=== PATIENT | male | born 1955 | race Caucasian/White ===

== ENCOUNTER 2016-02-22 15:33 | Inpatient (IN) | payer MEDICARE, OTHER ==
[~2016-02-22] VITALS: Ht 188 cm; Wt 68.6 kg
[~2016-02-22 15:33] MED LIST: FOLI5CAP PO; LISI-515 PO; METO25TA3 PO; MULTTAB67 PO; QUET5TAB PO
[2016-02-22 15:37] VITALS: BP 132/97; PULSE 106; RESP 14; TEMP 98.4; O2SAT 97
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
[2016-02-22 18:36] LABS: AUTOMATED NEUTROPHIL # 7.1 TH/MM3 (1.8-7.7); BASOPHIL # 0.1 TH/MM3 (0-0.2); BASOPHIL % 0.5 % (0.0-2.0); EOSINOPHIL # 0.1 TH/MM3 (0-0.4); EOSINOPHIL % 0.6 % (0.0-4.0); HEMO FLAGS DIFF FINAL; LYMPH % 24.1 % (9.0-44.0); LYMPHOCYTE # 2.6 TH/MM3 (1.0-4.8); MEAN CELL VOLUME 93.7 FL (80.0-100.0); MEAN CORPUSCULAR HEMOGLOBIN 31.2 PG (27.0-34.0); MEAN CORPUSCULAR HGB CONC 33.3 % (32.0-36.0); MONO % 8.6 % (0.0-8.0); NEUT % 66.2 % (16.0-70.0); PLATELET COUNT 301 TH/MM3 (150-450); RED BLOOD COUNT 4.37 MIL/MM3 (4.50-5.90); RED CELL DISTRIBUTION WIDTH 17.8 % (11.6-17.2); WHITE BLOOD COUNT 10.7 TH/MM3 (4.0-11.0)
[2016-02-22] MEDS ORDERED: ACETAMINOPHEN 325 MG TAB PO ONE (18:45)
[2016-02-22 18:46] LABS: AMPHETAMINE, URINE NEG (NEG); BARBITURATES, URINE NEG (NEG); COCAINE, URINE POS (NEG)
[2016-02-22 19:12] LABS: ANION GAP 12 MEQ/L (5-15)
[2016-02-22 19:16] LABS: ALKALINE PHOSPHATASE 164 U/L (45-117); ALT (GPT) 74 U/L (12-78); AST (GOT) 89 U/L (15-37); BICARBONATE 25.3 MEQ/L (21.0-32.0); BLOOD UREA NITROGEN 6 MG/DL (7-18); CHLORIDE 100 MEQ/L (98-107); GLOMERULAR FILTRATION RATE 98 ML/MIN (>89); POTASSIUM 3.3 MEQ/L (3.5-5.1); SODIUM (NA) 137 MEQ/L (136-145); TOTAL BILIRUBIN ADULT 0.7 MG/DL (0.2-1.0)
[2016-02-22 19:27] LABS: ACETAMINOPHEN LESS THAN 2.0 MCG/ML (10.0-30.0)
[2016-02-22] MEDS ORDERED: POTASSIUM CHLORIDE 20 MEQ CONTROLLED RELEASE TAB PO ONE (19:30)
[2016-02-22 19:50] VITALS: BP 124/90; PULSE 100; RESP 14; O2SAT 99
[2016-02-22 20:55] VITALS: BP 128/94; PULSE 99; RESP 16; O2SAT 98
[2016-02-23] VITALS (8 sets, daily range): BP systolic 132–169; BP diastolic 11–90; PULSE 75–92; RESP 14–22; TEMP 96.3–98.3; O2SAT 94–99
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
[2016-02-23] MEDS ORDERED: MAGNESIUM HYDROXIDE SUSP 30 ML CUP PO PRN (16:30)
[2016-02-23] MEDS ORDERED: ALUMINUM/MAGNESIUM/SIMETH 30 ML CUP PO PRN (16:30)
[2016-02-23] MEDS ORDERED: FLUMAZENIL 1 MG/10 ML VIAL IV PUSH PRN (16:45)
[2016-02-23] MEDS ORDERED: LORazepam 2 MG/ML VIAL IV PUSH PRN ×4 (16:45)
[2016-02-23] MEDS: buPROPion HCL 100 MG SUSTAINED RELEASE TAB PO SCH (21:28)
[2016-02-23] MEDS: traZODone HCL 100 MG TAB PO SCH (21:28)
[2016-02-23] MEDS: LORazepam 2 MG TAB PO PRN (21:28)
[2016-02-24 05:34] VITALS: BP 110/71; PULSE 67; RESP 16; TEMP 98.1
[2016-02-24] MEDS ORDERED: cloNIDine HCL 0.1 MG TAB PO PRN (08:00)
[2016-02-24 08:46] LABS: ANION GAP 12 MEQ/L (5-15); BICARBONATE 22.6 MEQ/L (21.0-32.0); CHLORIDE 110 MEQ/L (98-107); GLOMERULAR FILTRATION RATE 108 ML/MIN (>89); HDL CHOLESTEROL 118.5 MG/DL (40.0-60.0); LDL CHOLESTEROL 58 MG/DL (0-99); POTASSIUM 4.2 MEQ/L (3.5-5.1); SODIUM (NA) 145 MEQ/L (136-145)
[2016-02-24 08:47] LABS: BLOOD UREA NITROGEN 14 MG/DL (7-18)
[2016-02-24] MEDS: REMOVE OLD NICODERM (NICOTINE) PATCH TD SCH (09:00)
[2016-02-24] MEDS: NICOTINE 21 MG/24 HR PATCH T-DERMAL SCH (09:00)
[2016-02-24] MEDS: chlordiazePOXIDE 25 MG CAP PO SCH ×3 (09:35→17:18)
[2016-02-24] MEDS: buPROPion HCL 100 MG SUSTAINED RELEASE TAB PO SCH ×2 (09:35→21:06)
[2016-02-24 11:33] VITALS: BP 127/81; PULSE 81; RESP 16; O2SAT 96
[2016-02-24] MEDS: LORazepam 1 MG TAB PO PRN (11:57)
--- NOTE | 2016-02-24 14:02 | HHI.PYPN ---
Subjective Remarks Patient was seen and case discussed with nursing. Patient is pleasant and cooperative with exam. Mood remains depressed and hopeless towards the future. Does deny suicidal thoughts and contracts for safety. He says just recently he was trying to drink himself to and when that did not work his plan was to cut himself razor blades that he has at home. Patient lives by himself. Nursing is doing the CIWA scale OR score was 11. He continues to be an alcohol detox protocol. Alert and oriented 4. Mild upper extremity tremors. Objective Alert: Yes [place]: Person, Place, Date Mood: Depressed Affect: Restricted Memory Intact: Immediate (Not impaired) Hallucinations: Other (deneis any) Delusions: No Delusion Type: Other (denies) Suicidal: Intent, Plan (to use razor blades) Homicidal: Ideation (denies any) Insight/Judgement Fair Labs Test 02/24/16 07:20 Sodium Level 145 MEQ/L Potassium Level 4.2 MEQ/L Chloride Level 110 MEQ/L Carbon Dioxide Level 22.6 MEQ/L Anion Gap 12 MEQ/L Blood Urea Nitrogen 14 MG/DL Creatinine 0.74 MG/DL Estimat Glomerular Filtration 108 ML/MIN Rate Random Glucose 91 MG/DL Calcium Level 9.4 MG/DL Triglycerides Level 66 MG/DL Cholesterol Level 190 MG/DL LDL Cholesterol 58 MG/DL HDL Cholesterol 118.5 MG/DL Cholesterol/HDL Ratio 1.60 RATIO Vitals/IOs Vital Signs Date Time Temp Pulse Resp B/P Pulse Ox O2 Delivery O2 Flow Rate FiO2 02/24/16 11:33 81 16 127/81 96 02/24/16 05:34 98.1 02/23/16 14:37 Room Air Intake and Output 02/23/16 02/23/16 02/24/16 08:00 16:00 00:00 Output Total 250 ml Balance -250 ml Assessment & Plan Problem List: (1) Alcohol dependence with alcohol-induced mood disorder ICD Code: F10.24 Assessment & Plan Continue current treatment plan Justification for Cont. Inpt. Cannot contract for safety at this time Request HC Surrog/Guard Advoc?: No Giuseppe Martin DO Feb 24, 2016 14:02
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
[2016-02-24 17:07] VITALS: BP 126/69; PULSE 70; RESP 17; TEMP 98.6; O2SAT 97
[2016-02-24 18:29] VITALS: BP 126/69; PULSE 70; RESP 17; TEMP 98.6; O2SAT 97
[2016-02-24] MEDS: LORazepam 2 MG TAB PO PRN (21:02)
[2016-02-24] MEDS: traZODone HCL 100 MG TAB PO SCH (21:06)
[2016-02-24] MEDS: BACITRACIN TOP OINT 15 GM TUBE TOP SCH (21:59)
[2016-02-25] MEDS: LORazepam 1 MG TAB PO PRN ×3 (00:41→13:37)
[2016-02-25 05:53] VITALS: BP 131/83; PULSE 68; RESP 16; TEMP 97.3
[2016-02-25 06:16] VITALS: BP 131/83; PULSE 68; RESP 16; TEMP 97.3
[2016-02-25] MEDS: NICOTINE 21 MG/24 HR PATCH T-DERMAL SCH (09:00)
[2016-02-25] MEDS: REMOVE OLD NICODERM (NICOTINE) PATCH TD SCH (09:00)
[2016-02-25] MEDS: buPROPion HCL 100 MG SUSTAINED RELEASE TAB PO SCH ×2 (09:23→21:12)
[2016-02-25] MEDS: chlordiazePOXIDE 25 MG CAP PO SCH ×3 (09:23→17:31)
[2016-02-25] MEDS: BACITRACIN TOP OINT 15 GM TUBE TOP SCH ×2 (09:24→21:00)
--- NOTE | 2016-02-25 10:13 | HHI.PR ---
Subjective Remarks Follow up ETOH withdraw Patient awoken from sleep noted to have mild BUE tremors Continues to feel generalized weakness with some nausea no vomiting or diarrhea denies CP, SOB Objective Vitals Vital Signs Date Time Temp Pulse Resp B/P Pulse Ox O2 Delivery O2 Flow Rate FiO2 02/25/16 06:16 97.3 68 16 131/83 02/25/16 05:53 97.3 68 16 131/83 02/24/16 18:29 98.6 70 17 126/69 97 02/24/16 17:07 98.6 70 17 126/69 97 02/24/16 11:33 81 16 127/81 96 Result Diagram: 02/22/16 1750 02/24/16 0720 Objective Remarks GENERAL: This is a thin, well-developed patient, with bilateral upper extremity tremors SKIN: multiple abrasions bilateral knees and forearms in various stages of healing. Abrasion/wound left anterior becker with purulent drainage noted HEAD: Atraumatic. Normocephalic. No temporal or scalp tenderness. EYES: Extraocular motions intact. No scleral icterus. No injection or drainage. ENT: Nose without bleeding, purulent drainage or septal hematoma. Throat without erythema, tonsillar hypertrophy or exudate. Uvula midline. Airway patent. NECK: Trachea midline. No JVD or lymphadenopathy. Supple, nontender, no meningeal signs. CARDIOVASCULAR: Regular rate and rhythm without murmurs, gallops, or rubs. RESPIRATORY: Clear to auscultation. Breath sounds equal bilaterally. No wheezes , rales, or rhonchi. GASTROINTESTINAL: Abdomen soft, non-tender, nondistended. No hepato-splenomegaly , or palpable masses. No guarding. MUSCULOSKELETAL: Extremities without clubbing, cyanosis, or edema. No joint tenderness, effusion, or edema noted. No calf tenderness. Negative Homans sign bilaterally. Contracted third and fourth digit bilateral hands with ulnar deviation noted consistent with RA NEUROLOGICAL: Awake and alert. Motor and sensory grossly within normal limits. 4 out of 5 muscle strength in all muscle groups. with mild BUE tremors A/P Assessment and Plan This a 60-year-old male patient with past medical history includes hypertension hepatitis C chronic pancreatitis and rheumatoid arthritis. Patient reports he is posted take medication for his rheumatoid arthritis but has not been taking anything. Patient is currently inpatient psychiatric services we have been consulted for assistance with management of EtOH withdrawal. Patient reports he drinks approximally 18 beers plus liquor every each day for the past year. Patient does report he feels anxious but there is no visual tremors at this time. Patient also voices concern that he has either lower extremity edema and has had frequent falls and there are multiple abrasions bilateral knees and forearms in various stages of healing. Abrasion/wound left anterior becker with purulent drainage noted. EtOH withdrawal continue Cipro protocol at [facility] 25 mg 3 times a day as needed noted to be tremulous asked RN to give ativan- continue CIWA protocol Monitor patient closely for signs of EtOH withdrawal Hypokalemia- resolved 3.3 replaced recheck 4.2 Small wound left anterior becker with purulent drainage- no erythema noted apply Bactroban topically Continue to monitor for signs and symptoms of infection Polysubstance abuse patient counseled on the health risk he is encouraged to abstain Alcoholic mood disorder. Management by psychiatric services Weakness bilateral lower extremities consult physical therapy DVT prophylaxis encourage early ambulation Discussed with patient RN and Fani Linares Feb 25, 2016 10:13
[2016-02-25 11:00] VITALS: BP 120/79; PULSE 89; O2SAT 97
[2016-02-25 11:18] LABS: HEMOGLOBIN A1a 1.9 %; HEMOGLOBIN A1b 0.8 %; HEMOGLOBIN Ao 85.6 %; HEMOGLOBIN F 0.6 %; HEMOGLOBIN LA1C 1.9 %; HEMOGLOBIN P3 3.4 %
--- NOTE | 2016-02-25 15:37 | HHI.PYPN ---
Subjective Remarks Patient was seen and case discussed with nursing. Hasn't and cooperative with exam. Continues to have mild tremor of upper extremities. Patient does not have any auditory visual hallucinations. He is alert and oriented 3. No confusion. Describes his mood as hopeless for the future passive suicidal ideation area chief complaint today is poor sleep Objective Alert: Yes [place]: Person, Place, Date Mood: Depressed Affect: Restricted Memory Intact: Immediate (Not impaired) Hallucinations: Other (deneis any) Delusions: No Delusion Type: Other (denies) Suicidal: Intent, Plan (to use razor blades) Homicidal: Ideation (denies any) Insight/Judgement Fair Vitals/IOs Vital Signs Date Time Temp Pulse Resp B/P Pulse Ox O2 Delivery O2 Flow Rate FiO2 02/25/16 06:16 97.3 68 16 131/83 02/24/16 18:29 97 02/23/16 14:37 Room Air Assessment & Plan Problem List: (1) Alcohol dependence with alcohol-induced mood disorder ICD Code: F10.24 Assessment & Plan Increase trazodone to 200mg daily at bedtime Justification for Cont. Inpt. Unable to contract for safety Request HC Surrog/Guard Advoc?: No Giuseppe Martin DO Feb 25, 2016 15:36
[2016-02-25 18:35] VITALS: BP 132/79; PULSE 76; RESP 18; TEMP 98.1; O2SAT 98
[2016-02-25] MEDS: traZODone HCL 100 MG TAB PO SCH (21:12)
[2016-02-26 06:02] VITALS: BP 115/58; PULSE 69; RESP 16; TEMP 97.9
[2016-02-26] MEDS: REMOVE OLD NICODERM (NICOTINE) PATCH TD SCH (09:00)
[2016-02-26] MEDS: chlordiazePOXIDE 25 MG CAP PO SCH ×2 (09:25→12:11)
[2016-02-26] MEDS: buPROPion HCL 100 MG SUSTAINED RELEASE TAB PO SCH ×2 (09:25→22:01)
[2016-02-26] MEDS: BACITRACIN TOP OINT 15 GM TUBE TOP SCH ×2 (09:25→22:01)
[2016-02-26] MEDS: NICOTINE 21 MG/24 HR PATCH T-DERMAL SCH (09:26)
[2016-02-26] MEDS: LORazepam 1 MG TAB PO PRN ×2 (09:34→15:24)
--- NOTE | 2016-02-26 11:10 | HHI.PYPN ---
Subjective Remarks Patient was seen and discussed custody with the staff design engineer. He complains of leg pain and not being able to walk for a long time. He stands up for a while. He does admit to feeling hopeless and helpless but feels safe in the hospital. He wants to quit abusing alcohol. He does admit to occasionally hearing voices and feeling dizzy and going through some withdrawal with tremors. No behavior or management problem reported. He was advised to abstain from any alcohol use and her abuse upon discharge. And join AA. Continue with the same treatment. Review of Systems Psychiatric: COMPLAINS OF: Anxiety, Mood changes, Depression, Hallucinations Other Review of systems same as that of 02/24/16 Objective Alert: Yes [place]: Person, Place, Date Mood: Anxious, Depressed Affect: Restricted Memory Intact: Immediate (Not impaired), Recent (mildly impaired) Hallucinations: Other (admitted to occasionally hearing voices) Delusions: No Delusion Type: Other (guarded) Suicidal: Ideation (patient feels safe in the hospital but has thoughts of wanting to end his life crosses his mind) Homicidal: Ideation (denies any) Insight/Judgement Limited Vitals/IOs Vital Signs Date Time Temp Pulse Resp B/P Pulse Ox O2 Delivery O2 Flow Rate FiO2 02/26/16 06:02 97.9 69 16 115/58 02/25/16 18:35 98 02/23/16 14:37 Room Air Assessment & Plan Problem List: (1) Alcohol dependence with alcohol-induced mood disorder ICD Code: F10.24 Assessment & Plan Estimated LOS: days Justification for Cont. Inpt. Monitoring of the medication stabilization. Watching any alcohol withdrawal symptoms. And it is for safety Request HC Surrog/Guard Advoc?: No Francisco Javier Merlos MD Feb 26, 2016 11:10
--- NOTE | 2016-02-26 17:03 | HHI.PR ---
Subjective Remarks Follow up ETOH withdraw Patient was evaluated in wheelchair in psychiatric inpatient Continues to feel generalized weakness with some anxiety denies CP, SOB Objective Vitals Vital Signs Date Time Temp Pulse Resp B/P Pulse Ox O2 Delivery O2 Flow Rate FiO2 02/26/16 06:02 97.9 69 16 115/58 02/25/16 18:35 98.1 76 18 132/79 98 Result Diagram: 02/22/16 1750 02/24/16 0720 Objective Remarks GENERAL: This is a thin, well-developed patient, with bilateral upper extremity tremors- improving SKIN: multiple abrasions bilateral knees and forearms in various stages of healing. Abrasion/wound left anterior becker with purulent drainage noted HEAD: Atraumatic. Normocephalic. No temporal or scalp tenderness. EYES: Extraocular motions intact. No scleral icterus. No injection or drainage. ENT: Nose without bleeding, purulent drainage or septal hematoma. Throat without erythema, tonsillar hypertrophy or exudate. Uvula midline. Airway patent. NECK: Trachea midline. No JVD or lymphadenopathy. Supple, nontender, no meningeal signs. CARDIOVASCULAR: Regular rate and rhythm without murmurs, gallops, or rubs. RESPIRATORY: Clear to auscultation. Breath sounds equal bilaterally. No wheezes , rales, or rhonchi. GASTROINTESTINAL: Abdomen soft, non-tender, nondistended. No hepato-splenomegaly , or palpable masses. No guarding. MUSCULOSKELETAL: Extremities without clubbing, cyanosis, or edema. No joint tenderness, effusion, or edema noted. No calf tenderness. Negative Homans sign bilaterally. Contracted third and fourth digit bilateral hands with ulnar deviation noted consistent with RA NEUROLOGICAL: Awake and alert. Motor and sensory grossly within normal limits. 4 out of 5 muscle strength in all muscle groups. with mild BUE tremors- improving A/P Assessment and Plan This a 60-year-old male patient with past medical history includes hypertension hepatitis C chronic pancreatitis and rheumatoid arthritis. Patient reports he is posted take medication for his rheumatoid arthritis but has not been taking anything. Patient is currently inpatient psychiatric services we have been consulted for assistance with management of EtOH withdrawal. Patient reports he drinks approximally 18 beers plus liquor every each day for the past year. Patient does report he feels anxious but there is no visual tremors at this time. Patient also voices concern that he has either lower extremity edema and has had frequent falls and there are multiple abrasions bilateral knees and forearms in various stages of healing. Abrasion/wound left anterior becker with purulent drainage noted. EtOH withdrawal continue [facility] protocol decrease Librium 10 mg 3 times a day Bilateral upper extremities tremor improving Monitor patient closely for signs of EtOH withdrawal Hypokalemia-improved Small wound left anterior becker with purulent drainage- no erythema noted Small and abrasion right hand fifth digit-mild localized erythema noted apply Bactroban topically Continue to monitor for signs and symptoms of infection Polysubstance abuse patient counseled on the health risk he is encouraged to abstain Alcoholic mood disorder. Management by psychiatric services Weakness bilateral lower extremities consult physical therapy Discussed with patient RN Written by Fani Willis, acting as scribe for Dr. Mckenzie on 02/26/16 at 17:02. The documentation accurately reflects the work performed [id number] by me on 02/26/16 at 17:02 Fani Willis Feb 26, 2016 17:03 Lex Mckenzie MD Feb 26, 2016 23:59
[2016-02-26 20:12] VITALS: BP 134/80; PULSE 75; RESP 17; TEMP 97.5; O2SAT 98
[2016-02-26] MEDS: traZODone HCL 100 MG TAB PO SCH (22:01)
[2016-02-27] MEDS: LORazepam 1 MG TAB PO PRN ×2 (00:07→06:28)
[2016-02-27 06:16] VITALS: BP 127/76; PULSE 77; RESP 18; TEMP 98; O2SAT 100
[2016-02-27] MEDS: ACETAMINOPHEN 325 MG TAB PO PRN (06:28)
[2016-02-27] MEDS ORDERED: FLUMAZENIL 1 MG/10 ML VIAL IV PUSH PRN (08:45)
[2016-02-27] MEDS: NICOTINE 21 MG/24 HR PATCH T-DERMAL SCH (08:59)
[2016-02-27] MEDS: REMOVE OLD NICODERM (NICOTINE) PATCH TD SCH (08:59)
[2016-02-27] MEDS: buPROPion HCL 100 MG SUSTAINED RELEASE TAB PO SCH (09:00)
[2016-02-27] MEDS: BACITRACIN TOP OINT 15 GM TUBE TOP SCH ×2 (09:00→21:00)
[2016-02-27] MEDS: FOLIC ACID 1 MG TAB PO SCH (09:02)
[2016-02-27] MEDS: THIAMINE HCL 100 MG TAB PO SCH (09:03)
[2016-02-27] MEDS: MULTIVITAMINS/MINERALS THERAPEUTIC TAB PO SCH (09:03)
--- NOTE | 2016-02-27 10:47 | HHI.PYPN ---
Subjective Remarks Patient was seen and discussed with the medical staff credentialing coordinator. Patient reported that he has not been feeling well. He has been having trouble sleeping. Complains of pain in his leg and not being able to walk. He is using the wheelchair. He also complains of feeling anxious nervous and wants more Ativan but he could be reassured. No behavior or management problem reported. He was encouraged to participate in all the therapeutic activity on the floor. No side effects were complained. He is compliant in taking medication. Continue with the same treatment. mountain services manager to assist him. Review of Systems Psychiatric: COMPLAINS OF: Anxiety, Mood changes, Depression Other Review of systems same as that of 02/24/16 Objective Alert: Yes [place]: Person, Place, Date Mood: Anxious, Depressed Affect: Restricted Memory Intact: Immediate (Not impaired), Recent (mildly impaired) Hallucinations: Other (admitted to occasionally hearing voices) Delusions: No Delusion Type: Other (guarded) Suicidal: Ideation (patient denied any suicidal ideation intentions or plan) Homicidal: Ideation (denies any) Insight/Judgement Fair Remarks Attention and concentration improving. Patient is using the wheelchair. Language normal. Fund of knowledge average Vitals/IOs Vital Signs Date Time Temp Pulse Resp B/P Pulse Ox O2 Delivery O2 Flow Rate FiO2 02/27/16 06:16 98.0 77 18 127/76 100 02/23/16 14:37 Room Air Assessment & Plan Problem List: (1) Alcohol dependence with alcohol-induced mood disorder ICD Code: F10.24 Assessment & Plan Estimated LOS: days Justification for Cont. Inpt. Monitoring of the medication for the stabilization of his mood. Watching for any alcohol withdrawal symptoms in treating accordingly. Request HC Surrog/Guard Advoc?: No Francisco Javier Merlos MD Feb 27, 2016 10:47
[2016-02-27 20:05] VITALS: BP 135/79; PULSE 78; RESP 18; TEMP 98.1; O2SAT 97
[2016-02-27] MEDS: buPROPion HCL 150 MG SUSTAINED RELEASE TAB PO SCH (21:09)
[2016-02-27] MEDS: traZODone HCL 100 MG TAB PO SCH (21:10)
[2016-02-28 06:17] VITALS: BP 116/62; PULSE 74; RESP 18; TEMP 97.7; O2SAT 100
[2016-02-28] MEDS: MULTIVITAMINS/MINERALS THERAPEUTIC TAB PO SCH (08:48)
[2016-02-28] MEDS: FOLIC ACID 1 MG TAB PO SCH (08:48)
[2016-02-28] MEDS: buPROPion HCL 150 MG SUSTAINED RELEASE TAB PO SCH ×2 (08:48→20:38)
[2016-02-28] MEDS: NICOTINE 21 MG/24 HR PATCH T-DERMAL SCH (08:48)
[2016-02-28] MEDS: THIAMINE HCL 100 MG TAB PO SCH (08:48)
[2016-02-28] MEDS: BACITRACIN TOP OINT 15 GM TUBE TOP SCH ×2 (08:49→20:38)
[2016-02-28] MEDS: REMOVE OLD NICODERM (NICOTINE) PATCH TD SCH (08:49)
--- NOTE | 2016-02-28 10:40 | HHI.PR ---
Subjective Remarks Follow up ETOH withdraw Patient was evaluated in wheelchair in psychiatric inpatient Continues to feel generalized weakness, less anxiety. not tremulous at this time denies CP, SOB Objective Vitals Vital Signs Date Time Temp Pulse Resp B/P Pulse Ox O2 Delivery O2 Flow Rate FiO2 02/28/16 06:17 97.7 74 18 116/62 100 02/27/16 20:05 98.1 78 18 135/79 97 I/O 02/27/16 02/27/16 02/27/16 02/28/16 02/28/16 02/28/16 07:00 15:00 23:00 07:00 15:00 23:00 Intake Total 360 ml Balance 360 ml Intake Oral 360 ml Result Diagram: 02/24/16 0720 Objective Remarks GENERAL: This is a thin, well-developed patient, with bilateral upper extremity tremors- improved SKIN: multiple abrasions bilateral knees and forearms in various stages of healing. Abrasion/wound left anterior becker healing HEAD: Atraumatic. Normocephalic. No temporal or scalp tenderness. EYES: Extraocular motions intact. No scleral icterus. No injection or drainage. ENT: Nose without bleeding, purulent drainage or septal hematoma. Throat without erythema, tonsillar hypertrophy or exudate. Uvula midline. Airway patent. NECK: Trachea midline. No JVD or lymphadenopathy. Supple, nontender, no meningeal signs. CARDIOVASCULAR: Regular rate and rhythm without murmurs, gallops, or rubs. RESPIRATORY: Clear to auscultation. Breath sounds equal bilaterally. No wheezes , rales, or rhonchi. GASTROINTESTINAL: Abdomen soft, non-tender, nondistended. No hepato-splenomegaly , or palpable masses. No guarding. MUSCULOSKELETAL: Extremities without clubbing, cyanosis, or edema. No joint tenderness, effusion, or edema noted. No calf tenderness. Negative Homans sign bilaterally. Contracted third and fourth digit bilateral hands with ulnar deviation noted consistent with RA NEUROLOGICAL: Awake and alert. Motor and sensory grossly within normal limits. 4 out of 5 muscle strength in all muscle groups. with mild BUE tremors- improved A/P Assessment and Plan This a 60-year-old male patient with past medical history includes hypertension hepatitis C chronic pancreatitis and rheumatoid arthritis. Patient reports he is posted take medication for his rheumatoid arthritis but has not been taking anything. Patient is currently inpatient psychiatric services we have been consulted for assistance with management of EtOH withdrawal. Patient reports he drinks approximally 18 beers plus liquor every each day for the past year. Patient does report he feels anxious but there is no visual tremors at this time. Patient also voices concern that he has either lower extremity edema and has had frequent falls and there are multiple abrasions bilateral knees and forearms in various stages of healing. Abrasion/wound left anterior becker with purulent drainage noted. EtOH withdrawal continue [facility] protocol change Librium to 10 mg TID as needed Bilateral upper extremities tremor improved Monitor patient for signs of EtOH withdrawal Hypokalemia-improved Small wound left anterior becker with purulent drainage- no erythema noted- healing Small and abrasion right hand fifth digit-mild localized erythema noted- healing apply Bactroban topically Continue to monitor for signs and symptoms of infection Polysubstance abuse patient counseled on the health risk he is encouraged to abstain Alcoholic mood disorder. Management by psychiatric services Weakness bilateral lower extremities consult physical therapy Discussed with patient RN Patient appears medically stable will sign off, if patient's condition changes or if further assistance is needed please reconsult Fani Willis Feb 28, 2016 10:40 Anthony Balderrama MD Feb 28, 2016 16:45
--- NOTE | 2016-02-28 11:15 | HHI.PYPN ---
Subjective Remarks Patient was seen and discussed with the rn staff. Patient complained about feeling depressed frustrated weak not being able to walk and using the wheelchair he was encouraged to participate in all the therapeutic activity. Patient denied any suicidal ideation intentions or plan. No behavior or management problem reported advised to continue with the same treatment Review of Systems Psychiatric: COMPLAINS OF: Anxiety, Mood changes, Depression Other Review of systems same as that of 02/24/16 Objective Alert: Yes [place]: Person, Place, Date Mood: Anxious, Depressed Affect: Restricted Memory Intact: Immediate (Not impaired), Recent (mildly impaired) Hallucinations: Other (admitted to occasionally hearing voices) Delusions: No Delusion Type: Other (guarded) Suicidal: Ideation (patient denied any suicidal ideation intentions or plan) Homicidal: Ideation (denies any) Insight/Judgement Fair to limited Remarks Attention and concentration improving. Patient uses wheelchair. Language normal. Fund of knowledge average Vitals/IOs Vital Signs Date Time Temp Pulse Resp B/P Pulse Ox O2 Delivery O2 Flow Rate FiO2 02/28/16 06:17 97.7 74 18 116/62 100 Intake and Output 02/27/16 02/27/16 02/28/16 08:00 16:00 00:00 Intake Total 360 ml Balance 360 ml Assessment & Plan Problem List: (1) Alcohol dependence with alcohol-induced mood disorder ICD Code: F10.24 Assessment & Plan Estimated LOS: days Justification for Cont. Inpt. Monitor and titrate the medication to stabilize patient on the medication. Request HC Surrog/Guard Advoc?: No Francisco Javier Merlos MD Feb 28, 2016 11:15
[2016-02-28 18:40] VITALS: BP 136/78; PULSE 72; RESP 18; TEMP 98.1; O2SAT 100
[2016-02-28] MEDS: LORazepam 1 MG TAB PO PRN (20:38)
[2016-02-28] MEDS: traZODone HCL 100 MG TAB PO SCH (20:38)
[2016-02-29 06:09] VITALS: BP 117/71; PULSE 77; RESP 18; TEMP 98.2
[2016-02-29] MEDS: REMOVE OLD NICODERM (NICOTINE) PATCH TD SCH (09:00)
[2016-02-29] MEDS: BACITRACIN TOP OINT 15 GM TUBE TOP SCH ×2 (09:00→20:47)
[2016-02-29] MEDS: THIAMINE HCL 100 MG TAB PO SCH (09:43)
[2016-02-29] MEDS: MULTIVITAMINS/MINERALS THERAPEUTIC TAB PO SCH (09:43)
[2016-02-29] MEDS: buPROPion HCL 150 MG SUSTAINED RELEASE TAB PO SCH ×2 (09:43→20:47)
[2016-02-29] MEDS: FOLIC ACID 1 MG TAB PO SCH (09:43)
[2016-02-29] MEDS: NICOTINE 21 MG/24 HR PATCH T-DERMAL SCH (09:47)
--- NOTE | 2016-02-29 09:51 | HHI.PYPN ---
Subjective Remarks Patient was seen and discussed with the staff forester. Patient has been in the wheelchair. Feels weak and shaky but better than before. Denied any suicidal ideation intentions or plan. Denied any active auditory or visual hallucinations. No side effects were complained. Continue with the same treatment. Review of Systems Psychiatric: COMPLAINS OF: Anxiety, Mood changes, Depression Other Review of systems same as that of 02/24/16 Objective Alert: Yes [place]: Person, Place, Date Mood: Anxious, Depressed Affect: Restricted Memory Intact: Immediate (Not impaired), Recent (mildly impaired) Hallucinations: Other (admitted to occasionally hearing voices) Delusions: No Delusion Type: Other (guarded) Suicidal: Ideation (patient denied any suicidal ideation intentions or plan) Homicidal: Ideation (denies any) Insight/Judgement Fair Vitals/IOs Vital Signs Date Time Temp Pulse Resp B/P Pulse Ox O2 Delivery O2 Flow Rate FiO2 02/29/16 06:09 98.2 77 18 117/71 02/28/16 18:40 100 Assessment & Plan Problem List: (1) Alcohol dependence with alcohol-induced mood disorder ICD Code: F10.24 Assessment & Plan Estimated LOS: days Justification for Cont. Inpt. Monitoring the medication watching for any withdrawal symptoms till patient stabilizes Request HC Surrog/Guard Advoc?: No Francisco Javier Merlos MD Feb 29, 2016 09:51
[2016-02-29] MEDS: LORazepam 1 MG TAB PO PRN ×3 (10:20→20:47)
[2016-02-29 19:48] VITALS: BP 148/81; PULSE 79; RESP 20; TEMP 98.7; O2SAT 95
[2016-02-29] MEDS: traZODone HCL 100 MG TAB PO SCH (20:47)
[2016-03-01 05:40] VITALS: BP 136/71; PULSE 75; RESP 18; TEMP 97.9; O2SAT 96
[2016-03-01] MEDS: buPROPion HCL 150 MG SUSTAINED RELEASE TAB PO SCH ×2 (08:33→21:11)
[2016-03-01] MEDS: MULTIVITAMINS/MINERALS THERAPEUTIC TAB PO SCH (08:33)
[2016-03-01] MEDS: BACITRACIN TOP OINT 15 GM TUBE TOP SCH ×2 (08:33→21:00)
[2016-03-01] MEDS: THIAMINE HCL 100 MG TAB PO SCH (08:33)
[2016-03-01] MEDS: FOLIC ACID 1 MG TAB PO SCH (08:33)
[2016-03-01] MEDS: NICOTINE 21 MG/24 HR PATCH T-DERMAL SCH (08:35)
[2016-03-01] MEDS: REMOVE OLD NICODERM (NICOTINE) PATCH TD SCH (08:38)
--- NOTE | 2016-03-01 08:58 | HHI.PYPN ---
Subjective Remarks Patient was seen and discussed with the staff electrical engineer. Patient reported that he has not been feeling well he feels anxious nervous worried he is using the wheelchair he also complains of feeling weak and not able to walk. He was encouraged to participate in all the therapeutic activity on the floor. Denied any suicidal ideation intentions or plan. Denied any auditory or visual hallucinations. Review of Systems Psychiatric: COMPLAINS OF: Anxiety, Mood changes, Depression Other Review of systems same as that of 02/24/16 Objective Alert: Yes [place]: Person, Place, Date Mood: Anxious, Depressed Affect: Restricted Memory Intact: Immediate (Not impaired), Recent (mildly impaired) Hallucinations: Other (admitted to occasionally hearing voices) Delusions: No Delusion Type: Other (guarded) Suicidal: Ideation (patient denied any suicidal ideation intentions or plan) Homicidal: Ideation (denies any) Insight/Judgement Fair to limited Remarks Attention and concentration improving. Patient uses wheelchair. Language normal. Fund of knowledge average Vitals/IOs Vital Signs Date Time Temp Pulse Resp B/P Pulse Ox O2 Delivery O2 Flow Rate FiO2 03/01/16 05:40 97.9 75 18 136/71 96 Assessment & Plan Problem List: (1) Alcohol dependence with alcohol-induced mood disorder ICD Code: F10.24 Assessment & Plan Estimated LOS: days Justification for Cont. Inpt. Monitoring of the medication and titrating the medication to stabilize the patient. And observe for any withdrawal symptoms and treat accordingly Request HC Surrog/Guard Advoc?: No Francisco Javier Merlos MD Mar 01, 2016 08:58
[2016-03-01] MEDS: LORazepam 1 MG TAB PO PRN ×3 (14:04→21:10)
[2016-03-01 19:35] VITALS: BP 116/69; PULSE 73; RESP 18; TEMP 98.1; O2SAT 99
[2016-03-01] MEDS: traZODone HCL 100 MG TAB PO SCH (21:10)
[2016-03-02 06:16] VITALS: BP 119/78; PULSE 78; RESP 17; TEMP 97.5; O2SAT 95
[2016-03-02] MEDS: REMOVE OLD NICODERM (NICOTINE) PATCH TD SCH (09:00)
[2016-03-02] MEDS: FOLIC ACID 1 MG TAB PO SCH (09:05)
[2016-03-02] MEDS: THIAMINE HCL 100 MG TAB PO SCH (09:05)
[2016-03-02] MEDS: MULTIVITAMINS/MINERALS THERAPEUTIC TAB PO SCH (09:05)
[2016-03-02] MEDS: NICOTINE 21 MG/24 HR PATCH T-DERMAL SCH (09:06)
[2016-03-02] MEDS: BACITRACIN TOP OINT 15 GM TUBE TOP SCH ×2 (09:06→21:00)
[2016-03-02] MEDS: buPROPion HCL 150 MG SUSTAINED RELEASE TAB PO SCH ×2 (09:07→21:56)
--- NOTE | 2016-03-02 14:20 | HHI.PYPN ---
Subjective Remarks Patient seen in day room with nurse Kirti, sitting in wheelchair, complaining of pain though he appears quite comfortable. States this is some history med seeking with this man. For now continue treatment no change Review of Systems Other No change since 02/23 Objective Alert: Yes [place]: Person, Place, Date Mood: Anxious, Depressed Affect: Restricted Memory Intact: Immediate (Not impaired), Recent (mildly impaired) Hallucinations: Other (admitted to occasionally hearing voices) Delusions: No Delusion Type: Other (guarded) Suicidal: Ideation (patient denied any suicidal ideation intentions or plan) Homicidal: Ideation (denies any) Insight/Judgement Poor Vitals/IOs Vital Signs Date Time Temp Pulse Resp B/P Pulse Ox O2 Delivery O2 Flow Rate FiO2 03/02/16 06:16 97.5 78 17 119/78 95 Assessment & Plan Problem List: (1) Alcohol dependence with alcohol-induced mood disorder ICD Code: F10.24 Assessment & Plan Estimated LOS: days patient sitting in wheelchair complaining of pain more towards his legs, compliant medications, at times appears to be somewhat drug- seeking Justification for Cont. Inpt. At this time patient will decompensate at a lower level of care Discharge Planning To be determined Request HC Surrog/Guard Advoc?: No Vikas Molina MD Mar 02, 2016 14:20
[2016-03-02 18:19] VITALS: BP 129/84; PULSE 69; RESP 18; TEMP 97.8; O2SAT 99
[2016-03-02] MEDS: traZODone HCL 100 MG TAB PO SCH (21:56)
[2016-03-03 06:05] VITALS: BP 110/62; PULSE 71; RESP 16; TEMP 98.2; O2SAT 95
[2016-03-03] MEDS: THIAMINE HCL 100 MG TAB PO SCH (08:51)
[2016-03-03] MEDS: buPROPion HCL 150 MG SUSTAINED RELEASE TAB PO SCH ×2 (08:51→21:35)
[2016-03-03] MEDS: REMOVE OLD NICODERM (NICOTINE) PATCH TD SCH (08:54)
[2016-03-03] MEDS: NICOTINE 21 MG/24 HR PATCH T-DERMAL SCH (08:54)
[2016-03-03] MEDS: BACITRACIN TOP OINT 15 GM TUBE TOP SCH ×2 (08:54→21:36)
[2016-03-03] MEDS: LORazepam 1 MG TAB PO PRN ×2 (09:14→13:58)
--- NOTE | 2016-03-03 14:30 | HHI.PYPN ---
Subjective Remarks Patient was seen and case discussed with nursing. Patient says his mood has improved but affect is anxious. He says he is no longer hopeless towards the future and denies suicidal ideations thought or plan. His compliant with his medications Objective Alert: Yes [place]: Person, Place, Date Mood: Anxious, Depressed Affect: Restricted Memory Intact: Immediate (Not impaired), Recent (mildly impaired) Hallucinations: Other (admitted to occasionally hearing voices) Delusions: No Delusion Type: Other (guarded) Suicidal: Ideation (patient denied any suicidal ideation intentions or plan) Homicidal: Ideation (denies any) Insight/Judgement Fair Vitals/IOs Vital Signs Date Time Temp Pulse Resp B/P Pulse Ox O2 Delivery O2 Flow Rate FiO2 03/03/16 06:05 98.2 71 16 110/62 95 Assessment & Plan Problem List: (1) Alcohol dependence with alcohol-induced mood disorder ICD Code: F10.24 Assessment & Plan Continue current treatment plan Justification for Cont. Inpt. Patient will decompensate in a less restrictive setting Request HC Surrog/Guard Advoc?: No Giuseppe Martin DO Mar 03, 2016 14:30
[2016-03-03] MEDS: traZODone HCL 100 MG TAB PO SCH (21:35)
[2016-03-03 21:37] VITALS: BP 125/74; PULSE 75; RESP 16; TEMP 98; O2SAT 96
[2016-03-04] MEDS: LORazepam 1 MG TAB PO PRN ×3 (05:21→18:43)
[2016-03-04 05:58] VITALS: BP 126/71; PULSE 69; RESP 21; TEMP 98.1; O2SAT 96
[2016-03-04] MEDS: buPROPion HCL 150 MG SUSTAINED RELEASE TAB PO SCH ×2 (08:49→20:28)
[2016-03-04] MEDS: THIAMINE HCL 100 MG TAB PO SCH (08:49)
[2016-03-04] MEDS: BACITRACIN TOP OINT 15 GM TUBE TOP SCH ×2 (08:49→20:29)
[2016-03-04] MEDS: NICOTINE 21 MG/24 HR PATCH T-DERMAL SCH (08:49)
[2016-03-04] MEDS: REMOVE OLD NICODERM (NICOTINE) PATCH TD SCH (08:57)
--- NOTE | 2016-03-04 11:51 | HHI.PYPN ---
Subjective Remarks Patient seen in room with nurse Steven, chart reviewed, patient continue somewhat depressed though today denying suicidality or voices. He is compliant with medications. He continues in his wheelchair, but tremulous, is hoping to find a rehabilitation program suicidal and he was in earlier. For now continue treatment Review of Systems Other No change since 02/23 Objective Alert: Yes [place]: Person, Place, Date Mood: Anxious, Depressed Affect: Restricted Memory Intact: Immediate (Not impaired), Recent (mildly impaired) Hallucinations: Other (admitted to occasionally hearing voices) Delusions: No Delusion Type: Other (guarded) Suicidal: Ideation (patient denied any suicidal ideation intentions or plan) Homicidal: Ideation (denies any) Insight/Judgement Poor Vitals/IOs Vital Signs Date Time Temp Pulse Resp B/P Pulse Ox O2 Delivery O2 Flow Rate FiO2 03/04/16 05:58 98.1 69 21 126/71 96 Assessment & Plan Problem List: (1) Alcohol dependence with alcohol-induced mood disorder ICD Code: F10.24 Assessment & Plan Estimated LOS: days he should continue somewhat depressed, though improving compliant medications, denying voices or visions, denying suicidality. Justification for Cont. Inpt. At this and the patient would significantly decompensate if in a lower level of care Discharge Planning To be determined Request HC Surrog/Guard Advoc?: No Vikas Molina MD Mar 04, 2016 11:51
[2016-03-04 18:17] VITALS: BP 140/90; PULSE 83; RESP 18; TEMP 98.7; O2SAT 96
[2016-03-04] MEDS: ACETAMINOPHEN 325 MG TAB PO PRN (20:29)
[2016-03-04] MEDS: traZODone HCL 100 MG TAB PO SCH (21:00)
[2016-03-05] MEDS: LORazepam 1 MG TAB PO PRN ×4 (05:45→20:46)
[2016-03-05 06:40] VITALS: BP 135/86; PULSE 66; RESP 16; TEMP 97.6; O2SAT 95
[2016-03-05] MEDS: buPROPion HCL 150 MG SUSTAINED RELEASE TAB PO SCH ×2 (08:56→20:42)
[2016-03-05] MEDS: THIAMINE HCL 100 MG TAB PO SCH (08:56)
[2016-03-05] MEDS: NICOTINE 21 MG/24 HR PATCH T-DERMAL SCH (08:57)
[2016-03-05] MEDS: BACITRACIN TOP OINT 15 GM TUBE TOP SCH ×2 (08:57→20:43)
[2016-03-05] MEDS: REMOVE OLD NICODERM (NICOTINE) PATCH TD SCH (08:57)
[2016-03-05 18:30] VITALS: BP 140/78; PULSE 78; RESP 18; TEMP 98.7; O2SAT 97
--- NOTE | 2016-03-05 19:18 | HHI.PYPN ---
Subjective Remarks Patient seen, chart reviewed, case discussed with staff Patient is very depressed, highly fatigues, he reports his pain is increasing, his sleep is worsening and his energy is decreased The patient reports his medications don't work The patient remained in bad and isolative during the day. The only positive thing he could say is that he is less suicidal than he was at admission to the hospital Review of Systems Psychiatric: COMPLAINS OF: Anxiety, Confusion, Mood changes, Depression, Suicidal Ideation Other otherwise 10 point ROS is negative Objective Alert: Yes [place]: Person, Place, Date Mood: Anxious, Depressed Affect: Restricted Memory Intact: Immediate (Not impaired), Recent (mildly impaired) Hallucinations: Other (admitted to occasionally hearing voices) Delusions: No Delusion Type: Other (guarded) Suicidal: Ideation (patient denied any suicidal ideation intentions or plan) Homicidal: Ideation (denies any) Insight/Judgement poor Vitals/IOs Vital Signs Date Time Temp Pulse Resp B/P Pulse Ox O2 Delivery O2 Flow Rate FiO2 03/05/16 18:30 98.7 78 18 140/78 97 Assessment & Plan Problem List: (1) Alcohol dependence with alcohol-induced mood disorder Assessment & Plan: very poor progress, although he states he is a little less suicidal ICD Code: F10.24 Assessment & Plan Estimated LOS: days Justification for Cont. Inpt. risk for decompensation Request HC Surrog/Guard Advoc?: Rosio Hirsch MD Mar 05, 2016 19:17
[2016-03-05] MEDS: traZODone HCL 100 MG TAB PO SCH (20:43)
[2016-03-06] MEDS: LORazepam 1 MG TAB PO PRN (05:27)
[2016-03-06 05:55] VITALS: BP 128/72; PULSE 69; RESP 16; TEMP 98; O2SAT 96
[2016-03-06] MEDS: buPROPion HCL 150 MG SUSTAINED RELEASE TAB PO SCH ×2 (08:50→20:18)
[2016-03-06] MEDS: THIAMINE HCL 100 MG TAB PO SCH (08:51)
[2016-03-06] MEDS: REMOVE OLD NICODERM (NICOTINE) PATCH TD SCH (08:52)
[2016-03-06] MEDS: NICOTINE 21 MG/24 HR PATCH T-DERMAL SCH (08:52)
[2016-03-06] MEDS: BACITRACIN TOP OINT 15 GM TUBE TOP SCH ×2 (08:57→20:18)
[2016-03-06] MEDS: LORazepam 0.5 MG TAB PO SCH ×3 (13:59→23:45)
--- NOTE | 2016-03-06 19:23 | HHI.PYPN ---
Subjective Remarks Patient seen, chart reviewed, case discussed with staff Patient continues very sad, very withdrawn, very fatigued and discouraged about making progress Not optimistic about the future Review of Systems Psychiatric: COMPLAINS OF: Anxiety, Confusion, Depression, Agitation Other otherwise 10 point ROS is negative Objective Alert: Yes [place]: Person, Place, Date Mood: Anxious, Depressed Affect: Restricted Memory Intact: Immediate (Not impaired), Recent (mildly impaired) Hallucinations: Other (admitted to occasionally hearing voices) Delusions: No Delusion Type: Other (guarded) Suicidal: Ideation (patient denied any suicidal ideation intentions or plan) Homicidal: Ideation (denies any) Insight/Judgement poor Vitals/IOs Vital Signs Date Time Temp Pulse Resp B/P Pulse Ox O2 Delivery O2 Flow Rate FiO2 03/06/16 05:55 98.0 69 16 128/72 96 Assessment & Plan Problem List: (1) Alcohol dependence with alcohol-induced mood disorder Assessment & Plan: mood disorder continues unabated, no improvement since last evaluation ICD Code: F10.24 Assessment & Plan Estimated LOS: days Justification for Cont. Inpt. risk of deterioration Request HC Surrog/Guard Advoc?: No Rosio Rivas MD Mar 06, 2016 19:23
[2016-03-06 19:36] VITALS: BP 131/62; PULSE 79; RESP 18; TEMP 98.2
[2016-03-06] MEDS: traZODone HCL 100 MG TAB PO SCH (20:17)
[2016-03-07] MEDS: LORazepam 0.5 MG TAB PO SCH ×3 (05:38→17:09)
[2016-03-07 06:03] VITALS: BP 122/70; PULSE 71; RESP 16; TEMP 98
[2016-03-07] MEDS: NICOTINE 21 MG/24 HR PATCH T-DERMAL SCH (08:13)
[2016-03-07] MEDS: REMOVE OLD NICODERM (NICOTINE) PATCH TD SCH (08:13)
[2016-03-07] MEDS: buPROPion HCL 150 MG SUSTAINED RELEASE TAB PO SCH ×2 (08:14→20:43)
[2016-03-07] MEDS: THIAMINE HCL 100 MG TAB PO SCH (08:14)
[2016-03-07] MEDS: BACITRACIN TOP OINT 15 GM TUBE TOP SCH ×2 (09:00→20:45)
--- NOTE | 2016-03-07 11:03 | HHI.PYPN ---
Subjective Remarks Patient was seen and discussed with the medical staff assistant. Patient denied any shakes or tremors or nervousness. He denied any suicidal ideation intentions or plan. Patient denied any active auditory or visual hallucinations. He still feels somewhat weak and uses the wheelchair. But no behavior or management problem reported. He wants to go home by Friday. We will discontinue some of his Ativan. Continue with the same treatment Review of Systems Psychiatric: COMPLAINS OF: Mood changes, Depression Other Review of systems same as that of 02/24/16 Objective Alert: Yes [place]: Person, Place, Date Mood: Anxious, Depressed Affect: Restricted Memory Intact: Immediate (Not impaired), Recent (mildly impaired) Hallucinations: Other (admitted to occasionally hearing voices) Delusions: No Delusion Type: Other (guarded) Suicidal: Ideation (patient denied any suicidal ideation intentions or plan) Homicidal: Ideation (denies any) Insight/Judgement Fair Remarks Attention and concentration improving. Patient uses wheelchair. Language normal fund of knowledge average Vitals/IOs Vital Signs Date Time Temp Pulse Resp B/P Pulse Ox O2 Delivery O2 Flow Rate FiO2 03/07/16 06:03 98.0 71 16 122/70 03/06/16 05:55 96 Assessment & Plan Problem List: (1) Alcohol dependence with alcohol-induced mood disorder ICD Code: F10.24 Assessment & Plan Estimated LOS: days Justification for Cont. Inpt. Monitoring of the medication and watching for any alcohol withdrawal state symptoms Request HC Surrog/Guard Advoc?: No Francisco Javier Merlos MD Mar 07, 2016 11:03
[2016-03-07 18:09] VITALS: BP 139/81; PULSE 71; RESP 18; TEMP 98.2
[2016-03-07] MEDS: traZODone HCL 100 MG TAB PO SCH (20:43)
[2016-03-08 05:17] VITALS: BP 98/60; PULSE 79; RESP 16; TEMP 97.8; O2SAT 95
[2016-03-08] MEDS: LORazepam 0.5 MG TAB PO SCH ×4 (05:35→18:46)
[2016-03-08] MEDS: BACITRACIN TOP OINT 15 GM TUBE TOP SCH ×2 (09:00→21:09)
[2016-03-08] MEDS: REMOVE OLD NICODERM (NICOTINE) PATCH TD SCH (09:00)
[2016-03-08] MEDS: buPROPion HCL 150 MG SUSTAINED RELEASE TAB PO SCH ×2 (09:17→21:09)
[2016-03-08] MEDS: THIAMINE HCL 100 MG TAB PO SCH (09:17)
[2016-03-08] MEDS: NICOTINE 21 MG/24 HR PATCH T-DERMAL SCH (09:19)
--- NOTE | 2016-03-08 15:14 | HHI.PYPN ---
Subjective Remarks Pt seen and examined in coverage for Dr. Merlos. Chart reviewed. Case d/w RN. On my examination today, pt tells me he is planning on leaving 03/11-3. Says he needs to pay some bills. Regarding SI, he says, "I don't think about that like I used to." No HI. Denies AVH. Denies side effects from medications. Seems a little sedated but says that he needs all the Ativan he has ordered for anxiety, and in fact he would like more if possible. Review of Systems Other No physical complaints. Objective Alert: Yes [place]: Person, Place Mood: Anxious Affect: Restricted (dysphoric) Memory Intact: Comment (Not formally assessed) Hallucinations: Other (Denies AVH) Delusions: No Delusion Type: Other (No evident delusional material.) Suicidal: Ideation (No SI, see above) Homicidal: Ideation (No HI) Insight/Judgement Fair Remarks No signs of withdrawal noted. No other motoric abnormalities noted. Speech wnl for rate. TP linear. Labs Labs reviewed. Vitals/IOs Vital Signs Date Time Temp Pulse Resp B/P Pulse Ox O2 Delivery O2 Flow Rate FiO2 03/08/16 05:17 97.8 79 16 98/60 95 Assessment & Plan Problem List: (1) Alcohol dependence with alcohol-induced mood disorder ICD Code: F10.24 Assessment & Plan Continue current psychotropics as ordered. To consider tapering Ativan if mild sedation persists; no signs of withdrawal. Continue other medications and care as ordered. Justification for Cont. Inpt. Per Dr. Merlos. Discharge Planning Per Dr. Merlos. Request HC Surrog/Guard Advoc?: No Leopoldo Bowers MD Mar 08, 2016 15:14
[2016-03-08 19:24] VITALS: BP 143/82; PULSE 74; RESP 18; TEMP 98.2; O2SAT 98
[2016-03-08] MEDS: traZODone HCL 100 MG TAB PO SCH (21:09)
[2016-03-09] MEDS: LORazepam 0.5 MG TAB PO SCH ×4 (00:16→17:31)
[2016-03-09 06:07] VITALS: BP 106/58; PULSE 70; RESP 18; TEMP 98.3; O2SAT 96
[2016-03-09] MEDS: buPROPion HCL 150 MG SUSTAINED RELEASE TAB PO SCH ×2 (08:40→20:34)
[2016-03-09] MEDS: THIAMINE HCL 100 MG TAB PO SCH (08:41)
[2016-03-09] MEDS: NICOTINE 21 MG/24 HR PATCH T-DERMAL SCH (08:41)
[2016-03-09] MEDS: REMOVE OLD NICODERM (NICOTINE) PATCH TD SCH (08:41)
[2016-03-09] MEDS: BACITRACIN TOP OINT 15 GM TUBE TOP SCH ×2 (08:43→20:34)
[2016-03-09] MEDS ORDERED: PILL SPLITTER OTHER PRN (11:45)
--- NOTE | 2016-03-09 11:45 | HHI.PYPN ---
Subjective Remarks Patient seen and examined. Chart reviewed. Case discussed with nursing staff who reports patient has been calm and denying suicidal ideation or AVH. On my examination today, the patient presents as somewhat entitled but otherwise no behavioral problem. He denies any suicidal ideation or homicidal ideation. He denies any audiovisual hallucinations. Mood is reportedly somewhat improved. No withdrawal symptoms reported. Denies side effects from medications. Wants to be discharged tomorrow. Review of Systems Other No physical complaints today Objective Alert: Yes [place]: Person, Place Mood: Calm Affect: Blunted Memory Intact: Comment (seems at least fair on clinical exam) Hallucinations: Other (denies AVH again) Delusions: No Delusion Type: Other (no delusions) Suicidal: Ideation (denies SI) Homicidal: Ideation (denies HI) Insight/Judgement Fair Remarks No hand tremor, no diaphoresis, no mydriasis noted. No other motoric abnormalities noted. Thought process linear. Speech is within normal limits for rate, tone and volume. Labs Labs reviewed. No new labs. Vitals/IOs Vital Signs Date Time Temp Pulse Resp B/P Pulse Ox O2 Delivery O2 Flow Rate FiO2 03/09/16 06:07 98.3 70 18 106/58 96 Assessment & Plan Problem List: (1) Alcohol dependence with alcohol-induced mood disorder ICD Code: F10.24 Assessment & Plan Taper Ativan in anticipation of discharge. Continue other medications and care as ordered. I have asked that a counselor to get the patient set up for discharge tomorrow. Justification for Cont. Inpt. Discharge planning Discharge Planning Monitor overnight. Request HC Surrog/Guard Advoc?: No Leopoldo Bowers MD Mar 09, 2016 11:45
[2016-03-09 18:00] VITALS: BP 121/74; PULSE 75; RESP 16; TEMP 98.5; O2SAT 97
[2016-03-09] MEDS: traZODone HCL 100 MG TAB PO SCH (20:34)
[2016-03-10] MEDS: LORazepam 0.5 MG TAB PO SCH ×4 (06:00→17:07)
[2016-03-10 06:05] VITALS: BP 114/60; PULSE 75; RESP 16; TEMP 97.5
[2016-03-10] MEDS: REMOVE OLD NICODERM (NICOTINE) PATCH TD SCH (08:15)
[2016-03-10] MEDS: NICOTINE 21 MG/24 HR PATCH T-DERMAL SCH (08:15)
[2016-03-10] MEDS: THIAMINE HCL 100 MG TAB PO SCH (08:17)
[2016-03-10] MEDS: buPROPion HCL 150 MG SUSTAINED RELEASE TAB PO SCH ×2 (08:17→20:31)
[2016-03-10] MEDS: BACITRACIN TOP OINT 15 GM TUBE TOP SCH ×2 (09:35)
--- NOTE | 2016-03-10 14:11 | HHI.PYPN ---
Subjective Remarks Patient seen and examined with nursing staff. Chart reviewed. Case discussed with nursing staff who reports patient is focused on discharge but otherwise polite and medication compliant. On my examination today, patient says he is "ready to go." Denies any SI or HI. Denies side effects from medications. Review of Systems Other No physical complaints today Objective Alert: Yes [place]: Person, Place Mood: Calm Affect: Blunted Memory Intact: Comment (fair) Hallucinations: Other (no AVH) Delusions: No Delusion Type: Other (no evident delusional material) Suicidal: Ideation (denies SI) Homicidal: Ideation (denies HI) Insight/Judgement Fair Remarks Thought process linear Labs Labs reviewed. No new labs. Vitals/IOs Vital Signs Date Time Temp Pulse Resp B/P Pulse Ox O2 Delivery O2 Flow Rate FiO2 03/10/16 06:05 97.5 75 16 114/60 03/09/16 18:00 97 Assessment & Plan Problem List: (1) Alcohol dependence with alcohol-induced mood disorder ICD Code: F10.24 Assessment & Plan Continue current psychotropics as ordered. Continue other medications care as ordered. Justification for Cont. Inpt. Risk for decompensation Discharge Planning Per Dr. Merlos Request HC Surrog/Guard Advoc?: No Leopoldo Bowers MD Mar 10, 2016 14:10
[2016-03-10 18:00] VITALS: BP 132/80; PULSE 73; RESP 17; TEMP 99; O2SAT 96
[2016-03-10] MEDS: traZODone HCL 100 MG TAB PO SCH (20:30)
[2016-03-11 05:56] VITALS: BP 130/69; PULSE 76; RESP 16; TEMP 97.9; O2SAT 98
[2016-03-11] MEDS: LORazepam 0.5 MG TAB PO SCH ×3 (06:12→12:00)
[2016-03-11] MEDS: THIAMINE HCL 100 MG TAB PO SCH (08:47)
[2016-03-11] MEDS: buPROPion HCL 150 MG SUSTAINED RELEASE TAB PO SCH (08:47)
[2016-03-11] MEDS: NICOTINE 21 MG/24 HR PATCH T-DERMAL SCH (08:49)
[2016-03-11] MEDS: REMOVE OLD NICODERM (NICOTINE) PATCH TD SCH (08:49)
[2016-03-11] MEDS: BACITRACIN TOP OINT 15 GM TUBE TOP SCH (09:00)
[2016-03-11] MEDS ORDERED: BUPR150CR PO (10:56)
[2016-03-11] MEDS ORDERED: TRAZ50TA12 PO (10:56)
--- NOTE | 2016-03-11 11:18 | HHI.DS ---
Psychiatry Discharge Summary Inpatient Psychiatric care?: Yes Advance Directive: No Reason Not Provided: Due to Patient Condition Mental Health AdvanceDirective: No Health Care Proxy: No Admission Admission Date Feb 23, 2016 at 16:25 Admission Diagnosis: (1) Alcohol dependence with alcohol-induced mood disorder ICD Code: F10.24 Brief History This is a 60-year-old white male who came to the emergency room wanting some help for his depression. Patient claimed that for the last few months he has been feeling sad depressed and the thoughts of wanting to harm himself has increased and intensified. He has bought some razor blade and he was thinking about wanting to hurt himself. He also has a problem drinking he has been drinking and also abused cocaine. At that point he decided to come for help. Patient denies any auditory or visual hallucinations. No behavior or management problem reported. His willing to cooperate and take the medication. Patient was hospitalized here in December but he did not follow through. He claimed that he does not have any PCP nor he has any psychiatrist and he has not been taking any medication for his depression. He claimed that he wants some help and wants to come to the hospital where he feels safe. Patient is also worried and concerned about his physical illness he has a problem with his liver ulcer and pancreatitis. Patient also complained about not being able to sleep. Tobacco Use In Past 30 Days: 5 or More Cigarettes/Day Alcohol Use: 4 or More Times Per Week Hospital Course The patient was diagnosed with an alcohol induced mood disorder and because of a history of withdrawal was placed on a CIWA protocol. He was started on Bupropion for his depression which was titrated upward during the course of his hospitalization. He was followed by medicine and his hypokalemia was addressed. During the course of the hospitalization, specifically after his CIWA protocol was largely terminated, his mood improved, his anxiety lessened, he lost his suicidal ideation and he was able to listen to counseling regarding alcohol and substance abuse. At the time of discharge he was forward-thinking and making plans for the future.. Results Blood Pressure 130 / 69 Vital Signs Date Time Temp Pulse Resp B/P Pulse Ox O2 Delivery O2 Flow Rate FiO2 03/11/16 05:56 97.9 76 16 130/69 98 Allergies Coded Allergies Type Severity Reaction Last Updated Verified Cephalosporins Allergy Severe 02/22/16 Yes Keflex Allergy Severe UNKNOWN 02/22/16 Yes Procedure Category Date Status Time Lorazepam (Ativan) MED 03/09/16 In Process 12:00 Pill Splitter (Pill MED 03/09/16 In Process Splitter) 11:45 Vital Signs Date Time Temp Pulse Resp B/P Pulse Ox O2 Delivery O2 Flow Rate FiO2 03/11/16 05:56 97.9 76 16 130/69 98 03/10/16 18:00 99.0 73 17 132/80 96 03/10/16 06:05 97.5 75 16 114/60 03/09/16 18:00 98.5 75 16 121/74 97 03/09/16 06:07 98.3 70 18 106/58 96 03/08/16 19:24 98.2 74 18 143/82 98 Summary of Procedures none Pending results at discharge: No Medications # of Antipsychotic meds at D/C: 0 Approp Antipsych med options 1 - Minimum of three failed multiple trials of monotherapy. 2 - Documented plan to taper to monotherapy due to previous use of multiple meds OR cross-taper in progress at D/C. 3 - Documentation of augmentation of Clozapine. 4 - Justification other than those listed in allowable values 1-3, document here : Discharge Discharge Date: Mar 11, 2016 Discharge Diagnosis: (1) Alcohol dependence with alcohol-induced mood disorder Diagnosis: Principal ICD Code: F10.24 Mental Status Exam at Disch casually dressed, speech regular rate rhythm and prosody, gait wnl, mood "good" affect appropriate, TP direct TC no si hi, ah, vh Memory intact Insight Judgment fair Pt Condition on Discharge: Stable Discharge Disposition: Discharge Home Discharge Instructions Diet Instructions: As Tolerated, No Restrictions Activities you can perform: Regular-No Restrictions Scheduled Appointment: Luther Partida Appointment Date: Mar 13, 2016 Appointment Time: 7:45AM New Medications: Bupropion HCl ER 12 HR (Wellbutrin SR 12 HR) 150 Mg Tab 150 MG PO BID Depression Control #60 TAB Trazodone (Trazodone) 50 Mg Tab 200 MG PO HS Insomnia #120 TAB Discharge Time <= 30 minutes Discharge/Advance Care Plan Health Problems: (1) Alcohol dependence with alcohol-induced mood disorder Goals to promote your health * To prevent worsening of your condition and complications * To maintain your health at the optimal level Directions to meet your goals Take your medications as prescribed Follow your dietary instruction Follow activity as directed Keep your appointments as scheduled Take your immunizations and boosters as scheduled If your symptoms worsen call your PCP, if no PCP go to Urgent Care Center or Emergency Room For 30/09 questions related to your inpatient stay or results of tests pending at discharge, please contact Dr. Rosio Rivas at Smoking is Dangerous to Your Health. Avoid second hand smoking Rosio Rivas MD Mar 11, 2016 11:18
== END 2016-03-11 12:30 | disposition home or self-care (01) | DRG 897 ==
LOC: NEPC 15:33 → NEDA 02-23 16:25 → H260 02-23 16:42
PROVIDERS: ADMIT Psychiatry & Neurology Psychiatry; ATTEND Psychiatry & Neurology Psychiatry
DX: F10.24 Alcohol dependence with alcohol-induced mood disorder (principal); F10.239 Alcohol dependence with withdrawal, unspecified; K86.1 Other chronic pancreatitis; I10 Essential (primary) hypertension; F32.9 Major depressive disorder, single episode, unspecified; M19.90 Unspecified osteoarthritis, unspecified site; Z91.14 Patient's other noncompliance with medication regimen; R29.6 Repeated falls; F41.9 Anxiety disorder, unspecified; E78.00 Pure hypercholesterolemia, unspecified; H91.93 Unspecified hearing loss, bilateral; K21.9 Gastro-esophageal reflux disease without esophagitis; K44.9 Diaphragmatic hernia without obstruction or gangrene; Y90.6 Blood alcohol level of 120-199 mg/100 ml; Z87.891 Personal history of nicotine dependence; F10.229 Alcohol dependence with intoxication, unspecified; B18.2 Chronic viral hepatitis C; M06.9 Rheumatoid arthritis, unspecified; S80.212A Abrasion, left knee, initial encounter; S80.211A Abrasion, right knee, initial encounter; W19.XXXA Unspecified fall, initial encounter; E87.6 Hypokalemia; S81.802A Unspecified open wound, left lower leg, initial encounter
CPT/HCPCS: 80048; 80053; 80061; 80301; 80320; 80329; 83036; 83690; 85025; 99284; G0479

== ENCOUNTER 2016-03-25 17:52 | Emergency (ER) | payer MEDICARE, OTHER ==
[~2016-03-25] VITALS: Ht 188 cm; Wt 75.0 kg
[~2016-03-25 17:52] MED LIST changes: +BUPR150CR PO; -FOLI5CAP PO; -LISI-515 PO; -METO25TA3 PO; -MULTTAB67 PO; -QUET5TAB PO; +TRAZ50TA12 PO
[2016-03-25 17:55] VITALS: BP 139/90; PULSE 110; RESP 24; TEMP 97.2; O2SAT 97
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
[2016-03-25] MEDS ORDERED: LORazepam 2 MG/ML VIAL IV PUSH ONE (18:45)
[2016-03-25] MEDS ORDERED: ACETAMINOPHEN/HYDROcodone 325 MG/5 MG TAB PO ONE (18:45)
--- NOTE | 2016-03-25 18:47 | PD ---
Data Data Last Documented VS Vital Signs Date Time Temp Pulse Resp B/P Pulse Ox O2 Delivery O2 Flow Rate FiO2 03/25/16 17:55 97.2 110 24 139/90 97 Room Air Orders Complete Blood Count With Diff (03/25/16 18:10) Comprehensive Metabolic Panel (03/25/16 18:10) Urinalysis - C+S If Indicated (03/25/16 18:10) Drug Screen, Random Urine (03/25/16 18:10) Electrocardiogram (03/25/16 18:10) Iv Access Insert/Monitor (03/25/16 18:10) Alcohol (Ethanol) (03/25/16 18:10) Psych Screen (03/25/16 18:10) Wound Culture And Gram Stain (03/25/16 18:10) Lorazepam Inj (Ativan Inj) (03/25/16 18:45) Chlordiazepoxide (Librium) (03/25/16 18:45) Acetamin-Hydrocod 325-5 Mg ([place] 5-325 (03/25/16 18:45) MDM Supervised Visit with KENDRA: Yes Narrative Course The history, exam, and medical decision-making in the associated midlevel provider note were completed with my assistance. I reviewed and agree with the findings presented. I attest that I had a [id number] encounter with the patient on the same day, and personally performed and documented my assessment and findings in the medical record. *My assessment and Findings: This is an alcoholic who presents to the emergency department with increasing thoughts of killing himself. He says he has severe pain in his back, neck and legs which has been worsening over the past several months and at this point he wants to and doesn't want to live anymore. He has some chronic wounds on his upper extremities and his lower extremity. He does have a cellulitis in the left lower extremity. He otherwise is nontoxic appearing but does appear to be an early withdrawals with some tachycardia and hypertension. He was given IV Ativan and labs will be obtained to rule out sepsis. If labs are reassuring, patient can be treated with oral antibiotics and can have a voluntary psychiatric evaluation. Scripts No Active Prescriptions or Reported Meds Iliana Song MD Mar 25, 2016 18:47
[2016-03-25] MEDS: chlordiazePOXIDE 25 MG CAP PO PRN (19:09)
[2016-03-25 19:10] VITALS: BP 163/89; PULSE 87; RESP 18; O2SAT 98
[2016-03-25 19:17] LABS: BLOOD, URINE NEG (NEG); GLUCOSE,URINE NEG (NEG); KETONE, URINE TRACE mg/dL (NEG); NITRITE,URINE NEG (NEG); PH, URINE 6.5 (5.0-8.5); URINE COLOR LIGHT-YELLOW (YELLW/STRAW)
[2016-03-25 19:18] LABS: COMMENT (UR) CULT NOT INDICATED; CULTURE IF INDICATED CULT NOT INDICATED
[2016-03-25 19:23] LABS: AMPHETAMINE, URINE NEG (NEG); BARBITURATES, URINE NEG (NEG); COCAINE, URINE NEG (NEG)
[2016-03-25 19:28] LABS: AUTOMATED NEUTROPHIL # 5.8 TH/MM3 (1.8-7.7); BASOPHIL % 0.2 % (0.0-2.0); EOSINOPHIL % 0.2 % (0.0-4.0); HEMATOCRIT 38.9 % (39.0-51.0); HEMO FLAGS DIFF FINAL; LYMPHOCYTE # 2.5 TH/MM3 (1.0-4.8); MEAN CELL VOLUME 88.5 FL (80.0-100.0); MEAN CORPUSCULAR HGB CONC 33.9 % (32.0-36.0); MONO % 8.5 % (0.0-8.0); NEUT % 64.1 % (16.0-70.0); PLATELET COUNT 156 TH/MM3 (150-450); RED CELL DISTRIBUTION WIDTH 17.3 % (11.6-17.2); WHITE BLOOD COUNT 9.1 TH/MM3 (4.0-11.0)
[2016-03-25 19:37] LABS: ANION GAP 15 MEQ/L (5-15)
[2016-03-25 19:40] LABS: ALKALINE PHOSPHATASE 297 U/L (45-117); ALT (GPT) 94 U/L (12-78); AST (GOT) 159 U/L (15-37); BICARBONATE 21.3 MEQ/L (21.0-32.0); BLOOD UREA NITROGEN 6 MG/DL (7-18); CHLORIDE 97 MEQ/L (98-107); GLOMERULAR FILTRATION RATE 132 ML/MIN (>89); POTASSIUM 3.3 MEQ/L (3.5-5.1); SODIUM (NA) 133 MEQ/L (136-145)
[2016-03-25] MEDS ORDERED: SULFAMETHOXAZOLE-TRIMETHOPRIM DS 800-160 MG TAB PO ONE (20:15)
[2016-03-25] MEDS ORDERED: POTASSIUM CHLORIDE 20 MEQ CONTROLLED RELEASE TAB PO ONE (20:15)
[2016-03-25 23:26] VITALS: BP 133/81; PULSE 81; RESP 18; TEMP 98.1; O2SAT 99
[2016-03-25] MEDS ORDERED: BUPR150CR PO (23:55)
[2016-03-25] MEDS ORDERED: TRAZ100T4 PO (23:56)
[2016-03-26 02:14] VITALS: BP 126/74; PULSE 97; RESP 19; TEMP 99.8; O2SAT 99
[2016-03-26] MEDS ORDERED: IBUPROFEN 600 MG TAB PO ONE (02:30)
[2016-03-26 06:28] VITALS: BP 133/80; PULSE 89; RESP 20; O2SAT 98
[2016-03-26] MEDS: chlordiazePOXIDE 25 MG CAP PO PRN (08:41)
--- NOTE | 2016-03-26 11:02 | EKG ---
Date Performed: 03/25/2016 Time Performed: 18:19:53 PTAGE: 60 years EKG: Sinus rhythm T-waves not as flat as the old tracing NORMAL ECG PREVIOUS TRACING : 11/25/2015 20.44 DOCTOR: Marcelino Coelho Interpretating Date/Time 03/26/2016 11:00:42
== END 2016-03-26 09:07 ==
LOC: NEPE 17:52 → NEPJ 03-26 09:07
DX: L03.116 Cellulitis of left lower limb (principal); F32.9 Major depressive disorder, single episode, unspecified; E78.00 Pure hypercholesterolemia, unspecified; K21.9 Gastro-esophageal reflux disease without esophagitis; I10 Essential (primary) hypertension; R45.851 Suicidal ideations; F10.10 Alcohol abuse, uncomplicated; B95.62 Methicillin resistant Staphylococcus aureus infection as the cause of diseases classified elsewhere
CPT/HCPCS: 80053; 80307; 80320; 81001; 85025; 87070; 87077; 87186; 93005; 96374; 99285; J2060

== ENCOUNTER 2016-05-08 14:54 | Emergency (ER) | payer MEDICARE, OTHER ==
[~2016-05-08] VITALS: Ht 188 cm; Wt 68.0 kg
[~2016-05-08 14:54] MED LIST changes: +TRAZ100T4 PO; -TRAZ50TA12 PO
[2016-05-08 14:59] VITALS: BP 146/91; PULSE 116; RESP 20; TEMP 98.2; O2SAT 94
[2016-05-08 15:32] VITALS: O2SAT 95
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
[2016-05-08 15:57] LABS: AUTOMATED NEUTROPHIL # 3.6 TH/MM3 (1.8-7.7); BASOPHIL % 0.5 % (0.0-2.0); HEMATOCRIT 42.1 % (39.0-51.0); HEMO FLAGS DIFF FINAL; LYMPH % 28.1 % (9.0-44.0); LYMPHOCYTE # 1.6 TH/MM3 (1.0-4.8); MEAN CELL VOLUME 90.2 FL (80.0-100.0); MEAN CORPUSCULAR HEMOGLOBIN 30.9 PG (27.0-34.0); MEAN CORPUSCULAR HGB CONC 34.3 % (32.0-36.0); MONO % 7.2 % (0.0-8.0); NEUT % 64.2 % (16.0-70.0); PLATELET COUNT 410 TH/MM3 (150-450); RED BLOOD COUNT 4.67 MIL/MM3 (4.50-5.90); RED CELL DISTRIBUTION WIDTH 18.4 % (11.6-17.2); WHITE BLOOD COUNT 5.7 TH/MM3 (4.0-11.0)
[2016-05-08 16:27] LABS: ANION GAP 15 MEQ/L (5-15); BICARBONATE 23.1 MEQ/L (21.0-32.0); BLOOD UREA NITROGEN 9 MG/DL (7-18); CHLORIDE 104 MEQ/L (98-107); GLOMERULAR FILTRATION RATE 96 ML/MIN (>89); SODIUM (NA) 142 MEQ/L (136-145)
[2016-05-08 16:29] LABS: ACETAMINOPHEN LESS THAN 2.0 MCG/ML (10.0-30.0); POTASSIUM 5.5 MEQ/L (3.5-5.1)
[2016-05-08 16:30] VITALS: BP 140/90; PULSE 101; RESP 17; O2SAT 97
[2016-05-08 17:40] VITALS: BP 147/86; PULSE 85; RESP 18; TEMP 100; O2SAT 96
[2016-05-08 22:17] VITALS: BP 155/74; PULSE 91; RESP 19; O2SAT 95
[2016-05-09 02:00] VITALS: BP_SYST 171; BP_SYST 180; BP_DIAS 120; BP_DIAS 89; PULSE 85; RESP 19; O2SAT 98
[2016-05-09] MEDS ORDERED: cloNIDine HCL 0.1 MG TAB PO PRN (03:00)
[2016-05-09] MEDS ORDERED: ONDANSETRON ODT 4 MG TAB PO ONE (03:00)
[2016-05-09 04:17] VITALS: BP 143/83; PULSE 67; RESP 18; TEMP 97.5; O2SAT 97
[2016-05-09 06:17] VITALS: BP 154/84; PULSE 85; RESP 19; O2SAT 96
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
--- NOTE | 2016-05-09 23:59 | EKG ---
Date Performed: 05/08/2016 Time Performed: 15:37:54 PTAGE: 60 years EKG: Sinus rhythm NORMAL ECG PREVIOUS TRACING : 03/25/2016 18.19 Compared to prior tracing no significant change DOCTOR: Ken Bowen Interpretating Date/Time 05/09/2016 23:58:55
== END 2016-05-09 11:09 | disposition home or self-care (01) ==
LOC: NEPA 14:54 → NEPJ 05-09 11:09
DX: F10.220 Alcohol dependence with intoxication, uncomplicated (principal); F43.25 Adjustment disorder with mixed disturbance of emotions and conduct; I10 Essential (primary) hypertension; F17.210 Nicotine dependence, cigarettes, uncomplicated; Y90.8 Blood alcohol level of 240 mg/100 ml or more
CPT/HCPCS: 80048; 80307; 80320; 80329; 85025; 93005; G0480

== ENCOUNTER 2016-06-30 18:07 | Inpatient (IN) | payer MEDICARE, OTHER ==
[~2016-06-30] VITALS: Ht 182.9 cm; Wt 70.0 kg
[2016-06-30 18:23] VITALS: BP 124/60; PULSE 86; RESP 18; TEMP 98.2; O2SAT 99
[2016-06-30] MEDS ORDERED: SODIUM CHLOR 0.9% 1000 ML INJ 1,000 ML IV ONE (19:15)
[2016-06-30] MEDS ORDERED: SODIUM CHLORIDE 0.9% FLUSH 10 ML FLUSH IVF PRN (19:15)
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
[2016-06-30 21:20] LABS: AUTOMATED NEUTROPHIL # 7.8 TH/MM3 (1.8-7.7); BASOPHIL % 0.2 % (0.0-2.0); EOSINOPHIL % 0.2 % (0.0-4.0); HEMATOCRIT 42.8 % (39.0-51.0); LYMPH % 28.5 % (9.0-44.0); LYMPHOCYTE # 3.5 TH/MM3 (1.0-4.8); MEAN CELL VOLUME 90.4 FL (80.0-100.0); MEAN CORPUSCULAR HEMOGLOBIN 29.9 PG (27.0-34.0); MEAN CORPUSCULAR HGB CONC 33.1 % (32.0-36.0); MONO % 7.2 % (0.0-8.0); NEUT % 63.9 % (16.0-70.0); PLATELET COUNT 313 TH/MM3 (150-450); RED BLOOD COUNT 4.73 MIL/MM3 (4.50-5.90); WHITE BLOOD COUNT 12.1 TH/MM3 (4.0-11.0)
[2016-06-30 21:21] LABS: HEMO FLAGS DIFF FINAL
[2016-06-30 21:38] LABS: ANION GAP 19 MEQ/L (5-15)
[2016-06-30 21:41] LABS: ACETAMINOPHEN LESS THAN 2.0 MCG/ML (10.0-30.0); ALKALINE PHOSPHATASE 142 U/L (45-117); ALT (GPT) 34 U/L (12-78); AST (GOT) 35 U/L (15-37); BICARBONATE 16.4 MEQ/L (21.0-32.0); BLOOD UREA NITROGEN 7 MG/DL (7-18); CHLORIDE 93 MEQ/L (98-107); GLOMERULAR FILTRATION RATE 97 ML/MIN (>89); POTASSIUM 3.2 MEQ/L (3.5-5.1); SODIUM (NA) 128 MEQ/L (136-145); TOTAL BILIRUBIN ADULT 0.4 MG/DL (0.2-1.0)
[2016-06-30] MEDS ORDERED: POTASSIUM CHLORIDE 10 MEQ CONTROLLED RELEASE TAB PO ONE (22:15)
[2016-06-30 22:53] LABS: BLOOD, URINE NEG (NEG); GLUCOSE,URINE NEG (NEG); KETONE, URINE NEG (NEG); NITRITE,URINE NEG (NEG); PH, URINE 5.5 (5.0-8.5); URINE COLOR LIGHT-YELLOW (YELLW/STRAW)
[2016-06-30 22:56] LABS: COMMENT (UR) CULT NOT INDICATED; CULTURE IF INDICATED CULT NOT INDICATED
[2016-06-30 23:01] LABS: AMPHETAMINE, URINE NEG (NEG); BARBITURATES, URINE NEG (NEG); COCAINE, URINE NEG (NEG)
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
[2016-06-30] MEDS ORDERED: ONDANSETRON HCL 4 MG/2 ML VIAL IVP PRN (23:45)
[2016-06-30] MEDS ORDERED: SODIUM CHLORIDE 0.9% FLUSH 10 ML FLUSH IV FLUSH PRN (23:45)
[2016-06-30] MEDS ORDERED: NALOXONE HCL 0.4 MG/ML AMP IV PRN (23:45)
[2016-06-30] MEDS ORDERED: ACETAMINOPHEN 325 MG TAB PO PRN ×2 (23:45)
--- NOTE | 2016-07-01 00:50 | PD ---
Data Data Last Documented VS Vital Signs Date Time Temp Pulse Resp B/P Pulse Ox O2 Delivery O2 Flow Rate FiO2 06/30/16 18:29 87 18 06/30/16 18:23 98.2 124/60 99 Orders Complete Blood Count With Diff (06/30/16 19:06) Comprehensive Metabolic Panel (06/30/16 19:06) Urinalysis - C+S If Indicated (06/30/16 19:06) Iv Access Insert/Monitor (06/30/16 19:06) Psych Screen (06/30/16 19:06) Sodium Chloride 0.9% Flush (Ns Flush) (06/30/16 19:15) Drug Screen, Random Urine (06/30/16 19:06) Alcohol (Ethanol) (06/30/16 19:06) Salicylates (Aspirin) (06/30/16 19:06) Tylenol (Acetaminophen) (06/30/16 19:06) Sodium Chlor 0.9% 1000 Ml Inj (Ns 1000 M (06/30/16 19:15) Diet Regular Basic (06/30/16 Dinner) Potassium Chloride (Kcl) (06/30/16 22:15) Admit To Inpatient (06/30/16 ) Vital Signs (Adult) Q4H (06/30/16 23:32) Activity Oob With Assistance (06/30/16 23:32) Diet Heart Healthy (07/01/16 Breakfast) Sodium Chloride 0.9% Flush (Ns Flush) (06/30/16 23:45) Sodium Chloride 0.9% Flush (Ns Flush) (07/01/16 09:00) Acetaminophen (Tylenol) (06/30/16 23:45) Ondansetron Inj (Zofran Inj) (06/30/16 23:45) Comprehensive Metabolic Panel (07/01/16 06:00) Complete Blood Count With Diff (07/01/16 06:00) Pt Request For Service (06/30/16 23:32) Case Management Consult (06/30/16 23:32) Scd Bilateral/Knee High ANDRY.BID (06/30/16 23:32) Bienvenido Bilateral/Knee High ANDRY.QSHIFT (06/30/16 23:32) Acetaminophen (Tylenol) (06/30/16 23:45) Naloxone Inj (Narcan Inj) (06/30/16 23:45) Inpatient Certification (06/30/16 ) Labs Laboratory Tests Test 06/30/16 06/30/16 20:30 22:15 White Blood Count 12.1 TH/MM3 Red Blood Count 4.73 MIL/MM3 Hemoglobin 14.2 GM/DL Hematocrit 42.8 % Mean Corpuscular Volume 90.4 FL Mean Corpuscular Hemoglobin 29.9 PG Mean Corpuscular Hemoglobin 33.1 % Concent Red Cell Distribution Width 17.0 % Platelet Count 313 TH/MM3 Mean Platelet Volume 8.6 FL Neutrophils (%) (Auto) 63.9 % Lymphocytes (%) (Auto) 28.5 % Monocytes (%) (Auto) 7.2 % Eosinophils (%) (Auto) 0.2 % Basophils (%) (Auto) 0.2 % Neutrophils # (Auto) 7.8 TH/MM3 Lymphocytes # (Auto) 3.5 TH/MM3 Monocytes # (Auto) 0.9 TH/MM3 Eosinophils # (Auto) 0.0 TH/MM3 Basophils # (Auto) 0.0 TH/MM3 CBC Comment DIFF FINAL Differential Comment Sodium Level 128 MEQ/L Potassium Level 3.2 MEQ/L Chloride Level 93 MEQ/L Carbon Dioxide Level 16.4 MEQ/L Anion Gap 19 MEQ/L Blood Urea Nitrogen 7 MG/DL Creatinine 0.81 MG/DL Estimat Glomerular Filtration 97 ML/MIN Rate Random Glucose 82 MG/DL Calcium Level 9.0 MG/DL Total Bilirubin 0.4 MG/DL Aspartate Amino Transf 35 U/L (AST/SGOT) Alanine Aminotransferase 34 U/L (ALT/SGPT) Alkaline Phosphatase 142 U/L Total Protein 7.9 GM/DL Albumin 3.8 GM/DL Acetaminophen Level LESS THAN 2.0 MCG/ML Ethyl Alcohol Level 244 MG/DL Urine Color LIGHT-YELLOW Urine Turbidity CLEAR Urine pH 5.5 Urine Specific Perry 1.004 Urine Protein NEG mg/dL Urine Glucose (UA) NEG mg/dL Urine Ketones NEG mg/dL Urine Occult Blood NEG Urine Nitrite NEG Urine Bilirubin NEG Urine Urobilinogen LESS THAN 2.0 MG/DL Urine Leukocyte Esterase NEG Urine RBC LESS THAN 1 /hpf Urine WBC LESS THAN 1 /hpf Microscopic Urinalysis Comment CULT NOT INDICATED Urine Opiates Screen NEG Urine Barbiturates Screen NEG Urine Amphetamines Screen NEG Urine Benzodiazepines Screen NEG Urine Cocaine Screen NEG Urine Cannabinoids Screen NEG [facility] Medical Record Reviewed: Yes Supervised Visit with KENDRA: Yes Narrative Course I, Dr. Jones, have reviewed the advance practice practitioner's documentation and am in agreement, met with the patient face to face, made the diagnosis, and the medical decision making was done by me. *My assessment and Findings: The patient is a Diop act. He has anion gap metabolic acidosis, presumably alcoholic ketoacidosis. He'll be admitted for IV hydration and repeat blood work. Case discussed with Dr Jasso. When I went to assess the patient to tell him that he needed IV fluids he began shouting at me. He stated he didn't want to be here. CBC & BMP Diagram 06/30/16 20:30 LFTs normal EtOH 244 U Tox allen-negative APAP < 2.0 UA: Negative Diagnosis Primary Impression: Alcohol abuse Additional Impressions: Metabolic acidosis Suicidal ideations Admitting Information Admitting Physician Requests: Observation Kenan Jones MD Jul 01, 2016 00:50
[2016-07-01 01:00] VITALS: BP 128/66; PULSE 86; RESP 16; O2SAT 99
[2016-07-01] MEDS ORDERED: POTASSIUM CHLORIDE 20 MEQ CONTROLLED RELEASE TAB PO ONE (01:00)
[2016-07-01] MEDS ORDERED: SODIUM CHLOR 0.9% 1000 ML INJ 1,000 ML IV ONE (01:00)
[2016-07-01] MEDS ORDERED: LORazepam 1 MG TAB PO PRN (01:15)
[2016-07-01] MEDS ORDERED: ALUMINUM/MAGNESIUM/SIMETH 30 ML CUP PO PRN (01:15)
[2016-07-01] MEDS ORDERED: SODIUM BICARBONATE 8.4% INJ 100 MEQ in SODIUM CHLOR 0.9% 1000 ML INJ 1,000 ML IV SCH (01:15)
[2016-07-01] MEDS ORDERED: FLUMAZENIL 0.5 MG/5 ML VIAL IV PUSH PRN (01:15)
[2016-07-01] MEDS ORDERED: cloNIDine HCL 0.1 MG TAB PO PRN (01:15)
[2016-07-01] MEDS ORDERED: LORazepam 2 MG TAB PO PRN (01:15)
[2016-07-01] MEDS ORDERED: LORazepam 2 MG/ML VIAL IV PUSH PRN ×4 (01:15)
--- NOTE | 2016-07-01 02:47 | RADRPT ---
EXAM DATE/TIME: 07/01/2016 02:14 [place] COMPARISON: CHEST SINGLE AP, November 25, 2015, 18:16. INDICATIONS : Infiltrate. MEDICAL HISTORY : Hypertension. Pancreatitis. SURGICAL HISTORY : Cholecystectomy. ENCOUNTER: Initial ACUITY: 1 day PAIN SCORE: 5/10 LOCATION: Bilateral chest FINDINGS: A single view of the chest demonstrates the lungs to be symmetrically aerated without evidence of mas s, infiltrate or effusion. The cardiomediastinal contours are unremarkable. Osseous structures are intact. CONCLUSION: No acute disease. No significant change has occurred. Jimi Krause MD on July 01, 2016 at 2:45 Board Certified Radiologist. This report was verified electronically.
[2016-07-01 05:15] VITALS: BP 128/66; PULSE 86; RESP 14; O2SAT 98
[2016-07-01 06:07] VITALS: BP 141/74; PULSE 75; RESP 18; TEMP 98.6; O2SAT 97
[2016-07-01 06:39] LABS: AUTOMATED NEUTROPHIL # 5.9 TH/MM3 (1.8-7.7); BASOPHIL % 0.3 % (0.0-2.0); EOSINOPHIL % 0.3 % (0.0-4.0); HEMATOCRIT 39.8 % (39.0-51.0); LYMPH % 25.5 % (9.0-44.0); LYMPHOCYTE # 2.4 TH/MM3 (1.0-4.8); MEAN CELL VOLUME 88.8 FL (80.0-100.0); MEAN CORPUSCULAR HEMOGLOBIN 30.1 PG (27.0-34.0); MEAN CORPUSCULAR HGB CONC 33.9 % (32.0-36.0); MONO % 10.5 % (0.0-8.0); NEUT % 63.4 % (16.0-70.0); PLATELET COUNT 297 TH/MM3 (150-450); RED BLOOD COUNT 4.48 MIL/MM3 (4.50-5.90); RED CELL DISTRIBUTION WIDTH 17.2 % (11.6-17.2); WHITE BLOOD COUNT 9.3 TH/MM3 (4.0-11.0)
[2016-07-01 06:43] LABS: HEMO FLAGS AUTO DIFF
[2016-07-01 07:05] LABS: ALKALINE PHOSPHATASE 132 U/L (45-117); ALT (GPT) 31 U/L (12-78); ANION GAP 12 MEQ/L (5-15); AST (GOT) 30 U/L (15-37); BICARBONATE 19.3 MEQ/L (21.0-32.0); BLOOD UREA NITROGEN 7 MG/DL (7-18); CHLORIDE 101 MEQ/L (98-107); GLOMERULAR FILTRATION RATE 127 ML/MIN (>89); POTASSIUM 3.8 MEQ/L (3.5-5.1); SODIUM (NA) 132 MEQ/L (136-145); TOTAL BILIRUBIN ADULT 0.6 MG/DL (0.2-1.0)
[2016-07-01 07:49] LABS: SCAN/DIFF AUTO DIFF CONFIRMED
--- NOTE | 2016-07-01 07:55 | HHI.PR ---
Subjective Remarks Follow up for suicidal ideation, Diop Act, metabolic acidosis, hyponatremia. The patient reports some "stomach" pains today. Denies any nausea/vomiting/ diarrhea. He states he wasn't able to eat last night because he didn't have an appetite. He states he hasn't had an appetite in 2 weeks. No fevers/chills. Objective Vitals Vital Signs Date Time Temp Pulse Resp B/P Pulse Ox O2 Delivery O2 Flow Rate FiO2 07/01/16 06:07 98.6 75 18 141/74 97 07/01/16 01:00 86 16 128/66 99 Room Air 06/30/16 18:29 87 18 06/30/16 18:23 98.2 86 18 124/60 99 Result Diagram: 07/01/16 0555 07/01/16 0555 Imaging Last Impressions Chest X-Ray 07/01/16 0000 Signed Impressions: Service Date/Time: Friday, July 01, 2016 02:14 - CONCLUSION: No acute disease. No significant change has occurred. Jimi Krause MD Objective Remarks GENERAL: Well-nourished, well-developed male patient in [facility]. SKIN: Warm and dry. No rash. HEENT: Normocephalic. Atraumatic.Pupils equal and round. Mucous membranes pink and moist. NECK: Supple. Trachea midline. CARDIOVASCULAR: Regular rate and rhythm. S1, S2 noted. No murmur appreciated. RESPIRATORY: No accessory muscle use. Clear to auscultation. Breath sounds equal bilaterally. GASTROINTESTINAL: Abdomen soft, non-tender, nondistended. Normoactive bowel sounds x4. MUSCULOSKELETAL: No obvious deformities. Extremities without clubbing, cyanosis , or edema. NEUROLOGICAL: Awake and alert. No obvious cranial nerve deficits. Motor grossly within normal limits. Normal speech. PSYCHIATRIC: Appropriate mood and affect; insight and judgment normal. Medications and IVs Current Medications Medications (Trade) Dose Ordered Sig/Ashlie Route Start Time Stop Time Status Last Admin (NS Flush) 2 ml UNSCH PRN IV FLUSH 06/30/16 23:45 (NS Flush) 2 ml BID IV FLUSH 07/01/16 09:00 (Tylenol) 650 mg Q4H PRN PO 06/30/16 23:45 (Zofran Inj) 4 mg Q6H PRN IVP 06/30/16 23:45 (Tylenol) 650 mg Q6H PRN PO 06/30/16 23:45 (Narcan Inj) 0.4 mg UNSCH PRN IV 06/30/16 23:45 (Folate) 1 mg DAILY PO 07/01/16 09:00 07/06/16 08:59 (Vitamin B1) 100 mg DAILY PO 07/01/16 09:00 (Theragran M Tab) 1 tab DAILY PO 07/01/16 09:00 07/06/16 08:59 (Catapres) 0.1 mg Q6H PRN PO 07/01/16 01:15 (Romazicon Inj) 0.2 mg Q1M PRN IV PUSH 07/01/16 01:15 (Ativan) 1 mg Q4H PRN PO 07/01/16 01:15 (Ativan Inj) 1 mg Q4H PRN IV PUSH 07/01/16 01:15 (Ativan) 2 mg Q2H PRN PO 07/01/16 01:15 (Ativan Inj) 2 mg Q2H PRN IV PUSH 07/01/16 01:15 (Ativan Inj) 2 mg Q1H PRN IV PUSH 07/01/16 01:15 (Ativan Inj) 2 mg Q15M PRN IV PUSH 07/01/16 01:15 (Librium) 10 mg TID PRN PO 07/01/16 01:15 (Habitrol 21 Mg Patch.24 Hr) 1 patch DAILY T-DERMAL 07/01/16 09:00 Miscellaneous Information 1 DAILY T-DERMAL 07/01/16 09:00 Al Hydrox/Mg Hydrox/ Simethicone 30 ml 30 ml Q6H PRN PO 07/01/16 01:15 (Sodium Bicarbonate 8.4% Inj/NS 1000 ml Inj) 1,100 ml @ 42 mls/hr Q24H IV 07/01/16 01:15 07/01/16 12:00 A/P Problem List: (1) Metabolic acidosis ICD Code: E87.2 Status: Acute (2) Alcohol dependence ICD Code: F10.20 Status: Acute (3) Alcohol abuse ICD Code: F10.10 Status: Acute (4) Suicidal ideations ICD Code: R45.851 Status: Acute (5) Adjustment disorder with mixed disturbance of emotions and conduct ICD Code: F43.25 Status: Acute (6) Depression ICD Code: F32.9 Status: Acute (7) Hepatitis C ICD Code: B19.20 Status: Acute (8) Hypertension ICD Code: I10 Status: Chronic (9) History of hepatitis C ICD Code: Z86.19 Status: Chronic Assessment and Plan 61-year-old male with hx of anxiety, depression, hypertension, hyperlipidemia, presents under Diop Act with suicidal ideations Alcohol abuse -Alcohol cessation counseling provided -Continue rally pack, CIWA protocol, seizure precaution, Librium prn for DTs Metabolic acidosis Hyponatremia, Hypokalemia -Continue IVF NS with bicarbonate -given KCl replacement -Monitor BMP, improving Leukocytosis: Stress reactive. CXR images reviewed, unremarkable. UA negative. -monitor CBC. Hold off on starting any antibiotic. -WBC improved 12.1 to 9.3 today. Acute mood disorder Suicidal ideation Adjustment disorder with mixed disturbance of emotion and conduct -Consulted psychiatry -Continue with Diop act History of hypertension -Currently normotensive -Monitoring when necessary Tobacco abuse -Tobacco cessation counseling provided -Start Nicotine patch GERD: continue PPI DVT prophylaxis: SCDs Written by Zaira Parker, acting as scribe for Dr. Berrios on 07/01/16 at 09:01 This note was transcribed by scribNuno SMITH. I, Dr. Ariana Berrios personally performed the history, physical exam, and medical decision making; and confirmed the accuracy of the information in the transcribed note. Authenticated by Dr. Ariana Berrios on 07/01/16 at 09:01 Discharge Planning DC home To follow up as OP with PCP and consultants Meds per meds reconciliations. Cut down and quit EtOH use. Do not drive Activity: reg as tolerated. Fall precations, at risk of falls because of ETOH use Diet: regular as tolerated Zaira Parker PA-C Jul 01, 2016 07:55 Ariana Berrios MD Jul 01, 2016 13:21
[2016-07-01 08:00] VITALS: BP 138/75; PULSE 84; RESP 20; TEMP 97; O2SAT 98
[2016-07-01] MEDS ORDERED: MULTIVITAMINS/MINERALS THERAPEUTIC TAB PO SCH (09:00)
[2016-07-01] MEDS ORDERED: REMOVE OLD PATCH T-DERMAL SCH (09:00)
[2016-07-01] MEDS ORDERED: SODIUM CHLORIDE 0.9% FLUSH 10 ML FLUSH IV FLUSH SCH (09:00)
[2016-07-01] MEDS ORDERED: THIAMINE HCL 100 MG TAB PO SCH (09:00)
[2016-07-01] MEDS ORDERED: NICOTINE 21 MG/24 HR PATCH T-DERMAL SCH (09:00)
[2016-07-01] MEDS ORDERED: FOLIC ACID 1 MG TAB PO SCH (09:00)
[2016-07-01 12:00] VITALS: BP 149/81; PULSE 84; RESP 20; TEMP 97; O2SAT 98
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
[2016-07-01] MEDS ORDERED: FOLI1TAB4 PO (13:19)
[2016-07-01] MEDS ORDERED: LORA-392 PO (13:19)
[2016-07-01] MEDS ORDERED: VITA100T2 PO (13:19)
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
== END 2016-07-01 17:07 | disposition home or self-care (01) | DRG 641 ==
LOC: NEPE 18:07 → OBSVTOIN 23:33 → NEDA 23:33 → OBSVTOIN 07-01 01:00 → UNDOADMOB 07-01 01:00 → NEDA 07-01 01:00 → INTOOBSV 07-01 01:00 → NEPGCP 07-01 05:16 → NEDA 07-01 05:16 → UNDODISIN 07-01 17:07
PROVIDERS: ADMIT Hospitalist; ATTEND Hospitalist
DX: E87.2 Acidosis (principal); R45.851 Suicidal ideations; F10.24 Alcohol dependence with alcohol-induced mood disorder; F10.21 Alcohol dependence, in remission; M19.90 Unspecified osteoarthritis, unspecified site; F41.9 Anxiety disorder, unspecified; F32.9 Major depressive disorder, single episode, unspecified; E78.00 Pure hypercholesterolemia, unspecified; H91.93 Unspecified hearing loss, bilateral; K21.9 Gastro-esophageal reflux disease without esophagitis; K44.9 Diaphragmatic hernia without obstruction or gangrene; I10 Essential (primary) hypertension; B19.20 Unspecified viral hepatitis C without hepatic coma; Z72.0 Tobacco use; Z88.1 Allergy status to other antibiotic agents; Z86.14 Personal history of Methicillin resistant Staphylococcus aureus infection; Y90.8 Blood alcohol level of 240 mg/100 ml or more; F43.25 Adjustment disorder with mixed disturbance of emotions and conduct; E87.1 Hypo-osmolality and hyponatremia; E87.6 Hypokalemia; D72.829 Elevated white blood cell count, unspecified; E78.5 Hyperlipidemia, unspecified
CPT/HCPCS: 71010; 76937; 80053; 80307; 81001; 85025; 99284; J7030

== ENCOUNTER 2016-07-13 17:14 | Emergency (ER) | payer MEDICARE, OTHER ==
[~2016-07-13] VITALS: Ht 180.3 cm; Wt 70.0 kg
[~2016-07-13 17:14] MED LIST changes: +FOLI1TAB4 PO; +LORA-392 PO; +VITA100T2 PO
[2016-07-13 17:30] VITALS: BP 128/80; PULSE 92; RESP 18; TEMP 97.8; O2SAT 99
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
[2016-07-13] MEDS ORDERED: TETANUS/DIPHTHERIA TOXOID ADULT 0.5 ML VIAL IM ONE (18:00)
[2016-07-13 18:47] LABS: AMPHETAMINE, URINE NEG (NEG); BARBITURATES, URINE NEG (NEG); COCAINE, URINE NEG (NEG)
[2016-07-13 18:53] LABS: AUTOMATED NEUTROPHIL # 7.7 TH/MM3 (1.8-7.7); BASOPHIL % 0.4 % (0.0-2.0); EOSINOPHIL % 0.4 % (0.0-4.0); HEMATOCRIT 38.7 % (39.0-51.0); HEMO FLAGS DIFF FINAL; LYMPH % 27.7 % (9.0-44.0); LYMPHOCYTE # 3.2 TH/MM3 (1.0-4.8); MEAN CELL VOLUME 90.9 FL (80.0-100.0); MEAN CORPUSCULAR HEMOGLOBIN 30.2 PG (27.0-34.0); MEAN CORPUSCULAR HGB CONC 33.2 % (32.0-36.0); NEUT % 66.5 % (16.0-70.0); PLATELET COUNT 288 TH/MM3 (150-450); RED BLOOD COUNT 4.26 MIL/MM3 (4.50-5.90); RED CELL DISTRIBUTION WIDTH 17.2 % (11.6-17.2); WHITE BLOOD COUNT 11.5 TH/MM3 (4.0-11.0)
[2016-07-13 19:12] LABS: ANION GAP 13 MEQ/L (5-15)
[2016-07-13] MEDS ORDERED: LORA-373 PO (19:14)
[2016-07-13 19:16] LABS: ACETAMINOPHEN LESS THAN 2.0 MCG/ML (10.0-30.0); ALKALINE PHOSPHATASE 122 U/L (45-117); ALT (GPT) 35 U/L (12-78); AST (GOT) 49 U/L (15-37); BICARBONATE 20.5 MEQ/L (21.0-32.0); BLOOD UREA NITROGEN 6 MG/DL (7-18); CHLORIDE 110 MEQ/L (98-107); GLOMERULAR FILTRATION RATE 148 ML/MIN (>89); POTASSIUM 3.4 MEQ/L (3.5-5.1); SODIUM (NA) 143 MEQ/L (136-145); TOTAL BILIRUBIN ADULT 0.2 MG/DL (0.2-1.0)
[2016-07-13] MEDS ORDERED: NITR1SUB3 SL (19:18)
[2016-07-13] MEDS ORDERED: TRAZ300T2 PO (19:18)
[2016-07-13] MEDS ORDERED: TRAM50TA PO (19:18)
[2016-07-13] MEDS ORDERED: ZENP1000 PO (19:18)
[2016-07-13] MEDS ORDERED: GABA800T PO (19:18)
[2016-07-13] MEDS ORDERED: METO25TA3 PO (19:20)
[2016-07-13] MEDS ORDERED: CYMB60CA PO (19:20)
[2016-07-13] MEDS ORDERED: LISI10TA3 PO (19:20)
--- NOTE | 2016-07-13 19:59 | RADRPT ---
EXAM DATE/TIME: 07/13/2016 18:02 [place] COMPARISON: No previous studies available for comparison. INDICATIONS : Left elbow pain. MEDICAL HISTORY : None. SURGICAL HISTORY : None. ENCOUNTER: Initial ACUITY: 1 day PAIN SCORE: Non-responsive. LOCATION: Left elbow. FINDINGS: Two view examination of the left elbow demonstrates no soft tissue swelling, joint effusion, fracture or dislocation. Bony mineralization is normal. CONCLUSION: 1. No acute findings. Serge Wheeler MD on July 13, 2016 at 19:55 Board Certified Radiologist. This report was verified electronically.
[2016-07-13] MEDS: LORazepam 2 MG/ML VIAL IM ONE (20:00)
[2016-07-13] MEDS ORDERED: POTASSIUM CHLORIDE 20 MEQ CONTROLLED RELEASE TAB PO ONE (20:45)
[2016-07-13 23:00] VITALS: BP 132/78; PULSE 90; RESP 20; O2SAT 95
== END 2016-07-14 09:39 ==
LOC: NEPC 17:14 → NEPD 07-14 09:39
DX: F10.920 Alcohol use, unspecified with intoxication, uncomplicated (principal); Y90.8 Blood alcohol level of 240 mg/100 ml or more; S60.811A Abrasion of right wrist, initial encounter; S50.312A Abrasion of left elbow, initial encounter; X78.9XXA Intentional self-harm by unspecified sharp object, initial encounter; Z23 Encounter for immunization; Z79.899 Other long term (current) drug therapy
CPT/HCPCS: 73070; 80053; 80307; 85025; 90471; 90714

== ENCOUNTER 2016-08-04 15:52 | Emergency (ER) | payer MEDICARE, OTHER ==
[~2016-08-04] VITALS: Ht 172.7 cm; Wt 70.0 kg
[~2016-08-04 15:52] MED LIST changes: -BUPR150CR PO; +CYMB60CA PO; +GABA800T PO; +LISI10TA3 PO; +LORA-373 PO; -LORA-392 PO; +METO25TA3 PO; +NITR1SUB3 SL; +TRAM50TA PO; -TRAZ100T4 PO; +TRAZ300T2 PO; +ZENP1000 PO
[2016-08-04 15:59] VITALS: BP 124/59; PULSE 110; RESP 18; TEMP 98.2; O2SAT 94
[2016-08-04] MEDS ORDERED: SODIUM CHLOR 0.9% 1000 ML INJ 1,000 ML IV SCH ×2 (16:02→18:26)
[2016-08-04] MEDS ORDERED: ONDANSETRON HCL 4 MG/2 ML VIAL IVP ONE (16:15)
[2016-08-04] MEDS ORDERED: THIAMINE INJ 100 MG in SODIUM CHLORIDE 0.9% INJ 100 ML IV ONE (16:15)
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
[2016-08-04 16:40] LABS: AUTOMATED NEUTROPHIL # 4.6 TH/MM3 (1.8-7.7); BASOPHIL # 0.1 TH/MM3 (0-0.2); BASOPHIL % 0.8 % (0.0-2.0); HEMATOCRIT 39.9 % (39.0-51.0); HEMO FLAGS DIFF FINAL; LYMPHOCYTE # 2.1 TH/MM3 (1.0-4.8); MEAN CELL VOLUME 90.6 FL (80.0-100.0); MEAN CORPUSCULAR HEMOGLOBIN 30.2 PG (27.0-34.0); MEAN CORPUSCULAR HGB CONC 33.4 % (32.0-36.0); MONO % 5.4 % (0.0-8.0); NEUT % 64.8 % (16.0-70.0); PLATELET COUNT 333 TH/MM3 (150-450); RED CELL DISTRIBUTION WIDTH 16.5 % (11.6-17.2); WHITE BLOOD COUNT 7.1 TH/MM3 (4.0-11.0)
--- NOTE | 2016-08-04 16:43 | RADRPT ---
EXAM DATE/TIME: 08/04/2016 16:31 [facility] COMPARISON: CHEST SINGLE AP, July 01, 2016, 2:14. INDICATIONS : Chest pain MEDICAL HISTORY : Hypertension. Pancreatitis. SURGICAL HISTORY : Cholecystectomy. ENCOUNTER: Initial ACUITY: 1 day PAIN SCORE: 8/10 LOCATION: Bilateral chest FINDINGS: A single view of the chest demonstrates the lungs to be symmetrically aerated without evidence of mas s, infiltrate or effusion. The cardiomediastinal contours are unremarkable. Osseous structures are intact. CONCLUSION: No acute disease. Lenin Balderas MD on August 04, 2016 at 16:42 Board Certified Radiologist. This report was verified electronically.
[2016-08-04 16:56] LABS: INTERNATIONAL NORMALIZED RATIO 0.9 RATIO
[2016-08-04 17:01] VITALS: BP 149/76; PULSE 93; RESP 18; O2SAT 96
--- NOTE | 2016-08-04 17:03 | EKG ---
Date Performed: 08/04/2016 Time Performed: 16:03:05 PTAGE: 61 years EKG: SINUS TACHYCARDIA NONSPECIFIC T-WAVE ABNORMALITY ABNORMAL RHYTHM ECG COMPARED TO PRIOR ELEC TROCARDIOGRAM, nonspecific T wave changes are present. PREVIOUS TRACING : 05/08/2016 15.37 DOCTOR: Juan To Interpretating Date/Time 08/04/2016 17:03:24
[2016-08-04 17:07] LABS: ACETAMINOPHEN LESS THAN 2.0 MCG/ML (10.0-30.0); ALKALINE PHOSPHATASE 107 U/L (45-117); ALT (GPT) 93 U/L (12-78); TOTAL BILIRUBIN ADULT 0.7 MG/DL (0.2-1.0)
[2016-08-04 17:36] LABS: ANION GAP 22 MEQ/L (5-15); AST (GOT) 192 U/L (15-37); BICARBONATE 17.1 MEQ/L (21.0-32.0); BLOOD UREA NITROGEN 18 MG/DL (7-18); CHLORIDE 99 MEQ/L (98-107); GLOMERULAR FILTRATION RATE 77 ML/MIN (>89); MAGNESIUM 1.7 MG/DL (1.5-2.5); POTASSIUM 5.1 MEQ/L (3.5-5.1); SODIUM (NA) 138 MEQ/L (136-145)
[2016-08-04] MEDS ORDERED: IOHEXOL 350 MG/ML 10 ML VIAL (for RAD DIAG) IV ONE (18:05)
--- NOTE | 2016-08-04 18:15 | RADRPT ---
EXAM DATE/TIME: 08/04/2016 18:03 [facility] COMPARISON: CT BRAIN W/O CONTRAST, December 20, 2015, 22:37. INDICATIONS : Altered mental status. RADIATION DOSE: 45.98 CTDIvol (mGy) MEDICAL HISTORY : Hypertension. Hepatitis C. Pancreatitis. SURGICAL HISTORY : Cholecystectomy. ENCOUNTER: Initial ACUITY: 1 day PAIN SCALE: 3/10 LOCATION: cranial TECHNIQUE: Multiple contiguous axial images were obtained of the head. Using automated exposure control and adjustment of the mA and/or kV according to patient size, radiation dose was kept as low as reasonably achievable to obtain optimal diagnostic quality images. FINDINGS: CEREBRUM: Mild cerebral atrophy is noted. No evidence of midline shift, mass lesion, hemorrhage or acute infarction. No extra-axial fluid collections are seen. POSTERIOR FOSSA: The cerebellum and brainstem are intact. The 4th ventricle is midline. The cer ebellopontine angle is unremarkable. EXTRACRANIAL: The visualized portion of the orbits is intact. SKULL: The calvaria is intact. No evidence of skull fracture. CONCLUSION: 1. Mild cerebral atrophy. 2. No acute infarct, acute hemorrhage, mass effect or extra-axial fluid collections. Lenin Balderas MD on August 04, 2016 at 18:12 Board Certified Radiologist. This report was verified electronically.
[2016-08-04 18:22] VITALS: BP 168/84; PULSE 115; RESP 18; O2SAT 96
--- NOTE | 2016-08-04 18:22 | RADRPT ---
EXAM DATE/TIME: 08/04/2016 18:07 [facility] COMPARISON: CT ABDOMEN & PELVIS W CONTRAST, December 20, 2015, 22:47. INDICATIONS : Abdomen pain. IV CONTRAST: 100 cc Omnipaque 350 (iohexol) IV ORAL CONTRAST: No oral contrast ingested. RADIATION DOSE: 4.81 CTDIvol (mGy) MEDICAL HISTORY : Hypertension. Hepatitis C. Pancreatitis. SURGICAL HISTORY : Cholecystectomy. ENCOUNTER: Initial ACUITY: 1 day PAIN SCALE: 5/10 LOCATION: Bilateral abdomen. TECHNIQUE: Volumetric scanning of the abdomen and pelvis was performed. Using automated exposure control and ad justment of the mA and/or kV according to patient size, radiation dose was kept as low as reasonably achievable to obtain optimal diagnostic quality images. FINDINGS: LOWER LUNGS: The visualized lower lungs are clear. Moderate-sized hiatal hernia is noted. LIVER: There is evidence of a fatty liver. No focal mass is noted. There is no dilation of the biliary tree. No calcified gallstones. Status post cholecystectomy. SPLEEN: Normal size without lesion. PANCREAS: Within normal limits. KIDNEYS: Normal in size and shape. There is no mass, stone or hydronephrosis. ADRENAL GLANDS: Within normal limits. VASCULAR: There is no aortic aneurysm. BOWEL/MESENTERY: The stomach, small bowel, and colon demonstrate no acute abnormality. There is no free intraperitone al air or fluid. ABDOMINAL WALL: Within normal limits. RETROPERITONEUM: There is no lymphadenopathy. BLADDER: No wall thickening or mass. REPRODUCTIVE: Within normal limits. INGUINAL: There is no lymphadenopathy or hernia. MUSCULOSKELETAL: Mild degenerative changes are noted within the lumbar spine. CONCLUSION: 1. Fatty liver. 2. Moderate-sized hiatal hernia. 3. Mild degenerative changes are noted within the lumbar spine. Lenin Balderas MD on August 04, 2016 at 18:18 Board Certified Radiologist. This report was verified electronically.
[2016-08-04] MEDS ORDERED: LORazepam 2 MG/ML VIAL IV PUSH PRN ×4 (18:30)
[2016-08-04] MEDS ORDERED: LORazepam 2 MG TAB PO PRN (18:30)
[2016-08-04] MEDS ORDERED: LORazepam 1 MG TAB PO PRN (18:30)
[2016-08-04] MEDS ORDERED: ONDANSETRON HCL 4 MG/2 ML VIAL IV PUSH PRN (18:30)
[2016-08-04] MEDS ORDERED: LORazepam 2 MG/ML VIAL IV PUSH ONE (18:30)
[2016-08-04] MEDS ORDERED: FLUMAZENIL 0.5 MG/5 ML VIAL IV PUSH PRN (18:30)
[2016-08-04 18:52] LABS: BACTERIA, URINE RARE /hpf; BLOOD, URINE NEG (NEG); COMMENT (UR) CULT NOT INDICATED; CULTURE IF INDICATED CULT NOT INDICATED; GLUCOSE,URINE 70 mg/dL (NEG); KETONE, URINE 80 mg/dL (NEG); NITRITE,URINE NEG (NEG); PH, URINE 5.5 (5.0-8.5); URINE COLOR YELLOW (YELLW/STRAW)
[2016-08-04 18:55] LABS: AMPHETAMINE, URINE NEG (NEG); BARBITURATES, URINE NEG (NEG); COCAINE, URINE NEG (NEG)
[2016-08-04 18:59] VITALS: BP 152/83; PULSE 106; RESP 18; O2SAT 100
[2016-08-04 22:55] VITALS: BP 138/65; PULSE 97; RESP 18; O2SAT 96
[2016-08-05 01:00] VITALS: BP 142/78; PULSE 87; RESP 17; O2SAT 97
[2016-08-05 06:48] VITALS: BP 132/82
== END 2016-08-05 06:56 | disposition home or self-care (01) ==
LOC: NEPE 15:52 → NEPD 08-05 06:56
DX: F10.220 Alcohol dependence with intoxication, uncomplicated (principal); K44.9 Diaphragmatic hernia without obstruction or gangrene; K76.0 Fatty (change of) liver, not elsewhere classified; K21.9 Gastro-esophageal reflux disease without esophagitis; I10 Essential (primary) hypertension; F17.200 Nicotine dependence, unspecified, uncomplicated; R00.0 Tachycardia, unspecified; Y90.8 Blood alcohol level of 240 mg/100 ml or more; Z79.899 Other long term (current) drug therapy
CPT/HCPCS: 70450; 71010; 74177; 80053; 80307; 81001; 83690; 83735; 84443; 84484; 85025; 85610; 85730; 93005; 96365; 96366; 96375; 99285; J2060; J2405; J3411; J7030; Q9967

== ENCOUNTER 2016-08-06 10:20 | Emergency (ER) | payer MEDICARE, OTHER ==
[~2016-08-06] VITALS: Ht 188 cm; Wt 70.5 kg
[~2016-08-06 10:20] MED LIST changes: -FOLI1TAB4 PO; -VITA100T2 PO
[2016-08-06 10:35] VITALS: BP 127/87; PULSE 101; RESP 18; TEMP 98; O2SAT 97
[2016-08-06 11:17] LABS: AUTOMATED NEUTROPHIL # 2.5 TH/MM3 (1.8-7.7); BASOPHIL # 0.1 TH/MM3 (0-0.2); BASOPHIL % 1.1 % (0.0-2.0); EOSINOPHIL % 0.6 % (0.0-4.0); HEMATOCRIT 34.5 % (39.0-51.0); HEMO FLAGS DIFF FINAL; LYMPH % 40.6 % (9.0-44.0); LYMPHOCYTE # 2.2 TH/MM3 (1.0-4.8); MEAN CELL VOLUME 90.5 FL (80.0-100.0); MEAN CORPUSCULAR HEMOGLOBIN 30.6 PG (27.0-34.0); MEAN CORPUSCULAR HGB CONC 33.8 % (32.0-36.0); MONO % 11.3 % (0.0-8.0); NEUT % 46.4 % (16.0-70.0); PLATELET COUNT 230 TH/MM3 (150-450); RED BLOOD COUNT 3.81 MIL/MM3 (4.50-5.90); RED CELL DISTRIBUTION WIDTH 16.4 % (11.6-17.2); WHITE BLOOD COUNT 5.5 TH/MM3 (4.0-11.0)
[2016-08-06 11:19] LABS: BLOOD, URINE NEG (NEG); GLUCOSE,URINE NEG (NEG); KETONE, URINE NEG (NEG); NITRITE,URINE NEG (NEG); URINE COLOR LIGHT-YELLOW (YELLW/STRAW)
[2016-08-06 11:22] LABS: COMMENT (UR) CULT NOT INDICATED; CULTURE IF INDICATED CULT NOT INDICATED
[2016-08-06 11:27] LABS: AMPHETAMINE, URINE NEG (NEG); BARBITURATES, URINE NEG (NEG); COCAINE, URINE NEG (NEG)
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
[2016-08-06 11:41] LABS: ANION GAP 15 MEQ/L (5-15)
[2016-08-06 11:42] LABS: ALKALINE PHOSPHATASE 92 U/L (45-117); ALT (GPT) 68 U/L (12-78); AST (GOT) 112 U/L (15-37); BICARBONATE 19.4 MEQ/L (21.0-32.0); BLOOD UREA NITROGEN 4 MG/DL (7-18); CHLORIDE 100 MEQ/L (98-107); GLOMERULAR FILTRATION RATE 142 ML/MIN (>89); POTASSIUM 3.1 MEQ/L (3.5-5.1); SODIUM (NA) 134 MEQ/L (136-145); TOTAL BILIRUBIN ADULT 0.9 MG/DL (0.2-1.0)
[2016-08-06 12:59] VITALS: BP 124/71; PULSE 74; RESP 18; O2SAT 98
[2016-08-06] MEDS ORDERED: POTASSIUM CHLORIDE 25 MEQ EFFERVESCENT TAB PO ONE (15:45)
[2016-08-06] MEDS ORDERED: LORazepam 2 MG/ML VIAL IV PUSH PRN ×4 (18:00)
[2016-08-06] MEDS ORDERED: LORazepam 1 MG TAB PO PRN (18:00)
[2016-08-06] MEDS ORDERED: FLUMAZENIL 0.5 MG/5 ML VIAL IV PUSH PRN (18:00)
[2016-08-06] MEDS ORDERED: LORazepam 2 MG TAB PO PRN (18:00)
[2016-08-06 18:45] VITALS: BP 146/78; PULSE 105; RESP 18
[2016-08-06] MEDS ORDERED: ALUMINUM/MAGNESIUM/SIMETH 30 ML CUP PO PRN (20:45)
[2016-08-06 22:32] VITALS: BP 143/77; PULSE 89; RESP 18; O2SAT 99
[2016-08-07 02:00] VITALS: BP 131/74; PULSE 89; RESP 18; O2SAT 97
[2016-08-07 06:15] VITALS: BP 126/73; PULSE 73; RESP 19; O2SAT 97
[2016-08-07 10:37] VITALS: BP 124/84; PULSE 100; RESP 20; O2SAT 98
[2016-08-07 13:58] VITALS: BP 113/65; PULSE 100; RESP 20; O2SAT 99
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
[2016-08-07] MEDS ORDERED: LORA-474 PO (15:10)
== END 2016-08-07 16:30 | disposition home or self-care (01) ==
LOC: NEPC 10:20 → NEPJ 08-07 16:30
DX: R45.851 Suicidal ideations (principal); F10.229 Alcohol dependence with intoxication, unspecified; F10.10 Alcohol abuse, uncomplicated; G89.29 Other chronic pain; I10 Essential (primary) hypertension; E78.00 Pure hypercholesterolemia, unspecified; Z72.0 Tobacco use; Z87.39 Personal history of other diseases of the musculoskeletal system and connective tissue; Z86.59 Personal history of other mental and behavioral disorders; Z87.19 Personal history of other diseases of the digestive system; Z87.448 Personal history of other diseases of urinary system; Z86.19 Personal history of other infectious and parasitic diseases
CPT/HCPCS: 80053; 80307; 81001; 83690; 85025; 99284

== ENCOUNTER 2016-08-08 11:55 | Emergency (ER) | payer MEDICARE, OTHER ==
[~2016-08-08] VITALS: Ht 188 cm; Wt 65.0 kg
[~2016-08-08 11:55] MED LIST changes: +LORA-474 PO
[2016-08-08 12:17] VITALS: BP 112/62; PULSE 104; RESP 17; TEMP 98.5; O2SAT 93
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
[2016-08-08] MEDS ORDERED: traMADol HCL 50 MG TAB PO ONE (12:30)
[2016-08-08] MEDS ORDERED: LORazepam 2 MG/ML VIAL IM ONE (12:30)
== END 2016-08-08 13:46 | disposition home or self-care (01) ==
LOC: NEPD 11:55
DX: F10.20 Alcohol dependence, uncomplicated (principal); I10 Essential (primary) hypertension; Z72.0 Tobacco use
CPT/HCPCS: 96372; 99284; J2060

== ENCOUNTER 2016-08-12 12:21 | Inpatient (IN) | payer MEDICARE, OTHER ==
[~2016-08-12] VITALS: Ht 188 cm; Wt 64.7 kg
[2016-08-12] VITALS (13 sets, daily range): BP systolic 87–149; BP diastolic 52–96; PULSE 61–101; RESP 12–16; TEMP 97.6–98.1; O2SAT 98–100
[2016-08-12] MEDS ORDERED: SODIUM CHLOR 0.9% 1000 ML INJ 1,000 ML IV SCH (12:50)
[2016-08-12] MEDS ORDERED: PANTOPRAZOLE SODIUM 40 MG VIAL IVP ONE (13:00)
[2016-08-12] MEDS ORDERED: ONDANSETRON HCL 4 MG/2 ML VIAL IVP ONE (13:00)
[2016-08-12] MEDS ORDERED: SODIUM CHLORIDE 0.9% FLUSH 10 ML FLUSH IV FLUSH PRN ×2 (13:00→16:15)
[2016-08-12 13:12] LABS: AUTOMATED NEUTROPHIL # 2.3 TH/MM3 (1.8-7.7); BASOPHIL % 0.5 % (0.0-2.0); EOSINOPHIL % 0.4 % (0.0-4.0); HEMATOCRIT 31.7 % (39.0-51.0); HEMO FLAGS DIFF FINAL; LYMPH % 48.3 % (9.0-44.0); LYMPHOCYTE # 2.8 TH/MM3 (1.0-4.8); MEAN CELL VOLUME 91.6 FL (80.0-100.0); MEAN CORPUSCULAR HEMOGLOBIN 31.2 PG (27.0-34.0); MONO % 10.4 % (0.0-8.0); NEUT % 40.4 % (16.0-70.0); PLATELET COUNT 198 TH/MM3 (150-450); RED BLOOD COUNT 3.46 MIL/MM3 (4.50-5.90); RED CELL DISTRIBUTION WIDTH 16.9 % (11.6-17.2); WHITE BLOOD COUNT 5.8 TH/MM3 (4.0-11.0)
[2016-08-12 13:43] LABS: ALKALINE PHOSPHATASE 81 U/L (45-117); ALT (GPT) 40 U/L (12-78); ANION GAP 11 MEQ/L (5-15); AST (GOT) 69 U/L (15-37); BICARBONATE 21.7 MEQ/L (21.0-32.0); CHLORIDE 107 MEQ/L (98-107); GLOMERULAR FILTRATION RATE 137 ML/MIN (>89); SODIUM (NA) 140 MEQ/L (136-145); TOTAL BILIRUBIN ADULT 0.3 MG/DL (0.2-1.0)
[2016-08-12 13:45] LABS: BLOOD UREA NITROGEN 6 MG/DL (7-18)
[2016-08-12 13:47] LABS: POTASSIUM 4.8 MEQ/L (3.5-5.1)
[2016-08-12] MEDS ORDERED: ETOMIDATE 40 MG/20 ML VIAL ONE (14:11)
[2016-08-12] MEDS ORDERED: SUCCINYLCHOLINE CHLORIDE 200 MG/10 ML VIAL ONE (14:11)
[2016-08-12] MEDS ORDERED: PROPOFOL 1000 MG/100 ML INJ 100 ML ONE (14:32)
[2016-08-12 14:56] LABS: BLOOD, URINE NEG (NEG); GLUCOSE,URINE NEG (NEG); KETONE, URINE NEG (NEG); NITRITE,URINE NEG (NEG); PH, URINE 5.5 (5.0-8.5); SQUAMOUS EPITHELIAL CELL URINE <1 /hpf (0-5); URINE COLOR LIGHT-YELLOW (YELLW/STRAW)
[2016-08-12 14:58] LABS: COMMENT (UR) CULT NOT INDICATED; CULTURE IF INDICATED CULT NOT INDICATED
[2016-08-12] MEDS ORDERED: SUCCINYLCHOLINE CHLORIDE 200 MG/10 ML VIAL IV PUSH ONE (15:00)
[2016-08-12] MEDS ORDERED: PROPOFOL 1000 MG/100 ML INJ 100 ML IV SCH (15:00)
[2016-08-12] MEDS ORDERED: ETOMIDATE 20 MG/10 ML VIAL IV PUSH ONE (15:00)
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
--- NOTE | 2016-08-12 15:17 | RADRPT ---
EXAM DATE/TIME: 08/12/2016 14:53 [facility] COMPARISON: CHEST SINGLE AP, August 04, 2016, 16:31. INDICATIONS : Post ET tube placement MEDICAL HISTORY : Hypertension. Pancreatitis. ETOH SURGICAL HISTORY : Unobtainable ENCOUNTER: Initial ACUITY: 1 day PAIN SCORE: Non-responsive. LOCATION: Bilateral chest FINDINGS: ET tube and central venous catheter are in good position. Nasogastric tube tip is at the GE junction . Side hole is in the esophagus. CONCLUSION: 1. ET tube in good position. 2. Nasogastric tube should be advanced. Rodo Norman MD FACR on August 12, 2016 at 15:13 Board Certified Radiologist. This report was verified electronically.
[2016-08-12] MEDS: SODIUM CHLOR 0.9% 1000 ML INJ 1,000 ML IV SCH ×2 (16:05→23:41)
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
[2016-08-12] MEDS ORDERED: SODIUM CHLOR 0.9% 1000 ML INJ 1,000 ML IV ONE ×2 (16:15→17:00)
[2016-08-12] MEDS ORDERED: MISCELLANEOUS NURSING INFORMATION XX SCH (16:15)
[2016-08-12] MEDS ORDERED: CHLORHEXIDINE GLUCONATE 2 % 1 PACK (2 CLOTHS) TOP PRN (16:15)
[2016-08-12] MEDS ORDERED: RESP: ALBUTEROL 2.5 MG/IPRATROPIUM 0.5 MG NEB (PRN) INH (16:15)
--- NOTE | 2016-08-12 16:32 | RADRPT ---
EXAM DATE/TIME: 08/12/2016 16:18 [facility] COMPARISON: CT ABDOMEN & PELVIS W CONTRAST, August 04, 2016, 18:07. INDICATIONS : Altered mental status. RADIATION DOSE: 52.33 CTDIvol (mGy) MEDICAL HISTORY : Hypertension. Pancreatitis. Diabetes mellitus type 2.Hep C SURGICAL HISTORY : Cholecystectomy. ENCOUNTER: Initial ACUITY: 1 day PAIN SCALE: Non-responsive LOCATION: cranial TECHNIQUE: Multiple contiguous axial images were obtained of the head. Using automated exposure control and adj ustment of the mA and/or kV according to patient size, radiation dose was kept as low as reasonably a chievable to obtain optimal diagnostic quality images. FINDINGS: CEREBRUM: The ventricles are normal for age. There is mild cortical atrophy. No evidence of midline shift, mas s lesion, hemorrhage or acute infarction. No extra-axial fluid collections are seen. POSTERIOR FOSSA: The cerebellum and brainstem are intact. The 4th ventricle is midline. The cerebellopontine angle i s unremarkable. EXTRACRANIAL: The visualized portion of the orbits is intact. SKULL: The calvaria is intact. No evidence of skull fracture. CONCLUSION: 1. Cortical atrophy. No acute intracranial abnormality. Kenan Norman MD on August 12, 2016 at 16:29 Board Certified Radiologist. This report was verified electronically.
--- NOTE | 2016-08-12 16:42 | RADRPT ---
EXAM DATE/TIME: 08/12/2016 16:24 [facility] COMPARISON: CT ABDOMEN & PELVIS W CONTRAST, August 04, 2016, 18:07. INDICATIONS : Abdomen pain. IV CONTRAST: 90 cc Omnipaque 350 (iohexol) IV ORAL CONTRAST: No oral contrast ingested. RADIATION DOSE: 9.37 CTDIvol (mGy) MEDICAL HISTORY : Hypertension. Pancreatitis. Hepatitis C. SURGICAL HISTORY : Cholecystectomy. ENCOUNTER: Initial ACUITY: 1 day PAIN SCALE: Non-responsive LOCATION: abdomen TECHNIQUE: Volumetric scanning of the abdomen and pelvis was performed. Using automated exposure control and ad justment of the mA and/or kV according to patient size, radiation dose was kept as low as reasonably achievable to obtain optimal diagnostic quality images. FINDINGS: LOWER LUNGS: The visualized lower lungs are clear. A small hiatal hernia. LIVER: Homogeneous low in density without lesion. There is no dilation of the biliary tree. Gallbladder is surgically absent. SPLEEN: Normal size without lesion. PANCREAS: Within normal limits. KIDNEYS: Normal in size and shape. There is no mass, stone or hydronephrosis. ADRENAL GLANDS: Within normal limits. VASCULAR: There is no aortic aneurysm. BOWEL/MESENTERY: The stomach, small bowel, and colon demonstrate no acute abnormality. There is no free intraperitone al air or fluid. ABDOMINAL WALL: Within normal limits. RETROPERITONEUM: There is no lymphadenopathy. BLADDER: A [place] balloon is present. The urinary bladder is thickwalled. No discrete mass. This is a new findi ng from the prior study. REPRODUCTIVE: Within normal limits. INGUINAL: There is no lymphadenopathy or hernia. MUSCULOSKELETAL: Within normal limits for patient age. CONCLUSION: 1. Thickwalled urinary bladder which is a new finding from the prior exam. This would suggest acute i nflammatory change or infectious process. It is not felt to relate to trabeculation from bladder outl et obstruction due to its interval appearance in a short time span. 2. Hepatic steatosis. 3. Hiatal hernia. 4. Prior cholecystectomy. Luis Alfredo Hoskins Jr., MD on August 12, 2016 at 16:34 Board Certified Radiologist. This report was verified electronically.
[2016-08-12] MEDS ORDERED: IOHEXOL 350 MG/ML 10 ML VIAL (for RAD DIAG) IV ONE (16:44)
[2016-08-12] MEDS: PANTOPRAZOLE SODIUM 40 MG VIAL IV SCH (17:00)
[2016-08-12 17:09] LABS: AMPHETAMINE, URINE NEG (NEG); BARBITURATES, URINE NEG (NEG); COCAINE, URINE NEG (NEG)
[2016-08-12 17:46] LABS: BLOOD GAS BASE EXCESS -5.5 mmol/L (-2-2); BLOOD GAS CARBOXYHEMOGLOBIN 1.3 % (0-4); BLOOD GAS HCO3 20 mmol/L (22-26); BLOOD GAS METHEMOGLOBIN 0.5 % (0-2); BLOOD GAS O2 HGB SATURATION 98 % (90-100); BLOOD GAS OXYGEN CONTENT 14.3 Vol % (12.0-20.0); BLOOD GAS PCO2 39 mmHg (38-42); BLOOD GAS PO2 506 mmHG (61-120); BLOOD GAS TOTAL HGB 9.4 G/DL (12.0-16.0); TEMP CORR TO 98.6
[2016-08-12 17:47] LABS: CRITICAL VALUE NO; DRAW SITE RT RADIAL; FIO2 100 %; NUMBER OF ARTERIAL PUNCTURES 1; OXYGEN DEVICE VENTILATOR; STAT YES; ULNAR PULSE PRESENT; VENT SETTINGS AC/16/550/PEEP5
[2016-08-12 18:44] LABS: CREATINE KINASE 89 U/L (39-308)
[2016-08-12] MEDS ORDERED: MIDAZOLAM 100 MG/ML INJ 100 ML IV SCH (20:00)
[2016-08-12] MEDS: SODIUM CHLORIDE 0.9% FLUSH 10 ML FLUSH IV FLUSH SCH (21:26)
[2016-08-12] MEDS: CHLORHEXIDINE 0.12% (ORAL KIT) 15 ML CUP MT SCH (21:26)
[2016-08-12] MEDS: PROPOFOL 1000 MG/100 ML INJ 100 ML IV SCH ×2 (21:27→23:40)
--- NOTE | 2016-08-12 21:38 | RADRPT ---
EXAM DATE/TIME: 08/12/2016 20:49 [facility] COMPARISON: CT BRAIN W/O CONTRAST, August 12, 2016, 16:18. INDICATIONS : Encephalopathy. MEDICAL HISTORY : Hypercholesterolemia. Pancreatitis. Hepatitis. Hiatal hernia. SURGICAL HISTORY : Tonsillectomy. Cholecystectomy. ENCOUNTER: Subsequent ACUITY: 1 day PAIN SCORE: Nonresponsive. LOCATION: cranial TECHNIQUE: Multiplanar, multisequence MRI of the brain was performed without contrast. FINDINGS: CEREBRUM: The ventricles are normal for age. No evidence of midline shift, mass lesion, hemorrhage or acute in farction. No extraaxial fluid collections are seen. The pituitary gland and suprasellar cistern are normal in configuration. Atrophy is noted. WHITE MATTER: Several subcentimeter foci of flair signal abnormality seen in the periventricular white matter of ronnie th cerebral hemispheres. POSTERIOR FOSSA: The cerebellum and brainstem are intact. The 4th ventricle is midline. The cerebellopontine angle is unremarkable. The cerebellar tonsils are normal in position. DIFFUSION IMAGING: No focal areas of restricted diffusion are seen. No evidence of acute infarction. EXTRACRANIAL: The visualized portions of the orbits and paranasal sinuses are unremarkable. CONCLUSION: 1. No acute intracranial abnormality. 2. Atrophy and mild, chronic scattered white matter changes. Vikas Arzate MD on August 12, 2016 at 21:35 Board Certified Radiologist. This report was verified electronically.
[2016-08-12] MEDS: RESP: ALBUTEROL 2.5 MG/IPRATROPIUM 0.5 MG NEB (SCH) NEB (21:48)
[2016-08-13] VITALS (19 sets, daily range): BP systolic 87–149; BP diastolic 52–88; PULSE 66–93; RESP 12–15; TEMP 97.6–100.1; O2SAT 94–100
[2016-08-13] MEDS: fentaNYL DRIP 250 ML IV SCH ×2 (00:35→10:15)
[2016-08-13 02:35] LABS: CREATINE KINASE 74 U/L (39-308)
[2016-08-13] MEDS: RESP: ALBUTEROL 2.5 MG/IPRATROPIUM 0.5 MG NEB (SCH) NEB ×4 (03:42→19:38)
[2016-08-13] MEDS: CHLORHEXIDINE GLUCONATE 2 % 1 PACK (2 CLOTHS) TOP SCH (04:00)
[2016-08-13 06:36] LABS: BICARBONATE 26.1 MEQ/L (21.0-32.0); CALCIUM-PROTEIN CORRECTED 7.9 MG/DL (8.5-10.1); POTASSIUM 4.1 MEQ/L (3.5-5.1); TOTAL BILIRUBIN ADULT 0.3 MG/DL (0.2-1.0)
[2016-08-13 06:49] LABS: AUTOMATED NEUTROPHIL # 2.6 TH/MM3 (1.8-7.7); BASOPHIL % 0.8 % (0.0-2.0); EOSINOPHIL # 0.1 TH/MM3 (0-0.4); EOSINOPHIL % 1.2 % (0.0-4.0); HEMATOCRIT 28.5 % (39.0-51.0); LYMPH % 34.3 % (9.0-44.0); LYMPHOCYTE # 1.8 TH/MM3 (1.0-4.8); MEAN CELL VOLUME 93.8 FL (80.0-100.0); MEAN CORPUSCULAR HEMOGLOBIN 30.6 PG (27.0-34.0); MEAN CORPUSCULAR HGB CONC 32.6 % (32.0-36.0); MONO % 13.8 % (0.0-8.0); NEUT % 49.9 % (16.0-70.0); PLATELET COUNT 134 TH/MM3 (150-450); RED BLOOD COUNT 3.04 MIL/MM3 (4.50-5.90); RED CELL DISTRIBUTION WIDTH 17.4 % (11.6-17.2); WHITE BLOOD COUNT 5.2 TH/MM3 (4.0-11.0)
[2016-08-13 06:52] LABS: HEMO FLAGS AUTO DIFF
[2016-08-13] MEDS: SODIUM CHLOR 0.9% 1000 ML INJ 1,000 ML IV SCH ×3 (07:06→19:45)
[2016-08-13] MEDS: CHLORHEXIDINE 0.12% (ORAL KIT) 15 ML CUP MT SCH ×2 (08:00→20:51)
[2016-08-13] MEDS: SODIUM CHLORIDE 0.9% FLUSH 10 ML FLUSH IV FLUSH SCH ×2 (09:00→20:51)
[2016-08-13] MEDS: PANTOPRAZOLE SODIUM 40 MG VIAL IV SCH (09:00)
--- NOTE | 2016-08-13 14:15 | HHI.CCPN ---
Subjective Remarks/Hospital Course 08/12: 61-year-old male came to the emergency room brought by EMS after being found intoxicated and saying that he wants to get sober. He was also complaining of some epigastric pain. Patient noted to be intoxicated on arrival in the ER. He is otherwise awake and alert and following commands. In fact he used the restroom a few times and a few crackers. He was waiting for CT abdomen and pelvis for evaluation of his abdominal pain. Nurse found patient on the floor next to a stretcher subsequently minimally responsive. Patient was intubated by Dr. Wilcox as he remained almost unresponsive despite painful stimuli and placed on mechanical ventilation. He was initiated on propofol for sedation following intubation and a right subclavian central line was placed. Following intubation patient did drop his blood pressure for which she was initiated on normal saline 1 L bolus. Critical care medicine except the patient for admission and I came down immediately on being notified of the consult. I evaluated the patient he was sedated with propofol, orally intubated on mechanical ventilation. I ordered a stat fingerstick glucose which was 109. At the time of my evaluation propofol had just been held due to hypotension and patient was opening his eyes minimally and moving both upper extremities. He was awaiting CT head and abdomen pelvis and the time of my evaluation. History was obtained by reviewing records and discussion with ER physician. 08/13: Sedated, arousable, orally intubated on mechanical ventilation. Opens eyes on command and focuses. Moves both upper extremities. Objective Vital Signs Date Time Temp Pulse Resp B/P Pulse Ox O2 Delivery O2 Flow Rate FiO2 08/13/16 12:00 40 08/13/16 12:00 85 08/13/16 11:59 100 08/13/16 04:00 98.2 12 90/52 08/12/16 17:21 Auto-Vent Intake and Output 08/12/16 08/12/16 08/13/16 08:00 16:00 00:00 Intake Total 788 ml Output Total 950 ml Balance -162 ml Result Diagram: 08/13/16 0545 08/13/16 0545 Other Results Laboratory Tests Test 08/12/16 08/12/16 08/12/16 08/13/16 15:00 16:50 18:10 01:15 Total Creatine Kinase 89 U/L 74 U/L Troponin I LESS THAN 0.02 LESS THAN 0.02 NG/ML NG/ML Salicylates Level LESS THAN 1.7 MG/DL Blood Gas Puncture Site RT RADIAL Blood Gas Patient Temperature 98.6 Blood Gas HCO3 20 mmol/L Blood Gas Base Excess -5.5 mmol/L Blood Gas Oxygen Saturation 98 % Arterial Blood pH 7.32 Arterial Blood Partial 39 mmHg Pressure CO2 Arterial Blood Partial 506 mmHG Pressure O2 Arterial Blood Oxygen Content 14.3 Vol % Arterial Blood 1.3 % Carboxyhemoglobin Arterial Blood Methemoglobin 0.5 % Blood Gas Hemoglobin 9.4 G/DL Oxygen Delivery Device VENTILATOR Blood Gas Ventilator Setting AC/16/550/PEEP5 Blood Gas Inspired Oxygen 100 % Nasal Screen MRSA (PCR) MRSA NOT DETECTED Test 08/13/16 05:45 White Blood Count 5.2 TH/MM3 Red Blood Count 3.04 MIL/MM3 Hemoglobin 9.3 GM/DL Hematocrit 28.5 % Mean Corpuscular Volume 93.8 FL Mean Corpuscular Hemoglobin 30.6 PG Mean Corpuscular Hemoglobin 32.6 % Concent Red Cell Distribution Width 17.4 % Platelet Count 134 TH/MM3 Mean Platelet Volume 8.1 FL Neutrophils (%) (Auto) 49.9 % Lymphocytes (%) (Auto) 34.3 % Monocytes (%) (Auto) 13.8 % Eosinophils (%) (Auto) 1.2 % Basophils (%) (Auto) 0.8 % Neutrophils # (Auto) 2.6 TH/MM3 Lymphocytes # (Auto) 1.8 TH/MM3 Monocytes # (Auto) 0.7 TH/MM3 Eosinophils # (Auto) 0.1 TH/MM3 Basophils # (Auto) 0.0 TH/MM3 CBC Comment AUTO DIFF Differential Comment Sodium Level 149 MEQ/L Potassium Level 4.1 MEQ/L Chloride Level 117 MEQ/L Carbon Dioxide Level 26.1 MEQ/L Anion Gap 6 MEQ/L Blood Urea Nitrogen 3 MG/DL Creatinine 0.60 MG/DL Estimat Glomerular Filtration 137 ML/MIN Rate Random Glucose 69 MG/DL Calcium Level 7.1 MG/DL Protein Corrected Calcium 7.9 MG/DL Total Bilirubin 0.3 MG/DL Aspartate Amino Transf 33 U/L (AST/SGOT) Alanine Aminotransferase 30 U/L (ALT/SGPT) Alkaline Phosphatase 71 U/L Total Protein 5.5 GM/DL Albumin 2.6 GM/DL Imaging Last Impressions Abdomen/Pelvis CT 08/12/16 1250 Signed Impressions: Service Date/Time: Friday, August 12, 2016 16:24 - CONCLUSION: 1. Thickwalled urinary bladder which is a new finding from the prior exam. This would suggest acute inflammatory change or infectious process. It is not felt to relate to trabeculation from bladder outlet obstruction due to its interval appearance in a short time span. 2. Hepatic steatosis. 3. Hiatal hernia. 4. Prior cholecystectomy. Luis Alfredo Hoskins Jr., MD Head CT 08/12/16 0000 Signed Impressions: Service Date/Time: Friday, August 12, 2016 16:18 - CONCLUSION: 1. Cortical atrophy. No acute intracranial abnormality. Kenan Norman MD Chest X-Ray 08/12/16 0000 Signed Impressions: Service Date/Time: Friday, August 12, 2016 14:53 - CONCLUSION: 1. ET tube in good position. 2. Nasogastric tube should be advanced. Rodo Norman MD FACR Brain MRI 08/12/16 0000 Signed Impressions: Service Date/Time: Friday, August 12, 2016 20:49 - CONCLUSION: 1. No acute intracranial abnormality. 2. Atrophy and mild, chronic scattered white matter changes. Vikas Arzate MD Objective Remarks HEENT/ Neuro: Sedated, arousable, orally intubated, Pallor present, no icterus, tongue/ mucosa moist Neck: No JVD Chest/Pulm: on mech vent, good air entry bilaterally, no wheezing or crackles CVS: S1-S2 regular, no murmur GI/abdomen: soft, nontender, bowel sounds sluggish Extremities: warm bilaterally, no edema A/P Assessment and Plan 61-year-old male with: Encephalopathy Alcohol intoxication Abdominal pain Hypotension Acute respiratory failure on mechanical ventilation Hyperlipidemia Depression Plan: Neuro: Sedation with propofol while intubated. Daily sedation vacation. Follow neuro status. Head CT and MRI brain unremarkable. Cardiovascular: Receive fluid boluses for hypotension on 08/12. Watch for hypotension. IV hydration. Troponin negative Pulmonary: Continue mechanical ventilation, vent bundle, broncho-dilators as needed. Daily C Pap trials to decide extubation GI/liver: CT abdomen pelvis with thickened urinary bladder. Continue tube feeds and advanced to goal as tolerated. Renal/: IV hydration, strict intake output, monitor and replete electrolytes, follow BUN creatinine. ID: No antibiotics at this time. Endocrine: Watch for hyperglycemia. SSI for glycemic control if needed. Heme: Follow CBC Prophylaxis: PPI/SCDs. If head CT negative for bleed Will initiate Lovenox for DVT prophylaxis. Condition critical Time spent on critical care excluding procedures 30 minutes Mohit Olivera MD Aug 13, 2016 14:15
[2016-08-13] MEDS ORDERED: DEXMEDETOMIDINE INJ 200 MCG in SODIUM CHLORIDE 0.9% INJ 50 ML IV SCH (18:30)
--- NOTE | 2016-08-13 21:51 | EKG ---
Date Performed: 08/12/2016 Time Performed: 14:20:34 PTAGE: 61 years EKG: Sinus rhythm Since previous tracing, no significant change noted NORMAL ECG PREVIOUS TRACING : 08/04/2016 16.03 DOCTOR: Osiel Lion Interpretating Date/Time 08/13/2016 21:50:09
[2016-08-14] VITALS (15 sets, daily range): BP systolic 137–162; BP diastolic 68–90; PULSE 75–96; RESP 13–18; TEMP 97.8–98.9; O2SAT 94–100
[2016-08-14] MEDS: RESP: ALBUTEROL 2.5 MG/IPRATROPIUM 0.5 MG NEB (SCH) NEB ×4 (01:41→21:08)
[2016-08-14] MEDS: CHLORHEXIDINE GLUCONATE 2 % 1 PACK (2 CLOTHS) TOP SCH (04:00)
[2016-08-14] MEDS: SODIUM CHLOR 0.9% 1000 ML INJ 1,000 ML IV SCH ×4 (04:57→21:19)
[2016-08-14] MEDS: CHLORHEXIDINE 0.12% (ORAL KIT) 15 ML CUP MT SCH ×2 (07:42→20:00)
[2016-08-14] MEDS: PANTOPRAZOLE SODIUM 40 MG VIAL IV SCH (07:43)
[2016-08-14] MEDS: SODIUM CHLORIDE 0.9% FLUSH 10 ML FLUSH IV FLUSH SCH ×2 (07:43→21:20)
[2016-08-14] MEDS ORDERED: HALOPERIDOL LACTATE 5 MG/ML AMP IM PRN (11:00)
[2016-08-14] MEDS ORDERED: LORazepam 2 MG TAB PO PRN (11:00)
[2016-08-14] MEDS ORDERED: ONDANSETRON HCL 4 MG/2 ML VIAL IV PRN (11:00)
[2016-08-14] MEDS ORDERED: LORazepam 2 MG/ML VIAL IV PUSH PRN ×3 (11:00)
--- NOTE | 2016-08-14 11:15 | HHI.CCPN ---
Subjective Remarks/Hospital Course 08/12: 61-year-old male came to the emergency room brought by EMS after being found intoxicated and saying that he wants to get sober. He was also complaining of some epigastric pain. Patient noted to be intoxicated on arrival in the ER. He is otherwise awake and alert and following commands. In fact he used the restroom a few times and a few crackers. He was waiting for CT abdomen and pelvis for evaluation of his abdominal pain. Nurse found patient on the floor next to a stretcher subsequently minimally responsive. Patient was intubated by Dr. Wilcox as he remained almost unresponsive despite painful stimuli and placed on mechanical ventilation. He was initiated on propofol for sedation following intubation and a right subclavian central line was placed. Following intubation patient did drop his blood pressure for which she was initiated on normal saline 1 L bolus. Critical care medicine except the patient for admission and I came down immediately on being notified of the consult. I evaluated the patient he was sedated with propofol, orally intubated on mechanical ventilation. I ordered a stat fingerstick glucose which was 109. At the time of my evaluation propofol had just been held due to hypotension and patient was opening his eyes minimally and moving both upper extremities. He was awaiting CT head and abdomen pelvis and the time of my evaluation. History was obtained by reviewing records and discussion with ER physician. 08/13: Sedated, arousable, orally intubated on mechanical ventilation. Opens eyes on command and focuses. Moves both upper extremities. 08/14: Extubated this morning. Awake and alert. Following commands. Wants to eat. He also wants to get out of bed. He does have some tremor in his hands on holding the mouth. Objective Vital Signs Date Time Temp Pulse Resp B/P Pulse Ox O2 Delivery O2 Flow Rate FiO2 08/14/16 08:15 Nasal Cannula 08/14/16 08:15 97 3 08/14/16 08:00 79 08/14/16 08:00 98.3 18 162/90 08/14/16 04:25 35 Intake and Output 08/13/16 08/13/16 08/14/16 08:00 16:00 00:00 Intake Total 1180 ml 1985 ml 609 ml Output Total 600 ml 1000 ml 1000 ml Balance 580 ml 985 ml -391 ml Result Diagram: 08/13/16 0545 08/13/16 0545 Imaging Last Impressions Abdomen/Pelvis CT 08/12/16 1250 Signed Impressions: Service Date/Time: Friday, August 12, 2016 16:24 - CONCLUSION: 1. Thickwalled urinary bladder which is a new finding from the prior exam. This would suggest acute inflammatory change or infectious process. It is not felt to relate to trabeculation from bladder outlet obstruction due to its interval appearance in a short time span. 2. Hepatic steatosis. 3. Hiatal hernia. 4. Prior cholecystectomy. Luis Alfredo Hoskins Jr., MD Head CT 08/12/16 0000 Signed Impressions: Service Date/Time: Friday, August 12, 2016 16:18 - CONCLUSION: 1. Cortical atrophy. No acute intracranial abnormality. Kenan Norman MD Chest X-Ray 08/12/16 0000 Signed Impressions: Service Date/Time: Friday, August 12, 2016 14:53 - CONCLUSION: 1. ET tube in good position. 2. Nasogastric tube should be advanced. Rodo Norman MD FACR Brain MRI 08/12/16 0000 Signed Impressions: Service Date/Time: Friday, August 12, 2016 20:49 - CONCLUSION: 1. No acute intracranial abnormality. 2. Atrophy and mild, chronic scattered white matter changes. Vikas Arzate MD Objective Remarks HEENT/ Neuro: Awake alert oriented 3, moving all 4 extremities, grossly nonfocal. Pallor present, no icterus, tongue/ mucosa moist Neck: No JVD Chest/Pulm: good air entry bilaterally, no wheezing or crackles CVS: S1-S2 regular, no murmur GI/abdomen: soft, nontender, bowel sounds sluggish Extremities: warm bilaterally, no edema A/P Assessment and Plan 61-year-old male with: Encephalopathy(resolved) Alcohol intoxication Abdominal pain Hypotension Acute respiratory failure on mechanical ventilation Hyperlipidemia Depression Plan: Neuro: Was taken off sedation on 08/13. Neuro status much improved this morning hence extubated. Head CT and MRI brain unremarkable. Start alcohol withdrawal protocol including thiamine/MVI/folic acid and Ativan per protocol. Cardiovascular: Receive fluid boluses for hypotension on 08/12. Watch for hypotension. IV hydration. Troponin negative Pulmonary: Extubated on 08/14 following C Pap trial., broncho-dilators as needed. GI/liver: CT abdomen pelvis with thickened urinary bladder. Advance by mouth diet.. Will get urology eval for thickened urinary bladder on CT. Renal/: IV hydration, strict intake output, monitor and replete electrolytes, follow BUN creatinine. ID: No antibiotics at this time. Endocrine: Watch for hyperglycemia. SSI for glycemic control if needed. Heme: Follow CBC Prophylaxis: PPI/SCDs. Start Lovenox for DVT prophylaxis.. We'll consult and transfer to hospitalist service for further medical management. Mohit Olivera MD Aug 14, 2016 11:15
[2016-08-14] MEDS: MULTIVITAMINS/MINERALS THERAPEUTIC TAB PO SCH (12:06)
[2016-08-14] MEDS: THIAMINE HCL 100 MG TAB PO SCH (12:06)
[2016-08-14] MEDS: LORazepam 2 MG/ML VIAL IV PUSH PRN (12:07)
[2016-08-14] MEDS: oxyCODONE/ACETAMINOPHEN 7.5 MG/325 MG TAB PO PRN ×2 (12:07→18:19)
[2016-08-14] MEDS: ALUMINUM/MAGNESIUM/SIMETH 30 ML CUP PO SCH ×2 (17:26→21:20)
[2016-08-14] MEDS: LORazepam 1 MG TAB PO PRN ×2 (18:19→23:03)
[2016-08-15] VITALS (10 sets, daily range): BP systolic 130–163; BP diastolic 61–91; PULSE 67–89; RESP 16–20; TEMP 97.5–98.9; O2SAT 96–99
[2016-08-15] MEDS: oxyCODONE/ACETAMINOPHEN 7.5 MG/325 MG TAB PO PRN ×4 (00:19→20:14)
[2016-08-15] MEDS: ALUMINUM/MAGNESIUM/SIMETH 30 ML CUP PO SCH ×6 (00:20→23:11)
[2016-08-15] MEDS: LORazepam 1 MG TAB PO PRN ×3 (02:52→23:11)
[2016-08-15] MEDS: RESP: ALBUTEROL 2.5 MG/IPRATROPIUM 0.5 MG NEB (SCH) NEB ×2 (03:17→08:49)
[2016-08-15] MEDS: CHLORHEXIDINE GLUCONATE 2 % 1 PACK (2 CLOTHS) TOP SCH (04:00)
[2016-08-15 05:08] LABS: AUTOMATED NEUTROPHIL # 1.8 TH/MM3 (1.8-7.7); BASOPHIL % 0.4 % (0.0-2.0); EOSINOPHIL # 0.1 TH/MM3 (0-0.4); EOSINOPHIL % 2.5 % (0.0-4.0); HEMATOCRIT 26.5 % (39.0-51.0); HEMO FLAGS DIFF FINAL; LYMPH % 38.4 % (9.0-44.0); LYMPHOCYTE # 1.6 TH/MM3 (1.0-4.8); MEAN CORPUSCULAR HGB CONC 33.7 % (32.0-36.0); MONO % 15.9 % (0.0-8.0); NEUT % 42.8 % (16.0-70.0); PLATELET COUNT 132 TH/MM3 (150-450); RED BLOOD COUNT 2.88 MIL/MM3 (4.50-5.90); RED CELL DISTRIBUTION WIDTH 16.3 % (11.6-17.2); WHITE BLOOD COUNT 4.2 TH/MM3 (4.0-11.0)
[2016-08-15 05:41] LABS: ALKALINE PHOSPHATASE 115 U/L (45-117); ALT (GPT) 26 U/L (12-78); ANION GAP 8 MEQ/L (5-15); AST (GOT) 41 U/L (15-37); BICARBONATE 28.6 MEQ/L (21.0-32.0); BLOOD UREA NITROGEN 2 MG/DL (7-18); CHLORIDE 107 MEQ/L (98-107); GLOMERULAR FILTRATION RATE 127 ML/MIN (>89); MAGNESIUM 1.4 MG/DL (1.5-2.5); POTASSIUM 3.2 MEQ/L (3.5-5.1); SODIUM (NA) 144 MEQ/L (136-145); TOTAL BILIRUBIN ADULT 0.5 MG/DL (0.2-1.0)
[2016-08-15] MEDS: CHLORHEXIDINE 0.12% (ORAL KIT) 15 ML CUP MT SCH ×2 (08:00→20:00)
[2016-08-15] MEDS: PANTOPRAZOLE SODIUM 40 MG VIAL IV SCH (08:27)
[2016-08-15] MEDS: THIAMINE HCL 100 MG TAB PO SCH (08:27)
[2016-08-15] MEDS: MULTIVITAMINS/MINERALS THERAPEUTIC TAB PO SCH (08:27)
[2016-08-15] MEDS: FOLIC ACID 1 MG TAB PO SCH (08:27)
[2016-08-15] MEDS: SODIUM CHLORIDE 0.9% FLUSH 10 ML FLUSH IV FLUSH SCH ×2 (08:28→20:14)
[2016-08-15] MEDS ORDERED: POTASSIUM CHLORIDE 10 MEQ CONTROLLED RELEASE TAB PO ONE (09:45)
--- NOTE | 2016-08-15 09:51 | HHI.PR ---
Subjective Remarks Follow-up respiratory failure/encephalopathy/alcohol intoxication 08/15/16-patient seen and examined, alert and oriented 3. States he would never drink anymore trouble alcohol. Vitals stable. Objective Vitals Vital Signs Date Time Temp Pulse Resp B/P Pulse Ox O2 Delivery O2 Flow Rate FiO2 08/15/16 08:49 96 08/15/16 08:34 18 08/15/16 08:00 98.0 79 18 156/84 98 08/15/16 04:00 98.9 86 18 130/61 97 08/15/16 00:00 98.7 67 18 136/66 96 08/14/16 21:12 94 21 08/14/16 20:00 98.9 93 18 137/68 98 08/14/16 20:00 85 08/14/16 17:52 98.4 81 18 140/74 95 08/14/16 16:00 81 08/14/16 16:00 98.9 81 18 139/74 100 08/14/16 14:00 96 08/14/16 12:00 97.8 89 18 152/81 96 08/14/16 12:00 89 08/14/16 10:00 86 I/O 08/14/16 08/14/16 08/14/16 08/15/16 08/15/16 08/15/16 07:00 15:00 23:00 07:00 15:00 23:00 Intake Total 549 ml 1879 ml 360 ml 120 ml Output Total 1250 ml 1400 ml 1400 ml 1300 ml Balance -701 ml 479 ml -1040 ml -1180 ml Intake Oral 720 ml 360 ml 120 ml IV Total 549 ml 1159 ml Output Urine Total 1250 ml 1400 ml 1400 ml 1300 ml # Bowel Movements 0 2 1 0 Result Diagram: 08/15/16 0450 08/15/16 0450 Imaging Last Impressions Abdomen/Pelvis CT 08/12/16 1250 Signed Impressions: Service Date/Time: Friday, August 12, 2016 16:24 - CONCLUSION: 1. Thickwalled urinary bladder which is a new finding from the prior exam. This would suggest acute inflammatory change or infectious process. It is not felt to relate to trabeculation from bladder outlet obstruction due to its interval appearance in a short time span. 2. Hepatic steatosis. 3. Hiatal hernia. 4. Prior cholecystectomy. Luis Alfredo Hoskins Jr., MD Head CT 08/12/16 0000 Signed Impressions: Service Date/Time: Friday, August 12, 2016 16:18 - CONCLUSION: 1. Cortical atrophy. No acute intracranial abnormality. Kenan Norman MD Chest X-Ray 08/12/16 0000 Signed Impressions: Service Date/Time: Friday, August 12, 2016 14:53 - CONCLUSION: 1. ET tube in good position. 2. Nasogastric tube should be advanced. Rodo Norman MD FACR Brain MRI 08/12/16 0000 Signed Impressions: Service Date/Time: Friday, August 12, 2016 20:49 - CONCLUSION: 1. No acute intracranial abnormality. 2. Atrophy and mild, chronic scattered white matter changes. Vikas Arzate MD Objective Remarks GENERAL: NAD SKIN: Warm and dry. HEAD: Normocephalic. EYES: No scleral icterus. No injection or drainage. NECK: Supple, trachea midline. No JVD or lymphadenopathy. CARDIOVASCULAR: Regular rate and rhythm without murmurs, gallops, or rubs. RESPIRATORY: Breath sounds equal bilaterally. No accessory muscle use. GASTROINTESTINAL: Abdomen soft, non-tender, nondistended. MUSCULOSKELETAL: No cyanosis, or edema. BACK: Nontender without obvious deformity. No CVA tenderness. A/P Problem List: (1) Respiratory failure ICD Code: J96.90 Status: Acute (2) Toxic encephalopathy ICD Code: G92 Status: Acute (3) Alcohol intoxication ICD Code: F10.129 Status: Acute (4) Alcohol abuse ICD Code: F10.10 Status: Acute Assessment and Plan 61-year-old man with Respiratory failure-resolved Extubated 08/14/16 DuoNeb when necessary Toxic encephalopathy Head CT and MRI brain unremarkable Secondary to acute alcohol intoxication Resolved Alcohol abuse with alcohol intoxication Continue CIWA protocol, rally pack Hypotension Resolved therefore will stop IV fluid hydration Hypertension Resume lisinopril 10 mg daily and metoprolol twice a day Neuropathy Resume Neurontin Hypokalemia Replace electrolyte with 60meq of K and monitor Anxiety/depression-follow outpatient with psychiatry General deconditioning PT consult to treat and eval DVT prophylaxis: Lovenox Discharge Planning Discharge 08/16/16 Problem Qualifiers (1) Respiratory failure: Qualified Code: J96.00 - Acute respiratory failure, unspecified whether with hypoxia or hypercapnia Stephon Oneal MD 8, 2017 09:51
[2016-08-15] MEDS: LORazepam 2 MG/ML VIAL IV PUSH PRN ×3 (10:19→18:25)
[2016-08-15] MEDS: GABAPENTIN 400 MG CAP PO SCH ×2 (13:17→18:22)
[2016-08-15] MEDS: METOPROLOL TARTRATE 25 MG TAB PO SCH (20:13)
[2016-08-16 00:03] VITALS: BP 162/103; PULSE 77; RESP 20; TEMP 97.6; O2SAT 97
[2016-08-16] MEDS: ALUMINUM/MAGNESIUM/SIMETH 30 ML CUP PO SCH ×4 (02:10→13:33)
[2016-08-16] MEDS: oxyCODONE/ACETAMINOPHEN 7.5 MG/325 MG TAB PO PRN ×2 (02:14→09:09)
[2016-08-16] MEDS: LORazepam 1 MG TAB PO PRN ×2 (03:24→07:47)
[2016-08-16 04:00] VITALS: BP 150/93; PULSE 67; RESP 20; TEMP 97.4; O2SAT 96
[2016-08-16] MEDS: CHLORHEXIDINE GLUCONATE 2 % 1 PACK (2 CLOTHS) TOP SCH (04:00)
[2016-08-16 05:22] LABS: BICARBONATE 29.1 MEQ/L (21.0-32.0); POTASSIUM 3.4 MEQ/L (3.5-5.1)
[2016-08-16 05:24] VITALS: O2SAT 98
[2016-08-16] MEDS: RESP: ALBUTEROL 2.5 MG/IPRATROPIUM 0.5 MG NEB (SCH) NEB ×2 (05:24→07:46)
[2016-08-16 07:46] VITALS: O2SAT 97
[2016-08-16 08:00] VITALS: BP 155/84; PULSE 73; PULSE 78; RESP 20; TEMP 97.8; O2SAT 98
[2016-08-16] MEDS: CHLORHEXIDINE 0.12% (ORAL KIT) 15 ML CUP MT SCH (08:00)
[2016-08-16] MEDS ORDERED: POTASSIUM CHLORIDE 10 MEQ CONTROLLED RELEASE TAB PO ONE (08:30)
--- NOTE | 2016-08-16 08:30 | HHI.PR ---
Subjective Remarks Follow-up respiratory failure/encephalopathy/alcohol intoxication 08/15/16-patient seen and examined, alert and oriented 3. States he would never drink anymore trouble alcohol. Vitals stable. 08/16/16-patient seen and examined, he was disruptive overnight however alert and oriented 2 this morning. Patient was seen ambulating without any assistance in his room however very unsteady. Afebrile Objective Vitals Vital Signs Date Time Temp Pulse Resp B/P Pulse Ox O2 Delivery O2 Flow Rate FiO2 08/16/16 07:46 97 21 08/16/16 05:24 98 08/16/16 04:00 97.4 67 20 150/93 96 08/16/16 00:03 97.6 77 20 162/103 97 08/15/16 20:18 78 08/15/16 20:00 98.1 84 20 156/87 99 08/15/16 19:30 85 08/15/16 16:00 97.5 89 16 163/87 98 08/15/16 15:32 18 08/15/16 12:00 98.5 82 18 162/91 97 08/15/16 08:49 96 I/O 08/15/16 08/15/16 08/15/16 08/16/16 08/16/16 08/16/16 07:00 15:00 23:00 07:00 15:00 23:00 Intake Total 120 ml 220 ml 1800 ml Output Total 1300 ml 1100 ml 2975 ml Balance -1180 ml -880 ml -1175 ml Intake Oral 120 ml 220 ml 1800 ml Output Urine Total 1300 ml 1100 ml 2975 ml # Bowel Movements 0 0 0 Result Diagram: 08/15/16 0450 08/16/16 0420 Objective Remarks GENERAL: NAD SKIN: Warm and dry. HEAD: Normocephalic. EYES: No scleral icterus. No injection or drainage. NECK: Supple, trachea midline. No JVD or lymphadenopathy. CARDIOVASCULAR: Regular rate and rhythm without murmurs, gallops, or rubs. RESPIRATORY: Breath sounds equal bilaterally. No accessory muscle use. GASTROINTESTINAL: Abdomen soft, non-tender, nondistended. MUSCULOSKELETAL: No cyanosis, or edema. BACK: Nontender without obvious deformity. No CVA tenderness. A/P Problem List: (1) Respiratory failure ICD Code: J96.90 Status: Acute (2) Toxic encephalopathy ICD Code: G92 Status: Acute (3) Alcohol intoxication ICD Code: F10.129 Status: Acute (4) Alcohol abuse ICD Code: F10.10 Status: Acute Assessment and Plan 61-year-old man with Respiratory failure-resolved Extubated 08/14/16 DuoNeb when necessary Toxic encephalopathy Head CT and MRI brain unremarkable Secondary to acute alcohol intoxication Resolved Alcohol abuse with alcohol intoxication Continue CIWA protocol, rally pack Hypotension Resolved Hypertension Continue lisinopril 10 mg daily and metoprolol twice a day Neuropathy Continue Neurontin Hypokalemia Replace electrolyte with 60meq of K and monitor Anxiety/depression-follow outpatient with psychiatry. Continue with current medications General deconditioning PT to treat and eval DVT prophylaxis: Lovenox Discharge Planning Discharge 08/16/16 Problem Qualifiers (1) Respiratory failure: Qualified Code: J96.00 - Acute respiratory failure, unspecified whether with hypoxia or hypercapnia Stephon Oneal MD Aug 16, 2016 08:30
[2016-08-16] MEDS ORDERED: PANTOPRAZOLE SOD 40 MG DELAYED RELEASE TAB PO SCH (09:00)
[2016-08-16] MEDS ORDERED: LISINOPRIL 10 MG TAB PO SCH (09:00)
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
[2016-08-16] MEDS ORDERED: LORA-392 PO (09:05)
[2016-08-16] MEDS: THIAMINE HCL 100 MG TAB PO SCH (09:09)
[2016-08-16] MEDS: MULTIVITAMINS/MINERALS THERAPEUTIC TAB PO SCH (09:09)
[2016-08-16] MEDS: METOPROLOL TARTRATE 25 MG TAB PO SCH (09:10)
[2016-08-16] MEDS: GABAPENTIN 400 MG CAP PO SCH ×2 (09:10→13:33)
[2016-08-16] MEDS: SODIUM CHLORIDE 0.9% FLUSH 10 ML FLUSH IV FLUSH SCH (09:10)
[2016-08-16] MEDS: FOLIC ACID 1 MG TAB PO SCH (09:10)
[2016-08-16 12:00] VITALS: BP 153/98; PULSE 73; RESP 20; TEMP 97.5; O2SAT 98
== END 2016-08-16 14:29 | DRG 917 ==
LOC: NEPC 12:21 → NEDA 15:34 → HIME 18:00 → N04B 08-14 17:56
PROVIDERS: ADMIT Hospitalist; ATTEND Hospitalist
PROC: 0BH17EZ Insertion of Endotracheal Airway into Trachea, Via Natural or Artificial Opening (ICD-10-PCS; principal; 2016-08-12)
PROC: 5A1945Z Respiratory Ventilation, 24-96 Consecutive Hours (ICD-10-PCS; 2016-08-12)
PROC: 05H533Z Insertion of Infusion Device into Right Subclavian Vein, Percutaneous Approach (ICD-10-PCS; 2016-08-12)
DX: T51.0X1A Toxic effect of ethanol, accidental (unintentional), initial encounter (principal); J96.00 Acute respiratory failure, unspecified whether with hypoxia or hypercapnia; G92 Toxic encephalopathy; I95.9 Hypotension, unspecified; E87.6 Hypokalemia; F10.229 Alcohol dependence with intoxication, unspecified; G62.9 Polyneuropathy, unspecified; K21.9 Gastro-esophageal reflux disease without esophagitis; Y90.8 Blood alcohol level of 240 mg/100 ml or more; F41.9 Anxiety disorder, unspecified; F32.9 Major depressive disorder, single episode, unspecified; I10 Essential (primary) hypertension; E78.5 Hyperlipidemia, unspecified; F17.210 Nicotine dependence, cigarettes, uncomplicated
CPT/HCPCS: 31500; 36556; 36600; 70450; 70551; 71010; 74177; 80048; 80053; 80307; 81001; 82550; 82805; 82948; 83690; 83735; 84484; 85025; 87641; 93005; 94002; 94003; 94150; 94640; 94664; 96374; 96375; C9113; J0330; J1630; J2060; J2250; J2405; J3010; J7030; Q9967

== ENCOUNTER 2016-08-31 16:04 | Emergency (ER) | payer MEDICARE, OTHER ==
[~2016-08-31] VITALS: Ht 182.9 cm; Wt 70.0 kg
[~2016-08-31 16:04] MED LIST changes: +LORA-392 PO; -LORA-474 PO
[2016-08-31 16:08] VITALS: BP 126/74; PULSE 74; RESP 15; TEMP 98.2; O2SAT 98
[2016-08-31] MEDS ORDERED: LIDOCAINE VISCOUS 2% SOLN 15 ML UDC PO ONE (16:15)
[2016-08-31] MEDS ORDERED: ALUMINUM/MAGNESIUM/SIMETH 30 ML CUP PO ONE (16:15)
[2016-08-31] MEDS ORDERED: ONDANSETRON HCL 4 MG/2 ML VIAL IVP ONE (16:15)
[2016-08-31] MEDS ORDERED: SODIUM CHLOR 0.9% 1000 ML INJ 1,000 ML IV SCH (16:15)
[2016-08-31] MEDS ORDERED: SODIUM CHLORIDE 0.9% FLUSH 10 ML FLUSH IV FLUSH PRN (16:15)
[2016-08-31 16:17] VITALS: BP 108/57; PULSE 88; RESP 20; TEMP 98.5; O2SAT 97
[2016-08-31 16:59] LABS: AUTOMATED NEUTROPHIL # 6.3 TH/MM3 (1.8-7.7); BASOPHIL % 0.3 % (0.0-2.0); EOSINOPHIL % 0.3 % (0.0-4.0); HEMATOCRIT 32.8 % (39.0-51.0); LYMPH % 26.6 % (9.0-44.0); LYMPHOCYTE # 2.6 TH/MM3 (1.0-4.8); MEAN CELL VOLUME 89.8 FL (80.0-100.0); MEAN CORPUSCULAR HEMOGLOBIN 29.6 PG (27.0-34.0); MEAN CORPUSCULAR HGB CONC 32.9 % (32.0-36.0); MONO % 7.2 % (0.0-8.0); NEUT % 65.6 % (16.0-70.0); PLATELET COUNT 307 TH/MM3 (150-450); RED BLOOD COUNT 3.65 MIL/MM3 (4.50-5.90); RED CELL DISTRIBUTION WIDTH 16.3 % (11.6-17.2); WHITE BLOOD COUNT 9.7 TH/MM3 (4.0-11.0)
[2016-08-31 17:01] LABS: HEMO FLAGS AUTO DIFF
[2016-08-31 17:28] LABS: PLATELET ESTIMATE SMEAR NORMAL (NORMAL); PLATELET MORPHOLOGY NORMAL (NORMAL); SCAN/DIFF AUTO DIFF CONFIRMED
[2016-08-31 17:39] LABS: ALT (GPT) 156 U/L (12-78); ANION GAP 13 MEQ/L (5-15); AST (GOT) 144 U/L (15-37); BICARBONATE 21.7 MEQ/L (21.0-32.0); BLOOD UREA NITROGEN 7 MG/DL (7-18); CHLORIDE 97 MEQ/L (98-107); GLOMERULAR FILTRATION RATE 120 ML/MIN (>89); SODIUM (NA) 132 MEQ/L (136-145)
[2016-08-31 17:40] LABS: POTASSIUM 3.9 MEQ/L (3.5-5.1)
[2016-08-31 17:41] LABS: ALKALINE PHOSPHATASE 220 U/L (45-117); TOTAL BILIRUBIN ADULT 0.6 MG/DL (0.2-1.0)
[2016-08-31 18:09] LABS: AMPHETAMINE, URINE NEG (NEG); BARBITURATES, URINE NEG (NEG); COCAINE, URINE NEG (NEG)
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
== END 2016-08-31 19:03 | disposition home or self-care (01) ==
LOC: NEPE 16:04
DX: R10.84 Generalized abdominal pain (principal); F10.229 Alcohol dependence with intoxication, unspecified; I10 Essential (primary) hypertension; K85.90 Acute pancreatitis without necrosis or infection, unspecified; K75.9 Inflammatory liver disease, unspecified; K21.9 Gastro-esophageal reflux disease without esophagitis; E78.00 Pure hypercholesterolemia, unspecified; F41.9 Anxiety disorder, unspecified; F32.9 Major depressive disorder, single episode, unspecified
CPT/HCPCS: 80053; 80307; 83690; 85025; 96374; 99284; J2405; J7030

== ENCOUNTER 2016-09-11 13:08 | Emergency (ER) | payer MEDICARE, OTHER ==
[~2016-09-11] VITALS: Ht 188 cm; Wt 70.0 kg
[2016-09-11 13:27] VITALS: BP 143/91; PULSE 99; RESP 18; TEMP 98.1; O2SAT 98
[2016-09-11] MEDS ORDERED: SODIUM CHLOR 0.9% 1000 ML INJ 1,000 ML IV ONE ×2 (13:30→15:00)
[2016-09-11] MEDS ORDERED: FAMOTIDINE 20 MG/2 ML VIAL IV PUSH SCH (13:30)
[2016-09-11] MEDS ORDERED: PANTOPRAZOLE SODIUM 40 MG VIAL IV PUSH ONE (13:30)
[2016-09-11] MEDS ORDERED: SODIUM CHLORIDE 0.9% FLUSH 10 ML FLUSH IVF PRN (13:30)
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
[2016-09-11 14:14] LABS: AUTOMATED NEUTROPHIL # 5.3 TH/MM3 (1.8-7.7); BASOPHIL % 0.4 % (0.0-2.0); EOSINOPHIL % 0.1 % (0.0-4.0); HEMATOCRIT 38.9 % (39.0-51.0); HEMO FLAGS DIFF FINAL; LYMPHOCYTE # 2.5 TH/MM3 (1.0-4.8); MEAN CELL VOLUME 90.2 FL (80.0-100.0); MEAN CORPUSCULAR HGB CONC 32.2 % (32.0-36.0); MONO % 6.3 % (0.0-8.0); NEUT % 63.2 % (16.0-70.0); PLATELET COUNT 202 TH/MM3 (150-450); RED BLOOD COUNT 4.31 MIL/MM3 (4.50-5.90); RED CELL DISTRIBUTION WIDTH 16.5 % (11.6-17.2); WHITE BLOOD COUNT 8.4 TH/MM3 (4.0-11.0)
[2016-09-11 14:17] LABS: AMPHETAMINE, URINE NEG (NEG); BARBITURATES, URINE NEG (NEG); COCAINE, URINE NEG (NEG)
[2016-09-11 14:25] LABS: ALT (GPT) 74 U/L (12-78); BLOOD, URINE NEG (NEG); COMMENT (UR) CULT NOT INDICATED; CULTURE IF INDICATED CULT NOT INDICATED; GLUCOSE,URINE NEG (NEG); KETONE, URINE 10 mg/dL (NEG); NITRITE,URINE NEG (NEG); URINE COLOR YELLOW (YELLW/STRAW)
[2016-09-11 14:30] LABS: ANION GAP 18 MEQ/L (5-15); AST (GOT) 125 U/L (15-37); BICARBONATE 15.2 MEQ/L (21.0-32.0); BLOOD UREA NITROGEN 7 MG/DL (7-18); CHLORIDE 98 MEQ/L (98-107); GLOMERULAR FILTRATION RATE 101 ML/MIN (>89); POTASSIUM 3.7 MEQ/L (3.5-5.1); SODIUM (NA) 131 MEQ/L (136-145)
[2016-09-11 14:34] LABS: ALKALINE PHOSPHATASE 137 U/L (45-117); TOTAL BILIRUBIN ADULT 0.5 MG/DL (0.2-1.0)
[2016-09-11 15:38] VITALS: BP 138/88; PULSE 90; RESP 16; O2SAT 99
[2016-09-11 19:29] VITALS: BP 121/72; PULSE 85; RESP 18; O2SAT 99
[2016-09-12 01:20] VITALS: BP 149/70; PULSE 87; RESP 18; TEMP 98.3; O2SAT 99
[2016-09-12] MEDS ORDERED: FLUMAZENIL 0.5 MG/5 ML VIAL IV PUSH PRN (02:15)
[2016-09-12] MEDS ORDERED: LORazepam 1 MG TAB PO PRN (02:15)
[2016-09-12] MEDS ORDERED: LORazepam 2 MG/ML VIAL IV PUSH PRN ×4 (02:15)
[2016-09-12] MEDS ORDERED: LORazepam 2 MG TAB PO PRN (02:15)
[2016-09-12 06:00] VITALS: BP 137/74; PULSE 83; RESP 16; O2SAT 97
[2016-09-12 12:00] VITALS: BP 148/73; PULSE 82; O2SAT 97
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
== END 2016-09-12 15:47 | disposition home or self-care (01) ==
LOC: NEPD 13:08
DX: F10.220 Alcohol dependence with intoxication, uncomplicated (principal); R45.851 Suicidal ideations; E78.00 Pure hypercholesterolemia, unspecified; M06.9 Rheumatoid arthritis, unspecified; F41.8 Other specified anxiety disorders; Y90.8 Blood alcohol level of 240 mg/100 ml or more; I10 Essential (primary) hypertension; K85.90 Acute pancreatitis without necrosis or infection, unspecified; B19.20 Unspecified viral hepatitis C without hepatic coma; Z72.0 Tobacco use
CPT/HCPCS: 80053; 80307; 81001; 83690; 85025; 96361; 96374; 96375; 99284; C9113; J2060; J7030

== ENCOUNTER 2016-10-18 11:19 | Emergency (ER) | payer MEDICARE, OTHER ==
[~2016-10-18] VITALS: Ht 188 cm; Wt 65.0 kg
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
[2016-10-18] MEDS ORDERED: SODIUM CHLOR 0.9% 1000 ML INJ 1,000 ML IV SCH (12:28)
[2016-10-18] MEDS ORDERED: MORPHINE SULFATE 4 MG/ML INJ IV PUSH ONE ×2 (12:30→14:15)
[2016-10-18] MEDS ORDERED: KETOROLAC TROMETHAMINE 30 MG/ML (IVP) VIAL IVP ONE (12:30)
[2016-10-18] MEDS ORDERED: ONDANSETRON HCL 4 MG/2 ML VIAL IVP ONE (12:30)
[2016-10-18] MEDS ORDERED: LORazepam 2 MG/ML VIAL IV ONE (12:30)
[2016-10-18 12:36] VITALS: BP 194/103; PULSE 81; RESP 16; TEMP 98.2; O2SAT 97
[2016-10-18 12:38] VITALS: O2SAT 95
[2016-10-18] MEDS ORDERED: chlordiazePOXIDE 25 MG CAP PO ONE (13:45)
[2016-10-18] MEDS ORDERED: MORPHINE SULFATE 4 MG/ML INJ IM ONE (13:45)
[2016-10-18] MEDS ORDERED: KETOROLAC TROMETHAMINE 60 MG/2 ML (IM) VIAL IM ONE (13:45)
--- NOTE | 2016-10-18 13:50 | RADRPT ---
EXAM DATE/TIME: 10/18/2016 12:43 [facility] COMPARISON: CHEST SINGLE AP, August 12, 2016, 14:53. INDICATIONS : Cough. Chest pain. MEDICAL HISTORY : Hypertension. SURGICAL HISTORY : None. ENCOUNTER: Initial ACUITY: 1 day PAIN SCORE: 10/10 LOCATION: chest FINDINGS: A single view of the chest demonstrates the lungs to be symmetrically aerated without evidence of mas s, infiltrate or effusion. The cardiomediastinal contours are unremarkable. Osseous structures are intact. CONCLUSION: No acute disease. Vikas Daniels MD on October 18, 2016 at 13:48 Board Certified Radiologist. This report was verified electronically.
[2016-10-18 14:15] LABS: BLOOD, URINE NEG (NEG); COMMENT (UR) CULT NOT INDICATED; CULTURE IF INDICATED CULT NOT INDICATED; GLUCOSE,URINE NEG (NEG); KETONE, URINE NEG (NEG); NITRITE,URINE NEG (NEG); PH, URINE 7.5 (5.0-8.5); URINE COLOR YELLOW (YELLW/STRAW)
[2016-10-18 14:31] LABS: AUTOMATED NEUTROPHIL # 3.5 TH/MM3 (1.8-7.7); BASOPHIL # 0.1 TH/MM3 (0-0.2); EOSINOPHIL % 0.8 % (0.0-4.0); HEMATOCRIT 37.5 % (39.0-51.0); HEMO FLAGS DIFF FINAL; LYMPH % 32.5 % (9.0-44.0); LYMPHOCYTE # 2.2 TH/MM3 (1.0-4.8); MEAN CELL VOLUME 87.5 FL (80.0-100.0); MEAN CORPUSCULAR HEMOGLOBIN 29.9 PG (27.0-34.0); MEAN CORPUSCULAR HGB CONC 34.1 % (32.0-36.0); MONO % 11.8 % (0.0-8.0); NEUT % 52.9 % (16.0-70.0); PLATELET COUNT 223 TH/MM3 (150-450); RED BLOOD COUNT 4.28 MIL/MM3 (4.50-5.90); RED CELL DISTRIBUTION WIDTH 18.6 % (11.6-17.2); WHITE BLOOD COUNT 6.6 TH/MM3 (4.0-11.0)
[2016-10-18 14:38] LABS: APTT (PATIENT) 24.5 SEC (24.3-30.1); INTERNATIONAL NORMALIZED RATIO 0.9 RATIO
[2016-10-18 14:50] LABS: ALT (GPT) 53 U/L (12-78); ANION GAP 10 MEQ/L (5-15); AST (GOT) 79 U/L (15-37); BICARBONATE 24.6 MEQ/L (21.0-32.0); BLOOD UREA NITROGEN 9 MG/DL (7-18); CHLORIDE 102 MEQ/L (98-107); GLOMERULAR FILTRATION RATE 127 ML/MIN (>89); POTASSIUM 3.4 MEQ/L (3.5-5.1); SODIUM (NA) 137 MEQ/L (136-145)
[2016-10-18 14:53] LABS: ALKALINE PHOSPHATASE 155 U/L (45-117); TOTAL BILIRUBIN ADULT 0.7 MG/DL (0.2-1.0)
[2016-10-18 15:05] LABS: ALCOHOL 74 MG/DL (0-5)
[2016-10-18 19:33] VITALS: BP 175/101; PULSE 74; RESP 16; O2SAT 97
[2016-10-18] MEDS ORDERED: LORazepam 1 MG TAB PO PRN (20:00)
[2016-10-18] MEDS ORDERED: LORazepam 2 MG TAB PO PRN (20:00)
[2016-10-18] MEDS ORDERED: LORazepam 2 MG/ML VIAL IV PUSH PRN ×4 (20:00)
[2016-10-18] MEDS ORDERED: FLUMAZENIL 0.5 MG/5 ML VIAL IV PUSH PRN (20:00)
[2016-10-18] MEDS: NICOTINE 21 MG/24 HR PATCH T-DERMAL SCH (20:11)
[2016-10-18] MEDS ORDERED: LISINOPRIL 10 MG TAB PO ONE (20:15)
[2016-10-18] MEDS ORDERED: METOPROLOL TARTRATE 25 MG TAB PO ONE (20:15)
[2016-10-18 22:21] VITALS: BP 151/79; PULSE 65; RESP 18
[2016-10-19 05:57] VITALS: BP 153/82; PULSE 71; RESP 16
[2016-10-19] MEDS: NICOTINE 21 MG/24 HR PATCH T-DERMAL SCH (09:00)
[2016-10-19 10:00] VITALS: BP 143/87; PULSE 107; RESP 18
[2016-10-19] MEDS ORDERED: AMIT50TA3 PO (13:42)
--- NOTE | 2016-10-19 13:47 | PD.PSY.CON ---
Provisional Diagnosis Admission Date [place] I. Alcohol induced mood disorder, history of depression and anxiety History of Present Illness Service Psychiatry Consult Requested By Reason for Consult Suicidal ideation Primary Care Physician No Primary Care Physician HPI The patient is a 61-year-old man, domiciled alone in [facility], , employed, with psychiatric history of depression and anxiety, 2 previous psychiatric hospitalizations, history of suicidal attempts, self cutting behavior, medical history of hepatitis C and chronic abdominal pain, who presents the emergency department under the Diop act, with suicidal ideation secondary to his chronic pain complaints. On psychiatric evaluation today patient denies depressive symptoms, he says that all he needs his medication for pain. Patient is mostly focusing medication for pain during this evaluation. He denies suicidal and homicidal ideation, he denies visual and auditory hallucinations. He reports daily use of alcohol, but declined to quantify. Review of Systems Constitutional: DENIES: Diaphoretic episodes, Fatigue, Fever, Weight gain, Weight loss, Chills, Dizziness, Change in appetite, Night Sweats Endocrine: DENIES: Heat/cold intolerance, Polydipsia, Polyuria, Polyphagia Eyes: DENIES: Blurred vision, Diplopia, Eye inflammation, Eye pain, Vision loss , Photosensitivity, Double Vision Ears, nose, mouth, throat: DENIES: Tinnitus, Hearing loss, Vertigo, Nasal discharge, Oral lesions, Throat pain, Hoarseness, Ear Pain, Running Nose, Epistaxis, Sinus Pain, Toothache, Odynophagia Respiratory: DENIES: Apneas, Cough, Snoring, Wheezing, Hemoptysis, Sputum production, Shortness of breath Cardiovascular: DENIES: Chest pain, Palpitations, Syncope, Dyspnea on Exertion , PND, Lower Extremity Edema, Orthopnea, Claudication Gastrointestinal: DENIES: Abdominal pain, Black stools, Bloody stools, Constipation, Diarrhea, Nausea, Vomiting, Difficulty Swallowing, Anorexia Genitourinary: DENIES: Sexual dysfunction, Urinary frequency, Urinary incontinence, Urgency, Hematuria, Dysuria, Nocturia, Penile Discharge, Testicular Pain, Testicular Swelling Integumentary: DENIES: Abnormal pigmentation, Nail changes, Pruritus, Rash Hematologic/lymphatic: DENIES: Bruising, Lymphadenopathy Immunologic/allergic: DENIES: Eczema, Urticaria Neurologic: DENIES: Abnormal gait, Headache, Localized weakness, Paresthesias, Seizures, Speech Problems, Tremor, Poor Balance Psychiatric: DENIES: Anxiety, Confusion, Mood changes, Depression, Hallucinations, Agitation, Suicidal Ideation, Homicidal Ideation, Delusions Past Family Social History Coded Allergies: Cephalosporins (Verified Allergy, Severe, 10/18/16) Keflex (Verified Allergy, Severe, UNKNOWN, 10/18/16) *MDRO Multi-Drug Resistant Organism (Verified Adverse Reaction, Unknown, ) 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 Active Scripts Amitriptyline 50 Mg Tab50 Mg PO HS 14 Days Prov:Dm Nava MD 10/19/[address] (Cymbalta )60 Mg Capdr60 Mg PO DAILY #30 CAP Ref 0 07/13/16 Lisinopril 10 Mg Tab10 Mg PO DAILY #30 TAB Ref 0 07/13/16 Metoprolol Tartrate 25 Mg Tab25 Mg PO BID #60 TAB Ref 0 07/13/16 Nitroglycerin SL 0.4 Mg Subl0.4 Mg SL DIRECTED PRN (CHEST PAIN) #100 TAB.SL Ref 0 ONE TABLET UNDER THE TONGUE NEEDED FOR CHEST PAIN, MAY REPEAT EVERY FIVE MINUTES FOR A TOTAL OF 3 DOSES OR CALL 911 IF NO RELIEF 07/13/16 Pancrelipase (Zenpep)10,000-34,000-55,000 Units Cap2 Cap PO TIDPC #90 CAP Ref 0 07/13/16 Tramadol 50 Mg [id number] Mg PO BID Ref 0 07/13/16 Gabapentin 800 Mg [id number] Mg PO TID #90 TAB Ref 0 07/13/16 Trazodone 300 Mg [id number] Mg PO HS #30 TAB Ref 0 07/13/16 Lorazepam 0.5 Mg Tab0.5 Mg PO BID Ref 0 07/13/16 Current Medications Medications (Trade) Dose Ordered Sig/Ashlie Route Start Time Stop Time Status Last Admin (Habitrol 21 Mg Patch.24 Hr) 1 patch DAILY T-DERMAL 10/18/16 20:00 10/19/16 09:00 (Romazicon Inj) 0.2 mg Q1M PRN IV PUSH 10/18/16 20:00 (Ativan) 1 mg Q4H PRN PO 10/18/16 20:00 (Ativan Inj) 1 mg Q4H PRN IV PUSH 10/18/16 20:00 (Ativan) 2 mg Q2H PRN PO 10/18/16 20:00 10/18/16 20:36 (Ativan Inj) 2 mg Q2H PRN IV PUSH 10/18/16 20:00 (Ativan Inj) 2 mg Q1H PRN IV PUSH 10/18/16 20:00 (Ativan Inj) 2 mg Q15M PRN IV PUSH 10/18/16 20:00 Family History He denies family psychiatric history Social History Patient was born in [place], he lives in [place] alone, employed, Patient's Strengths (min. 2) Verbal communication Physical Exam Vital Signs Vital Signs Date Time Temp Pulse Resp B/P Pulse Ox O2 Delivery O2 Flow Rate FiO2 10/19/16 10:00 107 18 143/87 Room Air 10/18/16 19:33 97 10/18/16 12:36 98.2 Lab Results Labs Laboratory Tests Test 10/18/16 10/18/16 13:05 14:03 Urine Color YELLOW Urine Turbidity CLEAR Urine pH 7.5 Urine Specific [place] 1.011 Urine Protein TRACE mg/dL Urine Glucose (UA) NEG mg/dL Urine Ketones NEG mg/dL Urine Occult Blood NEG Urine Nitrite NEG Urine Bilirubin NEG Urine Urobilinogen LESS THAN 2.0 MG/DL Urine Leukocyte Esterase NEG Urine RBC LESS THAN 1 /hpf Urine WBC 1 /hpf Microscopic Urinalysis Comment CULT NOT INDICATED Urine Opiates Screen NEG Urine Barbiturates Screen NEG Urine Amphetamines Screen NEG Urine Benzodiazepines Screen NEG Urine Cocaine Screen NEG Urine Cannabinoids Screen NEG White Blood Count 6.6 TH/MM3 Red Blood Count 4.28 MIL/MM3 Hemoglobin 12.8 GM/DL Hematocrit 37.5 % Mean Corpuscular Volume 87.5 FL Mean Corpuscular Hemoglobin 29.9 PG Mean Corpuscular Hemoglobin 34.1 % Concent Red Cell Distribution Width 18.6 % Platelet Count 223 TH/MM3 Mean Platelet Volume 7.8 FL Neutrophils (%) (Auto) 52.9 % Lymphocytes (%) (Auto) 32.5 % Monocytes (%) (Auto) 11.8 % Eosinophils (%) (Auto) 0.8 % Basophils (%) (Auto) 2.0 % Neutrophils # (Auto) 3.5 TH/MM3 Lymphocytes # (Auto) 2.2 TH/MM3 Monocytes # (Auto) 0.8 TH/MM3 Eosinophils # (Auto) 0.0 TH/MM3 Basophils # (Auto) 0.1 TH/MM3 CBC Comment DIFF FINAL Differential Comment Prothrombin Time 10.0 SEC Prothromb Time International 0.9 RATIO Ratio Activated Partial 24.5 SEC Thromboplast Time Sodium Level 137 MEQ/L Potassium Level 3.4 MEQ/L Chloride Level 102 MEQ/L Carbon Dioxide Level 24.6 MEQ/L Anion Gap 10 MEQ/L Blood Urea Nitrogen 9 MG/DL Creatinine 0.64 MG/DL Estimat Glomerular Filtration 127 ML/MIN Rate Random Glucose 75 MG/DL Calcium Level 9.1 MG/DL Total Bilirubin 0.7 MG/DL Aspartate Amino Transf 79 U/L (AST/SGOT) Alanine Aminotransferase 53 U/L (ALT/SGPT) Alkaline Phosphatase 155 U/L Total Protein 8.4 GM/DL Albumin 4.2 GM/DL Lipase 237 U/L Ethyl Alcohol Level 74 MG/DL Mental Status Examination Appearance man, [facility], calm and cooperative Speech: Unremarkable Orientation: x3 Memory: Unremarkable Thought Process: Logical Thought Content: Unremarkable Hallucination Type: None Suicidal Ideation: No Previous Suicide Attempts: No Homicidal Ideation: No Previous Homicide Attempts: No Insight: Good Affect: Good Mood: Appropriate Motor Activity: Normal gait Assessment & Plan Problem List: (1) Alcohol dependence with alcohol-induced mood disorder Assessment & Plan: On psychiatric evaluation today patient reports mild to moderate depression in the context of undertreated pain. Patient says that he needs to be medicated with morphine for his pain rather than codeine. Patient was explained that pain management is not done in the psychiatric ER. Patient agree with this. However, I offer him amitriptyline 50 mg twice a day in order to treat depression and pain. Patient agreed with this plan. He denies suicidal or homicidal ideation, denied visual and auditory hallucinations. Motivation, support and psychoeducation provided. Patient does not meet criteria for psychiatric admission at this moment. Diop act will be lifted. ICD Code: F10.24 Assessment & Plan Estimated LOS: Dm Oliver MD Oct 19, 2016 13:47
[2016-10-19 15:05] VITALS: BP 138/86
--- NOTE | 2016-10-19 17:18 | EKG ---
Date Performed: 10/18/2016 Time Performed: 12:59:58 PTAGE: 61 years EKG: Sinus rhythm NORMAL ECG Compared to prior tracing no significant change PREVIOUS TRACING : 08/12/2016 14.20 DOCTOR: Abelino Camarillo Interpretating Date/Time 10/19/2016 17:16:03
== END 2016-10-19 15:30 | disposition home or self-care (01) ==
LOC: NEPD 11:19 → NEPJ 10-19 15:30
DX: F10.24 Alcohol dependence with alcohol-induced mood disorder (principal); G62.9 Polyneuropathy, unspecified; R10.9 Unspecified abdominal pain; G89.29 Other chronic pain; D64.9 Anemia, unspecified; B19.20 Unspecified viral hepatitis C without hepatic coma; M06.9 Rheumatoid arthritis, unspecified; I10 Essential (primary) hypertension; K85.90 Acute pancreatitis without necrosis or infection, unspecified
CPT/HCPCS: 71010; 80053; 80307; 81001; 83690; 85025; 85610; 85730; 93005; 96361; 96372; 96374; 96375; 99285; J1885; J2270; J2405; J7030

== ENCOUNTER 2016-12-18 15:43 | Inpatient (IN) | payer MEDICARE, OTHER ==
[~2016-12-18] VITALS: Ht 188 cm; Wt 72.8 kg
[2016-12-18] VITALS (7 sets, daily range): BP systolic 151–197; BP diastolic 92–110; PULSE 82–123; RESP 17–22; TEMP 97.9; O2SAT 93–99
[~2016-12-18 15:43] MED LIST changes: +AMIT50TA3 PO; -LORA-392 PO
[2016-12-18] MEDS ORDERED: IOHEXOL 350 MG/ML 10 ML VIAL (for RAD DIAG) IVCONTRAST ONE (15:44)
--- NOTE | 2016-12-18 16:06 | PD ---
Physical Exam Time Seen by Provider: 16:03 Narrative 61-year-old male presents emergency Department with complaint of constant left- sided chest pain accompanied by shortness of breath that started yesterday. Says pain radiates around to his back. Is also complaining that he can't use his legs since yesterday. Says he's been having difficulty walking. He's been crawling around the house. Patient seen in triage. Vital signs reviewed. Patient awaiting bed placement. Data Data Last Documented VS Vital Signs Date Time Temp Pulse Resp B/P (MAP) Pulse Ox O2 Delivery O2 Flow Rate FiO2 12/18/16 15:46 97.9 123 22 193/110 (137) 95 Orders Orders Electrocardiogram (12/18/16 16:06) Basic Metabolic Panel (Bmp) (12/18/16 16:06) Ckmb (Isoenzyme) Profile (12/18/16 16:06) Complete Blood Count With Diff (12/18/16 16:06) Magnesium (Mg) (12/18/16 16:06) Prothrombin Time / Inr (Pt) (12/18/16 16:06) Act Partial Throm Time (Ptt) (12/18/16 16:06) Troponin I (12/18/16 16:06) Chest, Single Ap (12/18/16 16:06) Ecg Monitoring (12/18/16 16:06) Iv Access Insert/Monitor (12/18/16 16:06) Oximetry (12/18/16 16:06) Oxygen Administration (12/18/16 16:06) Sodium Chloride 0.9% Flush (Ns Flush) (12/18/16 16:15) [facility] Supervised Visit with KENDRA: Lisa Gallardo Dec 18, 2016 16:05
[2016-12-18] MEDS ORDERED: SODIUM CHLORIDE 0.9% FLUSH 10 ML FLUSH IVF PRN (16:15)
--- NOTE | 2016-12-18 16:57 | RADRPT ---
EXAM DATE/TIME: 12/18/2016 16:18 [facility] COMPARISON: No previous studies available for comparison. INDICATIONS : Chest pain and shortness of breath. MEDICAL HISTORY : None. SURGICAL HISTORY : None. ENCOUNTER: Initial ACUITY: 2 days PAIN SCORE: 9/10 LOCATION: Left chest FINDINGS: PA and lateral views of the chest demonstrate the lungs to be symmetrically aerated without evidence of mass, infiltrate or effusion. The cardiomediastinal contours are unremarkable. Osseous structure s are intact. CONCLUSION: Negative for acute process. Rodo Norman MD FACR on December 18, 2016 at 16:55 Board Certified Radiologist. This report was verified electronically.
[2016-12-18 17:00] LABS: AUTOMATED NEUTROPHIL # 4.1 TH/MM3 (1.8-7.7); BASOPHIL % 0.8 % (0.0-2.0); EOSINOPHIL % 0.1 % (0.0-4.0); HEMATOCRIT 42.2 % (39.0-51.0); HEMO FLAGS DIFF FINAL; LYMPH % 21.4 % (9.0-44.0); LYMPHOCYTE # 1.3 TH/MM3 (1.0-4.8); MEAN CELL VOLUME 87.4 FL (80.0-100.0); MEAN CORPUSCULAR HEMOGLOBIN 28.5 PG (27.0-34.0); MEAN CORPUSCULAR HGB CONC 32.7 % (32.0-36.0); MONO % 12.8 % (0.0-8.0); NEUT % 64.9 % (16.0-70.0); PLATELET COUNT 183 TH/MM3 (150-450); RED BLOOD COUNT 4.84 MIL/MM3 (4.50-5.90); RED CELL DISTRIBUTION WIDTH 19.9 % (11.6-17.2); WHITE BLOOD COUNT 6.3 TH/MM3 (4.0-11.0)
[2016-12-18 17:07] LABS: APTT (PATIENT) 24.3 SEC (24.3-30.1); INTERNATIONAL NORMALIZED RATIO 0.9 RATIO
[2016-12-18] MEDS ORDERED: LORazepam 2 MG TAB PO PRN (17:15)
[2016-12-18] MEDS ORDERED: ONDANSETRON HCL 4 MG/2 ML VIAL IV PUSH ONE (17:15)
[2016-12-18] MEDS ORDERED: FLUMAZENIL 0.5 MG/5 ML VIAL IV PUSH PRN (17:15)
[2016-12-18] MEDS ORDERED: MORPHINE SULFATE 4 MG/ML INJ IV PUSH ONE ×2 (17:15→18:45)
[2016-12-18] MEDS ORDERED: LORazepam 2 MG/ML VIAL IV PUSH PRN ×4 (17:15)
[2016-12-18 17:16] LABS: ANION GAP 13 MEQ/L (5-15); BICARBONATE 23.4 MEQ/L (21.0-32.0); BLOOD UREA NITROGEN 8 MG/DL (7-18); CHLORIDE 102 MEQ/L (98-107); GLOMERULAR FILTRATION RATE 83 ML/MIN (>89); MAGNESIUM 1.5 MG/DL (1.5-2.5); POTASSIUM 3.7 MEQ/L (3.5-5.1); SODIUM (NA) 138 MEQ/L (136-145)
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
[2016-12-18 17:24] LABS: CREATINE KINASE 154 U/L (39-308)
[2016-12-18 17:36] LABS: CKMB 1.3 NG/ML (0.5-3.6)
--- NOTE | 2016-12-18 18:29 | RADRPT ---
EXAM DATE/TIME: 12/18/2016 18:02 [facility] COMPARISON: CT ABDOMEN & PELVIS W CONTRAST, August 12, 2016, 16:24. INDICATIONS : Diffuse upper left side abdomen pain, history of pancreatitis IV CONTRAST: 90 cc Omnipaque 350 (iohexol) IV ORAL CONTRAST: No oral contrast ingested. RADIATION DOSE: 5.11 CTDIvol (mGy) MEDICAL HISTORY : Hypertension. Hepatitis C. Pancreatitis. SURGICAL HISTORY : Appendectomy. Cholecystectomy. ENCOUNTER: Initial ACUITY: 1 day PAIN SCALE: 9/10 LOCATION: Left upper quadrant TECHNIQUE: Volumetric scanning of the abdomen and pelvis was performed. Using automated exposure control and ad justment of the mA and/or kV according to patient size, radiation dose was kept as low as reasonably achievable to obtain optimal diagnostic quality images. DICOM format image data is available electro nically for review and comparison. FINDINGS: LOWER LUNGS: The visualized lower lungs are clear. Moderate hiatal hernia the GE junction. LIVER: Homogeneous density without lesion. There is no dilation of the biliary tree. No gallbladder, surgi shira removed. There is some fatty infiltration throughout the liver.. SPLEEN: Normal size without lesion. PANCREAS: Within normal limits. No inflammatory changes at this time. KIDNEYS: Normal in size and shape. There is no mass, stone or hydronephrosis. ADRENAL GLANDS: Within normal limits. VASCULAR: There is no aortic aneurysm. BOWEL/MESENTERY: The stomach, small bowel, and colon demonstrate no acute abnormality. There is no free intraperitone al air or fluid. No inflammatory changes. Moderate stool throughout colon. ABDOMINAL WALL: Within normal limits. RETROPERITONEUM: There is no lymphadenopathy. BLADDER: No wall thickening or mass. REPRODUCTIVE: Within normal limits. INGUINAL: There is no lymphadenopathy or hernia. MUSCULOSKELETAL: Within normal limits for patient age. No significant changes compared to the prior study. CONCLUSION: 1. Moderate hiatal hernia the GE junction. 2. Fatty infiltration of the liver. 3. No significant change compared to prior exam Jimi Krause MD on December 18, 2016 at 18:24 Board Certified Radiologist. This report was verified electronically.
[2016-12-18 18:44] LABS: BLOOD, URINE NEG (NEG); COMMENT (UR) CULT NOT INDICATED; CULTURE IF INDICATED CULT NOT INDICATED; GLUCOSE,URINE NEG (NEG); KETONE, URINE 10 mg/dL (NEG); NITRITE,URINE NEG (NEG); SQUAMOUS EPITHELIAL CELL URINE <1 /hpf (0-5); URINE COLOR YELLOW (YELLW/STRAW)
[2016-12-18] MEDS ORDERED: SODIUM CHLORID 0.9% 500 ML INJ 500 ML IV ONE (18:45)
[2016-12-18] MEDS ORDERED: LORazepam 2 MG/ML VIAL IV PUSH ONE (18:45)
[2016-12-18 18:46] LABS: INDIRECT BILIRUBIN 0.5 MG/DL (0.0-0.8); TOTAL BILIRUBIN ADULT 0.7 MG/DL (0.2-1.0)
[2016-12-18] MEDS ORDERED: cloNIDine HCL 0.2 MG TAB PO ONE (19:45)
[2016-12-18] MEDS ORDERED: SODIUM CHLORIDE 0.9% FLUSH 10 ML FLUSH IV FLUSH PRN (20:45)
[2016-12-18] MEDS ORDERED: THIAMINE HCL 100 MG TAB PO ONE (20:45)
[2016-12-18] MEDS ORDERED: NALOXONE HCL 0.4 MG/ML AMP IV PUSH PRN (20:45)
[2016-12-18] MEDS: SODIUM CHLORIDE 0.9% FLUSH 10 ML FLUSH IV FLUSH SCH (21:06)
--- NOTE | 2016-12-18 23:57 | HHI.HP ---
HPI Service [facility] Primary Care Physician No Primary Care Physician Admission Diagnosis chest pain, lactic acidosis, chronic alcoholism Diagnoses: Chief Complaint: chest pain, weakness Travel History International Travel<30 Days: No Contact w/Intl Traveler <30 Da: No Traveled to Known Affected Are: No History of Present Illness Written by ZOEY Barrow acting as scribe for [Jesus] on 12/18/16 at 23: 51. 61 y/o male with a history of cirrhosis, ETOH abuse, HTN, and Hep C presented to the ED with complaints of chest pain and weak legs. He states he has had constant mid left sided chest pain for months, worse the last few days, and he says sometimes it radiates to neck, with associated nausea. He also complains his "legs don't work", and he hasn't been able to walk for a week, He says he has been crawling around his house. He states when he gets up his legs shake and he falls. His home visited him and he told him to come to the hospital. He is a poor historian when asking questions regarding symptoms and history, he replies "I think so" to abdominal pain, cough and sob. He is unsure of some of the medications he takes. He states he use to take 8 medications but when he moved they got lost so he has not been taking them. He does not remember the name of the DrJoni who saw him at home. Review of Systems ROS Limitations: Poor Historian Past Family Social History Past Medical History cirrhosis, ETOH abuse, HTN, and Hep C Past Surgical History Cholecystectomy Knee surgery x 3 Tonsillectomy Reported Medications Reported Meds & Active Scripts Active Amitriptyline (Amitriptyline HCl) 50 Mg Tab 50 Mg PO HS 14 Days Reported Jerrodta (Duloxetine HCl) 60 Mg Capdr 60 Mg PO DAILY Lisinopril 10 Mg Tab 10 Mg PO DAILY Metoprolol Tartrate 25 Mg Tab 25 Mg PO BID Nitroglycerin SL (Nitroglycerin) 0.4 Mg Subl 0.4 Mg SL DIRECTED PRN ONE TABLET UNDER THE TONGUE NEEDED FOR CHEST PAIN, MAY REPEAT EVERY FIVE MINUTES FOR A TOTAL OF 3 DOSES OR CALL 911 IF NO RELIEF Zenpep (Pancrelipase) 10,000-34,000-55,000 Units Cap 2 Cap PO TIDPC Tramadol (Tramadol HCl) 50 Mg Tab 100 Mg PO BID Gabapentin 800 Mg Tab 800 Mg PO TID Trazodone (Trazodone HCl) 300 Mg Tab 300 Mg PO HS Lorazepam 0.5 Mg Tab 0.5 Mg PO BID Allergies: Coded Allergies: cefepime (Unverified Allergy, Severe, 10/22/16) ceftaroline fosamil (Unverified Allergy, Severe, 10/22/16) cephalexin (Unverified Allergy, Severe, UNKNOWN, 10/22/16) *MDRO Multi-Drug Resistant Organism (Verified Adverse Reaction, Unknown, ) 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 Active Ordered Medications Current Medications Medications (Trade) Dose Ordered Sig/Ashlie Route Start Time Stop Time Status Last Admin (Romazicon Inj) 0.2 mg Q1M PRN IV PUSH 12/18/16 17:15 (Ativan) 1 mg Q4H PRN PO 12/18/16 17:15 (Ativan Inj) 1 mg Q4H PRN IV PUSH 12/18/16 17:15 (Ativan) 2 mg Q2H PRN PO 12/18/16 17:15 (Ativan Inj) 2 mg Q2H PRN IV PUSH 12/18/16 17:15 (Ativan Inj) 2 mg Q1H PRN IV PUSH 12/18/16 17:15 (Ativan Inj) 2 mg Q15M PRN IV PUSH 12/18/16 17:15 (NS Flush) 2 ml UNSCH PRN IV FLUSH 12/18/16 20:45 (NS Flush) 2 ml BID IV FLUSH 12/18/16 21:00 12/18/16 21:06 (Narcan Inj) 0.4 mg UNSCH PRN IV PUSH 12/18/16 20:45 (Librium) 25 mg TID PO 12/19/16 09:00 (Vitamin B1) 100 mg DAILY PO 12/19/16 09:00 (Folate) 1 mg DAILY PO 12/19/16 09:00 (Flu (Quadrivalent) Vaccine Inj) 0.5 ml ONCE ONCE IM 12/19/16:00 12/19/16 10:01 (Pneumovax-23 Inj) 25 mcg ONCE ONCE IM 12/19/16 10:00 12/19/16 10:01 Family History Patient denies any family history Social History Tobacco use: 1 PPD Alcohol use: 18 beers a day Patient lives with a roommate and does not drive Physical Exam Vital Signs Vital Signs Date Time Temp Pulse Resp B/P (MAP) Pulse Ox O2 Delivery O2 Flow Rate FiO2 12/18/16 23:00 97.9 82 17 151/92 (111) 93 12/18/16 22:01 93 18 165/98 (120) 97 Nasal Cannula 2.00 12/18/16 21:40 90 18 162/101 (121) 98 Nasal Cannula 2.00 12/18/16 20:41 99 18 179/106 (130) 98 Nasal Cannula 2.00 12/18/16 19:45 100 17 197/110 (139) 98 Nasal Cannula 2.00 12/18/16 16:58 Nasal Cannula 2.00 12/18/16 16:58 99 12/18/16 15:46 97.9 123 22 193/110 (137) 95 Physical Exam GENERAL: This is a thin, ill looking patient in no apparent distress. SKIN: RFA scab, LFA burn scab HEAD: Atraumatic. Normocephalic. No temporal or scalp tenderness. EYES: Pupils equal round and reactive. ENT: Nose without bleeding, purulent drainage or septal hematoma. Airway patent. NECK: Trachea midline. No JVD or lymphadenopathy. CARDIOVASCULAR: Regular rate and rhythm without murmurs, gallops, or rubs. RESPIRATORY: Clear to auscultation. Breath sounds equal bilaterally. No wheezes , rales, or rhonchi. GASTROINTESTINAL: Abdomen soft, tenderness, nondistended. MUSCULOSKELETAL: Extremities without clubbing, cyanosis, or edema. No calf tenderness. NEUROLOGICAL: Awake and alert. Confused about his history. Motor and sensory grossly within normal limits. Weak strength 4/5. Normal speech. Laboratory Laboratory Tests Test 12/18/16 16:40 12/18/16 17:15 12/18/16 17:25 12/18/16 18:19 White Blood Count 6.3 Red Blood Count 4.84 Hemoglobin 13.8 Hematocrit 42.2 Mean Corpuscular Volume 87.4 Mean Corpuscular Hemoglobin 28.5 Mean Corpuscular Hemoglobin Concent 32.7 Red Cell Distribution Width 19.9 Platelet Count 183 Mean Platelet Volume 8.2 Neutrophils (%) (Auto) 64.9 Lymphocytes (%) (Auto) 21.4 Monocytes (%) (Auto) 12.8 Eosinophils (%) (Auto) 0.1 Basophils (%) (Auto) 0.8 Neutrophils # (Auto) 4.1 Lymphocytes # (Auto) 1.3 Monocytes # (Auto) 0.8 Eosinophils # (Auto) 0.0 Basophils # (Auto) 0.0 CBC Comment DIFF FINAL Differential Comment Prothrombin Time 10.0 Prothromb Time International Ratio 0.9 Activated Partial Thromboplast Time 24.3 Blood Urea Nitrogen 8 Creatinine 0.92 Random Glucose 91 Calcium Level 9.4 Magnesium Level 1.5 Sodium Level 138 Potassium Level 3.7 Chloride Level 102 Carbon Dioxide Level 23.4 Anion Gap 13 Estimat Glomerular Filtration Rate 83 Total Bilirubin 0.7 Direct Bilirubin 0.2 Indirect Bilirubin 0.5 Aspartate Amino Transf (AST/SGOT) 67 Alanine Aminotransferase (ALT/SGPT) 48 Alkaline Phosphatase 115 Total Creatine Kinase 154 Creatine Kinase MB 1.3 Troponin I LESS THAN 0.02 Total Protein 8.1 Albumin 3.8 Lipase 99 Lactic Acid Level 3.7 Ammonia 22 Ethyl Alcohol Level LESS THAN 3 Urine Color YELLOW Urine Turbidity CLEAR Urine pH 8.0 Urine Specific Garner 1.037 Urine Protein 30 Urine Glucose (UA) NEG Urine Ketones 10 Urine Occult Blood NEG Urine Nitrite NEG Urine Bilirubin NEG Urine Urobilinogen LESS THAN 2.0 Urine Leukocyte Esterase NEG Urine RBC 1 Urine WBC 1 Urine Squamous Epithelial Cells <1 Microscopic Urinalysis Comment CULT NOT INDICATED Urine Opiates Screen POS Urine Barbiturates Screen NEG Urine Amphetamines Screen NEG Urine Benzodiazepines Screen NEG Urine Cocaine Screen NEG Urine Cannabinoids Screen NEG Test 12/18/16 20:35 Lactic Acid Level 0.9 Result Diagram: 12/18/16 1640 12/18/16 1640 Imaging Last Impressions Abdomen/Pelvis CT 12/18/16 1725 Signed Impressions: Service Date/Time: Sunday, December 18, 2016 18:02 - CONCLUSION: 1. Moderate hiatal hernia the GE junction. 2. Fatty infiltration of the liver. 3. No significant change compared to prior exam Jimi Krause MD Chest X-Ray 12/18/16 1606 Signed Impressions: Service Date/Time: Sunday, December 18, 2016 16:18 - CONCLUSION: Negative for acute process. Rodo Norman MD FACR Caprini VTE Risk Assessment Caprini VTE Risk Assessment: Mod/High Risk (score >= 2) Caprini Risk Assessment Model Point Value = 1 Point Value = 2 Point Value = 3 Point Value = 5 Age 41-60 Minor surgery BMI > 25 kg/m2 Swollen legs Varicose veins or History of unexplained or recurrent spontaneous Oral contraceptives or hormone replacement Sepsis (< 1 month) Serious lung disease, including pneumonia (< 1 month) Abnormal pulmonary function Acute myocardial infarction Congestive heart failure (< 1 month) History of inflammatory bowel disease Medical patient at bed rest Age 61-74 Arthroscopic surgery Major open surgery (> 45 min) Laparoscopic surgery (> 45 min) Malignancy Confined to bed (> 72 hours) Immobilizing plaster cast Central venous access Age >= 75 History of VTE Family history of VTE Factor V Leiden Prothrombin [id number] Lupus anticoagulant Anticardiolipin antibodies Elevated serum homocysteine Heparin-induced thrombocytopenia Other congenital or acquired thrombophilia Stroke (< 1 month) Elective arthroplasty Hip, pelvis, or leg fracture Acute spinal cord injury (< 1 month) Prophylaxis Regimen Total Risk Factor Score Risk Level Prophylaxis Regimen 0-1 Low Early ambulation 2 Moderate Order ONE of the following: *Sequential Compression Device (SCD) *Heparin 5000 units SQ BID 3-4 Higher Order ONE of the following medications: *Heparin 5000 units SQ TID *Enoxaparin/Lovenox 40 mg SQ daily (WT < 150 kg, CrCl > 30 mL/min) *Enoxaparin/Lovenox 30 mg SQ daily (WT < 150 kg, CrCl > 10-29 mL/min) *Enoxaparin/Lovenox 30 mg SQ BID (WT < 150 kg, CrCl > 30 mL/min) AND/OR *Sequential Compression Device (SCD) 5 or more Highest Order ONE of the following medications: *Heparin 5000 units SQ TID (Preferred with Epidurals) *Enoxaparin/Lovenox 40 mg SQ daily (WT < 150 kg, CrCl > 30 mL/min) *Enoxaparin/Lovenox 30 mg SQ daily (WT < 150 kg, CrCl > 10-29 mL/min) *Enoxaparin/Lovenox 30 mg SQ BID (WT < 150 kg, CrCl > 30 mL/min) AND *Sequential Compression Device (SCD) Assessment and Plan Problem List: (1) Weakness generalized ICD Code: R53.1 - Weakness Status: Acute (2) Atypical chest pain ICD Code: R07.89 - Other chest pain Status: Acute (3) Alcohol abuse ICD Code: F10.10 - Alcohol abuse, uncomplicated Status: Acute Assessment and Plan 61 y/o male with a history of cirrhosis, ETOH abuse, HTN, and Hep C presented to the ED with complaints of chest pain and weak legs. Generalized weakness, patient states he cant walk without falling, suspect due to etoh abuse and vitamin deficiency - Head CT ordered -Vitamin B12, TSH and Folate labs ordered -PT eval and treat Chest pain, chronic for months, atypical, r/o ACS Troponin .02, EKG reviewed and shows Sinus Tachycardia -Serial troponin and EKGs -Start Metoprolol 25mg bid HTN, chronic, uncontrolled -Start lisinopril 10mg daily, monitor vitals Alcohol and tobacco abuse -Encouraged to quit -Thiamine, folate ordered -[facility] protocol -Seizure precautions DVT prophylaxis: SCDs, hold chemical due to cirrhosis Discussed Condition With Patient and RN Doris Walls Dec 18, 2016 23:57
[2016-12-19] VITALS (7 sets, daily range): BP systolic 125–159; BP diastolic 73–95; PULSE 65–75; RESP 12–18; TEMP 95.9–98.4; O2SAT 92–97
[2016-12-19] MEDS ORDERED: ENALAPRILAT 2.5 MG/2 ML VIAL IV PUSH PRN (00:15)
--- NOTE | 2016-12-19 00:57 | RADRPT ---
EXAM DATE/TIME: 12/19/2016 00:41 [facility] COMPARISON: CT BRAIN W/O CONTRAST, August 12, 2016, 16:18. INDICATIONS : Dizziness and difficulty ambulating. RADIATION DOSE: 30.65 CTDIvol (mGy) MEDICAL HISTORY : Hypertension. Hepatitis C. SURGICAL HISTORY : None. ENCOUNTER: Initial ACUITY: 1 day PAIN SCALE: 0/10 LOCATION: cranial TECHNIQUE: Multiple contiguous axial images were obtained of the head. Using automated exposure control and adj ustment of the mA and/or kV according to patient size, radiation dose was kept as low as reasonably a chievable to obtain optimal diagnostic quality images. DICOM format image data is available electro nically for review and comparison. FINDINGS: CEREBRUM: The ventricles are normal for age. No evidence of midline shift, mass lesion, hemorrhage or acute in farction. No extra-axial fluid collections are seen. POSTERIOR FOSSA: The cerebellum and brainstem are intact. The 4th ventricle is midline. The cerebellopontine angle i s unremarkable. EXTRACRANIAL: The visualized portion of the orbits is intact. SKULL: The calvaria is intact. No evidence of skull fracture. CONCLUSION: Normal examination. Vikas Daniels MD on December 19, 2016 at 0:55 Board Certified Radiologist. This report was verified electronically.
[2016-12-19 02:34] LABS: AUTOMATED NEUTROPHIL # 3.2 TH/MM3 (1.8-7.7); BASOPHIL % 0.6 % (0.0-2.0); EOSINOPHIL % 0.5 % (0.0-4.0); HEMATOCRIT 39.1 % (39.0-51.0); LYMPH % 23.3 % (9.0-44.0); LYMPHOCYTE # 1.3 TH/MM3 (1.0-4.8); MEAN CELL VOLUME 88.7 FL (80.0-100.0); MEAN CORPUSCULAR HEMOGLOBIN 28.4 PG (27.0-34.0); MEAN CORPUSCULAR HGB CONC 32.1 % (32.0-36.0); NEUT % 59.6 % (16.0-70.0); PLATELET COUNT 130 TH/MM3 (150-450); RED BLOOD COUNT 4.41 MIL/MM3 (4.50-5.90); RED CELL DISTRIBUTION WIDTH 19.9 % (11.6-17.2); WHITE BLOOD COUNT 5.4 TH/MM3 (4.0-11.0)
[2016-12-19 02:37] LABS: HEMO FLAGS AUTO DIFF
[2016-12-19 03:20] LABS: PLATELET ESTIMATE SMEAR LOW (NORMAL); PLATELET MORPHOLOGY NORMAL (NORMAL); SCAN/DIFF AUTO DIFF CONFIRMED
[2016-12-19 03:21] LABS: OVALOCYTES 1+ (NORMAL)
[2016-12-19 03:24] LABS: ACANTHOCYTES OCC (NORMAL); SPHEROCYTES OCC (NORMAL)
[2016-12-19 03:29] LABS: ANION GAP 7 MEQ/L (5-15); BLOOD UREA NITROGEN 9 MG/DL (7-18); CHLORIDE 104 MEQ/L (98-107); CREATINE KINASE 115 U/L (39-308); GLOMERULAR FILTRATION RATE 118 ML/MIN (>89); POTASSIUM 3.4 MEQ/L (3.5-5.1); SODIUM (NA) 137 MEQ/L (136-145)
[2016-12-19] MEDS ORDERED: MAGNESIUM SULFATE 1 GM PREMIX 100 ML IV ONE (07:30)
[2016-12-19] MEDS: LISINOPRIL 10 MG TAB PO SCH (08:34)
[2016-12-19] MEDS: FOLIC ACID 1 MG TAB PO SCH (08:34)
[2016-12-19] MEDS: SODIUM CHLORIDE 0.9% FLUSH 10 ML FLUSH IV FLUSH SCH ×2 (08:35→20:30)
[2016-12-19] MEDS: THIAMINE HCL 100 MG TAB PO SCH (08:35)
[2016-12-19] MEDS: METOPROLOL TARTRATE 25 MG TAB PO SCH ×2 (08:35→20:30)
[2016-12-19] MEDS ORDERED: chlordiazePOXIDE 25 MG CAP PO SCH (09:00)
[2016-12-19] MEDS ORDERED: PNEUMOCOCCAL POLYVALENT INJ 25 MCG/0.5 ML SYR IM ONE (10:00)
[2016-12-19] MEDS ORDERED: INFLUENZA VIRUS VACCINE (QUADRIVALENT) 0.5 ML SYR IM ONE (10:00)
--- NOTE | 2016-12-19 10:19 | HHI.PR ---
Subjective Remarks Follow-up for generalized pain and weakness. Patient states he came because he is having pain in his chest, abdomen, and both thighs. He states his previous home medication, but recently moved and has not been taking any medication for the past few weeks. He does not know what medications he is supposed to be on. He does admit to a long history of alcohol abuse, but does state that he wants to stay away from that and his last drink was about 4 days ago. He denies any history of heart disease. He states that he knows he has liver problems, but is unsure about any other stomach issues. Tolerating diet with no vomiting. He feels like his legs are weak and he is unsteady. He denies any incontinence, numbness, tingling. He has a walker at home, but has not been using it. He is a poor historian and tells me that these problems have been going on for both 2 days and for 2 weeks, and cannot clarify. He really can't describe any of the pain he is having. He states he might have neck and back pain, but cannot really elaborate. He has a mild chronic dry cough. Objective Vitals Vital Signs Date Time Temp Pulse Resp B/P (MAP) Pulse Ox O2 Delivery O2 Flow Rate FiO2 12/19/16 07:11 96.2 74 15 159/93 (115) 92 12/19/16 03:05 97.8 75 17 158/95 (116) 93 12/18/16 23:00 97.9 82 17 151/92 (111) 93 12/18/16 22:01 93 18 165/98 (120) 97 Nasal Cannula 2.00 12/18/16 21:40 90 18 162/101 (121) 98 Nasal Cannula 2.00 12/18/16 20:41 99 18 179/106 (130) 98 Nasal Cannula 2.00 12/18/16 19:45 100 17 197/110 (139) 98 Nasal Cannula 2.00 12/18/16 16:58 Nasal Cannula 2.00 12/18/16 16:58 99 12/18/16 15:46 97.9 123 22 193/110 (137) 95 I/O 12/18/16 12/18/16 12/18/16 12/19/16 12/19/16 12/19/16 07:00 15:00 23:00 07:00 15:00 23:00 Intake Total 700 ml 100 ml Balance 700 ml 100 ml Intake Oral 200 ml IV Total 500 ml 100 ml Result Diagram: 12/19/16 0223 12/19/16 0223 Imaging Last Impressions Head CT 12/19/16 0000 Signed Impressions: Service Date/Time: December 00:41 - CONCLUSION: Normal examination. Vikas Daniels MD Abdomen/Pelvis CT 12/18/16 1725 Signed Impressions: Service Date/Time: Sunday, December 18, 2016 18:02 - CONCLUSION: 1. Moderate hiatal hernia the GE junction. 2. Fatty infiltration of the liver. 3. No significant change compared to prior exam Jimi Krause MD Chest X-Ray 12/18/16 1606 Signed Impressions: Service Date/Time: Sunday, December 18, 2016 16:18 - CONCLUSION: Negative for acute process. Rodo Norman MD FACR Objective Remarks GENERAL: Well-developed well-nourished. In no acute distress. SKIN: Warm and dry. No lesions noted. HEENT: Normocephalic. Pupils equal and round. Mucous membranes pink and moist. CARDIOVASCULAR: Regular rate and rhythm. No murmur appreciated. RESPIRATORY: No accessory muscle use. Clear to auscultation. Breath sounds equal bilaterally. GASTROINTESTINAL: Abdomen soft, nondistended. Bowel sounds x4. Mild epigastric TTP. MUSCULOSKELETAL: Dupuytren contractures vs trigger fingers on several fingers on each hand. No clubbing or cyanosis. No edema. NEUROLOGICAL: Awake and alert. Moves upper and lower extremities spontaneously. Normal speech. Strength 5/5. Moderately tremulous. PSYCHIATRIC: Appropriate mood and affect; insight and judgment fair. A/P Problem List: (1) Weakness generalized ICD Code: R53.1 - Weakness Status: Acute (2) Atypical chest pain ICD Code: R07.89 - Other chest pain Status: Acute (3) Alcohol abuse ICD Code: F10.10 - Alcohol abuse, uncomplicated Status: Chronic Assessment and Plan 61 y/o male with a history of cirrhosis, ETOH abuse, HTN, and Hep C presented to the ED with complaints of chest pain and weak legs. Generalized pain and weakness: Suspect this is due to acute alcohol withdrawal as well as chronic deconditioning. Quit drinking 4 days ago and alcohol level is less than 3 on admission. Reviewed: Head CT normal. Possible hypothyroidism. UDS positive for opiates. -PT eval and treat Acute alcohol withdrawal: Tremulous on exam with generalized ill feeling. -Continue CIWA protocol -Add scheduled Librium -Thiamine, folate Atypical chest pain: Suspect secondary to the above. r/o ACS Reviewed: Troponin .02x2. Most recent EKG showing NSR with no ischemic changes. Chest x-ray with no acute process. -Continue serial troponin and EKGs -Enteric-coated aspirin -Monitor on telemetry HTN, chronic, uncontrolled: It appears on previous admission patient was taking metoprolol and lisinopril. -Restarted lisinopril and metoprolol at previous doses 10mg daily, monitor vitals Abdominal pain: Generalized by history and epigastric TTP on exam. Abdominal CT showed hiatal hernia, fatty liver, no significant acute changes. Tolerating diet. Could be secondary to withdrawal symptoms as above. -Start Protonix -Antiemetics as needed Hypothyroidism: TSH elevated. -Check T3 and T4 and likely start levothyroxine DVT prophylaxis: SCDs, hold chemical due to cirrhosis Discharge Planning Monitor for clinical improvement. Follow-up PT recommendations. Eddie May Dec 19, 2016 10:19
[2016-12-19] MEDS ORDERED: ONDANSETRON HCL 4 MG/2 ML VIAL IV PUSH PRN (11:00)
[2016-12-19] MEDS ORDERED: POTASSIUM CHLORIDE 20 MEQ CONTROLLED RELEASE TAB PO ONE (12:00)
[2016-12-19] MEDS: ASPIRIN EC 81 MG TABEC PO SCH (12:08)
[2016-12-19] MEDS: PANTOPRAZOLE SOD 40 MG DELAYED RELEASE TAB PO SCH (12:09)
--- NOTE | 2016-12-19 12:21 | EKG ---
Date Performed: 12/18/2016 Time Performed: 16:35:53 PTAGE: 61 years EKG: SINUS TACHYCARDIA ABNORMAL RHYTHM ECG Compared to prior tracing no significant change DOCTOR: Stephanie Mckay Interpretating Date/Time 12/19/2016 12:17:13
--- NOTE | 2016-12-19 12:21 | EKG ---
Date Performed: 12/18/2016 Time Performed: 23:13:37 PTAGE: 61 years EKG: Sinus rhythm NORMAL ECG PREVIOUS TRACING : 12/18/2016 16.35 Compared to prior tracing no significant change DOCTOR: Stephanie Mckay Interpretating Date/Time 12/19/2016 12:17:04
[2016-12-19 17:23] LABS: ALKALINE PHOSPHATASE 173 U/L (45-117); ALT (GPT) 59 U/L (12-78); ANION GAP 11 MEQ/L (5-15); AST (GOT) 96 U/L (15-37); BICARBONATE 22.6 MEQ/L (21.0-32.0); BLOOD UREA NITROGEN 13 MG/DL (7-18); CHLORIDE 103 MEQ/L (98-107); GLOMERULAR FILTRATION RATE 116 ML/MIN (>89); INDIRECT BILIRUBIN 0.9 MG/DL (0.0-0.8); MAGNESIUM 2.1 MG/DL (1.5-2.5); POTASSIUM 3.5 MEQ/L (3.5-5.1); SODIUM (NA) 137 MEQ/L (136-145); TOTAL BILIRUBIN ADULT 1.3 MG/DL (0.2-1.0)
[2016-12-19 21:46] LABS: AUTOMATED NEUTROPHIL # 4.3 TH/MM3 (1.8-7.7); BASOPHIL % 0.5 % (0.0-2.0); EOSINOPHIL # 0.1 TH/MM3 (0-0.4); EOSINOPHIL % 1.6 % (0.0-4.0); HEMATOCRIT 36.8 % (39.0-51.0); LYMPH % 21.2 % (9.0-44.0); LYMPHOCYTE # 1.4 TH/MM3 (1.0-4.8); MEAN CELL VOLUME 86.9 FL (80.0-100.0); MEAN CORPUSCULAR HEMOGLOBIN 29.2 PG (27.0-34.0); MEAN CORPUSCULAR HGB CONC 33.7 % (32.0-36.0); MONO % 10.2 % (0.0-8.0); NEUT % 66.5 % (16.0-70.0); PLATELET COUNT 138 TH/MM3 (150-450); RED BLOOD COUNT 4.24 MIL/MM3 (4.50-5.90); RED CELL DISTRIBUTION WIDTH 19.3 % (11.6-17.2); WHITE BLOOD COUNT 6.4 TH/MM3 (4.0-11.0)
[2016-12-19 21:54] LABS: HEMO FLAGS AUTO DIFF
[2016-12-19] MEDS: LORazepam 1 MG TAB PO PRN (22:07)
[2016-12-19 23:03] LABS: BANDS 6 % (0-6); MYELOCYTES 1 % (0-0); NEUTROPHIL # MANUAL DIFF 4.9 TH/MM3 (1.8-7.7); POLYS (SEG NEUTROPHILS) 70 % (16-70); SCAN/DIFF FINAL DIFF MANUAL; WBC DIFF SAMPLE 100
[2016-12-19 23:05] LABS: PLATELET ESTIMATE SMEAR LOW (NORMAL); PLATELET MORPHOLOGY NORMAL (NORMAL)
[2016-12-20] VITALS (9 sets, daily range): BP systolic 113–140; BP diastolic 60–88; PULSE 62–86; RESP 18–20; TEMP 96.8–98.2; O2SAT 95–97
[2016-12-20] MEDS: LEVOTHYROXINE SODIUM 100 MCG TAB PO SCH (06:29)
[2016-12-20] MEDS: SODIUM CHLORIDE 0.9% FLUSH 10 ML FLUSH IV FLUSH SCH ×2 (09:37→20:06)
[2016-12-20] MEDS: CHOLECALCIFEROL (VIT D3) 5000 UNIT CAP PO SCH (09:38)
[2016-12-20] MEDS: FOLIC ACID 1 MG TAB PO SCH (09:38)
[2016-12-20] MEDS: PANTOPRAZOLE SOD 40 MG DELAYED RELEASE TAB PO SCH (09:38)
[2016-12-20] MEDS: ASPIRIN EC 81 MG TABEC PO SCH (09:38)
[2016-12-20] MEDS: METOPROLOL TARTRATE 25 MG TAB PO SCH ×2 (09:38→20:06)
[2016-12-20] MEDS: THIAMINE HCL 100 MG TAB PO SCH (09:39)
[2016-12-20] MEDS: LISINOPRIL 10 MG TAB PO SCH (09:39)
[2016-12-20] MEDS ORDERED: THIAMINE HCL 100 MG TAB PO ONE (10:00)
[2016-12-20 10:38] LABS: CREATINE KINASE 75 U/L (39-308)
--- NOTE | 2016-12-20 13:13 | HHI.PR ---
Subjective Remarks Follow-up for lower extremity weakness and pain. The patient's chief complaint is he feels like his legs don't work. He was able to stand with PT yesterday. He feels like his tremors are a little better today. He hasn't had much appetite, but has been tolerating oral intake. He does continue to complain of pain in his left shoulder. That same pain is reproducible with palpation and movement of his arm. He denies any specific injury. He states he was previously taking pain medication, but does not recall what he was taking. He is asking for something for pain. Objective Vitals Vital Signs Date Time Temp Pulse Resp B/P (MAP) Pulse Ox O2 Delivery O2 Flow Rate FiO2 12/20/16 12:10 98.2 77 20 113/64 (80) 95 12/20/16 08:06 98.2 74 20 125/77 (93) 95 12/20/16 03:56 97.2 73 18 138/81 (100) 96 12/20/16 03:40 74 12/20/16 00:10 69 12/19/16 23:39 97.3 73 18 125/73 (90) 97 12/19/16 20:33 98.4 73 18 128/78 (95) 96 12/19/16 20:20 73 12/19/16 16:00 97.0 66 12 130/83 (99) 94 I/O 12/19/16 12/19/16 12/19/16 12/20/16 12/20/16 12/20/16 07:00 15:00 23:00 07:00 15:00 23:00 Intake Total 700 ml 100 ml Balance 700 ml 100 ml Intake Oral 200 ml IV Total 500 ml 100 ml # Voids 2 Result Diagram: 12/19/160 12/19/16 1255 Imaging Last Impressions Head CT 12/19/16 0000 Signed Impressions: Service Date/Time: December 00:41 - CONCLUSION: Normal examination. Vikas Daniels MD Abdomen/Pelvis CT 12/18/16 1725 Signed Impressions: Service Date/Time: Sunday, December 18, 2016 18:02 - CONCLUSION: 1. Moderate hiatal hernia the GE junction. 2. Fatty infiltration of the liver. 3. No significant change compared to prior exam Jimi Krause MD Chest X-Ray 12/18/16 1606 Signed Impressions: Service Date/Time: Sunday, December 18, 2016 16:18 - CONCLUSION: Negative for acute process. Rdoo Norman MD FACR Objective Remarks GENERAL: Well-developed well-nourished. In no acute distress. SKIN: Warm and dry. Skin tear right forearm. HEENT: Normocephalic. Pupils equal and round. Mucous membranes pink and moist. CARDIOVASCULAR: Regular rate and rhythm. No murmur appreciated. RESPIRATORY: No accessory muscle use. Clear to auscultation. Breath sounds equal bilaterally. GASTROINTESTINAL: Abdomen soft, nondistended. Bowel sounds x4. Mild epigastric TTP. MUSCULOSKELETAL: Dupuytren contractures vs trigger fingers on several fingers on each hand. No clubbing or cyanosis. No edema. Pain with palpation of the left anterior chest and shoulder. Full active ROM of the left shoulder with mild discomfort. NEUROLOGICAL: Awake and alert. Moves upper and lower extremities spontaneously. Normal speech. Strength 5/5. Mild to moderately tremulous. PSYCHIATRIC: Appropriate mood and affect; insight and judgment fair. A/P Problem List: (1) Weakness generalized ICD Code: R53.1 - Weakness Status: Acute (2) Atypical chest pain ICD Code: R07.89 - Other chest pain Status: Acute (3) Alcohol abuse ICD Code: F10.10 - Alcohol abuse, uncomplicated Status: Chronic Assessment and Plan 61 y/o male with a history of cirrhosis, ETOH abuse, HTN, and Hep C presented to the ED with complaints of chest pain and weak legs. Generalized pain and weakness: Suspect this is due to acute alcohol withdrawal as well as chronic deconditioning. Quit drinking 4 days ago and alcohol level is less than 3 on admission. Reviewed: Head CT normal. Probable hypothyroidism. UDS positive for opiates. Vitamin D low. -PT consulted, recommends SNF. Discussed with case management. -Start vitamin D supplementation -Consult OT Acute alcohol withdrawal: Tremulous on exam with generalized ill feeling. -Continue CIWA protocol -Added scheduled Librium, taper as tolerated -Thiamine, folate Atypical chest pain: Reproducible to palpation and with ROM of the left shoulder. Reviewed: Troponin .02x3. EKGs with no ischemic changes. Chest x-ray with no acute process. -Enteric-coated aspirin -Monitor on telemetry Left shoulder pain: Musculoskeletal. Patient unsure if there was any trauma. -Check x-ray -Oxycodone as needed for pain HTN, chronic, uncontrolled: It appears on previous admission patient was taking metoprolol and lisinopril. -Restarted lisinopril and metoprolol at previous doses with much better control, monitor Abdominal pain: Generalized by history and epigastric TTP on exam. Abdominal CT showed hiatal hernia, fatty liver, no significant acute changes. Tolerating diet. Could be secondary to withdrawal symptoms as above. -Started Protonix -Antiemetics as needed Hypothyroidism: TSH elevated, T4 low. -Started levothyroxine History of hepatitis C/cirrhosis: Mildly elevated transaminases. -Monitor DVT prophylaxis: SCDs, hold chemical due to cirrhosis Discharge Planning Monitor for clinical improvement, but likely needs SNF when arranged Eddie May Dec 20, 2016 13:13
--- NOTE | 2016-12-20 15:35 | RADRPT ---
EXAM DATE/TIME: 12/20/2016 15:00 [facility] COMPARISON: No previous studies available for comparison. INDICATIONS : Left shoulder pain post fall. MEDICAL HISTORY : Hepatitis C. Hypertension SURGICAL HISTORY : None. ENCOUNTER: Initial ACUITY: 3 days PAIN SCORE: 8/10 LOCATION: Left shoulder FINDINGS: There is no evidence of acute fracture. Bony mineralization is normal. There is mild osteoarthritis i nvolving the acromioclavicular joint. Joint spaces are maintained. CONCLUSION: 1. There is no evidence of acute fracture. Leopoldo Donovan MD on December 20, 2016 at 15:33 Board Certified Radiologist. This report was verified electronically.
[2016-12-21 04:00] VITALS: BP 152/90; PULSE 74; RESP 18; TEMP 97.5; O2SAT 96
[2016-12-21] MEDS: LORazepam 1 MG TAB PO PRN (04:24)
[2016-12-21] MEDS: LEVOTHYROXINE SODIUM 100 MCG TAB PO SCH (05:02)
[2016-12-21 08:03] VITALS: BP 141/82; PULSE 74; RESP 18; TEMP 98.3; O2SAT 96
[2016-12-21] MEDS: FOLIC ACID 1 MG TAB PO SCH (09:22)
[2016-12-21] MEDS: THIAMINE HCL 100 MG TAB PO SCH (09:22)
[2016-12-21] MEDS: PANTOPRAZOLE SOD 40 MG DELAYED RELEASE TAB PO SCH (09:22)
[2016-12-21] MEDS: METOPROLOL TARTRATE 25 MG TAB PO SCH ×2 (09:22→21:08)
[2016-12-21] MEDS: CHOLECALCIFEROL (VIT D3) 5000 UNIT CAP PO SCH (09:22)
[2016-12-21] MEDS: SODIUM CHLORIDE 0.9% FLUSH 10 ML FLUSH IV FLUSH SCH ×2 (09:23→21:09)
[2016-12-21] MEDS: LISINOPRIL 10 MG TAB PO SCH (09:23)
[2016-12-21] MEDS: ASPIRIN EC 81 MG TABEC PO SCH (09:23)
[2016-12-21 12:03] VITALS: BP 145/85; PULSE 69; RESP 18; TEMP 97.8; O2SAT 100
[2016-12-21 16:06] VITALS: BP 159/88; PULSE 75; RESP 18; TEMP 98.2; O2SAT 99
--- NOTE | 2016-12-21 16:45 | HHI.PR ---
Subjective Remarks Patient seen this morning around 11 AM. Denies any shortness of breath. Continues to report shoulder pain. Denies any nausea or vomiting. Positive bowel movement. Objective Vital Signs Date Time Temp Pulse Resp B/P (MAP) Pulse Ox O2 Delivery O2 Flow Rate FiO2 12/21/16 16:06 98.2 75 18 159/88 (111) 99 12/21/16 12:03 97.8 69 18 145/85 (105) 100 12/21/16 08:03 98.3 74 18 141/82 (101) 96 12/21/16 04:00 97.5 74 18 152/90 (110) 96 12/20/16 23:01 98.2 78 19 140/88 (105) 96 12/20/16 19:36 98.0 86 18 122/68 (86) 97 I/O 12/20/16 12/20/16 12/20/16 12/21/16 12/21/16 12/21/16 07:00 15:00 23:00 07:00 15:00 23:00 Intake Total 240 ml Balance 240 ml Intake Oral 240 ml # Voids 2 1 5 # Bowel Movements 1 Result Diagram: 12/19/16211912/19/16 1255 Objective Remarks GENERAL: patient sitting up in bed.appears comfortable. SKIN: Warm and dry. HEAD: Normocephalic. EYES: No scleral icterus. No injection or drainage. NECK: Supple, trachea midline. No JVD. CARDIOVASCULAR: Regular rate and rhythm without murmurs, gallops, or rubs. RESPIRATORY: Breath sounds equal bilaterally. No accessory muscle use. GASTROINTESTINAL: Abdomen soft, non-tender, nondistended. MUSCULOSKELETAL: No cyanosis, or edema. pain with manipulation of the left shoulder. BACK: Nontender without obvious deformity. No CVA tenderness. A/P Assessment and Plan 61 y/o male with a history of cirrhosis, ETOH abuse, HTN, and Hep C presented to the ED with complaints of chest pain and weak legs. //Generalized pain and weakness: Suspect this is due to acute alcohol withdrawal as well as chronic deconditioning. Quit drinking 4 days ago and alcohol level is less than 3 on admission. Reviewed: Head CT normal. Probable hypothyroidism. UDS positive for opiates. Vitamin D low. -PT consulted, recommends SNF. Discussed with case management. -Start vitamin D supplementation -Consult OT = 10/14. Physical therapy recommends rehabilitation. Appreciate assistance. //Acute alcohol withdrawal: Tremulous on exam with generalized ill feeling. -Continue CIWA protocol -Added scheduled Librium, taper as tolerated -Thiamine, folate = 12/21. Taper Librium. Continue to monitor. //Atypical chest pain: Reproducible to palpation and with ROM of the left shoulder. Reviewed: Troponin .02x3. EKGs with no ischemic changes. Chest x-ray with no acute process. -Enteric-coated aspirin -Monitor on telemetry = 12/21. This is musculoskeletal. Continue pain control for shoulder pain. //Left shoulder pain: Musculoskeletal. Patient unsure if there was any trauma. -Check x-ray -Continue Oxycodone as needed for pain //HTN, chronic, uncontrolled: It appears on previous admission patient was taking metoprolol and lisinopril. -Restarted lisinopril and metoprolol at previous doses with much better control, monitor //Abdominal pain: Generalized by history and epigastric TTP on exam. Abdominal CT showed hiatal hernia, fatty liver, no significant acute changes. Tolerating diet. Could be secondary to withdrawal symptoms as above. -Started Protonix -Antiemetics as needed //Hypothyroidism: TSH elevated, T4 low. -12/21. Although patient has been started on 100 g, will decrease dose to 50 g. Will need repeat testing with primary care in 3 months. //History of hepatitis C/cirrhosis: Mildly elevated transaminases. -Monitor //DVT prophylaxis: SCDs, hold chemical due to cirrhosis Discharge Planning we'll need SNF when arranged. PT following. Appreciate assistance. Aron Yuen MD Dec 21, 2016 16:45
[2016-12-21 20:00] VITALS: BP 135/85; PULSE 73; RESP 16; TEMP 97.8; O2SAT 98
[2016-12-22] VITALS: BP 160/84; PULSE 66; RESP 18; TEMP 97.4; O2SAT 98
[2016-12-22 04:00] VITALS: BP 141/90; PULSE 62; RESP 20; TEMP 98; O2SAT 97
[2016-12-22] MEDS: LEVOTHYROXINE SODIUM 50 MCG TAB PO SCH (06:27)
[2016-12-22 08:00] VITALS: BP 155/92; PULSE 70; RESP 16; TEMP 97.2; O2SAT 98
[2016-12-22] MEDS: THIAMINE HCL 100 MG TAB PO SCH (08:22)
[2016-12-22] MEDS: PANTOPRAZOLE SOD 40 MG DELAYED RELEASE TAB PO SCH (08:22)
[2016-12-22] MEDS: METOPROLOL TARTRATE 25 MG TAB PO SCH ×2 (08:23→20:24)
[2016-12-22] MEDS: SODIUM CHLORIDE 0.9% FLUSH 10 ML FLUSH IV FLUSH SCH ×2 (08:23→20:25)
[2016-12-22] MEDS: CHOLECALCIFEROL (VIT D3) 5000 UNIT CAP PO SCH (08:23)
[2016-12-22] MEDS: FOLIC ACID 1 MG TAB PO SCH (08:23)
[2016-12-22] MEDS: ASPIRIN EC 81 MG TABEC PO SCH (08:23)
[2016-12-22] MEDS: LISINOPRIL 10 MG TAB PO SCH (08:23)
[2016-12-22 12:00] VITALS: BP 157/88; PULSE 74; RESP 18; TEMP 97.3; O2SAT 98
[2016-12-22 12:04] LABS: AUTOMATED NEUTROPHIL # 6.5 TH/MM3 (1.8-7.7); BASOPHIL % 0.4 % (0.0-2.0); EOSINOPHIL # 0.1 TH/MM3 (0-0.4); EOSINOPHIL % 1.1 % (0.0-4.0); HEMATOCRIT 37.3 % (39.0-51.0); HEMO FLAGS DIFF FINAL; LYMPH % 14.6 % (9.0-44.0); LYMPHOCYTE # 1.4 TH/MM3 (1.0-4.8); MEAN CELL VOLUME 88.8 FL (80.0-100.0); MEAN CORPUSCULAR HEMOGLOBIN 29.4 PG (27.0-34.0); MEAN CORPUSCULAR HGB CONC 33.1 % (32.0-36.0); MONO % 14.3 % (0.0-8.0); NEUT % 69.6 % (16.0-70.0); PLATELET COUNT 142 TH/MM3 (150-450); RED CELL DISTRIBUTION WIDTH 19.2 % (11.6-17.2); WHITE BLOOD COUNT 9.4 TH/MM3 (4.0-11.0)
[2016-12-22] MEDS: LORazepam 1 MG TAB PO PRN (12:13)
[2016-12-22 12:30] LABS: BICARBONATE 23.2 MEQ/L (21.0-32.0); MAGNESIUM 1.8 MG/DL (1.5-2.5); POTASSIUM 3.8 MEQ/L (3.5-5.1)
[2016-12-22 12:32] LABS: INDIRECT BILIRUBIN 0.5 MG/DL (0.0-0.8); TOTAL BILIRUBIN ADULT 0.7 MG/DL (0.2-1.0)
[2016-12-22] MEDS ORDERED: CLINDAMYCIN INJ 900 MG in SODIUM CHLORIDE 0.9% INJ 100 ML IV SCH (15:00)
[2016-12-22 16:00] VITALS: BP 136/83; PULSE 70; RESP 18; TEMP 97.6; O2SAT 98
--- NOTE | 2016-12-22 17:51 | HHI.PR ---
Subjective Remarks Patient seen today around 1 PM. He reports continued pain with movement in his left shoulder. Discussed with nurse, who reports pus from right forearm abrasion. Objective Vital Signs Date Time Temp Pulse Resp B/P (MAP) Pulse Ox O2 Delivery O2 Flow Rate FiO2 12/22/16 12:00 97.3 74 18 157/88 (111) 98 12/22/16 08:00 97.2 70 16 155/92 (113) 98 12/22/16 04:00 98.0 62 20 141/90 (107) 97 12/22/16 00:00 97.4 66 18 160/84 (109) 98 12/21/16 20:00 97.8 73 16 135/85 (102) 98 I/O 12/21/16 12/21/16 12/21/16 12/22/16 12/22/16 12/22/16 07:00 15:00 23:00 07:00 15:00 23:00 Intake Total 240 ml 600 ml 240 ml Balance 240 ml 600 ml 240 ml Intake Oral 240 ml 600 ml 240 ml # Voids 5 3 6 # Bowel Movements 0 Result Diagram: 12/22/16 1130 12/22/16 1130 Objective Remarks GENERAL: patient sitting up in bed.appears comfortable. SKIN: Warm and dry. Right arm with 3 x 2 cm abrasion over the posterior forearm, as well as smaller 1 x 1 cm abrasion, both with pus, slight surrounding erythema. HEAD: Normocephalic. EYES: No scleral icterus. No injection or drainage. NECK: Supple, trachea midline. No JVD. CARDIOVASCULAR: Regular rate and rhythm without murmurs, gallops, or rubs. RESPIRATORY: Breath sounds equal bilaterally. No accessory muscle use. GASTROINTESTINAL: Abdomen soft, non-tender, nondistended. MUSCULOSKELETAL: No cyanosis, or edema. pain with manipulation of the left shoulder. BACK: Nontender without obvious deformity. No CVA tenderness. A/P Assessment and Plan 61 y/o male with a history of cirrhosis, ETOH abuse, HTN, and Hep C presented to the ED with complaints of chest pain and weak legs. //Generalized pain and weakness: Suspect this is due to acute alcohol withdrawal as well as chronic deconditioning. Quit drinking 4 days ago and alcohol level is less than 3 on admission. Reviewed: Head CT normal. Probable hypothyroidism. UDS positive for opiates. Vitamin D low. -PT consulted, recommends SNF. Discussed with case management. -Start vitamin D supplementation -Consult OT = 12/21. Physical therapy recommends rehabilitation. Appreciate assistance. //Right forearm abrasion with cellulitis, apparent infection. -This appears to be fairly superficial. No leukocytosis. Have discussed allergies to cephalosporins which patient reports hives. Due to history of MRSA , has started patient on clindamycin. We'll continue to monitor. Wound care nurse consult ordered and pending. //Acute alcohol withdrawal: Tremulous on exam with generalized ill feeling. -Continue CIWA protocol -Added scheduled Librium, taper as tolerated -Thiamine, folate = 12/21. Taper Librium. Continue to monitor. = 12/22. Taper Librium further. //Atypical chest pain: Reproducible to palpation and with ROM of the left shoulder. Reviewed: Troponin .02x3. EKGs with no ischemic changes. Chest x-ray with no acute process. -Enteric-coated aspirin -Monitor on telemetry = 12/21. This is musculoskeletal. Continue pain control for shoulder pain. //Left shoulder pain: Musculoskeletal. Patient unsure if there was any trauma. -Check x-ray -Continue Oxycodone as needed for pain //HTN, chronic, uncontrolled: It appears on previous admission patient was taking metoprolol and lisinopril. -Restarted lisinopril and metoprolol at previous doses with much better control, monitor //Abdominal pain: Generalized by history and epigastric TTP on exam. Abdominal CT showed hiatal hernia, fatty liver, no significant acute changes. Tolerating diet. Could be secondary to withdrawal symptoms as above. -Started Protonix -Antiemetics as needed //Hypothyroidism: TSH elevated, T4 low. -12/21. Although patient has been started on 100 g, will decrease dose to 50 g. Will need repeat testing with primary care in 3 months. //History of hepatitis C/cirrhosis: Mildly elevated transaminases. -Monitor //DVT prophylaxis: SCDs, hold chemical due to cirrhosis Discharge Planning we'll need SNF when arranged. PT following. Appreciate assistance. Aron Yuen MD Dec 22, 2016 17:51
[2016-12-22 20:00] VITALS: BP 137/77; PULSE 73; PULSE 82; RESP 18; TEMP 97.6; O2SAT 98
[2016-12-23] VITALS: BP 144/85; PULSE 70; RESP 18; TEMP 98; O2SAT 98
[2016-12-23] MEDS: CLINDAMYCIN INJ 900 MG in SODIUM CHLORIDE 0.9% INJ 100 ML IV SCH ×3 (01:15→16:18)
[2016-12-23 04:00] VITALS: BP 154/83; PULSE 70; RESP 18; TEMP 97.9; O2SAT 98
[2016-12-23] MEDS: LEVOTHYROXINE SODIUM 50 MCG TAB PO SCH (05:20)
[2016-12-23 08:00] VITALS: BP 163/81; PULSE 76; RESP 20; TEMP 97.2; O2SAT 99
[2016-12-23 08:03] LABS: AUTOMATED NEUTROPHIL # 3.9 TH/MM3 (1.8-7.7); BASOPHIL % 0.5 % (0.0-2.0); EOSINOPHIL # 0.2 TH/MM3 (0-0.4); EOSINOPHIL % 2.1 % (0.0-4.0); HEMATOCRIT 36.8 % (39.0-51.0); HEMO FLAGS DIFF FINAL; LYMPH % 25.1 % (9.0-44.0); LYMPHOCYTE # 1.8 TH/MM3 (1.0-4.8); MEAN CORPUSCULAR HEMOGLOBIN 28.9 PG (27.0-34.0); MEAN CORPUSCULAR HGB CONC 32.2 % (32.0-36.0); MONO % 18.7 % (0.0-8.0); NEUT % 53.6 % (16.0-70.0); PLATELET COUNT 159 TH/MM3 (150-450); RED BLOOD COUNT 4.09 MIL/MM3 (4.50-5.90); RED CELL DISTRIBUTION WIDTH 19.3 % (11.6-17.2); WHITE BLOOD COUNT 7.2 TH/MM3 (4.0-11.0)
[2016-12-23 08:22] LABS: BICARBONATE 20.9 MEQ/L (21.0-32.0)
[2016-12-23 08:25] LABS: POTASSIUM 5.8 MEQ/L (3.5-5.1)
[2016-12-23] MEDS: SODIUM CHLORIDE 0.9% FLUSH 10 ML FLUSH IV FLUSH SCH (09:00)
[2016-12-23] MEDS: FOLIC ACID 1 MG TAB PO SCH (10:20)
[2016-12-23] MEDS: THIAMINE HCL 100 MG TAB PO SCH (10:20)
[2016-12-23] MEDS: PANTOPRAZOLE SOD 40 MG DELAYED RELEASE TAB PO SCH (10:20)
[2016-12-23] MEDS: CHOLECALCIFEROL (VIT D3) 5000 UNIT CAP PO SCH (10:20)
[2016-12-23] MEDS: METOPROLOL TARTRATE 25 MG TAB PO SCH (10:21)
[2016-12-23] MEDS: LISINOPRIL 10 MG TAB PO SCH (10:21)
[2016-12-23] MEDS: ASPIRIN EC 81 MG TABEC PO SCH (10:21)
[2016-12-23 12:00] VITALS: BP 154/87; PULSE 76; RESP 20; TEMP 97.6; O2SAT 96
[2016-12-23] MEDS ORDERED: PANT40TA3 PO (14:36)
[2016-12-23] MEDS ORDERED: LEVO.05 PO (14:36)
[2016-12-23] MEDS ORDERED: OXYC-392 PO (14:36)
--- NOTE | 2016-12-23 14:36 | HHI.DS ---
Discharge Summary Admission Date Dec 20, 2016 at 10:39 Admitting Diagnosis chest pain, lactic acidosis, chronic alcoholism (1) Weakness generalized ICD Code: R53.1 - Weakness Status: Acute (2) Atypical chest pain ICD Code: R07.89 - Other chest pain Status: Acute (3) Alcohol abuse ICD Code: F10.10 - Alcohol abuse, uncomplicated Status: Chronic Brief History - From Admission Written by ZOEY Barrow acting as scribe for [Jesus] on 12/18/16 at 23: 51. 61 y/o male with a history of cirrhosis, ETOH abuse, HTN, and Hep C presented to the ED with complaints of chest pain and weak legs. He states he has had constant mid left sided chest pain for months, worse the last few days, and he says sometimes it radiates to neck, with associated nausea. He also complains his "legs don't work", and he hasn't been able to walk for a week, He says he has been crawling around his house. He states when he gets up his legs shake and he falls. His home visited him and he told him to come to the hospital. He is a poor historian when asking questions regarding symptoms and history, he replies "I think so" to abdominal pain, cough and sob. He is unsure of some of the medications he takes. He states he use to take 8 medications but when he moved they got lost so he has not been taking them. He does not remember the name of the DrJoni who saw him at home. CBC/BMP: 12/23/16 0725 12/23/16 0725 Significant Findings Laboratory Tests Test 12/22/16 11:30 12/23/16 07:25 Red Blood Count 4.20 MIL/MM3 (4.50-5.90) 4.09 MIL/MM3 (4.50-5.90) Hemoglobin 12.4 GM/DL (13.0-17.0) 11.8 GM/DL (13.0-17.0) Hematocrit 37.3 % (39.0-51.0) 36.8 % (39.0-51.0) Red Cell Distribution Width 19.2 % (11.6-17.2) 19.3 % (11.6-17.2) Platelet Count 142 TH/MM3 (150-450) Monocytes (%) (Auto) 14.3 % (0.0-8.0) 18.7 % (0.0-8.0) Monocytes # (Auto) 1.3 TH/MM3 (0-0.9) 1.3 TH/MM3 (0-0.9) Random Glucose 113 MG/DL (74-106) Alkaline Phosphatase 119 U/L (45-117) Sodium Level 134 MEQ/L (136-145) Potassium Level 5.8 MEQ/L (3.5-5.1) Carbon Dioxide Level 20.9 MEQ/L (21.0-32.0) PE at Discharge GENERAL: Well-developed well-nourished. In no acute distress. SKIN: Warm and dry. Skin tear right forearm. HEENT: Normocephalic. Pupils equal and round. Mucous membranes pink and moist. CARDIOVASCULAR: Regular rate and rhythm. No murmur appreciated. RESPIRATORY: No accessory muscle use. Clear to auscultation. Breath sounds equal bilaterally. GASTROINTESTINAL: Abdomen soft, nondistended. Bowel sounds x4. Mild epigastric TTP. MUSCULOSKELETAL: Dupuytren contractures vs trigger fingers on several fingers on each hand. No clubbing or cyanosis. No edema. Pain with palpation of the left anterior chest and shoulder. Full active ROM of the left shoulder with mild discomfort. NEUROLOGICAL: Awake and alert. Moves upper and lower extremities spontaneously. Normal speech. Strength 5/5. Mild to moderately tremulous. PSYCHIATRIC: Appropriate mood and affect; insight and judgment fair. Pt Condition on Discharge: Stable Discharge Disposition: Discharge to SNF Discharge Instructions DIET: Follow Instructions for: Heart Healthy Diet Additional Diet Instructions: Please abstain from all alcohol use Activities you can perform: See Additionl Instruction Other Activity Instructions: Per PT recommendations Roddy Fish MD Dec 23, 2016 14:36
== END 2016-12-23 17:38 | DRG 897 ==
LOC: NEPC 15:43 → NEDA 19:29 → NEPGCP 22:40 → OBSVTOIN 12-20 10:39 → N04B 12-20 22:45
PROVIDERS: ADMIT Family Medicine; ATTEND Family Medicine
DX: F10.230 Alcohol dependence with withdrawal, uncomplicated (principal); E87.2 Acidosis; K74.60 Unspecified cirrhosis of liver; L03.113 Cellulitis of right upper limb; I10 Essential (primary) hypertension; E78.5 Hyperlipidemia, unspecified; M06.9 Rheumatoid arthritis, unspecified; F41.9 Anxiety disorder, unspecified; F32.9 Major depressive disorder, single episode, unspecified; F17.210 Nicotine dependence, cigarettes, uncomplicated; K21.9 Gastro-esophageal reflux disease without esophagitis; R53.1 Weakness; R07.9 Chest pain, unspecified; E03.9 Hypothyroidism, unspecified; K44.9 Diaphragmatic hernia without obstruction or gangrene; K76.0 Fatty (change of) liver, not elsewhere classified; S50.811A Abrasion of right forearm, initial encounter; B19.20 Unspecified viral hepatitis C without hepatic coma; M25.512 Pain in left shoulder; R00.0 Tachycardia, unspecified; R26.2 Difficulty in walking, not elsewhere classified; Z86.14 Personal history of Methicillin resistant Staphylococcus aureus infection
CPT/HCPCS: 70450; 71020; 73030; 74177; 76937; 80048; 80069; 80076; 80307; 81001; 82140; 82306; 82550; 82552; 82607; 82746; 83605; 83690; 83735; 84439; 84443; 84480; 84484; 85007; 85025; 85027; 85610; 85730; 87015; 87116; 87206; 93005; 96361; 96365; 96375; 96376; G0378; G8987-GP; G8988-GP; J2060; J2270; J2405; J3475; J7040; Q9967

== ENCOUNTER 2016-12-27 22:30 | Inpatient (IN) | payer MEDICARE, OTHER ==
[~2016-12-27] VITALS: Ht 182.9 cm; Wt 75.3 kg
[~2016-12-27 22:30] MED LIST changes: -CYMB60CA PO; +LEVO.05 PO; -LORA-373 PO; +OXYC-392 PO; +PANT40TA3 PO; -TRAM50TA PO; -TRAZ300T2 PO
[2016-12-27 22:36] VITALS: BP 181/93; PULSE 117; RESP 18; TEMP 101.8; O2SAT 96
[2016-12-27] MEDS ORDERED: AZITHROMYCIN INJ 500 MG in SODIUM CHLOR 0.9% 250 ML INJ 250 ML IV STA (22:40)
[2016-12-27] MEDS ORDERED: SODIUM CHLOR 0.9% 1000 ML INJ 1,000 ML IV ONE (22:45)
[2016-12-27] MEDS ORDERED: AZTREONAM INJ 1,000 MG in SODIUM CHLORIDE 0.9% INJ 100 ML IV ONE (22:45)
[2016-12-27] MEDS ORDERED: IBUPROFEN 600 MG TAB PO ONE (22:45)
[2016-12-27 22:47] VITALS: RESP 20; O2SAT 95
[2016-12-27] MEDS ORDERED: GABA300C5 PO (22:59)
[2016-12-27] MEDS ORDERED: OMEP20TA PO (22:59)
[2016-12-27] MEDS ORDERED: MS C15TA2 PO (22:59)
[2016-12-27 23:45] VITALS: BP 185/85; PULSE 118; RESP 22; O2SAT 99
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
[2016-12-27 23:53] LABS: BASOPHIL % 0.1 % (0.0-2.0); EOSINOPHIL # 0.1 TH/MM3 (0-0.4); EOSINOPHIL % 0.5 % (0.0-4.0); HEMATOCRIT 36.7 % (39.0-51.0); HEMO FLAGS DIFF FINAL; LYMPHOCYTE # 1.1 TH/MM3 (1.0-4.8); MEAN CELL VOLUME 88.8 FL (80.0-100.0); MEAN CORPUSCULAR HEMOGLOBIN 29.5 PG (27.0-34.0); MEAN CORPUSCULAR HGB CONC 33.2 % (32.0-36.0); NEUT % 76.4 % (16.0-70.0); PLATELET COUNT 245 TH/MM3 (150-450); RED BLOOD COUNT 4.13 MIL/MM3 (4.50-5.90); RED CELL DISTRIBUTION WIDTH 19.3 % (11.6-17.2); WHITE BLOOD COUNT 11.8 TH/MM3 (4.0-11.0)
[2016-12-28] VITALS (11 sets, daily range): BP systolic 118–174; BP diastolic 69–99; PULSE 84–113; RESP 18–22; TEMP 98.5–100.3; O2SAT 94–99
[2016-12-28] LABS: INTERNATIONAL NORMALIZED RATIO 0.9 RATIO; PROTHROMBIN TIME - PATIENT 10.3 SEC (9.8-11.6)
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
[2016-12-28 00:11] LABS: ALKALINE PHOSPHATASE 112 U/L (45-117); ALT (GPT) 31 U/L (12-78); ANION GAP 7 MEQ/L (5-15); AST (GOT) 44 U/L (15-37); BICARBONATE 21.2 MEQ/L (21.0-32.0); BLOOD UREA NITROGEN 11 MG/DL (7-18); CALCIUM-PROTEIN CORRECTED 7.8 MG/DL (8.5-10.1); CHLORIDE 116 MEQ/L (98-107); CREATINE KINASE 31 U/L (39-308); GLOMERULAR FILTRATION RATE 142 ML/MIN (>89); SODIUM (NA) 144 MEQ/L (136-145); TOTAL BILIRUBIN ADULT 0.3 MG/DL (0.2-1.0)
[2016-12-28 00:15] LABS: POTASSIUM 2.8 MEQ/L (3.5-5.1)
[2016-12-28 00:50] LABS: BLOOD, URINE NEG (NEG); GLUCOSE,URINE NEG (NEG); HYALINE CAST, URINE 1 /lpf (RARE); KETONE, URINE NEG (NEG); NITRITE,URINE NEG (NEG); PH, URINE 6.5 (5.0-8.5); URINE COLOR YELLOW (YELLW/STRAW)
[2016-12-28 00:52] LABS: COMMENT (UR) CATH-CULT NOT IND; CULTURE IF INDICATED CATH CULTURE NOT IND
[2016-12-28] MEDS: POTASSIUM CHLOR 10 MEQ PREMIX 100 ML IV SCH ×3 (01:04→03:05)
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
[2016-12-28] MEDS ORDERED: SODIUM CHLOR 0.9% 1000 ML INJ 1,000 ML IV SCH (01:11)
[2016-12-28] MEDS ORDERED: LACTULOSE SYRUP 20 GM/30 ML CUP PO PRN (01:15)
[2016-12-28] MEDS ORDERED: CALCIUM GLUCONATE 10% 1 GM/10 ML VIAL IV PUSH ONE (01:15)
[2016-12-28] MEDS ORDERED: SODIUM CHLORIDE 0.9% FLUSH 10 ML FLUSH IV FLUSH PRN (01:15)
[2016-12-28] MEDS ORDERED: ACETAMINOPHEN 325 MG TAB PO PRN (01:15)
[2016-12-28] MEDS ORDERED: SENNOSIDES 8.6 MG TAB PO PRN (01:15)
[2016-12-28] MEDS ORDERED: BISACODYL 10 MG SUPP RECTAL PRN (01:15)
[2016-12-28] MEDS ORDERED: Vancomycin Consult Pharmacy 1 EA OTHER SCH (01:15)
[2016-12-28] MEDS ORDERED: ONDANSETRON HCL 4 MG/2 ML VIAL IVP PRN (01:15)
[2016-12-28] MEDS ORDERED: MAGNESIUM HYDROXIDE SUSP 30 ML CUP PO PRN (01:15)
[2016-12-28] MEDS ORDERED: VANCOMYCIN 1,000 MG/NS 250 ML IV ONE ×2 (01:45)
[2016-12-28] MEDS ORDERED: CALCIUM GLUCONATE INJ 1 GM in DEXTROSE 5% IN WATER 100ML INJ 100 ML IV ONE ×2 (01:45)
--- NOTE | 2016-12-28 02:36 | HHI.HP ---
HPI Service [facility] Primary Care Physician Unknown Admission Diagnosis sepsis, cellulitis, opiate overdose Diagnoses: (1) Encephalopathy Diagnosis: Principal (2) SIRS (systemic inflammatory response syndrome) Diagnosis: Principal (3) Cellulitis Diagnosis: Principal (4) Hypokalemia Diagnosis: Principal (5) Hypocalcemia Diagnosis: Principal (6) HTN (hypertension) Diagnosis: Principal (7) Alcohol abuse Diagnosis: Principal (8) Tobacco abuse Diagnosis: Principal Travel History International Travel<30 Days: No Contact w/Intl Traveler <30 Da: No Traveled to Known Affected Are: No History of Present Illness This is a 61-year-old male with a PMH of HTN, Hepatitis C, Cirrhosis, Alcohol Abuse and Tobacco Abuse who was sent to the ER from SNF after being found down in the hallway by staff. Pt noted to have AMS, significantly lethargic on arrival, unable to provide history. Per SNF, pt had been given Morphine 30mg PO in addition to Oxycodone 5mg PO 2hrs prior. While in ER, mental status slightly improved, more awake now. BP 185/85, HR 118, O2 sat 96% on RA, Temp 101.8. WBC 11.8. K+ 2.8/ Ca 7.0. Lactic Acid 1.1. Trop negative. INR 0.9. U/a negative. CXR w/ no acute findings. CT Head negative for acute findings. On exam, noted to have wound w/ cellulitis to right forearm. S/p Blood Cultures, Zithro/Azactam in ER Review of Systems Except as stated in HPI: all other systems reviewed are Neg ROS: 14 point review of systems otherwise negative. Past Family Social History Past Medical History PMH: HTN, Hepatitis C, Cirrhosis, Alcohol Abuse and Tobacco Abuse Past Surgical History PAST SURGICAL HISTORY: Cholecystectomy, Tonsillectomy, Left Knee Surgery Allergies: Coded Allergies: cefepime (Unverified Allergy, Severe, 12/27/16) ceftaroline fosamil (Unverified Allergy, Severe, 12/27/16) cephalexin (Unverified Allergy, Severe, UNKNOWN, 12/27/16) *MDRO Multi-Drug Resistant Organism (Verified Adverse Reaction, Unknown, 12/27/16) 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 Family History PAST FAMILY HISTORY: Reviewed. No h/o DM or CAD Social History PAST SOCIAL HISTORY: +Alcohol Abuse, unclear if continues to drink. Smokes 2ppd. Negative for drugs. Physical Exam Vital Signs Vital Signs Date Time Temp Pulse Resp B/P (MAP) Pulse Ox O2 Delivery O2 Flow Rate FiO2 12/28/16 02:14 94 18 118/79 (92) 98 Nasal Cannula 2.00 12/28/16 01:00 98 22 147/69 (95) 98 Nasal Cannula 2.00 12/28/16 00:00 100.3 113 22 170/73 (105) 99 Nasal Cannula 2.00 12/27/16 23:45 118 22 185/85 (118) 99 Nasal Cannula 4.00 12/27/16 22:47 20 95 Nasal Cannula 2.00 12/27/16 22:46 95 Nasal Cannula 2.00 12/27/16 22:36 101.8 117 18 181/93 (122) 96 Physical Exam PE: GENERAL: Middle-aged white male in no acute distress. Sleeping comfortably HEENT: PERRLA, EOMI. No scleral icterus or conjunctival pallor. No lid lag or facial droop. CARDIOVASCULAR: Regular rate and rhythm. No obvious murmurs to auscultation. No chest tenderness to palpation. RESPIRATORY: No obvious rhonchi or wheezing. Clear to auscultation. Breath sounds equal bilaterally. GASTROINTESTINAL: Abdomen soft, non-tender, nondistended. BS normal. MUSCULOSKELETAL: Extremities without clubbing, cyanosis, or edema. No obvious deformities. Right forearm w/ wound, surrounding erythema, +purulent drainage. NEUROLOGICAL: Lethargic, answers few questions, goes back to sleep . No focal neurologic deficits. Moving both upper and lower extremities spontaneously. Laboratory Laboratory Tests Test 12/27/16 23:15 12/28/16 00:30 White Blood Count 11.8 Red Blood Count 4.13 Hemoglobin 12.2 Hematocrit 36.7 Mean Corpuscular Volume 88.8 Mean Corpuscular Hemoglobin 29.5 Mean Corpuscular Hemoglobin Concent 33.2 Red Cell Distribution Width 19.3 Platelet Count 245 Mean Platelet Volume 8.4 Neutrophils (%) (Auto) 76.4 Lymphocytes (%) (Auto) 9.0 Monocytes (%) (Auto) 14.0 Eosinophils (%) (Auto) 0.5 Basophils (%) (Auto) 0.1 Neutrophils # (Auto) 9.0 Lymphocytes # (Auto) 1.1 Monocytes # (Auto) 1.6 Eosinophils # (Auto) 0.1 Basophils # (Auto) 0.0 CBC Comment DIFF FINAL Differential Comment Prothrombin Time 10.3 Prothromb Time International Ratio 0.9 Activated Partial Thromboplast Time 24.0 Blood Urea Nitrogen 11 Creatinine 0.58 Random Glucose 95 Total Protein 5.5 Albumin 2.5 Calcium Level 7.0 Alkaline Phosphatase 112 Aspartate Amino Transf (AST/SGOT) 44 Alanine Aminotransferase (ALT/SGPT) 31 Total Bilirubin 0.3 Sodium Level 144 Potassium Level 2.8 Chloride Level 116 Carbon Dioxide Level 21.2 Anion Gap 7 Estimat Glomerular Filtration Rate 142 Lactic Acid Level 1.1 Protein Corrected Calcium 7.8 Ammonia 26 Total Creatine Kinase 31 Troponin I LESS THAN 0.02 Lipase 37 Urine Color YELLOW Urine Turbidity CLEAR Urine pH 6.5 Urine Specific [place] 1.008 Urine Protein NEG Urine Glucose (UA) NEG Urine Ketones NEG Urine Occult Blood NEG Urine Nitrite NEG Urine Bilirubin NEG Urine Urobilinogen LESS THAN 2.0 Urine Leukocyte Esterase NEG Urine RBC 1 Urine WBC LESS THAN 1 Urine Hyaline Casts 1 Microscopic Urinalysis Comment CATH-CULT NOT IND Date/Time Source Procedure Growth Status 12/27/16 23:15 Blood Peripheral Aerobic Blood Culture Pending Received 12/27/16 23:15 Blood Peripheral Anaerobic Blood Culture Pending Received Result Diagram: 12/27/16231412/27/162314 Caprini VTE Risk Assessment Caprini VTE Risk Assessment: No/Low Risk (score <= 1) Caprini Risk Assessment Model Point Value = 1 Point Value = 2 Point Value = 3 Point Value = 5 Age 41-60 Minor surgery BMI > 25 kg/m2 Swollen legs Varicose veins or History of unexplained or recurrent spontaneous Oral contraceptives or hormone replacement Sepsis (< 1 month) Serious lung disease, including pneumonia (< 1 month) Abnormal pulmonary function Acute myocardial infarction Congestive heart failure (< 1 month) History of inflammatory bowel disease Medical patient at bed rest Age 61-74 Arthroscopic surgery Major open surgery (> 45 min) Laparoscopic surgery (> 45 min) Malignancy Confined to bed (> 72 hours) Immobilizing plaster cast Central venous access Age >= 75 History of VTE Family history of VTE Factor V Leiden Prothrombin [id number] Lupus anticoagulant Anticardiolipin antibodies Elevated serum homocysteine Heparin-induced thrombocytopenia Other congenital or acquired thrombophilia Stroke (< 1 month) Elective arthroplasty Hip, pelvis, or leg fracture Acute spinal cord injury (< 1 month) Prophylaxis Regimen Total Risk Factor Score Risk Level Prophylaxis Regimen 0-1 Low Early ambulation 2 Moderate Order ONE of the following: *Sequential Compression Device (SCD) *Heparin 5000 units SQ BID 3-4 Higher Order ONE of the following medications: *Heparin 5000 units SQ TID *Enoxaparin/Lovenox 40 mg SQ daily (WT < 150 kg, CrCl > 30 mL/min) *Enoxaparin/Lovenox 30 mg SQ daily (WT < 150 kg, CrCl > 10-29 mL/min) *Enoxaparin/Lovenox 30 mg SQ BID (WT < 150 kg, CrCl > 30 mL/min) AND/OR *Sequential Compression Device (SCD) 5 or more Highest Order ONE of the following medications: *Heparin 5000 units SQ TID (Preferred with Epidurals) *Enoxaparin/Lovenox 40 mg SQ daily (WT < 150 kg, CrCl > 30 mL/min) *Enoxaparin/Lovenox 30 mg SQ daily (WT < 150 kg, CrCl > 10-29 mL/min) *Enoxaparin/Lovenox 30 mg SQ BID (WT < 150 kg, CrCl > 30 mL/min) AND *Sequential Compression Device (SCD) Assessment and Plan Problem List: (1) Encephalopathy ICD Code: G93.40 - Encephalopathy, unspecified (2) SIRS (systemic inflammatory response syndrome) ICD Code: R65.10 - Systemic inflammatory response syndrome (SIRS) of non- infectious origin without acute organ dysfunction (3) Cellulitis ICD Code: L03.90 - Cellulitis, unspecified (4) Hypocalcemia ICD Code: E83.51 - Hypocalcemia (5) Hypokalemia ICD Code: E87.6 - Hypokalemia (6) HTN (hypertension) ICD Code: I10 - Essential (primary) hypertension (7) Alcohol abuse ICD Code: F10.10 - Alcohol abuse, uncomplicated Status: Acute (8) Tobacco abuse ICD Code: Z72.0 - Tobacco use Status: Chronic Assessment and Plan A/P: 1. Encephalopathy: Likely multifactorial-secondary to polypharmacy and acute infection. CT Head w/ no acute findings, images reviewed by me. Mental status mildly improved since arrival. Hold opioid medications. Neuro Checks q4h. 2. SIRS: Temp 101.8, HR 117, WBC11.8. Lactic Acid normal. Source-unclear, possibly RUE Cellulitis. S/p Blood Cultures, IV Zithro/Azactam in ER. Follow up cultures, continue IV Abx. 3. Cellulitis: RUE Cellulitis, +purulent drainage and surrounding erythema. Continue w/ IV Abx as above, follow up cultures. 4. Hypokalemia: Severe. K+ 2.8, s/p replacement in ER, will recheck and replace as needed. 5. Hypocalcemia: Mild. Ca 7.0, Corrected 7.8, will replace and recheck. 6. HTN: BP 180's on arrival, currently 147/69, HR 98. Will monitor. 7. Alcohol Abuse: H/o Alcohol Abuse per records, drinks 18beers/day, unclear if continues to drinks. Ativan prn 8. Tobacco Abuse: NicoDerm prn if needed. 9. DVT Prophylaxis: SCD/Teds. 10. Social work for d/c planning as needed. 11. Case discussed w/ ER physician at length. Physician Certification 2 Midnight Certification Type: Admission for Inpatient Services Order for Inpatient Services The services are ordered in accordance with Medicare regulations or non- Medicare payer requirements, as applicable. In the case of services not specified as inpatient-only, they are appropriately provided as inpatient services in accordance with the 2-midnight benchmark. Estimated LOS (days): 2 days is the estimated time the patient will need to remain in the hospital, assuming treatment plan goals are met and no additional complications. Post-Hospital Plan: Not yet determined Olivia Proctor MD Dec 28, 2016 02:35
[2016-12-28] MEDS: LEVOTHYROXINE SODIUM 50 MCG TAB PO SCH (06:15)
[2016-12-28] MEDS ORDERED: METOPROLOL TARTRATE 25 MG TAB PO SCH (09:00)
[2016-12-28] MEDS: AZTREONAM INJ 1,000 MG in SODIUM CHLORIDE 0.9% INJ 100 ML IV SCH ×3 (09:46→23:02)
[2016-12-28] MEDS: SODIUM CHLORIDE 0.9% FLUSH 10 ML FLUSH IV FLUSH SCH ×2 (09:46→21:48)
[2016-12-28] MEDS: PANTOPRAZOLE SOD 20 MG DELAYED RELEASE TAB PO SCH (09:46)
[2016-12-28] MEDS: DOCUSATE SODIUM 50 MG/SENNA 8.6 MG TAB PO SCH ×2 (09:46→21:48)
[2016-12-28] MEDS: VANCOMYCIN INJ 1,250 MG in SODIUM CHLOR 0.9% 250 ML INJ 250 ML IV SCH (11:52)
--- NOTE | 2016-12-28 12:50 | HHI.PR ---
Subjective Remarks Follow-up altered mental status and right upper extremity cellulitis. Patient does not want to be bothered. Alert and oriented 3. Denies active alcohol use Discussed with RN Objective Vitals Vital Signs Date Time Temp Pulse Resp B/P (MAP) Pulse Ox O2 Delivery O2 Flow Rate FiO2 12/28/16 12:00 99.0 88 18 173/99 (123) 95 12/28/16 08:00 98.7 84 20 138/75 (96) 95 12/28/16 04:00 98.9 89 19 127/79 (95) 94 12/28/16 03:00 92 12/28/16 02:54 98.9 90 19 118/72 (87) 94 12/28/16 02:14 94 18 118/79 (92) 98 Nasal Cannula 2.00 12/28/16 01:00 98 22 147/69 (95) 98 Nasal Cannula 2.00 12/28/16 00:00 100.3 113 22 170/73 (105) 99 Nasal Cannula 2.00 12/27/16 23:45 118 22 185/85 (118) 99 Nasal Cannula 4.00 12/27/16 22:47 20 95 Nasal Cannula 2.00 12/27/16 22:46 95 Nasal Cannula 2.00 12/27/16 22:36 101.8 117 18 181/93 (122) 96 I/O 12/27/16 12/27/16 12/27/16 12/28/16 12/28/16 12/28/16 07:00 15:00 23:00 07:00 15:00 23:00 Intake Total 1910 ml Output Total 850 ml Balance 1060 ml Intake Oral 0 ml IV Total 1910 ml Output Urine Total 850 ml # Bowel Movements 0 Result Diagram: 12/27/16231412/27/162314 Imaging Last Impressions Head CT 12/27/162239 Signed Impressions: Service Date/Time: Tuesday, December 27, 2016 23:24 - CONCLUSION: 1. Moderate atrophic change. 2. No acute hemorrhage or mass effect. Parth Riggs MD Chest X-Ray 12/27/162239 Signed Impressions: Service Date/Time: Tuesday, December 27, 2016 23:36 - CONCLUSION: No acute disease. Parth Riggs MD Objective Remarks GENERAL: Middle-aged white male in no acute distress. HEENT: PERRLA, EOMI. No scleral icterus or conjunctival pallor. No lid lag or facial droop. CARDIOVASCULAR: Regular rate and rhythm. No obvious murmurs to auscultation. No chest tenderness to palpation. RESPIRATORY: No obvious rhonchi or wheezing. Clear to auscultation. Breath sounds equal bilaterally. GASTROINTESTINAL: Abdomen soft, non-tender, nondistended. BS normal. MUSCULOSKELETAL: Extremities without clubbing, cyanosis, or edema. No obvious deformities. Right forearm w/ wound, surrounding erythema, +purulent drainage. NEUROLOGICAL: Awake and alert and oriented 4.. No focal neurologic deficits. Moving both upper and lower extremities spontaneously. Procedures none A/P Problem List: (1) Encephalopathy ICD Code: G93.40 - Encephalopathy, unspecified (2) SIRS (systemic inflammatory response syndrome) ICD Code: R65.10 - Systemic inflammatory response syndrome (SIRS) of non- infectious origin without acute organ dysfunction (3) Cellulitis ICD Code: L03.90 - Cellulitis, unspecified (4) Hypocalcemia ICD Code: E83.51 - Hypocalcemia (5) Hypokalemia ICD Code: E87.6 - Hypokalemia (6) HTN (hypertension) ICD Code: I10 - Essential (primary) hypertension (7) Alcohol abuse ICD Code: F10.10 - Alcohol abuse, uncomplicated Status: Acute (8) Tobacco abuse ICD Code: Z72.0 - Tobacco use Status: Chronic Assessment and Plan 1. Encephalopathy: Likely multifactorial-secondary to polypharmacy (developed when he started [facility] Contin) and acute infection. CT Head w/ no acute findings, images reviewed by me. Mental status mildly improved since arrival. Hold opioid medications. Neuro Checks q4h. 2. Sepsis: Temp 101.8, HR 117, WBC11.8. Lactic Acid normal. Source-unclear, possibly RUE Cellulitis. S/p Blood Cultures, IV Zithro/Azactam in ER. Follow up cultures currently negative to date, continue IV Abx. 3. Cellulitis: RUE Cellulitis, +purulent drainage and surrounding erythema. Continue w/ IV Abx as above, follow up cultures. 4. Hypokalemia: Severe. K+ 2.8, s/p replacement in ER, will recheck and replace as needed. 5. Hypocalcemia: Mild. Ca 7.0, Corrected 7.8, will replace and recheck. 6. HTN: BP 180's on arrival, currently 147/69, HR 98. Lopressor restarted. Will monitor. 7. Alcohol Abuse: H/o Alcohol Abuse per records, drinks 18beers/day, unclear if continues to drinks. Ativan prn 8. Tobacco Abuse: NicoDerm prn if needed. 9. DVT Prophylaxis: SCD/Teds. Discharge Planning Possible discharge in the morning Anthony Balderrama MD Dec 28, 2016 12:50
[2016-12-28] MEDS ORDERED: SULF1TAB58 PO (13:09)
[2016-12-28] MEDS ORDERED: LEVO750T3 PO (13:09)
[2016-12-28] MEDS ORDERED: OXYC-392 PO (13:09)
--- NOTE | 2016-12-28 13:09 | HHI.DCPOC ---
Discharge Care Plan Diagnosis: (1) Encephalopathy (2) Cellulitis Your Health Problems Are: Difficulty with ADL Exercise Tolerance Goals to Promote Your Health * To prevent worsening of your condition and complications * To maintain your health at the optimal level Directions to Meet Your Goals Take your medications as prescribed Follow your dietary instruction Follow activity as directed Keep your appointments as scheduled Take your immunizations and boosters as scheduled If your symptoms worsen call your PCP, if no PCP go to Urgent Care Center or Emergency Room Smoking is Dangerous to Your Health. Avoid second hand smoke Call the 24-hour hour crisis hotline for domestic abuse at Anthony Balderrama MD Dec 28, 2016 13:09
[2016-12-28 13:24] LABS: BICARBONATE 20.2 MEQ/L (21.0-32.0); MAGNESIUM 1.8 MG/DL (1.5-2.5); POTASSIUM 4.5 MEQ/L (3.5-5.1)
[2016-12-28] MEDS ORDERED: ENALAPRILAT 1.25 MG/ML VIAL IV PUSH PRN (17:00)
[2016-12-28] MEDS ORDERED: HALOPERIDOL LACTATE 5 MG/ML AMP IM PRN (17:00)
[2016-12-28] MEDS ORDERED: cloNIDine HCL 0.1 MG TAB PO PRN (17:00)
--- NOTE | 2016-12-28 17:16 | EKG ---
Date Performed: 12/27/2016 Time Performed: 22:45:03 PTAGE: 61 years EKG: SINUS TACHYCARDIA ABNORMAL RHYTHM ECG PREVIOUS TRACING : 12/18/2016 23.13 DOCTOR: Osiel Lion Interpretating Date/Time 12/28/2016 17:14:31
[2016-12-28] MEDS: METOPROLOL TARTRATE 50 MG TAB PO SCH (21:48)
[2016-12-29] VITALS: BP 116/63; PULSE 71; RESP 19; TEMP 98.8; O2SAT 94
[2016-12-29] MEDS: VANCOMYCIN INJ 1,250 MG in SODIUM CHLOR 0.9% 250 ML INJ 250 ML IV SCH (00:25)
[2016-12-29] MEDS ORDERED: POTASSIUM CHLORIDE INJ 20 MEQ in SODIUM CHLOR 0.9% 1000 ML INJ 1,000 ML IV SCH (01:11)
[2016-12-29 04:00] VITALS: BP 141/67; PULSE 95; RESP 19; TEMP 99.9; O2SAT 95
[2016-12-29] MEDS: LEVOTHYROXINE SODIUM 50 MCG TAB PO SCH (05:21)
[2016-12-29 08:00] VITALS: BP 126/56; PULSE 78; RESP 18; TEMP 98.1; O2SAT 95
[2016-12-29 09:05] LABS: AUTOMATED NEUTROPHIL # 8.2 TH/MM3 (1.8-7.7); BASOPHIL % 0.4 % (0.0-2.0); EOSINOPHIL # 0.2 TH/MM3 (0-0.4); EOSINOPHIL % 1.8 % (0.0-4.0); HEMATOCRIT 34.7 % (39.0-51.0); HEMO FLAGS DIFF FINAL; LYMPHOCYTE # 1.6 TH/MM3 (1.0-4.8); MEAN CELL VOLUME 89.7 FL (80.0-100.0); MEAN CORPUSCULAR HEMOGLOBIN 29.7 PG (27.0-34.0); MEAN CORPUSCULAR HGB CONC 33.1 % (32.0-36.0); MONO % 12.2 % (0.0-8.0); NEUT % 71.6 % (16.0-70.0); PLATELET COUNT 202 TH/MM3 (150-450); RED BLOOD COUNT 3.87 MIL/MM3 (4.50-5.90); RED CELL DISTRIBUTION WIDTH 18.9 % (11.6-17.2); WHITE BLOOD COUNT 11.4 TH/MM3 (4.0-11.0)
[2016-12-29 09:21] LABS: ALT (GPT) 33 U/L (12-78)
[2016-12-29 09:23] LABS: ALKALINE PHOSPHATASE 119 U/L (45-117); TOTAL BILIRUBIN ADULT 0.6 MG/DL (0.2-1.0)
[2016-12-29 09:24] LABS: ANION GAP 9 MEQ/L (5-15); AST (GOT) 33 U/L (15-37); BICARBONATE 21.2 MEQ/L (21.0-32.0); BLOOD UREA NITROGEN 11 MG/DL (7-18); CHLORIDE 107 MEQ/L (98-107); GLOMERULAR FILTRATION RATE 109 ML/MIN (>89); POTASSIUM 3.7 MEQ/L (3.5-5.1); SODIUM (NA) 137 MEQ/L (136-145)
[2016-12-29] MEDS: SODIUM CHLORIDE 0.9% FLUSH 10 ML FLUSH IV FLUSH SCH (09:53)
[2016-12-29] MEDS: AZTREONAM INJ 1,000 MG in SODIUM CHLORIDE 0.9% INJ 100 ML IV SCH (09:53)
[2016-12-29] MEDS: METOPROLOL TARTRATE 50 MG TAB PO SCH (09:54)
[2016-12-29] MEDS: PANTOPRAZOLE SOD 20 MG DELAYED RELEASE TAB PO SCH (09:54)
[2016-12-29] MEDS: DOCUSATE SODIUM 50 MG/SENNA 8.6 MG TAB PO SCH (09:54)
--- NOTE | 2016-12-29 11:40 | HHI.DS ---
Discharge Summary Admission Date Dec 28, 2016 at 01:07 Discharge Date: Dec 29, 2016 Admitting Diagnosis sepsis, cellulitis, opiate overdose (1) Encephalopathy ICD Code: G93.40 - Encephalopathy, unspecified (2) SIRS (systemic inflammatory response syndrome) ICD Code: R65.10 - Systemic inflammatory response syndrome (SIRS) of non- infectious origin without acute organ dysfunction (3) Cellulitis ICD Code: L03.90 - Cellulitis, unspecified (4) Hypocalcemia ICD Code: E83.51 - Hypocalcemia (5) Hypokalemia ICD Code: E87.6 - Hypokalemia (6) HTN (hypertension) ICD Code: I10 - Essential (primary) hypertension (7) Alcohol abuse ICD Code: F10.10 - Alcohol abuse, uncomplicated Status: Acute (8) Tobacco abuse ICD Code: Z72.0 - Tobacco use Status: Chronic Procedures none Brief History - From Admission This is a 61-year-old male with a PMH of HTN, Hepatitis C, Cirrhosis, Alcohol Abuse and Tobacco Abuse who was sent to the ER from SNF after being found down in the hallway by staff. Pt noted to have AMS, significantly lethargic on arrival, unable to provide history. Per SNF, pt had been given Morphine 30mg PO in addition to Oxycodone 5mg PO 2hrs prior. While in ER, mental status slightly improved, more awake now. BP 185/85, HR 118, O2 sat 96% on RA, Temp 101.8. WBC 11.8. K+ 2.8/ Ca 7.0. Lactic Acid 1.1. Trop negative. INR 0.9. U/a negative. CXR w/ no acute findings. CT Head negative for acute findings. On exam, noted to have wound w/ cellulitis to right forearm. S/p Blood Cultures, Zithro/Azactam in ER CBC/BMP: 12/29/16 0630 12/29/16 0630 Significant Findings Laboratory Tests Test 12/27/16 23:15 12/28/16 00:30 12/28/16 12:55 12/29/16 06:30 White Blood Count 11.8 TH/MM3 (4.0-11.0) 11.4 TH/MM3 (4.0-11.0) Red Blood Count 4.13 MIL/MM3 (4.50-5.90) 3.87 MIL/MM3 (4.50-5.90) Hemoglobin 12.2 GM/DL (13.0-17.0) 11.5 GM/DL (13.0-17.0) Hematocrit 36.7 % (39.0-51.0) 34.7 % (39.0-51.0) Red Cell Distribution Width 19.3 % (11.6-17.2) 18.9 % (11.6-17.2) Neutrophils (%) (Auto) 76.4 % (16.0-70.0) 71.6 % (16.0-70.0) Monocytes (%) (Auto) 14.0 % (0.0-8.0) 12.2 % (0.0-8.0) Neutrophils # (Auto) 9.0 TH/MM3 (1.8-7.7) 8.2 TH/MM3 (1.8-7.7) Monocytes # (Auto) 1.6 TH/MM3 (0-0.9) 1.4 TH/MM3 (0-0.9) Activated Partial Thromboplast Time 24.0 SEC (24.3-30.1) Creatinine 0.58 MG/DL (0.60-1.30) Total Protein 5.5 GM/DL (6.4-8.2) Albumin 2.5 GM/DL (3.4-5.0) 3.0 GM/DL (3.4-5.0) Calcium Level 7.0 MG/DL (8.5-10.1) Aspartate Amino Transf (AST/SGOT) 44 U/L (15-37) Potassium Level 2.8 MEQ/L (3.5-5.1) Chloride Level 116 MEQ/L (98-107) 110 MEQ/L (98-107) Protein Corrected Calcium 7.8 MG/DL (8.5-10.1) Total Creatine Kinase 31 U/L (39-308) Troponin I LESS THAN 0.02 NG/ML Lipase 37 U/L (73-393) Blood Urea Nitrogen 20 MG/DL (7-18) Carbon Dioxide Level 20.2 MEQ/L (21.0-32.0) Random Glucose 64 MG/DL (74-106) Alkaline Phosphatase 119 U/L (45-117) Imaging Last Impressions Head CT 12/27/162239 Signed Impressions: Service Date/Time: Tuesday, December 27, 2016 23:24 - CONCLUSION: 1. Moderate atrophic change. 2. No acute hemorrhage or mass effect. Parth Riggs MD Chest X-Ray 12/27/162239 Signed Impressions: Service Date/Time: Tuesday, December 27, 2016 23:36 - CONCLUSION: No acute disease. Parth Riggs MD PE at Discharge GENERAL: Middle-aged white male in no acute distress. HEENT: PERRLA, EOMI. No scleral icterus or conjunctival pallor. No lid lag or facial droop. CARDIOVASCULAR: Regular rate and rhythm. No obvious murmurs to auscultation. No chest tenderness to palpation. RESPIRATORY: No obvious rhonchi or wheezing. Clear to auscultation. Breath sounds equal bilaterally. GASTROINTESTINAL: Abdomen soft, non-tender, nondistended. BS normal. MUSCULOSKELETAL: Extremities without clubbing, cyanosis, or edema. No obvious deformities. Right forearm w/ wound, surrounding erythema, +purulent drainage. NEUROLOGICAL: Awake and alert and oriented 4.. No focal neurologic deficits. Moving both upper and lower extremities spontaneously. Hospital Course 1. Encephalopathy: Likely multifactorial-secondary to polypharmacy (developed when he started MS Contin) and acute infection. CT Head w/ no acute findings, images reviewed by me. Resolved hold MS Contin. 2. Sepsis: Temp 101.8, HR 117, WBC11.8. Lactic Acid normal. Source-unclear, possibly RUE Cellulitis. S/p Blood Cultures, IV Zithro/Azactam in ER. Follow up cultures currently negative to date, improved switch to by mouth Levaquin and Bactrim 3. Cellulitis: RUE Cellulitis, +purulent drainage and surrounding erythema. Improved cultures negative to date 4. Hypokalemia: Severe. K+ 2.8, s/p replacement in ER, will recheck and replace as needed. 5. Hypocalcemia: Mild. Ca 7.0, Corrected 7.8, will replace and recheck. 6. HTN: BP 180's on arrival, currently 147/69, HR 98. Lopressor restarted. Will monitor. 7. Alcohol Abuse: H/o Alcohol Abuse per records, drinks 18beers/day, unclear if continues to drinks. Ativan prn 8. Tobacco Abuse: NicoDerm prn if needed. 9. DVT Prophylaxis: SCD/Teds. Pt Condition on Discharge: Stable Discharge Disposition: Discharge to SNF Discharge Time: > 30 minutes Discharge Instructions DIET: Follow Instructions for: Heart Healthy Diet Activities you can perform: Regular-No Restrictions Activities to Avoid: Driving Follow up Referrals: PCP Follow-up - 1 Week New Medications: Levofloxacin (Levofloxacin) 750 Mg Tablet 750 MG PO DAILY for Infection, #7 TAB 0 Refills Sulfamethoxazole/Trimethoprim (Sulfamethoxazole-Tmp Ss Tablet) 400 Mg-80 Mg Tablet 1 TAB PO BID for Infection, #14 MG Changed Medications: Oxycodone (Oxycodone) 5 Mg Tab 5 MG PO Q6HR PRN for pain, #20 TAB (Medication details modified) Continued Medications: Amitriptyline (Amitriptyline) 50 Mg Tab 50 MG PO HS for health for 14 Days, TAB Gabapentin (Gabapentin) 800 Mg Tab 800 MG PO TID, #90 TAB 0 Refills Levothyroxine (Synthroid) 50 Mcg Tab 50 MCG PO DAILY@0600, #30 TAB Lisinopril (Lisinopril) 10 Mg Tab 10 MG PO DAILY, #30 TAB 0 Refills Metoprolol Tartrate (Metoprolol Tartrate) 25 Mg Tab 25 MG PO BID, #60 TAB 0 Refills Nitroglycerin SL (Nitroglycerin SL) 0.4 Mg Subl 0.4 MG SL DIRECTED PRN for CHEST PAIN, #100 TAB.SL 0 Refills ONE TABLET UNDER THE TONGUE NEEDED FOR CHEST PAIN, MAY REPEAT EVERY FIVE MINUTES FOR A TOTAL OF 3 DOSES OR CALL 911 IF NO RELIEF Omeprazole (Omeprazole) 20 Mg Tab 20 MG PO DAILY, #30 TAB 0 Refills Pancrelipase (Zenpep) 10,000-34,000-55,000 Units Cap 2 CAP PO TIDPC for Digestive Aid, #90 CAP 0 Refills Discontinued Medications: Gabapentin (Gabapentin) 300 Mg Cap 300 MG PO TID, #90 CAP 0 Refills Morphine ER (Ms Contin) 15 Mg Tab 30 MG PO BID for Pain Management, TAB 0 Refills Anthony Balderrama MD Dec 29, 2016 11:40
[2016-12-29] MEDS ORDERED: PHARMACY ORDERED LAB ONE (12:45)
== END 2016-12-29 11:58 | DRG 871 ==
LOC: NEPE 22:30 → NEDA 12-28 01:07 → N04A 12-28 02:23
PROVIDERS: ADMIT Internal Medicine; ATTEND Internal Medicine
DX: A41.9 Sepsis, unspecified organism (principal); G92 Toxic encephalopathy; G93.49 Other encephalopathy; E83.51 Hypocalcemia; L03.113 Cellulitis of right upper limb; K74.60 Unspecified cirrhosis of liver; I10 Essential (primary) hypertension; R00.0 Tachycardia, unspecified; F17.200 Nicotine dependence, unspecified, uncomplicated; K21.9 Gastro-esophageal reflux disease without esophagitis; K44.9 Diaphragmatic hernia without obstruction or gangrene; B19.20 Unspecified viral hepatitis C without hepatic coma; M06.9 Rheumatoid arthritis, unspecified; E87.6 Hypokalemia; F10.10 Alcohol abuse, uncomplicated; T40.2X5A Adverse effect of other opioids, initial encounter
CPT/HCPCS: 70450; 71010; 76937; 80048; 80053; 81001; 82140; 82550; 83605; 83690; 83735; 84484; 85025; 85610; 85730; 87040; 93005; 96365; 96367; 96375; J0456; J0610; J3370; J3480; J7030; J7050

== ENCOUNTER 2017-04-30 13:01 | Inpatient (IN) | payer MEDICARE, OTHER ==
[2017-04-30] VITALS (8 sets, daily range): BP systolic 138–164; BP diastolic 67–77; PULSE 93–112; RESP 20; TEMP 98.4–98.7; O2SAT 98–100
[~2017-04-30] VITALS: Ht 188 cm; Wt 74.3 kg
[~2017-04-30 13:01] MED LIST changes: +LEVO750T3 PO; +OMEP20TA93 PO; -PANT40TA3 PO; +SULF400T18 PO
[2017-04-30] MEDS ORDERED: IOHEXOL 350 MG/ML 10 ML VIAL (for RAD DIAG) IVCONTRAST ONE (13:02)
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
[2017-04-30] MEDS ORDERED: ONDANSETRON HCL 4 MG/2 ML VIAL IV PUSH ONE (16:30)
[2017-04-30] MEDS ORDERED: MORPHINE SULFATE 2 MG/ML INJ IM ONE (16:30)
[2017-04-30 17:01] LABS: BILIRUBIN, URINE NEG (NEG); BLOOD, URINE NEG (NEG); GLUCOSE,URINE NEG (NEG); KETONE, URINE NEG (NEG); MUCUS URINE FEW /lpf (OCC); NITRITE,URINE NEG (NEG); PH, URINE 6.5 (5.0-8.5); SQUAMOUS EPITHELIAL CELL URINE <1 /hpf (0-5); URINE COLOR LIGHT-YELLOW (YELLW/STRAW); URINE LEUKOCYTE ESTERASE NEG (NEG)
[2017-04-30 17:44] LABS: AUTOMATED NEUTROPHIL # 2.9 TH/MM3 (1.8-7.7); BASOPHIL # 0.1 TH/MM3 (0-0.2); BASOPHIL % 1.4 % (0.0-2.0); EOSINOPHIL % 0.7 % (0.0-4.0); HEMATOCRIT 22.3 % (39.0-51.0); HEMOGLOBIN 7.1 GM/DL (13.0-17.0); LYMPH % 42.8 % (9.0-44.0); LYMPHOCYTE # 2.8 TH/MM3 (1.0-4.8); MEAN CELL VOLUME 68.1 FL (80.0-100.0); MEAN CORPUSCULAR HEMOGLOBIN 21.7 PG (27.0-34.0); MEAN CORPUSCULAR HGB CONC 31.9 % (32.0-36.0); MEAN PLATELET VOLUME 6.8 FL (7.0-11.0); MONO % 9.9 % (0.0-8.0); MONOCYTE # 0.6 TH/MM3 (0-0.9); NEUT % 45.2 % (16.0-70.0); PLATELET COUNT 340 TH/MM3 (150-450); RED BLOOD COUNT 3.28 MIL/MM3 (4.50-5.90); RED CELL DISTRIBUTION WIDTH 19.6 % (11.6-17.2); WHITE BLOOD COUNT 6.5 TH/MM3 (4.0-11.0)
[2017-04-30 17:50] LABS: PROTHROMBIN TIME - PATIENT 10.2 SEC (9.8-11.6)
[2017-04-30 18:00] LABS: ALBUMIN 3.4 GM/DL (3.4-5.0); ALT (GPT) 29 U/L (12-78); AST (GOT) 40 U/L (15-37); BICARBONATE 22.9 MEQ/L (21.0-32.0); BLOOD UREA NITROGEN 9 MG/DL (7-18); CALCIUM 8.3 MG/DL (8.5-10.1); CHLORIDE 104 MEQ/L (98-107); CREATININE 0.67 MG/DL (0.60-1.30); GLOMERULAR FILTRATION RATE 120 ML/MIN (>89); GLUCOSE,RANDOM 75 MG/DL (74-106); SODIUM (NA) 136 MEQ/L (136-145)
[2017-04-30 18:04] LABS: ALKALINE PHOSPHATASE 101 U/L (45-117); TOTAL BILIRUBIN ADULT 0.5 MG/DL (0.2-1.0); TROPONIN I 0.13 NG/ML (0.02-0.05)
[2017-04-30 18:04] LABS: LACTIC ACID SEPSIS PROTOCOL 5.3 mmol/L (0.4-2.0)
[2017-04-30] MEDS ORDERED: MORPHINE SULFATE 2 MG/ML INJ IV PUSH ONE ×2 (18:15→20:15)
[2017-04-30] MEDS ORDERED: SODIUM CHLOR 0.9% 1000 ML INJ 1,000 ML IV ONE ×2 (18:15)
[2017-04-30] MEDS ORDERED: SODIUM CHLOR 0.9% 250 ML INJ 250 ML IV ONE (18:15)
[2017-04-30] MEDS ORDERED: ASPIRIN 325 MG TAB PO ONE (19:15)
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
[2017-04-30] MEDS ORDERED: SODIUM CHLORIDE 0.9% FLUSH 10 ML FLUSH IV FLUSH PRN (20:45)
[2017-04-30] MEDS ORDERED: ACETAMINOPHEN 500 MG CPLT PO PRN (20:45)
[2017-04-30] MEDS ORDERED: NITROGLYCERIN 0.4 MG SL 25 TABS/BTL SL PRN (20:45)
[2017-04-30] MEDS: SODIUM CHLORIDE 0.9% FLUSH 10 ML FLUSH IV FLUSH SCH (21:00)
[2017-04-30 21:39] LABS: HEMATOCRIT 25.4 % (39.0-51.0); HEMOGLOBIN 8.1 GM/DL (13.0-17.0); MEAN CORPUSCULAR HEMOGLOBIN 21.8 PG (27.0-34.0); MEAN CORPUSCULAR HGB CONC 31.7 % (32.0-36.0); MEAN PLATELET VOLUME 6.9 FL (7.0-11.0); PLATELET COUNT 323 TH/MM3 (150-450); RED BLOOD COUNT 3.69 MIL/MM3 (4.50-5.90); RED CELL DISTRIBUTION WIDTH 20.5 % (11.6-17.2); WHITE BLOOD COUNT 6.3 TH/MM3 (4.0-11.0)
[2017-04-30 21:49] LABS: PROTHROMBIN TIME - PATIENT 10.5 SEC (9.8-11.6)
[2017-04-30] MEDS: HEPARIN-D5W 25,000 U/250 ML 250 ML IV PRN (22:14)
[2017-04-30] MEDS ORDERED: LORazepam 2 MG/ML VIAL IV PUSH PRN ×4 (22:15)
[2017-04-30] MEDS ORDERED: FLUMAZENIL 0.5 MG/5 ML VIAL IV PUSH PRN (22:15)
[2017-04-30] MEDS: MORPHINE SULFATE 2 MG/ML INJ IV PRN (22:16)
--- NOTE | 2017-04-30 22:18 | HHI.HP ---
HPI Service [facility] Primary Care Physician No Primary Care Physician Admission Diagnosis NSTEMI, symptomatic anemia, lactic acidosis Diagnoses: Travel History International Travel<30 Days: No Contact w/Intl Traveler <30 Da: No Traveled to Known Affected Are: No History of Present Illness This is a 61-year-old male with a PMH of HTN, Hepatitis C, Cirrhosis, Alcohol Abuse and Tobacco Abuse presents to the emergency department for evaluation of multiple complaints. The patient reports he has pain in his chest, stomach, legs and back that has persisted for months. He reports progressive worsening to the point where he could no longer take it and decided to come to the emergency department for evaluation. His chest pain he describes as a sharp nonradiating left-sided pain. He states he feels as though it stems from his abdominal pain which is in the epigastric region and constant. He endorses accompanying shortness of breath and fatigue. He denies any nausea/vomiting/ diarrhea. Review of Systems Except as stated in HPI: all other systems reviewed are Neg Past Family Social History Past Medical History (Obtained from medical records) HTN, Hepatitis C, Cirrhosis, Alcohol Abuse and Tobacco Abuse Past Surgical History Cholecystectomy, Tonsillectomy, Left Knee Surgery Reported Medications Reported Meds & Active Scripts Active Sulfamethoxazole-Tmp Ss Tablet (Sulfamethoxazole/Trimethoprim) 400 Mg-80 Mg Tablet 1 Tab PO BID Levofloxacin 750 Mg Tablet 750 Mg PO DAILY Oxycodone (Oxycodone HCl) 5 Mg Tab 5 Mg PO Q6HR PRN Synthroid (Levothyroxine Sodium) 50 Mcg Tab 50 Mcg PO DAILY@0600 Amitriptyline (Amitriptyline HCl) 50 Mg Tab 50 Mg PO HS 14 Days Reported Omeprazole 20 Mg Tab 20 Mg PO DAILY Lisinopril 10 Mg Tab 10 Mg PO DAILY Metoprolol Tartrate 25 Mg Tab 25 Mg PO BID Nitroglycerin SL (Nitroglycerin) 0.4 Mg Subl 0.4 Mg SL DIRECTED PRN ONE TABLET UNDER THE TONGUE NEEDED FOR CHEST PAIN, MAY REPEAT EVERY FIVE MINUTES FOR A TOTAL OF 3 DOSES OR CALL 911 IF NO RELIEF Zenpep (Pancrelipase) 10,000-34,000-55,000 Units Cap 2 Cap PO TIDPC Gabapentin 800 Mg Tab 800 Mg PO TID Allergies: Coded Allergies: cefepime (Unverified Allergy, Severe, 04/30/17) ceftaroline fosamil (Unverified Allergy, Severe, 04/30/17) cephalexin (Unverified Allergy, Severe, UNKNOWN, 04/30/17) *MDRO Multi-Drug Resistant Organism (Verified Adverse Reaction, Unknown, ) 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 Family History Reviewed. No h/o DM or CAD Social History Approximately one pack per day. Drinks approximately 18 beers per day. Denies illicit drugs. Physical Exam Vital Signs Vital Signs Date Time Temp Pulse Resp B/P (MAP) Pulse Ox O2 Delivery O2 Flow Rate FiO2 04/30/17 21:00 100 20 150/74 100 04/30/17 20:48 101 20 149/73 100 04/30/17 20:18 102 20 147/67 99 04/30/17 20:03 105 20 150/77 (101) 98 04/30/17 20:03 98.4 105 20 150/77 99 04/30/17 20:02 20 04/30/17 19:17 98.4 110 20 164/74 98 04/30/17 13:04 98.7 112 20 138/75 (96) 100 Physical Exam GENERAL: male lying in bed SKIN: No rashes, ecchymoses or lesions. Cool and dry. HEAD: Atraumatic. Normocephalic. No temporal or scalp tenderness. EYES: Pupils equal round and reactive. Extraocular motions intact. No scleral icterus. No injection or drainage. ENT: Nose without bleeding, purulent drainage or septal hematoma. Throat without erythema, tonsillar hypertrophy or exudate. Uvula midline. Airway patent. NECK: Trachea midline. No JVD or lymphadenopathy. Supple, nontender, no meningeal signs. CARDIOVASCULAR: Regular rate and rhythm without murmurs, gallops, or rubs. RESPIRATORY: Clear to auscultation. Breath sounds equal bilaterally. No wheezes , rales, or rhonchi. GASTROINTESTINAL: Abdomen soft, non-tender, nondistended. No hepato-splenomegaly , or palpable masses. No guarding. MUSCULOSKELETAL: Extremities without clubbing, cyanosis, or edema. No joint tenderness, effusion, or edema noted. No calf tenderness. NEUROLOGICAL: Awake and alert. Cranial nerves II through XII intact. Motor and sensory grossly within normal limits. Normal speech. Laboratory Laboratory Tests Test 04/30/17 16:25 04/30/17 16:50 04/30/17 17:20 04/30/17 20:00 Urine Color LIGHT-YELLOW Urine Turbidity CLEAR Urine pH 6.5 Urine Specific [place] 1.009 Urine Protein NEG Urine Glucose (UA) NEG Urine Ketones NEG Urine Occult Blood NEG Urine Nitrite NEG Urine Bilirubin NEG Urine Urobilinogen LESS THAN 2.0 Urine Leukocyte Esterase NEG Urine RBC LESS THAN 1 Urine WBC LESS THAN 1 Urine Squamous Epithelial Cells <1 Urine Mucus FEW Microscopic Urinalysis Comment CULT NOT INDICATED Urine Opiates Screen NEG Urine Barbiturates Screen NEG Urine Amphetamines Screen NEG Urine Benzodiazepines Screen NEG Urine Cocaine Screen NEG Urine Cannabinoids Screen NEG Lactic Acid Level 5.3 4.7 White Blood Count 6.5 Red Blood Count 3.28 Hemoglobin 7.1 Hematocrit 22.3 Mean Corpuscular Volume 68.1 Mean Corpuscular Hemoglobin 21.7 Mean Corpuscular Hemoglobin Concent 31.9 Red Cell Distribution Width 19.6 Platelet Count 340 Mean Platelet Volume 6.8 Neutrophils (%) (Auto) 45.2 Lymphocytes (%) (Auto) 42.8 Monocytes (%) (Auto) 9.9 Eosinophils (%) (Auto) 0.7 Basophils (%) (Auto) 1.4 Neutrophils # (Auto) 2.9 Lymphocytes # (Auto) 2.8 Monocytes # (Auto) 0.6 Eosinophils # (Auto) 0.0 Basophils # (Auto) 0.1 CBC Comment DIFF FINAL Differential Comment Prothrombin Time 10.2 Prothromb Time International Ratio 1.0 Activated Partial Thromboplast Time 22.0 Blood Urea Nitrogen 9 Creatinine 0.67 Random Glucose 75 Total Protein 7.0 Albumin 3.4 Calcium Level 8.3 Alkaline Phosphatase 101 Aspartate Amino Transf (AST/SGOT) 40 Alanine Aminotransferase (ALT/SGPT) 29 Total Bilirubin 0.5 Sodium Level 136 Potassium Level 3.5 Chloride Level 104 Carbon Dioxide Level 22.9 Anion Gap 9 Estimat Glomerular Filtration Rate 120 Total Creatine Kinase 60 Troponin I 0.13 Lipase 181 Test 04/30/17 21:20 White Blood Count 6.3 Red Blood Count 3.69 Hemoglobin 8.1 Hematocrit 25.4 Mean Corpuscular Volume 69.0 Mean Corpuscular Hemoglobin 21.8 Mean Corpuscular Hemoglobin Concent 31.7 Red Cell Distribution Width 20.5 Platelet Count 323 Mean Platelet Volume 6.9 Prothrombin Time 10.5 Prothromb Time International Ratio 1.0 Activated Partial Thromboplast Time 21.5 Ethyl Alcohol Level LESS THAN 3 Result Diagram: 04/30/17211904/30/17 1720 Caprini VTE Risk Assessment Caprini VTE Risk Assessment: Mod/High Risk (score >= 2) Caprini Risk Assessment Model Point Value = 1 Point Value = 2 Point Value = 3 Point Value = 5 Age 41-60 Minor surgery BMI > 25 kg/m2 Swollen legs Varicose veins or History of unexplained or recurrent spontaneous Oral contraceptives or hormone replacement Sepsis (< 1 month) Serious lung disease, including pneumonia (< 1 month) Abnormal pulmonary function Acute myocardial infarction Congestive heart failure (< 1 month) History of inflammatory bowel disease Medical patient at bed rest Age 61-74 Arthroscopic surgery Major open surgery (> 45 min) Laparoscopic surgery (> 45 min) Malignancy Confined to bed (> 72 hours) Immobilizing plaster cast Central venous access Age >= 75 History of VTE Family history of VTE Factor V Leiden Prothrombin [id number] Lupus anticoagulant Anticardiolipin antibodies Elevated serum homocysteine Heparin-induced thrombocytopenia Other congenital or acquired thrombophilia Stroke (< 1 month) Elective arthroplasty Hip, pelvis, or leg fracture Acute spinal cord injury (< 1 month) Prophylaxis Regimen Total Risk Factor Score Risk Level Prophylaxis Regimen 0-1 Low Early ambulation 2 Moderate Order ONE of the following: *Sequential Compression Device (SCD) *Heparin 5000 units SQ BID 3-4 Higher Order ONE of the following medications: *Heparin 5000 units SQ TID *Enoxaparin/Lovenox 40 mg SQ daily (WT < 150 kg, CrCl > 30 mL/min) *Enoxaparin/Lovenox 30 mg SQ daily (WT < 150 kg, CrCl > 10-29 mL/min) *Enoxaparin/Lovenox 30 mg SQ BID (WT < 150 kg, CrCl > 30 mL/min) AND/OR *Sequential Compression Device (SCD) 5 or more Highest Order ONE of the following medications: *Heparin 5000 units SQ TID (Preferred with Epidurals) *Enoxaparin/Lovenox 40 mg SQ daily (WT < 150 kg, CrCl > 30 mL/min) *Enoxaparin/Lovenox 30 mg SQ daily (WT < 150 kg, CrCl > 10-29 mL/min) *Enoxaparin/Lovenox 30 mg SQ BID (WT < 150 kg, CrCl > 30 mL/min) AND *Sequential Compression Device (SCD) Assessment and Plan Assessment and Plan Assessment/plan: 1. NSTEMI EKG significant for normal sinus rhythm without ST segment elevations or depressions, personally reviewed Troponin elevated at 0.13, baseline less than 0.02 in December 2016 Heparin drip Cardiology consulted, appreciate recommendations 2. Severe anemia Unclear etiology, may be related to alcohol abuse Hemoccult negative in the emergency department Transfuse 1 unit packed red blood cells Monitor CBC Transfuse as needed 3. Elevated lactic acid Chest x-ray, CT of the abdomen and pelvis, UA showed no signs of active infection Patient without leukocytosis Afebrile No signs of end organ failure Likely secondary to anemia Trend 4. Hypertension Continue home metoprolol and lisinopril once medication reconciliation completed 5. Alcohol abuse Thiamine/folate/multivitamin CIWA protocol Monitor for signs of withdrawal FEN NPO Electrolytes: monitor and replete prn Heparin ggt Physician Certification 2 Midnight Certification Type: Admission for Inpatient Services Order for Inpatient Services The services are ordered in accordance with Medicare regulations or non- Medicare payer requirements, as applicable. In the case of services not specified as inpatient-only, they are appropriately provided as inpatient services in accordance with the 2-midnight benchmark. Estimated LOS (days): 2 2 days is the estimated time the patient will need to remain in the hospital, assuming treatment plan goals are met and no additional complications. Post-Hospital Plan: Not yet determined Leslie Prasad MD Apr 30, 2017 22:18
[2017-04-30] MEDS: SODIUM CHLOR 0.9% 1000 ML INJ 1,000 ML IV SCH (23:01)
[2017-04-30] MEDS: ACETAMINOPHEN/HYDROcodone 325 MG/7.5 MG TAB PO PRN (23:10)
[2017-04-30 23:13] LABS: TROPONIN I 0.13 NG/ML (0.02-0.05)
[2017-05-01] VITALS (10 sets, daily range): BP systolic 137–169; BP diastolic 79–88; PULSE 67–103; RESP 17–18; TEMP 97.6–98.7; O2SAT 95–97
[2017-05-01] MEDS: MORPHINE SULFATE 2 MG/ML INJ IV PRN ×3 (01:24→19:31)
[2017-05-01] MEDS: ACETAMINOPHEN/HYDROcodone 325 MG/7.5 MG TAB PO PRN ×5 (04:13→21:52)
[2017-05-01] MEDS ORDERED: PILL SPLITTER OTHER PRN (06:15)
[2017-05-01] MEDS: SODIUM CHLORIDE 0.9% FLUSH 10 ML FLUSH IV FLUSH SCH ×2 (07:36→19:33)
[2017-05-01] MEDS: FOLIC ACID 1 MG TAB PO SCH (07:36)
[2017-05-01] MEDS: ASPIRIN EC 325 MG TABEC PO SCH (07:37)
[2017-05-01] MEDS: MULTIVITAMINS/MINERALS THERAPEUTIC TAB PO SCH (07:37)
[2017-05-01] MEDS: THIAMINE HCL 100 MG TAB PO SCH (07:37)
[2017-05-01] MEDS: SODIUM CHLOR 0.9% 1000 ML INJ 1,000 ML IV SCH ×2 (07:39→16:36)
[2017-05-01 07:42] LABS: BICARBONATE 19.8 MEQ/L (21.0-32.0); CALCIUM 8.7 MG/DL (8.5-10.1); CREATININE 0.62 MG/DL (0.60-1.30)
[2017-05-01 07:46] LABS: TROPONIN I 0.06 NG/ML (0.02-0.05)
--- NOTE | 2017-05-01 08:12 | EKG ---
Date Performed: 04/30/2017 Time Performed: 14:09:24 PTAGE: 61 years EKG: SINUS TACHYCARDIA POSSIBLE LEFT ATRIAL ENLARGEMENT NONSPECIFIC T-WAVE ABNORMALITY ABNORMAL RHYTHM ECG PREVIOUS TRACING : 12/27/2016 22.45 Since the prior tracing, there has been no significant kaur DOCTOR: Vandana Rice Interpretating Date/Time 05/01/2017 08:10:35
[2017-05-01] MEDS ORDERED: METOPROLOL TARTRATE 25 MG TAB PO SCH (09:00)
[2017-05-01 11:43] LABS: AUTOMATED NEUTROPHIL # 3.9 TH/MM3 (1.8-7.7); BASOPHIL % 0.6 % (0.0-2.0); EOSINOPHIL # 0.2 TH/MM3 (0-0.4); EOSINOPHIL % 3.4 % (0.0-4.0); HEMATOCRIT 28.2 % (39.0-51.0); LYMPH % 20.4 % (9.0-44.0); LYMPHOCYTE # 1.2 TH/MM3 (1.0-4.8); MEAN CELL VOLUME 70.1 FL (80.0-100.0); MEAN CORPUSCULAR HEMOGLOBIN 22.5 PG (27.0-34.0); MEAN CORPUSCULAR HGB CONC 32.1 % (32.0-36.0); MEAN PLATELET VOLUME 7.3 FL (7.0-11.0); MONO % 9.9 % (0.0-8.0); MONOCYTE # 0.6 TH/MM3 (0-0.9); NEUT % 65.7 % (16.0-70.0); PLATELET COUNT 288 TH/MM3 (150-450); RED BLOOD COUNT 4.01 MIL/MM3 (4.50-5.90); RED CELL DISTRIBUTION WIDTH 20.7 % (11.6-17.2); WHITE BLOOD COUNT 5.9 TH/MM3 (4.0-11.0)
[2017-05-01 11:52] LABS: MAGNESIUM 1.8 MG/DL (1.5-2.5)
--- NOTE | 2017-05-01 12:00 | HHI.PR ---
Subjective Remarks Follow-up NSTEMI and anemia. Continues to have constant chest abdominal, back and lower extremity pain. Patient had multiple falls within the past week. Does not remember having cardiac workup. Had negative endoscopy in the past. Discussed with nursing Objective Vitals Vital Signs Date Time Temp Pulse Resp B/P (MAP) Pulse Ox O2 Delivery O2 Flow Rate FiO2 05/01/17 11:53 98.1 67 18 168/88 (114) 97 05/01/17 08:57 69 05/01/17 08:00 97.6 75 18 152/84 (106) 96 05/01/17 05:17 97.9 82 18 163/80 (107) 96 05/01/17 01:38 97.7 103 18 169/88 (115) 96 04/30/17 23:47 93 04/30/17 22:25 100 20 159/72 (101) 99 Room Air 04/30/17 21:00 100 20 150/74 100 04/30/17 20:48 101 20 149/73 100 04/30/17 20:18 102 20 147/67 99 04/30/17 20:03 105 20 150/77 (101) 98 04/30/17 20:03 98.4 105 20 150/77 99 04/30/17 20:02 20 04/30/17 19:17 98.4 110 20 164/74 98 04/30/17 13:04 98.7 112 20 138/75 (96) 100 I/O 04/30/17 04/30/17 04/30/17 05/01/17 05/01/17 05/01/17 07:00 15:00 23:00 07:00 15:00 23:00 Intake Total 675 ml Output Total 300 ml Balance 675 ml -300 ml Packed Cells 400 ml Blood Product IV Normal Saline Flush 275 ml Output Urine Total 300 ml Result Diagram: 05/01/17 1114 05/01/17 0631 Imaging Last Impressions Chest X-Ray 04/30/17 0000 Signed Impressions: Service Date/Time: Sunday, April 30, 2017 16:04 - CONCLUSION: The lungs are clear. Luis Alfredo Whiting MD Abdomen/Pelvis CT 04/30/17 0000 Signed Impressions: Service Date/Time: Sunday, April 30, 2017 18:52 - CONCLUSION: 1. Compression fracture of the superior endplate of L4 with no bony retropulsion. This is new when compared to previous examination. 2. No definite abnormality to explain the patient's diffuse abdominal pain and weight loss identified. 3. Sizable hiatal hernia. Kenan Norman MD Objective Remarks GENERAL: male lying in bed SKIN: No rashes, ecchymoses or lesions. Cool and dry. CARDIOVASCULAR: Regular rate and rhythm without murmurs, gallops, or rubs. RESPIRATORY: Clear to auscultation. Breath sounds equal bilaterally. No wheezes , rales, or rhonchi. GASTROINTESTINAL: Abdomen soft, slightly tender upper quadrants, nondistended. No guarding. MUSCULOSKELETAL: Extremities without clubbing, cyanosis, or edema. No joint tenderness, effusion, or edema noted. No calf tenderness. Lumbar spine tenderness NEUROLOGICAL: Awake and alert. Cranial nerves II through XII intact. Motor and sensory grossly within normal limits. Normal speech. A/P Problem List: (1) NSTEMI (non-ST elevated myocardial infarction) ICD Code: I21.4 - Non-ST elevation (NSTEMI) myocardial infarction Status: Acute Assessment and Plan 1. NSTEMI. Patient has atypical chest pain. Continue heparin drip and start aspirin and beta-ricki. Awaiting cardiology evaluation. 2. Severe anemia. Hemoccult negative in the emergency department. Improved after transfusion. Obtain iron studies, B12 and folate may need GI or hematology consultation. He will at least need endoscopy. 3. Elevated lactic acid 2/2 to anemia. Chest x-ray, CT of the abdomen and pelvis, UA showed no signs of active infection. Improved with IVF 4. Hypertension. Continue home metoprolol and lisinopril once medication reconciliation completed 5. Alcohol abuse. Counselled continue CIWA protocol. Patient with history of cirrhosis and hepatitis C 6. Abdominal pain/tenderness. Lipase within normal limits. Start PPI and obtain abdominal sonogram. Consider GI consult 7. L4 compression injury. Status post fall. Pain management. We will consult neurosurgery when cleared by cardiology. PT evaluation FEN NPO Electrolytes: monitor and replete prn Heparin ggt Anthony Balderrama MD May 01, 2017 12:00
[2017-05-01] MEDS: PANTOPRAZOLE SOD 40 MG DELAYED RELEASE TAB PO SCH (12:33)
[2017-05-01 13:36] LABS: % SATURATION IRON PROFILE 11.6 % (20-50); IRON (FE) 62 MCG/DL (65-175); TOTAL IRON BINDING CAPACITY 533 MCG/DL (250-450)
[2017-05-01 14:01] LABS: FERRITIN 19 NG/ML (26-388); FOLATE 12.3 NG/ML (3.1-17.5)
--- NOTE | 2017-05-01 15:45 | RADRPT ---
EXAM DATE/TIME: 05/01/2017 14:37 [facility] COMPARISON: No previous studies available for comparison. INDICATIONS : Abnormal labs. MEDICAL HISTORY : Hypothyroidism. Hepatitis C. Migraines. Hypertension. Ulcer. Pancreatitis. Hiatal hernia. GERD. Kid neeta stones. Arthritis. Cirrhosis. SURGICAL HISTORY : Tonsillectomy. Cholecystectomy. Adenoidectomy. Left knee surgery. MRSA. ENCOUNTER: Initial ACUITY: 1 day PAIN SCORE: 0/10 LOCATION: Abdomen. MEASUREMENTS: LIVER: 16.5 cm length COMMON DUCT: 8 mm RIGHT KIDNEY: 10.7 x 4.8 x 5.3 cm SPLEEN: 8.6 cm length FINDINGS: LIVER: Normal echotexture without focal lesion or ductal dilatation. COMMON DUCT: No intraluminal mass or stone visualized. GALLBLADDER: Surgically absent PANCREAS: The visualized portions are within normal limits. RIGHT KIDNEY: No hydronephrosis, stone or mass. SPLEEN: No focal lesion. CONCLUSION: Focal and unremarkable sonographic appearance of the right upper quadrant Vikas Daniels MD on May 01, 2017 at 15:04 Board Certified Radiologist. This report was verified electronically.
[2017-05-01] MEDS: HEPARIN-D5W 25,000 U/250 ML 250 ML IV PRN (17:51)
[2017-05-01] MEDS: METOPROLOL TARTRATE 25 MG TAB PO SCH (19:31)
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
[2017-05-02] VITALS (10 sets, daily range): BP systolic 118–178; BP diastolic 69–97; PULSE 70–87; RESP 17–18; TEMP 97.4–98.5; O2SAT 96–98
[2017-05-02] MEDS: SODIUM CHLORIDE 0.9% FLUSH 10 ML FLUSH IV FLUSH SCH ×2 (00:05→20:32)
[2017-05-02] MEDS: MORPHINE SULFATE 2 MG/ML INJ IV PRN ×3 (00:05→10:28)
[2017-05-02 02:24] LABS: AUTOMATED NEUTROPHIL # 5.2 TH/MM3 (1.8-7.7); BASOPHIL # 0.1 TH/MM3 (0-0.2); BASOPHIL % 0.9 % (0.0-2.0); EOSINOPHIL # 0.4 TH/MM3 (0-0.4); EOSINOPHIL % 5.1 % (0.0-4.0); HEMATOCRIT 27.3 % (39.0-51.0); HEMOGLOBIN 8.8 GM/DL (13.0-17.0); LYMPH % 19.6 % (9.0-44.0); LYMPHOCYTE # 1.6 TH/MM3 (1.0-4.8); MEAN CELL VOLUME 69.1 FL (80.0-100.0); MEAN CORPUSCULAR HEMOGLOBIN 22.4 PG (27.0-34.0); MEAN CORPUSCULAR HGB CONC 32.4 % (32.0-36.0); MEAN PLATELET VOLUME 7.6 FL (7.0-11.0); MONO % 8.4 % (0.0-8.0); MONOCYTE # 0.7 TH/MM3 (0-0.9); PLATELET COUNT 266 TH/MM3 (150-450); RED BLOOD COUNT 3.94 MIL/MM3 (4.50-5.90); RED CELL DISTRIBUTION WIDTH 20.6 % (11.6-17.2); WHITE BLOOD COUNT 7.9 TH/MM3 (4.0-11.0)
[2017-05-02 02:26] LABS: BICARBONATE 21.9 MEQ/L (21.0-32.0); CALCIUM 8.3 MG/DL (8.5-10.1); CREATININE 0.69 MG/DL (0.60-1.30); MAGNESIUM 1.7 MG/DL (1.5-2.5)
[2017-05-02] MEDS: SODIUM CHLOR 0.9% 1000 ML INJ 1,000 ML IV SCH (05:28)
[2017-05-02] MEDS: ACETAMINOPHEN/HYDROcodone 325 MG/7.5 MG TAB PO PRN ×3 (05:28→22:59)
[2017-05-02] MEDS: MULTIVITAMINS/MINERALS THERAPEUTIC TAB PO SCH (09:23)
[2017-05-02] MEDS: THIAMINE HCL 100 MG TAB PO SCH (09:23)
[2017-05-02] MEDS: METOPROLOL TARTRATE 25 MG TAB PO SCH ×2 (09:23→20:30)
[2017-05-02] MEDS: PANTOPRAZOLE SOD 40 MG DELAYED RELEASE TAB PO SCH (09:23)
[2017-05-02] MEDS: FOLIC ACID 1 MG TAB PO SCH (09:24)
[2017-05-02] MEDS: CHOLECALCIFEROL (VIT D3) 1000 UNIT TAB PO SCH (09:24)
[2017-05-02] MEDS: ASPIRIN EC 325 MG TABEC PO SCH (09:24)
--- NOTE | 2017-05-02 12:05 | PD.CARD.PN ---
Subjective Subjective Remarks alert in nad, states chest pain unchanged Objective Medications Current Medications Medications (Trade) Dose Ordered Sig/Ashlie Route Start Time Stop Time Status Last Admin (NS Flush) 2 ml BID IV FLUSH 04/30/17 21:00 05/02/17 00:05 (NS Flush) 2 ml UNSCH PRN IV FLUSH 04/30/17 20:45 (Nitrostat Sl) 0.4 mg Q5M PRN SL 04/30/17 20:45 (Tylenol) 500 mg Q4H PRN PO 04/30/17 20:45 ([place] 7.5-325 Mg) 1 tab Q4H PRN PO 04/30/17 20:45 05/02/17 09:23 (Folate) 1 mg DAILY PO 05/01/17 09:00 05/06/17 08:59 05/02/17 09:24 (Vitamin B1) 100 mg DAILY PO 05/01/17 09:00 05/02/17 09:23 (Theragran M Tab) 1 tab DAILY PO 05/01/17 09:00 05/06/17 08:59 05/02/17 09:23 (Romazicon Inj) 0.2 mg Q1M PRN IV PUSH 04/30/17 22:15 (Ativan) 1 mg Q4H PRN PO 04/30/17 22:15 (Ativan Inj) 1 mg Q4H PRN IV PUSH 04/30/17 22:15 (Ativan) 2 mg Q2H PRN PO 04/30/17 22:15 (Ativan Inj) 2 mg Q2H PRN IV PUSH 04/30/17 22:15 (Ativan Inj) 2 mg Q1H PRN IV PUSH 04/30/17 22:15 (Ativan Inj) 2 mg Q15M PRN IV PUSH 04/30/17 22:15 (Ecotrin Ec) 325 mg DAILY PO 05/01/17 09:00 05/02/17 09:24 (Pill Splitter) 1 ea UNSCH PRN OTHER 05/01/17 06:15 (Protonix) 40 mg DAILY PO 05/01/17 12:00 05/02/17 09:23 (Vitamin D3) 1,000 units DAILY PO 05/02/17 09:00 05/02/17 09:24 (Lopressor) 25 mg BID PO 05/01/17 21:00 05/02/17 09:23 (Morphine Inj) 3 mg Q3H PRN IV 05/02/17 12:45 UNV ([place] 10-325 Mg) 1 tab Q6H PRN PO 05/02/17 12:00 UNV (KCl) 30 meq ONCE ONCE PO 05/02/17 12:00 05/02/17 12:01 UNV (Neurontin) 100 mg TID PO 05/02/17 13:00 UNV Vital Signs / I&O Vital Signs Date Time Temp Pulse Resp B/P (MAP) Pulse Ox O2 Delivery O2 Flow Rate FiO2 05/02/17 09:20 72 05/02/17 08:00 97.7 75 18 171/94 (119) 97 05/02/17 05:20 97.4 80 17 178/97 (124) 98 05/02/17 00:49 97.7 72 17 133/83 (100) 98 05/01/17 23:00 72 05/01/17 21:26 97.8 80 17 137/79 (98) 97 05/01/17 17:11 68 05/01/17 15:52 98.7 77 18 168/86 (113) 95 I/O 05/01/17 05/01/17 05/01/17 05/02/17 05/02/17 05/02/17 07:00 15:00 23:00 07:00 15:00 23:00 Intake Total 892 ml 240 ml Output Total 300 ml 1925 ml 1050 ml 1200 ml 550 ml Balance -300 ml -1925 ml -158 ml -960 ml -550 ml Intake Oral 240 ml IV Total 892 ml Output Urine Total 300 ml 1925 ml 1050 ml 1200 ml 550 ml # Bowel Movements 0 0 Physical Exam GENERAL: SKIN: Warm and dry. HEAD: Normocephalic. EYES: No scleral icterus. No injection or drainage. NECK: Supple, trachea midline. No JVD or lymphadenopathy. CARDIOVASCULAR: Regular rate and rhythm without murmurs, gallops, or rubs. RESPIRATORY: Breath sounds equal bilaterally. No accessory muscle use. GASTROINTESTINAL: Abdomen soft, non-tender, nondistended. MUSCULOSKELETAL: No cyanosis, or edema. BACK: Nontender without obvious deformity. No CVA tenderness. Laboratory Laboratory Tests Test 2/22/18 12:35 05/01/17 19:33 05/02/17 01:15 Activated Partial Thromboplast Time 32.3 SEC 26.8 SEC 26.6 SEC White Blood Count 7.9 TH/MM3 Red Blood Count 3.94 MIL/MM3 Hemoglobin 8.8 GM/DL Hematocrit 27.3 % Mean Corpuscular Volume 69.1 FL Mean Corpuscular Hemoglobin 22.4 PG Mean Corpuscular Hemoglobin Concent 32.4 % Red Cell Distribution Width 20.6 % Platelet Count 266 TH/MM3 Mean Platelet Volume 7.6 FL Neutrophils (%) (Auto) 66.0 % Lymphocytes (%) (Auto) 19.6 % Monocytes (%) (Auto) 8.4 % Eosinophils (%) (Auto) 5.1 % Basophils (%) (Auto) 0.9 % Neutrophils # (Auto) 5.2 TH/MM3 Lymphocytes # (Auto) 1.6 TH/MM3 Monocytes # (Auto) 0.7 TH/MM3 Eosinophils # (Auto) 0.4 TH/MM3 Basophils # (Auto) 0.1 TH/MM3 CBC Comment DIFF FINAL Differential Comment Hematology Comments Blood Urea Nitrogen 6 MG/DL Creatinine 0.69 MG/DL Random Glucose 84 MG/DL Calcium Level 8.3 MG/DL Magnesium Level 1.7 MG/DL Sodium Level 137 MEQ/L Potassium Level 3.4 MEQ/L Chloride Level 107 MEQ/L Carbon Dioxide Level 21.9 MEQ/L Anion Gap 8 MEQ/L Estimat Glomerular Filtration Rate 116 ML/MIN Assessment and Plan Problem List: (1) Chest pain ICD Codes: R07.9 - Chest pain, unspecified (2) Anemia ICD Codes: D64.9 - Anemia, unspecified (3) Hepatitis C ICD Codes: B19.20 - Unspecified viral hepatitis C without hepatic coma Status: Acute (4) Polysubstance abuse ICD Codes: F19.10 - Other psychoactive substance abuse, uncomplicated Status: Acute (5) Alcohol dependence ICD Codes: F10.20 - Alcohol dependence, uncomplicated Status: Acute (6) Tobacco abuse ICD Codes: Z72.0 - Tobacco use Status: Chronic (7) NSTEMI (non-ST elevated myocardial infarction) ICD Codes: I21.4 - Non-ST elevation (NSTEMI) myocardial infarction Status: Acute Assessment and Plan 1.) Chest pain - unchanged, rec medical management due to severe anemia with undefined source Doug Flowers MD May 02, 2017 12:05
[2017-05-02] MEDS: GABAPENTIN 100 MG CAP PO SCH ×2 (12:40→17:44)
[2017-05-02] MEDS ORDERED: POTASSIUM CHLORIDE 10 MEQ CONTROLLED RELEASE TAB PO ONE (12:45)
[2017-05-02] MEDS: MORPHINE SULFATE 4 MG/ML INJ IV PRN ×4 (13:22→23:51)
--- NOTE | 2017-05-02 14:07 | HHI.PR ---
Subjective Remarks Follow-up pain. Complaining of chronic chest and abdominal pain unchanged from previous. Discussed with nursing Objective Vitals Vital Signs Date Time Temp Pulse Resp B/P (MAP) Pulse Ox O2 Delivery O2 Flow Rate FiO2 05/02/17 12:00 97.7 76 18 123/73 (90) 96 05/02/17 09:20 72 05/02/17 08:00 97.7 75 18 171/94 (119) 97 05/02/17 05:20 97.4 80 17 178/97 (124) 98 05/02/17 00:49 97.7 72 17 133/83 (100) 98 05/01/17 23:00 72 05/01/17 21:26 97.8 80 17 137/79 (98) 97 05/01/17 17:11 68 05/01/17 15:52 98.7 77 18 168/86 (113) 95 I/O 05/01/17 05/01/17 05/01/17 05/02/17 05/02/17 05/02/17 07:00 15:00 23:00 07:00 15:00 23:00 Intake Total 892 ml 240 ml Output Total 300 ml 1925 ml 1050 ml 1200 ml 550 ml Balance -300 ml -1925 ml -158 ml -960 ml -550 ml Intake Oral 240 ml IV Total 892 ml Output Urine Total 300 ml 1925 ml 1050 ml 1200 ml 550 ml # Bowel Movements 0 0 Result Diagram: 05/02/17 0115 05/02/17 0115 Imaging Last Impressions Liver Ultrasound 05/01/17 0000 Signed Impressions: Service Date/Time: April 14:37 - CONCLUSION: Focal and unremarkable sonographic appearance of the right upper quadrant Vikas Daniels MD Chest X-Ray 04/30/17 0000 Signed Impressions: Service Date/Time: Sunday, April 30, 2017 16:04 - CONCLUSION: The lungs are clear. Luis Alfredo Whiting MD Abdomen/Pelvis CT 04/30/17 0000 Signed Impressions: Service Date/Time: Sunday, April 30, 2017 18:52 - CONCLUSION: 1. Compression fracture of the superior endplate of L4 with no bony retropulsion. This is new when compared to previous examination. 2. No definite abnormality to explain the patient's diffuse abdominal pain and weight loss identified. 3. Sizable hiatal hernia. Kenan Norman MD Objective Remarks GENERAL: male lying in bed SKIN: No rashes, ecchymoses or lesions. Cool and dry. CARDIOVASCULAR: Regular rate and rhythm without murmurs, gallops, or rubs. RESPIRATORY: Clear to auscultation. Breath sounds equal bilaterally. No wheezes , rales, or rhonchi. GASTROINTESTINAL: Abdomen soft, slightly tender upper quadrants, nondistended. No guarding. MUSCULOSKELETAL: Extremities without clubbing, cyanosis, or edema. No joint tenderness, effusion, or edema noted. No calf tenderness. Lumbar spine tenderness NEUROLOGICAL: Awake and alert. Cranial nerves II through XII intact. Motor and sensory grossly within normal limits. Normal speech. A/P Problem List: (1) NSTEMI (non-ST elevated myocardial infarction) ICD Code: I21.4 - Non-ST elevation (NSTEMI) myocardial infarction Status: Acute Assessment and Plan 1. NSTEMI. Patient has atypical chest pain which is chronic and unchanged. Continue aspirin and beta-ricki. Start lisinopril and discontinue heparin drip unable. Check lipid profile start statin if LDL not at goal. Per cardiology this is demand ischemia from anemia and probably has some degree of CAD but not a candidate for cardiac catheterization at this time. Recommended medical management 2. Severe anemia. Hemoccult negative in the emergency department. Improved after transfusion. He is iron deficient start iron. May need GI or hematology consultation which can be done outpatient unless he is actively bleeding or guaiac positive.. He will at least need endoscopy. 3. Elevated lactic acid 2/2 to anemia. Chest x-ray, CT of the abdomen and pelvis, UA showed no signs of active infection. Improved with IVF 4. Hypertension. Continue home metoprolol and lisinopril once medication reconciliation completed 5. Alcohol abuse. Counselled continue CIWA protocol. Patient with history of cirrhosis and hepatitis C. Imaging studies not suggestive of cirrhosis 6. Abdominal pain/tenderness. Lipase within normal limits. Continue PPI. Consider GI consult 7. L4 compression injury. Status post fall. Pain management. We will consult neurosurgery . PT evaluation Discharge Planning Possible discharge in 1-2 days Anthony Balderrama MD May 02, 2017 14:07
[2017-05-02] MEDS: ACETAMINOPHEN/HYDROcodone 325 MG/10 MG TAB PO PRN (15:48)
--- NOTE | 2017-05-02 17:30 | MB ---
cc: SHANE AHUMADA M.D. DATE OF CONSULTATION: 05/02/2017 REASON FOR CONSULTATION: L4 vertebral body fracture. HISTORY OF PRESENT ILLNESS: This is a 61-year-old male who was admitted to [facility] on 04/30/2017 and was found to have elevated troponins and non-S-T elevated myocardial infarction. A CT of the abdomen and pelvis also revealed mild L4 vertebral body compression deformity. He has complaints of low back pain which he has had for the last four months and he states at times his legs give out on him, although he denies any numbness or incontinence. He has been evaluated by cardiology and placed on heparin drip as well as aspirin. He has been ambulating with physical therapy with a TLSO brace on. He also complains of abdominal pain in the epigastric area. PAST MEDICAL HISTORY: 1. Cirrhosis. 2. Alcohol abuse. 3. Hepatitis C. 4. Hypertension. 5. Cholecystectomy. 6. Tonsillectomy. 7. Left knee surgery. 8. Recent myocardial infarction. 9. Rheumatoid arthritis. MEDICATIONS: Medications currently include: 1. Gabapentin 100 milligrams three times a day. 2. Morphine PRN. 3. IV Lortab 10 / 325 q. 6 hours PRN. 4. Lopressor 25 milligrams twice a day. 5. Protonix 40 milligrams daily. 6. Folate 1 milligram daily. 7. Vitamin B. 8. A multivitamin. 9. Aspirin 325 milligrams daily. ALLERGIES: 1. CEPHALOSPORINS. 2. FOSAMIL. SOCIAL HISTORY: He is single and resides alone. Smokes cigarettes and drinks alcohol heavily daily. LABORATORY FINDINGS: White blood cell count 7.9, hemoglobin 8.8, platelet count 266,000. Sodium 137, potassium 3.4, BUN 6, creatinine 0.69, glucose 84. PHYSICAL EXAMINATION: VITAL SIGNS: Temperature 97.7, pulse 76, respiratory rate 18, blood pressure 123/73, oxygen saturation 96% on room air. GENERAL: This is an elderly gentleman who is sitting at the bedside with an TLSO brace on eating lunch in no acute distress. SKIN: Warm and dry with no rashes or pustules. HEAD: Normocephalic and atraumatic. EYES: No scleral icterus, injection or drainage. NECK: The neck is supple with no guarding or rigidity. HEART: Regular rate and rhythm. Normal S1 and S2. No murmurs. ABDOMEN: Abdomen soft and nontender. No hepatosplenomegaly. CHEST: Clear to auscultation bilaterally. MUSCULOSKELETAL: No deformities, cyanosis or edema. NEUROLOGICAL EXAMINATION: He is awake and alert. His cranial nerves are grossly intact. Speech is fluent. Motor strength in the upper and lower extremities is 5/5. Normal sensation. Negative Babinski. IMPRESSION: 1. L4 vertebral body mild compression fracture with chronic low back pain for the past four months. 2. Recent myocardial infarction. 3. Alcohol abuse. 4. History of cirrhosis and hepatitis C. 5. Rheumatoid arthritis. PLAN: 1. The patient does not require any neurosurgical intervention. Agree with the use of a back brace and medication for pain control. 2. He will benefit from rehabilitation and physical therapy also. 3. Anticipate the L4 fracture will heal with six to eight weeks of brace use. 4. Follow up with cardiology regarding further management of his coronary artery disease / myocardial infarction. 5. He was also counselled on alcohol cessation. MD PILI Bender/TORRES /4:18 PM /5:15 PM
[2017-05-02] MEDS ORDERED: CHOL1000 PO (19:23)
[2017-05-02] MEDS ORDERED: FERR325T20 PO (19:23)
[2017-05-02] MEDS ORDERED: ASPI325T33 PO (19:23)
[2017-05-02] MEDS ORDERED: THIA100 PO (19:23)
--- NOTE | 2017-05-02 19:24 | HHI.FF ---
Face to Face Verification Diagnosis: (1) NSTEMI (non-ST elevated myocardial infarction) (2) Anemia Physical Therapy Order: Evaluate and Treat, Improve ambulation, Strength and gait training Home Health Nursing Order: Medical education Signs/symptoms of disease process Medication education-adverse effect Nursing assessment with vital signs I have seen patient Cornelius HerediaJr on 05/02/17. My clinical findings support the need for the requested home health care services because: Deconditioned w/ increased weakness I certify that my clinical findings support that this patient is homebound because: Unsafe to leave home unassisted Anthony Balderrama MD May 02, 2017 19:24
--- NOTE | 2017-05-02 19:24 | HHI.DCPOC ---
Discharge Care Plan Diagnosis: (1) Anemia (2) NSTEMI (non-ST elevated myocardial infarction) Your Health Problems Are: Difficulty with ADL Exercise Tolerance Goals to Promote Your Health * To prevent worsening of your condition and complications * To maintain your health at the optimal level Directions to Meet Your Goals Take your medications as prescribed Follow your dietary instruction Follow activity as directed Keep your appointments as scheduled Take your immunizations and boosters as scheduled If your symptoms worsen call your PCP, if no PCP go to Urgent Care Center or Emergency Room Smoking is Dangerous to Your Health. Avoid second hand smoke Call the 24-hour hour crisis hotline for domestic abuse at Anthony Balderrama MD May 02, 2017 19:23
[2017-05-02] MEDS: FERROUS SULFATE 325 MG (65 MG ELEMENTAL IRON) TAB PO SCH (20:30)
[2017-05-03] VITALS (8 sets, daily range): BP systolic 118–144; BP diastolic 66–82; PULSE 70–79; RESP 17–18; TEMP 97.4–98.1; O2SAT 96–99
[2017-05-03] MEDS: ACETAMINOPHEN/HYDROcodone 325 MG/7.5 MG TAB PO PRN (02:59)
[2017-05-03] MEDS: MORPHINE SULFATE 4 MG/ML INJ IV PRN ×3 (06:52→12:57)
[2017-05-03] MEDS: ACETAMINOPHEN/HYDROcodone 325 MG/10 MG TAB PO PRN ×3 (07:36→21:27)
[2017-05-03] MEDS: LISINOPRIL 10 MG TAB PO SCH (08:11)
[2017-05-03] MEDS: THIAMINE HCL 100 MG TAB PO SCH (08:12)
[2017-05-03] MEDS: PANTOPRAZOLE SOD 40 MG DELAYED RELEASE TAB PO SCH (08:12)
[2017-05-03] MEDS: MULTIVITAMINS/MINERALS THERAPEUTIC TAB PO SCH (08:12)
[2017-05-03] MEDS: CHOLECALCIFEROL (VIT D3) 1000 UNIT TAB PO SCH (08:12)
[2017-05-03] MEDS: FERROUS SULFATE 325 MG (65 MG ELEMENTAL IRON) TAB PO SCH ×2 (08:12→21:27)
[2017-05-03] MEDS: GABAPENTIN 100 MG CAP PO SCH ×2 (08:13→12:57)
[2017-05-03] MEDS: ASPIRIN EC 325 MG TABEC PO SCH (08:13)
[2017-05-03] MEDS: METOPROLOL TARTRATE 25 MG TAB PO SCH ×2 (08:13→21:27)
[2017-05-03] MEDS: SODIUM CHLORIDE 0.9% FLUSH 10 ML FLUSH IV FLUSH SCH ×2 (08:14→21:26)
[2017-05-03] MEDS: FOLIC ACID 1 MG TAB PO SCH (08:14)
--- NOTE | 2017-05-03 10:38 | PD.CARD.PN ---
Subjective Subjective Remarks alert in nad Objective Medications Current Medications Medications (Trade) Dose Ordered Sig/Ashlie Route Start Time Stop Time Status Last Admin (NS Flush) 2 ml BID IV FLUSH 04/30/17 21:00 05/03/17 08:14 (NS Flush) 2 ml UNSCH PRN IV FLUSH 04/30/17 20:45 (Nitrostat Sl) 0.4 mg Q5M PRN SL 04/30/17 20:45 (Tylenol) 500 mg Q4H PRN PO 04/30/17 20:45 ([place] 7.5-325 Mg) 1 tab Q4H PRN PO 04/30/17 20:45 05/03/17 02:59 (Folate) 1 mg DAILY PO 05/01/17 09:00 05/06/17 08:59 05/03/17 08:14 (Vitamin B1) 100 mg DAILY PO 05/01/17 09:00 05/03/17 08:12 (Theragran M Tab) 1 tab DAILY PO 05/01/17 09:00 05/06/17 08:59 05/03/17 08:12 (Romazicon Inj) 0.2 mg Q1M PRN IV PUSH 04/30/17 22:15 (Ativan) 1 mg Q4H PRN PO 04/30/17 22:15 (Ativan Inj) 1 mg Q4H PRN IV PUSH 04/30/17 22:15 (Ativan) 2 mg Q2H PRN PO 04/30/17 22:15 (Ativan Inj) 2 mg Q2H PRN IV PUSH 04/30/17 22:15 (Ativan Inj) 2 mg Q1H PRN IV PUSH 04/30/17 22:15 (Ativan Inj) 2 mg Q15M PRN IV PUSH 04/30/17 22:15 (Ecotrin Ec) 325 mg DAILY PO 05/01/17 09:00 05/03/17 08:13 (Pill Splitter) 1 ea UNSCH PRN OTHER 05/01/17 06:15 (Protonix) 40 mg DAILY PO 05/01/17 12:00 05/03/17 08:12 (Vitamin D3) 1,000 units DAILY PO 05/02/17 09:00 05/03/17 08:12 (Lopressor) 25 mg BID PO 05/01/17 21:00 05/03/17 08:13 (Morphine Inj) 3 mg Q3H PRN IV 05/02/17 12:45 05/03/17 10:04 ([place] 10-325 Mg) 1 tab Q6H PRN PO 05/02/17 12:00 05/03/17 07:36 (Neurontin) 100 mg TID PO 05/02/17 13:00 05/03/17 08:13 (Ferrous Sulfate) 325 mg BID PO 05/02/17 21:00 05/03/17 08:12 (Prinivil) 10 mg DAILY PO 05/03/17 09:00 05/03/17 08:11 Vital Signs / I&O Vital Signs Date Time Temp Pulse Resp B/P (MAP) Pulse Ox O2 Delivery O2 Flow Rate FiO2 05/03/17 08:05 98.0 78 18 136/67 (90) 96 05/03/17 05:39 98.1 71 17 135/82 (99) 98 05/03/17 00:56 97.8 79 17 132/75 (94) 97 05/02/17 23:00 87 05/02/17 20:47 97.9 79 17 118/69 (85) 97 05/02/17 16:32 76 05/02/17 16:00 98.5 71 18 145/78 (100) 96 05/02/17 12:30 70 05/02/17 12:00 97.7 76 18 123/73 (90) 96 I/O 05/02/17 05/02/17 05/02/17 05/03/17 05/03/17 05/03/17 07:00 15:00 23:00 07:00 15:00 23:00 Intake Total 240 ml 240 ml Output Total 1200 ml 550 ml 400 ml Balance -960 ml -550 ml -160 ml Intake Oral 240 ml 240 ml Output Urine Total 1200 ml 550 ml 400 ml # Voids 1 # Bowel Movements 1 Physical Exam GENERAL: SKIN: Warm and dry. HEAD: Normocephalic. EYES: No scleral icterus. No injection or drainage. NECK: Supple, trachea midline. No JVD or lymphadenopathy. CARDIOVASCULAR: Regular rate and rhythm without murmurs, gallops, or rubs. RESPIRATORY: Breath sounds equal bilaterally. No accessory muscle use. GASTROINTESTINAL: Abdomen soft, non-tender, nondistended. MUSCULOSKELETAL: No cyanosis, or edema. BACK: Nontender without obvious deformity. No CVA tenderness. Laboratory GENERAL: SKIN: Warm and dry. HEAD: Normocephalic. EYES: No scleral icterus. No injection or drainage. NECK: Supple, trachea midline. No JVD or lymphadenopathy. CARDIOVASCULAR: Regular rate and rhythm without murmurs, gallops, or rubs. RESPIRATORY: Breath sounds equal bilaterally. No accessory muscle use. GASTROINTESTINAL: Abdomen soft, non-tender, nondistended. MUSCULOSKELETAL: No cyanosis, or edema. BACK: Nontender without obvious deformity. No CVA tenderness. Assessment and Plan Problem List: (1) Chest pain ICD Codes: R07.9 - Chest pain, unspecified (2) Anemia ICD Codes: D64.9 - Anemia, unspecified (3) Hepatitis C ICD Codes: B19.20 - Unspecified viral hepatitis C without hepatic coma Status: Acute (4) Polysubstance abuse ICD Codes: F19.10 - Other psychoactive substance abuse, uncomplicated Status: Acute (5) Alcohol dependence ICD Codes: F10.20 - Alcohol dependence, uncomplicated Status: Acute (6) Tobacco abuse ICD Codes: Z72.0 - Tobacco use Status: Chronic (7) NSTEMI (non-ST elevated myocardial infarction) ICD Codes: I21.4 - Non-ST elevation (NSTEMI) myocardial infarction Status: Acute Assessment and Plan 1.) Chest pain - unchanged, rec medical management due to severe anemia with undefined source, continue aspirin and metoprolol, hematology consult, d/w Doug Darnell MD May 03, 2017 10:38
[2017-05-03 11:35] LABS: BICARBONATE 21.2 MEQ/L (21.0-32.0); CALCIUM 8.6 MG/DL (8.5-10.1); CREATININE 0.72 MG/DL (0.60-1.30)
[2017-05-03 11:37] LABS: CHOLESTEROL/ HDL RATIO 2.99 RATIO; HDL CHOLESTEROL 61.2 MG/DL (40.0-60.0)
[2017-05-03 11:45] LABS: TROPONIN I LESS THAN 0.02 NG/ML (0.02-0.05)
[2017-05-03 14:02] LABS: AUTOMATED NEUTROPHIL # 2.8 TH/MM3 (1.8-7.7); BASOPHIL # 0.1 TH/MM3 (0-0.2); BASOPHIL % 1.7 % (0.0-2.0); EOSINOPHIL # 0.5 TH/MM3 (0-0.4); EOSINOPHIL % 9.1 % (0.0-4.0); HEMATOCRIT 29.2 % (39.0-51.0); HEMOGLOBIN 9.3 GM/DL (13.0-17.0); LYMPH % 27.6 % (9.0-44.0); LYMPHOCYTE # 1.5 TH/MM3 (1.0-4.8); MEAN CELL VOLUME 71.9 FL (80.0-100.0); MEAN CORPUSCULAR HEMOGLOBIN 22.8 PG (27.0-34.0); MEAN CORPUSCULAR HGB CONC 31.7 % (32.0-36.0); MEAN PLATELET VOLUME 7.5 FL (7.0-11.0); MONO % 11.3 % (0.0-8.0); MONOCYTE # 0.6 TH/MM3 (0-0.9); NEUT % 50.3 % (16.0-70.0); PLATELET COUNT 221 TH/MM3 (150-450); RED BLOOD COUNT 4.06 MIL/MM3 (4.50-5.90); RED CELL DISTRIBUTION WIDTH 20.6 % (11.6-17.2); WHITE BLOOD COUNT 5.6 TH/MM3 (4.0-11.0)
[2017-05-03] MEDS ORDERED: TYLETAB36 PO (14:19)
[2017-05-03] MEDS ORDERED: TRAM50TA PO (14:19)
[2017-05-03] MEDS ORDERED: TRAZ50TA12 PO (14:19)
[2017-05-03] MEDS ORDERED: PRED10 PO (14:19)
--- NOTE | 2017-05-03 14:23 | HHI.PR ---
Subjective Remarks Follow-up NSTEMI and anemia. Continues to have chest, abdominal, bilateral lower extremity and back pain. Unchanged from previous. Discussed with cardiology consult hematology secondary to anemia needs cardiac catheterization Objective Vitals Vital Signs Date Time Temp Pulse Resp B/P (MAP) Pulse Ox O2 Delivery O2 Flow Rate FiO2 05/03/17 12:00 70 05/03/17 11:57 97.5 71 18 144/80 (101) 99 05/03/17 08:05 98.0 78 18 136/67 (90) 96 05/03/17 08:00 73 05/03/17 05:39 98.1 71 17 135/82 (99) 98 05/03/17 00:56 97.8 79 17 132/75 (94) 97 05/02/17 23:00 87 05/02/17 20:47 97.9 79 17 118/69 (85) 97 05/02/17 16:32 76 05/02/17 16:00 98.5 71 18 145/78 (100) 96 I/O 05/02/17 05/02/17 05/02/17 05/03/17 05/03/17 05/03/17 07:00 15:00 23:00 07:00 15:00 23:00 Intake Total 240 ml 240 ml Output Total 1200 ml 550 ml 400 ml Balance -960 ml -550 ml -160 ml Intake Oral 240 ml 240 ml Output Urine Total 1200 ml 550 ml 400 ml # Voids 1 # Bowel Movements 1 Result Diagram: 05/03/17 1315 05/03/17 1035 Imaging Last Impressions Liver Ultrasound 05/01/17 0000 Signed Impressions: Service Date/Time: April 14:37 - CONCLUSION: Focal and unremarkable sonographic appearance of the right upper quadrant Vikas Daniels MD Chest X-Ray 04/30/17 0000 Signed Impressions: Service Date/Time: Sunday, April 30, 2017 16:04 - CONCLUSION: The lungs are clear. Luis Alfredo Whiting MD Abdomen/Pelvis CT 04/30/17 0000 Signed Impressions: Service Date/Time: Sunday, April 30, 2017 18:52 - CONCLUSION: 1. Compression fracture of the superior endplate of L4 with no bony retropulsion. This is new when compared to previous examination. 2. No definite abnormality to explain the patient's diffuse abdominal pain and weight loss identified. 3. Sizable hiatal hernia. Kenan Norman MD Objective Remarks GENERAL: male lying in bed SKIN: No rashes, ecchymoses or lesions. Cool and dry. CARDIOVASCULAR: Regular rate and rhythm without murmurs, gallops, or rubs. RESPIRATORY: Clear to auscultation. Breath sounds equal bilaterally. No wheezes , rales, or rhonchi. GASTROINTESTINAL: Abdomen soft, slightly tender upper quadrants, nondistended. No guarding. MUSCULOSKELETAL: Extremities without clubbing, cyanosis, or edema. No joint tenderness, effusion, or edema noted. No calf tenderness. Lumbar spine tenderness NEUROLOGICAL: Awake and alert. Cranial nerves II through XII intact. Motor and sensory grossly within normal limits. Normal speech. A/P Problem List: (1) NSTEMI (non-ST elevated myocardial infarction) ICD Code: I21.4 - Non-ST elevation (NSTEMI) myocardial infarction Status: Acute Assessment and Plan 1. NSTEMI. Patient has atypical chest pain which is chronic and unchanged. Persistent pain, additional cardiac enzymes ordered. Continue aspirin, beta- ricki and lisinopril and discontinue heparin drip. Consider ranexa?. Start statin LDL not at goal pt counselled. Per cardiology this is demand ischemia from anemia and probably has some degree of CAD but not a candidate for cardiac catheterization at this time. Recommended medical management 2. Severe anemia. Hemoccult negative in the emergency department. Improved after transfusion. He is iron deficient ct iron. May need GI which can be done outpatient unless he is actively bleeding or guaiac positive. He will at least need endoscopy. Heme consulted by cards 3. Lactic acidosis 2/2 to anemia. Chest x-ray, CT of the abdomen and pelvis, UA showed no signs of active infection. Improved with IVF 4. Hypertension. Continue home metoprolol and lisinopril once medication reconciliation completed 5. Alcohol abuse. Counselled continue CIWA protocol. Patient with history of cirrhosis and hepatitis C. Imaging studies not suggestive of cirrhosis 6. Abdominal pain/tenderness. Lipase within normal limits. Continue PPI. Consider GI consult 7. L4 compression injury. Status post fall. Pain management. Neurosurgery recommended conservative management. Continue physical therapy Discharge Planning Possible discharge in 1-2 days Anthony Balderrama MD May 03, 2017 14:22
[2017-05-03] MEDS: GABAPENTIN 400 MG CAP PO SCH (17:48)
[2017-05-03] MEDS: PROTEASE PO SCH (17:49)
[2017-05-03] MEDS: AMYLASE PO SCH (17:49)
[2017-05-03] MEDS: LIPASE PO SCH (17:49)
[2017-05-03] MEDS: MORPHINE SULFATE 2 MG/ML INJ IV PRN ×2 (17:49→22:42)
[2017-05-03] MEDS: AMITRIPTYLINE HCL 50 MG TAB PO SCH (21:27)
[2017-05-03] MEDS: traZODone HCL 50 MG TAB PO SCH (21:27)
[2017-05-03] MEDS: ATORVASTATIN 10 MG TAB PO SCH (21:27)
--- NOTE | 2017-05-03 23:36 | PD.ONC.PN ---
Objective Data Date Time Temp Pulse Resp B/P (MAP) Pulse Ox O2 Delivery O2 Flow Rate FiO2 05/03/17 20:00 97.7 74 18 118/66 (83) 97 05/03/17 20:00 75 05/03/17 16:00 97.4 71 18 123/69 (87) 98 05/03/17 16:00 79 05/03/17 12:00 70 05/03/17 11:57 97.5 71 18 144/80 (101) 99 05/03/17 08:05 98.0 78 18 136/67 (90) 96 05/03/17 08:00 73 05/03/17 05:39 98.1 71 17 135/82 (99) 98 05/03/17 00:56 97.8 79 17 132/75 (94) 97 05/04/17 05/04/17 05/04/17 07:00 15:00 23:00 Intake Total 480 ml Output Total 500 ml Balance -20 ml Result Diagram: 05/03/17 1315 05/03/17 1035 Laboratory Results Laboratory Tests Test 05/03/17 10:35 05/03/17 13:15 05/03/17 16:55 Blood Urea Nitrogen 8 MG/DL Creatinine 0.72 MG/DL Random Glucose 126 MG/DL Calcium Level 8.6 MG/DL Magnesium Level 2.0 MG/DL Sodium Level 138 MEQ/L Potassium Level 3.8 MEQ/L Chloride Level 108 MEQ/L Carbon Dioxide Level 21.2 MEQ/L Anion Gap 9 MEQ/L Estimat Glomerular Filtration Rate 111 ML/MIN Total Creatine Kinase 102 U/L Troponin I LESS THAN 0.02 NG/ML C-Reactive Protein 0.94 MG/DL Triglycerides Level 114 MG/DL Cholesterol Level 183 MG/DL LDL Cholesterol 99 MG/DL HDL Cholesterol 61.2 MG/DL Cholesterol/HDL Ratio 2.99 RATIO White Blood Count 5.6 TH/MM3 Red Blood Count 4.06 MIL/MM3 Hemoglobin 9.3 GM/DL Hematocrit 29.2 % Mean Corpuscular Volume 71.9 FL Mean Corpuscular Hemoglobin 22.8 PG Mean Corpuscular Hemoglobin Concent 31.7 % Red Cell Distribution Width 20.6 % Platelet Count 221 TH/MM3 Mean Platelet Volume 7.5 FL Neutrophils (%) (Auto) 50.3 % Lymphocytes (%) (Auto) 27.6 % Monocytes (%) (Auto) 11.3 % Eosinophils (%) (Auto) 9.1 % Basophils (%) (Auto) 1.7 % Neutrophils # (Auto) 2.8 TH/MM3 Lymphocytes # (Auto) 1.5 TH/MM3 Monocytes # (Auto) 0.6 TH/MM3 Eosinophils # (Auto) 0.5 TH/MM3 Basophils # (Auto) 0.1 TH/MM3 CBC Comment DIFF FINAL Differential Comment Erythrocyte Sedimentation Rate 17 mm/hr Culture Results Microbiology Date/Time Source Procedure Growth Status 05/02/17 17:55 Stool Stool Stool Occult Blood (JACINDA) - Final HEMOCCULT NEGATIVE Complete Administered Medications Medications (Trade) Dose Ordered Sig/Ashlie Route PRN Reason Start Time Stop Time Status Last Admin Dose Admin Sodium Chloride (NS Flush) 2 ml BID IV FLUSH 04/30/17 21:00 05/03/17 21:26 Acetaminophen/ Hydrocodone Bitart ([place] 7.5-325 Mg) 1 tab Q4H PRN PO PAIN SCALE 1 TO 5 04/30/17 20:45 05/03/17 02:59 Folic Acid (Folate) 1 mg DAILY PO 05/01/17 09:00 05/06/17 08:59 05/03/17 08:14 Thiamine HCl (Vitamin B1) 100 mg DAILY PO 05/01/17 09:00 05/03/17 08:12 Multivitamins/ Minerals Therapeutic (Theragran M Tab) 1 tab DAILY PO 05/01/17 09:00 05/06/17 08:59 05/03/17 08:12 Aspirin (Ecotrin Ec) 325 mg DAILY PO 05/01/17 09:00 05/03/17 08:13 Pantoprazole Sodium (Protonix) 40 mg DAILY PO 05/01/17 12:00 05/03/17 08:12 Cholecalciferol (Vitamin D3) 1,000 units DAILY PO 05/02/17 09:00 05/03/17 08:12 Metoprolol Tartrate (Lopressor) 25 mg BID PO 05/01/17 21:00 05/03/17 21:27 Acetaminophen/ Hydrocodone Bitart ([place] 10-325 Mg) 1 tab Q6H PRN PO pain 6-10 05/02/17 12:00 05/03/17 21:27 Ferrous Sulfate (Ferrous Sulfate) 325 mg BID PO 05/02/17 21:00 05/03/17 21:27 Lisinopril (Prinivil) 10 mg DAILY PO 05/03/17 09:00 05/03/17 08:11 Amitriptyline HCl (Elavil) 50 mg HS PO 05/03/17 21:00 05/03/17 21:27 Gabapentin (Neurontin) 800 mg TID PO 05/03/17 18:00 05/03/17 17:48 Trazodone HCl (Desyrel) 50 mg HS PO 05/03/17 21:00 05/03/17 21:27 Morphine Sulfate (Morphine Inj) 2 mg Q4HR PRN IV breakthru pain 05/03/17 14:45 05/03/17 22:42 Atorvastatin Calcium (Lipitor) 10 mg HS PO 05/03/17 21:00 05/03/17 21:27 Objective Remarks GENERAL: Well-nourished, well-developed patient. SKIN: Warm and dry. HEAD: Normocephalic. EYES: No scleral icterus. No injection or drainage. NECK: Supple, trachea midline. No JVD or lymphadenopathy. LYMPHATIC: No adenopathy. CARDIOVASCULAR: Regular rate and rhythm without murmurs. RESPIRATORY: Breath sounds equal bilaterally. No accessory muscle use. GASTROINTESTINAL: Abdomen soft, non-tender, nondistended. EXTREMITIES: No cyanosis, or edema. MUSCULOSKELETAL: Adequate muscle tone. NEUROLOGICAL: No obvious focal deficit. Awake, alert, and oriented x3. PSYCHIATRIC: Appropriate mood and affect; insight and judgment normal. Bowen Jones MD May 03, 2017 23:36
[2017-05-04] VITALS (8 sets, daily range): BP systolic 96–165; BP diastolic 54–76; PULSE 71–124; RESP 18; TEMP 97.6–99.2; O2SAT 94–100
[2017-05-04] MEDS: LEVOTHYROXINE SODIUM 50 MCG TAB PO SCH (06:53)
[2017-05-04] MEDS: ACETAMINOPHEN/HYDROcodone 325 MG/10 MG TAB PO PRN ×2 (06:54→21:08)
[2017-05-04] MEDS: LISINOPRIL 10 MG TAB PO SCH (09:00)
[2017-05-04] MEDS: METOPROLOL TARTRATE 25 MG TAB PO SCH ×2 (09:00→21:08)
[2017-05-04] MEDS: SODIUM CHLORIDE 0.9% FLUSH 10 ML FLUSH IV FLUSH SCH ×2 (09:00→21:09)
[2017-05-04] MEDS: MORPHINE SULFATE 2 MG/ML INJ IV PRN ×4 (09:08→23:02)
[2017-05-04] MEDS: FOLIC ACID 1 MG TAB PO SCH (09:12)
[2017-05-04] MEDS: THIAMINE HCL 100 MG TAB PO SCH (09:12)
[2017-05-04] MEDS: PANTOPRAZOLE SOD 40 MG DELAYED RELEASE TAB PO SCH (09:12)
[2017-05-04] MEDS: AMYLASE PO SCH ×3 (09:12→16:55)
[2017-05-04] MEDS: MULTIVITAMINS/MINERALS THERAPEUTIC TAB PO SCH (09:12)
[2017-05-04] MEDS: PROTEASE PO SCH ×3 (09:12→16:55)
[2017-05-04] MEDS: CHOLECALCIFEROL (VIT D3) 1000 UNIT TAB PO SCH (09:12)
[2017-05-04] MEDS: predniSONE 10 MG TAB PO SCH (09:12)
[2017-05-04] MEDS: LIPASE PO SCH ×3 (09:12→16:55)
[2017-05-04] MEDS: ASPIRIN EC 325 MG TABEC PO SCH (09:12)
[2017-05-04] MEDS: FERROUS SULFATE 325 MG (65 MG ELEMENTAL IRON) TAB PO SCH ×2 (09:12→21:08)
[2017-05-04] MEDS: GABAPENTIN 400 MG CAP PO SCH ×3 (09:15→16:57)
--- NOTE | 2017-05-04 09:41 | PD.CARD.PN ---
Subjective Subjective Remarks asleep in nad, states chest pain unchanged Objective Medications Current Medications Medications (Trade) Dose Ordered Sig/Ashlie Route Start Time Stop Time Status Last Admin (NS Flush) 2 ml BID IV FLUSH 04/30/17 21:00 05/03/17 21:26 (NS Flush) 2 ml UNSCH PRN IV FLUSH 04/30/17 20:45 (Nitrostat Sl) 0.4 mg Q5M PRN SL 04/30/17 20:45 (Tylenol) 500 mg Q4H PRN PO 04/30/17 20:45 (Katy 7.5-325 Mg) 1 tab Q4H PRN PO 04/30/17 20:45 05/03/17 02:59 (Folate) 1 mg DAILY PO 05/01/17 09:00 05/06/17 08:59 05/04/17 09:12 (Vitamin B1) 100 mg DAILY PO 05/01/17 09:00 05/04/17 09:12 (Theragran M Tab) 1 tab DAILY PO 05/01/17 09:00 05/06/17 08:59 05/04/17 09:12 (Romazicon Inj) 0.2 mg Q1M PRN IV PUSH 04/30/17 22:15 (Ativan) 1 mg Q4H PRN PO 04/30/17 22:15 (Ativan Inj) 1 mg Q4H PRN IV PUSH 04/30/17 22:15 (Ativan) 2 mg Q2H PRN PO 04/30/17 22:15 (Ativan Inj) 2 mg Q2H PRN IV PUSH 04/30/17 22:15 (Ativan Inj) 2 mg Q1H PRN IV PUSH 04/30/17 22:15 (Ativan Inj) 2 mg Q15M PRN IV PUSH 04/30/17 22:15 (Ecotrin Ec) 325 mg DAILY PO 05/01/17 09:00 05/04/17 09:12 (Pill Splitter) 1 ea UNSCH PRN OTHER 05/01/17 06:15 (Protonix) 40 mg DAILY PO 05/01/17 12:00 05/04/17 09:12 (Vitamin D3) 1,000 units DAILY PO 05/02/17 09:00 05/04/17 09:12 (Lopressor) 25 mg BID PO 05/01/17:00 05/03/17 21:27 (Katy 10-325 Mg) 1 tab Q6H PRN PO 05/02/17 12:00 05/04/17 06:54 (Ferrous Sulfate) 325 mg BID PO 05/02/17 21:00 05/04/17 09:12 (Prinivil) 10 mg DAILY PO 05/03/17 09:00 05/03/17 08:11 (Elavil) 50 mg HS PO 05/03/17 21:00 05/03/17 21:27 (Neurontin) 800 mg TID PO 05/03/17 18:00 05/04/17 09:15 (Synthroid) 50 mcg DAILY@0600 PO 05/04/17 06:00 05/04/17 06:53 (Desyrel) 50 mg HS PO 05/03/17 21:00 05/03/17 21:27 (Viokase 10-39-39) 2 tab TIDPC PO 05/03/17 18:30 05/04/17 09:12 (Deltasone) 10 mg DAILY PO 05/04/17 09:00 05/04/17 09:12 (Morphine Inj) 2 mg Q4HR PRN IV 05/03/17 14:45 05/04/17 09:08 (Lipitor) 10 mg HS PO 05/03/17 21:00 05/03/17 21:27 Vital Signs / I&O Vital Signs Date Time Temp Pulse Resp B/P (MAP) Pulse Ox O2 Delivery O2 Flow Rate FiO2 05/04/17 08:00 97.8 80 18 96/54 (68) 95 05/04/17 04:19 72 05/04/17 04:00 98.0 88 18 125/68 (87) 94 05/04/17 00:00 97.6 74 18 109/64 (79) 96 05/04/17 00:00 78 05/03/17 20:00 97.7 74 18 118/66 (83) 97 05/03/17 20:00 75 05/03/17 16:00 97.4 71 18 123/69 (87) 98 05/03/17 16:00 79 05/03/17 12:00 70 05/03/17 11:57 97.5 71 18 144/80 (101) 99 I/O 05/03/17 05/03/17 05/03/17 05/04/17 05/04/17 05/04/17 07:00 15:00 23:00 07:00 15:00 23:00 Intake Total 240 ml 480 ml Output Total 400 ml 500 ml Balance -160 ml -20 ml Intake Oral 240 ml 480 ml Output Urine Total 400 ml 500 ml # Voids 1 1 Physical Exam GENERAL: SKIN: Warm and dry. HEAD: Normocephalic. EYES: No scleral icterus. No injection or drainage. NECK: Supple, trachea midline. No JVD or lymphadenopathy. CARDIOVASCULAR: Regular rate and rhythm without murmurs, gallops, or rubs. RESPIRATORY: Breath sounds equal bilaterally. No accessory muscle use. GASTROINTESTINAL: Abdomen soft, non-tender, nondistended. MUSCULOSKELETAL: No cyanosis, or edema. BACK: Nontender without obvious deformity. No CVA tenderness. Laboratory Laboratory Tests Test 05/03/17 10:35 05/03/17 13:15 05/03/17 16:55 Blood Urea Nitrogen 8 MG/DL Creatinine 0.72 MG/DL Random Glucose 126 MG/DL Calcium Level 8.6 MG/DL Magnesium Level 2.0 MG/DL Sodium Level 138 MEQ/L Potassium Level 3.8 MEQ/L Chloride Level 108 MEQ/L Carbon Dioxide Level 21.2 MEQ/L Anion Gap 9 MEQ/L Estimat Glomerular Filtration Rate 111 ML/MIN Total Creatine Kinase 102 U/L Troponin I LESS THAN 0.02 NG/ML C-Reactive Protein 0.94 MG/DL Triglycerides Level 114 MG/DL Cholesterol Level 183 MG/DL LDL Cholesterol 99 MG/DL HDL Cholesterol 61.2 MG/DL Cholesterol/HDL Ratio 2.99 RATIO White Blood Count 5.6 TH/MM3 Red Blood Count 4.06 MIL/MM3 Hemoglobin 9.3 GM/DL Hematocrit 29.2 % Mean Corpuscular Volume 71.9 FL Mean Corpuscular Hemoglobin 22.8 PG Mean Corpuscular Hemoglobin Concent 31.7 % Red Cell Distribution Width 20.6 % Platelet Count 221 TH/MM3 Mean Platelet Volume 7.5 FL Neutrophils (%) (Auto) 50.3 % Lymphocytes (%) (Auto) 27.6 % Monocytes (%) (Auto) 11.3 % Eosinophils (%) (Auto) 9.1 % Basophils (%) (Auto) 1.7 % Neutrophils # (Auto) 2.8 TH/MM3 Lymphocytes # (Auto) 1.5 TH/MM3 Monocytes # (Auto) 0.6 TH/MM3 Eosinophils # (Auto) 0.5 TH/MM3 Basophils # (Auto) 0.1 TH/MM3 CBC Comment DIFF FINAL Differential Comment Erythrocyte Sedimentation Rate 17 mm/hr Assessment and Plan Problem List: (1) Chest pain ICD Codes: R07.9 - Chest pain, unspecified (2) Anemia ICD Codes: D64.9 - Anemia, unspecified (3) Hepatitis C ICD Codes: B19.20 - Unspecified viral hepatitis C without hepatic coma Status: Acute (4) Polysubstance abuse ICD Codes: F19.10 - Other psychoactive substance abuse, uncomplicated Status: Acute (5) Alcohol dependence ICD Codes: F10.20 - Alcohol dependence, uncomplicated Status: Acute (6) Tobacco abuse ICD Codes: Z72.0 - Tobacco use Status: Chronic (7) NSTEMI (non-ST elevated myocardial infarction) ICD Codes: I21.4 - Non-ST elevation (NSTEMI) myocardial infarction Status: Acute Assessment and Plan 1.) NSTEMI/Chest pain - unchanged, rec c if cleared by Dr Jones for ac with aspirin, plavix, heparin and 2b3a inhibitor. Continue aspirin, lipitor and metoprolol, f/u hematology consult, d/w Dr Balderrama and patient Doug Flowers MD May 04, 2017 09:41
--- NOTE | 2017-05-04 11:11 | MB ---
cc: ALICE ACOSTA DATE OF CONSULTATION: 05/04/2017. REASON FOR CONSULTATION: Patient with significant anemia. HISTORY OF PRESENT ILLNESS: This is a 61-year-old male who has a history of alcoholic liver disease, liver cirrhosis, hepatitis C, alcohol abuse and tobacco abuse. He presents to the emergency department with progressive weakness and lightheadedness. He also has had chest pain.. In the emergency department, he was found to have elevated troponin levels. EKG was normal. The patient was started on heparin drip and cardiology was consulted. The patient was found to be severely anemic with a hemoglobin of 7.1 and received one (1) unit of packed red blood cells. Anemia studies were obtained on admission and he is iron-deficient with serum iron of 62, TIBC was elevated at 533, percent saturation was 11.6 and ferritin was 19. His remaining counts are normal. WBC 5.6 and platelet count is 221. His coags were also normal with a PT of 10.5, INR 1 and PTT is 26.6. The patient has been medically optimized for chest pain by cardiology hematology has been consulted to make recommendations regarding anemia. The patient denies any nosebleeds or gum bleeds, no petechiae, bruising. No bright red blood per rectum or melena. REVIEW OF SYSTEMS: A comprehensive review of systems was completed, which is negative except as described in the history of present illness. PAST MEDICAL HISTORY: 1. Hypertension. 2. Hepatitis C. 3. Liver cirrhosis. 4. Alcohol abuse. 5. Tobacco abuse. PAST SURGICAL HISTORY: 1. Cholecystectomy. 2. Tonsillectomy. 3. Left knee surgery. MEDICATIONS: 1. Prednisone 10 milligrams daily. 2. Synthroid 50 micrograms daily. 3. Amitriptyline 50 p.o. at bedtime. 4. Trazodone 50 p.o. at bedtime. 5. Atorvastatin 10 milligrams p.o. at bedtime. 6. Gabapentin 800 milligrams p.o. three times a day. 7. Morphine sulfate 2 milligrams IV PRN. 8. Lisinopril 10 milligrams p.o. daily. 9. Iron sulfate 325 milligrams p.o. twice a day. 10. [place] one tablet p.o. q. 6 hours PRN. 11. Metoprolol 25 milligrams p.o. twice a day. 12. Pantoprazole 40 milligrams p.o. daily. 13. Folic acid 1 milligram p.o. daily. 14. Thiamine 100 milligrams p.o. daily. 15. A multivitamin. 16. Aspirin. 17. Promensil. 18. Lorazepam. ALLERGIES: 1. CEFEPIME. 2. SERTRALINE. 3. FOSAMIL. 4. CEPHALEXIN. FAMILY HISTORY: The family history was reviewed and is noncontributory to this admission. SOCIAL HISTORY: He drinks 18 beers per day. He denies any illicit drug use. He also smokes one pack of cigarettes per day. PHYSICAL EXAMINATION: VITAL SIGNS: Blood pressure is 118/66, pulse is in the 70s, temperature is 97.6, 02 saturations are 96% on room air. GENERAL: In no apparent distress. HEAD, EYES, EARS, NOSE, THROAT: Pupils are equal, round and reactive to light. Extraocular muscles intact. No oral thrush. No oral lesions. NECK: The neck is supple. No jugular venous distention. No lymphadenopathy. CARDIAC: S1-S2. Regular rate and rhythm. CHEST: Clear to auscultation bilaterally. ABDOMEN: The abdomen is soft, nontender and nondistended. Bowel sounds are present. EXTREMITIES: Without any edema, erythema or cyanosis. SKIN: Without any petechiae, lesions or bruises. NEUROLOGIC: No focal deficit. PSYCHIATRIC: Mood and affect are appropriate. LABORATORY STUDIES: WBC 5.6, hemoglobin is 9.38, platelet count is 221. Serum chemistries: Sodium 138, potassium 3.8, CO2 is 21.2, BUN is 8, creatinine is 0.72. Iron studies show iron of 62, TIBC 533, iron saturation 11.6, ferritin of 19. B12 is normal at 412, folate is 12.3. TSH is normal at 3. IMAGING STUDIES: Ultrasound of the liver did not show any abnormalities. CT of the abdomen and pelvis shows compression fracture of the superior end plate of L4 with no retropulsion. ASSESSMENT AND PLAN: This is a 61-year-old male who has a history of alcohol abuse, tobacco abuse and hepatitis C who presents to the emergency department with progressive weakness and chest pain. He is currently undergoing cardiology evaluation and was found to be severely anemic. 1. Microcytic anemia. Anemia studies are consistent with iron deficiency. We will treat him with IV iron infusions. We need to make sure that he does not have any underlying GI source of anemia and stool hemoccult was negative. He may need GI evaluation. We will make sure that he does not have any underlying hemolysis. Check for hepatitis B, hepatitis C viral load and HIV. Obtain a direct Arvin test. He will need outpatient followup for his anemia. He will be likely need additional iron infusions which can be completed outpatient. I have spoken with Dr. Balderrama regarding this patient. The patient can proceed with cardiac catheterization if needed. 2. Chest pain and elevated troponins. Cardiology is evaluating this patient. 3. History of hepatitis C. 4. History of alcohol abuse. He was advised to avoid excessive alcohol intake. Thank you for allowing me to participate in the care of this patient. I will continue to follow this patient along. MD ALINE Levine/TORRES /9:42 AM /10:56 AM
[2017-05-04] MEDS: IRON SUCROSE INJ 200 MG in SODIUM CHLORIDE 0.9% INJ 100 ML IV SCH (13:04)
[2017-05-04 15:34] LABS: TROPONIN I LESS THAN 0.02 NG/ML (0.02-0.05)
--- NOTE | 2017-05-04 15:39 | HHI.PR ---
Subjective Remarks Follow-up PR and anemia. Continues to have constant chest, abdominal, lower extremity and back pain on a chronic basis not worse than usual. Discuss with hematology, he will need IV iron and cleared patient for cardiac catheterization.. Objective Vitals Vital Signs Date Time Temp Pulse Resp B/P (MAP) Pulse Ox O2 Delivery O2 Flow Rate FiO2 05/04/17 12:00 71 05/04/17 12:00 98.4 84 18 104/57 (73) 94 05/04/17 08:00 97.8 80 18 96/54 (68) 95 05/04/17 07:30 80 05/04/17 04:19 72 05/04/17 04:00 98.0 88 18 125/68 (87) 94 05/04/17 00:00 97.6 74 18 109/64 (79) 96 05/04/17 00:00 78 05/03/17 20:00 97.7 74 18 118/66 (83) 97 05/03/17 20:00 75 05/03/17 16:00 97.4 71 18 123/69 (87) 98 05/03/17 16:00 79 I/O 05/03/17 05/03/17 05/03/17 05/04/17 05/04/17 05/04/17 07:00 15:00 23:00 07:00 15:00 23:00 Intake Total 240 ml 480 ml Output Total 400 ml 500 ml Balance -160 ml -20 ml Intake Oral 240 ml 480 ml Output Urine Total 400 ml 500 ml # Voids 1 1 Result Diagram: 05/03/17 1315 05/03/17 1035 Imaging Last Impressions Liver Ultrasound 05/01/17 0000 Signed Impressions: Service Date/Time: April 14:37 - CONCLUSION: Focal and unremarkable sonographic appearance of the right upper quadrant Vikas Daniels MD Chest X-Ray 04/30/17 0000 Signed Impressions: Service Date/Time: Sunday, April 30, 2017 16:04 - CONCLUSION: The lungs are clear. Lusi Alfredo Whiting MD Abdomen/Pelvis CT 04/30/17 0000 Signed Impressions: Service Date/Time: Sunday, April 30, 2017 18:52 - CONCLUSION: 1. Compression fracture of the superior endplate of L4 with no bony retropulsion. This is new when compared to previous examination. 2. No definite abnormality to explain the patient's diffuse abdominal pain and weight loss identified. 3. Sizable hiatal hernia. Kenan Norman MD Objective Remarks GENERAL: male lying in bed SKIN: No rashes, ecchymoses or lesions. Cool and dry. CARDIOVASCULAR: Regular rate and rhythm without murmurs, gallops, or rubs. RESPIRATORY: Clear to auscultation. Breath sounds equal bilaterally. No wheezes , rales, or rhonchi. GASTROINTESTINAL: Abdomen soft, slightly tender upper quadrants, nondistended. No guarding. MUSCULOSKELETAL: Extremities without clubbing, cyanosis, or edema. No joint tenderness, effusion, or edema noted. No calf tenderness. Lumbar spine tenderness NEUROLOGICAL: Awake and alert. Cranial nerves II through XII intact. Motor and sensory grossly within normal limits. Normal speech. A/P Problem List: (1) NSTEMI (non-ST elevated myocardial infarction) ICD Code: I21.4 - Non-ST elevation (NSTEMI) myocardial infarction Status: Acute Assessment and Plan 1. NSTEMI. Patient has atypical chest pain which is chronic and unchanged. Persistent pain, additional cardiac enzymes negative. Continue aspirin, beta- ricki and lisinopril and discontinue heparin drip. Consider ranexa?. Continue statin LDL not at goal pt counselled. Per cardiology this is demand ischemia from anemia and probably has some degree of CAD for cardiac catheterization in the morning 2. Severe anemia. Hemoccult negative in the emergency department. Improved after transfusion. He is iron deficient ct iron. May need GI which can be done outpatient unless he is actively bleeding or guaiac positive. He will at least need endoscopy. Heme recommends IV iron and hemolysis workup 3. Lactic acidosis 2/2 to anemia. Chest x-ray, CT of the abdomen and pelvis, UA showed no signs of active infection. Improved with IVF 4. Hypertension. Continue home metoprolol and lisinopril 5. Alcohol abuse. Counselled continue CIWA protocol. Patient with history of cirrhosis and hepatitis C. Imaging studies not suggestive of cirrhosis 6. Abdominal pain/tenderness. Lipase within normal limits. Continue PPI. Consider GI consult 7. L4 compression injury. Status post fall. Pain management. Neurosurgery recommended conservative management. Continue physical therapy 8. Med list shows he is on prednisone patient not sure why he is taking this medicine. Obtain records from PCP Discharge Planning Possible discharge in 1-2 days Anthony Balderrama MD May 04, 2017 15:39
[2017-05-04] MEDS: traZODone HCL 50 MG TAB PO SCH (21:08)
[2017-05-04] MEDS: AMITRIPTYLINE HCL 50 MG TAB PO SCH (21:08)
[2017-05-04] MEDS: ATORVASTATIN 10 MG TAB PO SCH (21:08)
[2017-05-05] VITALS (13 sets, daily range): BP systolic 93–127; BP diastolic 50–73; PULSE 72–97; RESP 16–20; TEMP 97.9–99.2; O2SAT 94–98
[2017-05-05 07:13] LABS: AUTOMATED NEUTROPHIL # 4.6 TH/MM3 (1.8-7.7); BASOPHIL % 0.3 % (0.0-2.0); EOSINOPHIL # 0.2 TH/MM3 (0-0.4); EOSINOPHIL % 3.4 % (0.0-4.0); HEMATOCRIT 25.4 % (39.0-51.0); HEMOGLOBIN 7.9 GM/DL (13.0-17.0); LYMPH % 17.5 % (9.0-44.0); LYMPHOCYTE # 1.2 TH/MM3 (1.0-4.8); MEAN CELL VOLUME 71.4 FL (80.0-100.0); MEAN CORPUSCULAR HEMOGLOBIN 22.3 PG (27.0-34.0); MEAN CORPUSCULAR HGB CONC 31.2 % (32.0-36.0); MEAN PLATELET VOLUME 8.1 FL (7.0-11.0); MONOCYTE # 0.7 TH/MM3 (0-0.9); NEUT % 68.8 % (16.0-70.0); PLATELET COUNT 234 TH/MM3 (150-450); RED BLOOD COUNT 3.56 MIL/MM3 (4.50-5.90); RED CELL DISTRIBUTION WIDTH 21.4 % (11.6-17.2); WHITE BLOOD COUNT 6.7 TH/MM3 (4.0-11.0)
[2017-05-05] MEDS: LEVOTHYROXINE SODIUM 50 MCG TAB PO SCH (07:36)
[2017-05-05 07:43] LABS: BICARBONATE 25.7 MEQ/L (21.0-32.0); CALCIUM 8.4 MG/DL (8.5-10.1); CREATININE 0.64 MG/DL (0.60-1.30); MAGNESIUM 1.7 MG/DL (1.5-2.5)
[2017-05-05] MEDS: PROTEASE PO SCH ×3 (08:20→18:35)
[2017-05-05] MEDS: LIPASE PO SCH ×3 (08:20→18:35)
[2017-05-05] MEDS: predniSONE 10 MG TAB PO SCH (08:20)
[2017-05-05] MEDS: AMYLASE PO SCH ×3 (08:20→18:35)
[2017-05-05] MEDS: ASPIRIN EC 325 MG TABEC PO SCH (08:20)
[2017-05-05] MEDS: GABAPENTIN 400 MG CAP PO SCH ×3 (08:21→18:00)
[2017-05-05] MEDS: THIAMINE HCL 100 MG TAB PO SCH (08:21)
[2017-05-05] MEDS: FOLIC ACID 1 MG TAB PO SCH (08:21)
[2017-05-05] MEDS: FERROUS SULFATE 325 MG (65 MG ELEMENTAL IRON) TAB PO SCH ×2 (08:21→22:24)
[2017-05-05] MEDS: PANTOPRAZOLE SOD 40 MG DELAYED RELEASE TAB PO SCH (08:21)
[2017-05-05] MEDS: LISINOPRIL 10 MG TAB PO SCH (08:21)
[2017-05-05] MEDS: MULTIVITAMINS/MINERALS THERAPEUTIC TAB PO SCH (08:21)
[2017-05-05] MEDS: CHOLECALCIFEROL (VIT D3) 1000 UNIT TAB PO SCH (08:21)
[2017-05-05] MEDS: IRON SUCROSE INJ 200 MG in SODIUM CHLORIDE 0.9% INJ 100 ML IV SCH (08:22)
[2017-05-05] MEDS: MORPHINE SULFATE 2 MG/ML INJ IV PRN ×3 (08:22→17:04)
[2017-05-05] MEDS: SODIUM CHLORIDE 0.9% FLUSH 10 ML FLUSH IV FLUSH SCH ×3 (08:22→22:24)
[2017-05-05] MEDS: METOPROLOL TARTRATE 25 MG TAB PO SCH ×2 (08:22→22:23)
[2017-05-05] MEDS: ACETAMINOPHEN/HYDROcodone 325 MG/10 MG TAB PO PRN (09:42)
[2017-05-05 09:50] LABS: BANDS 20 % (0-6); LYMPHOCYTES 14 % (9-44); MONOCYTES 3 % (0-8); NEUTROPHIL # MANUAL DIFF 5.1 TH/MM3 (1.8-7.7); OVALOCYTES 1+ (NORMAL); POLYS (SEG NEUTROPHILS) 56 % (16-70)
[2017-05-05 09:51] LABS: TOXIC GRANULATION 2+ (NORMAL)
--- NOTE | 2017-05-05 11:30 | HHI.PR ---
Subjective Remarks Pt complains of his chronic pains but wants his pain meds adjusted. States he still has the chest pain, no nausea or vomiting reported. Objective Vitals Vital Signs Date Time Temp Pulse Resp B/P (MAP) Pulse Ox O2 Delivery O2 Flow Rate FiO2 05/05/17 09:09 92 05/05/17 07:29 99.2 82 20 99/61 (74) 96 05/05/17 04:00 98.5 86 18 93/50 (64) 94 05/05/17 00:00 98.5 95 18 99/54 (69) 95 05/05/17 00:00 72 05/04/17 20:00 99.2 124 18 165/76 (105) 100 05/04/17 20:00 78 05/04/17 16:00 98.7 72 18 107/56 (73) 97 05/04/17 12:00 71 05/04/17 12:00 98.4 84 18 104/57 (73) 94 I/O 05/04/17 05/04/17 05/04/17 05/05/17 05/05/17 05/05/17 07:00 15:00 23:00 07:00 15:00 23:00 Intake Total 480 ml 120 ml Output Total 500 ml 450 ml Balance -20 ml 120 ml -450 ml Intake Oral 480 ml 120 ml Output Urine Total 500 ml 450 ml Result Diagram: 05/05/17 0642 05/05/17 0642 Imaging Last Impressions Liver Ultrasound 05/01/17 0000 Signed Impressions: Service Date/Time: April 14:37 - CONCLUSION: Focal and unremarkable sonographic appearance of the right upper quadrant Vikas Daniels MD Chest X-Ray 04/30/17 0000 Signed Impressions: Service Date/Time: Sunday, April 30, 2017 16:04 - CONCLUSION: The lungs are clear. Luis Alfredo Whiting MD Abdomen/Pelvis CT 04/30/17 0000 Signed Impressions: Service Date/Time: Sunday, April 30, 2017 18:52 - CONCLUSION: 1. Compression fracture of the superior endplate of L4 with no bony retropulsion. This is new when compared to previous examination. 2. No definite abnormality to explain the patient's diffuse abdominal pain and weight loss identified. 3. Sizable hiatal hernia. Kenan Norman MD A/P Problem List: (1) NSTEMI (non-ST elevated myocardial infarction) ICD Code: I21.4 - Non-ST elevation (NSTEMI) myocardial infarction Status: Acute Assessment and Plan 1. NSTEMI. Patient has atypical chest pain which is chronic and unchanged. Persistent pain, additional cardiac enzymes negative. Continue aspirin, beta- ricki and lisinopril and discontinue heparin drip. Consider ranexa?. Continue statin LDL not at goal pt counselled. Per cardiology this is demand ischemia from anemia and probably has some degree of CAD for cardiac catheterization this afternoon 2. Severe anemia. Hemoccult negative in the emergency department. Improved after transfusion. He is iron deficient ct iron. May need GI which can be done outpatient unless he is actively bleeding or guaiac positive. He will at least need endoscopy. Heme recommends IV iron and hemolysis workup 3. Lactic acidosis. Chest x-ray, CT of the abdomen and pelvis, UA showed no signs of active infection. Improved with IVF 4. Hypertension. Continue home metoprolol and lisinopril 5. Alcohol abuse. Counselled continue CIWA protocol. Patient with history of cirrhosis and hepatitis C. Imaging studies not suggestive of cirrhosis 6. Abdominal pain/tenderness. Lipase within normal limits. Continue PPI. Consider GI consult 7. L4 compression injury. Status post fall. Pain management. Neurosurgery recommended conservative management. Continue physical therapy. I will switch his pain meds from norco to percocet as pt states his pain is not well controlled. 8. Med list shows he is on prednisone patient not sure why he is taking this medicine. Obtain records from PCP Discharge Planning going for cardiac cath today Zaida Junior MD May 05, 2017 11:30
[2017-05-05] MEDS ORDERED: oxyCODONE/ACETAMINOPHEN 7.5 MG/325 MG TAB PO PRN (12:30)
[2017-05-05] MEDS ORDERED: HEPARIN-NS/PF FLUSH BAG 2,000 ML IV FLUSH ONE (13:27)
[2017-05-05] MEDS ORDERED: MIDAZOLAM HCL 2 MG/2 ML VIAL ONE (13:44)
[2017-05-05] MEDS ORDERED: HEPARIN SODIUM - IV 10,000 UNITS/10 ML VIAL ONE (13:59)
[2017-05-05] MEDS ORDERED: ADENOSINE STRESS TEST INJ 90 MG/30 ML VIAL ONE (14:07)
[2017-05-05] MEDS ORDERED: CLOPIDOGREL 300 MG TAB ONE (14:35)
--- NOTE | 2017-05-05 14:49 | CATHPROC ---
[facility]ene[facility] HIS Report Study Information Study Number Admission Scheduled Start Study Start [id number] Apr 30 2017 8:00PM 05/05/2017 May 05 2017 1:26PM Study Type [place] Service Left/Possible PCI Cardiac Catheterization Admit Source Facility Department Other [facility] - Scale Operator Physician and Clinical Staff Initial Doug James Barrel Dedenting Machine Operator Paulino Sethi,RN Barrel Dedenting Machine Operator Kiet Benites,RN Recorder Jo Waterman,RT(R) Recorder Deanna Denise,RT(R) (BS) Scrub Raoul Lux RCIS(BS) Procedures Performed Procedure Location (Site) Vessel Name Coronary Angiograms LCA Left Coronary Coronary Angiograms RCA Right Coronary Drug Eluting Inflatio LAD Mid Left Coronary L Heart Cath LV Gram-hand inj. LV LV Ventricle PTCA DIAG Prox Left Coronary PTCA ADD ON'S Wire insertion Fem Art (right) Femoral Art Equipment Time Forensic Sergeant Description Size Mfg Part Number Used/Scraped [id number] 14:21 [employer] WIRE, ASAHI PROWATER 180CM 180CM Used *[id number] TRANSDUCER, TRUWAVE [id number] 13:33 URIBE FENG * Used W/STOCKCOCK *[id number] 538-420 *[id number] 538-420 *[id number] *[id number] [id number] *[id number] [phone] *[id number] 13:33 [employer] PACK, CCL CUSTOM * Used *[id number] 13:33 [employer] PACER PEN, SKIN DUAL W/ RULER * Used *[id number] 14:23 MED[employer] BALLOON, 3.0 X 12MM EUPHORA 12MM Used *[id number] 14:26 [employer] STENT, 3.5 15 INTEGRITY 3.5 15 Used *[id number] 14:24 [employer] MEDICAL 30 JERRY INDEFLATOR Used *[id number] 14:00 [employer] MEDICAL SHEATH, FR6.5 PRELUDE 11CM FR 6.5 038ACT Used *[id number] 13:33 [employer] MEDICAL WIRE, 3MMJ .035 180CM 180CM Used *[id number] 13:33 NAMIC MANIFOLD, 4 PORT * Used *[id number] 13:33 [employer] OMNIPAQUE, 350 MG, 150ML 150ML [id number] Used 14:36 NYCOMED OMNIPAQUE, 350 MG, 150ML 150ML [id number] Used [id number] 13:33 [employer] MED[employer] BLANKET,WARM AIR CCL * Used *[id number] 13:33 TERUMO MEDICAL SHEATH, FR4 TERUMO (10CM) FR 4 Used *[id number] 13:59 [employer] PRIME WIRE, VERRATA 185CM 185CM 68515 *[id number] Used Equipment Model, Serial, Lot Number and Expiration Data Description Model Number Serial Number Lot Number Expiration Date PRIME WIRE, VERRATA 185CM [id number] 04-09-2020 STENT, 3.5 15 INTEGRITY [id number] 07-10-2018 History: Current Medications Medication Dosage/Unit Route Frequency Last Date/Time Taken ASA LOPRESSOR Paxil History: Allergies Allergy Reaction *MDRO Multi-Drug Resistant Organism Cephalosporins Keflex UNKNOWN cephalexin UNKNOWN cefepime ceftaroline fosamil History: Risk Factors Family History of Hypertension Dyslipidemia Previous ND Previous Heart Failure Premature CAD Yes Yes No No No Prior Valve Prior PCI Prior CABG Surgery No No No Cerebrovascular Peripheral Artery Chronic Lung On Dialysis Diabetes Disease Disease Disease No No No No No History: Risk Factors Selection Items Current Smoker History: Symptoms/Diagnosis Selection Items Chest pain History: Stress Tests Stress or Imaging Studies Performed No History: Other Current Smoker Method Packs a Day Years Used Pack Years Yes Cigarettes 1 40 40 Labs Hgb (g/dl) Hct (%) RBC (MIL/MM3) WBC (l/cumm) Platelets (thousands) 11.60-17.00 35.00-51.00 4.00-5.90 4.00-11.00 150.00-450.00 3.5 25.4 3.5 6.7 234 Glucose (mg/dl) BUN (mg/dl) Creatinine (mg/dl) BUN:Creatinine (1:x) 74.00-106.00 7.00-18.00 0.50-1.30 10.00-20.00 88 13 0.6 21.7 Na (meq/l) K (meq/l) 136.00-145.00 3.50-5.10 138 3.6 PT (sec) PTT (sec) INR (PTT:PT) 9.80-11.60 24.30-30.10 0.90-1.10 10.5 26.6 1 Troponin I (ng/ml) CPK-MB (ng/ML) 0.02-0.05 0.50-3.60 0.02 Not Drawn Medication Medication Total Dose (Bolus/Oral) Medication Total Dosage/Unit 1% XYLOCAINE 20 mL FENTANYL 37.5 mcg HEPARIN 8300 units PLAVIX 600 mg VERSED 1 mg Medications (Bolus/Oral) Medication Time Given Dosage/Unit Administered By Reason VERSED 05/05/2017 1:46:40 PM 1 mg Paulino Sethi 1 mg VERSED given in lab by Paulino Sethi RN in Right Forearm via Peripheral IV. 1% XYLOCAINE 05/05/2017 1:47:04 PM 20 mL Doug Flowers 20 mL 1% XYLOCAINE given in lab by Doug Flowers in Right Groin via Subcutaneous. FENTANYL 05/05/2017 1:49:53 PM 12.5 mcg Paulino Sethi 12.5 mcg FENTANYL given in lab by Paulino Sethi RN via Peripheral IV. FENTANYL 05/05/2017 1:51:00 PM 12.5 mcg Paulino Sethi 12.5 mcg FENTANYL given in lab by Paulino Sethi RN via Peripheral IV. HEPARIN 05/05/2017 2:04:56 PM 4300 units Paulino Sethi 4300 units HEPARIN given in lab by Paulino Sethi RN via Peripheral IV. HEPARIN 05/05/2017 2:16:00 PM 1000 units Paulino Sethi 1000 units HEPARIN given in lab by Paulino Sethi RN via Peripheral IV. FENTANYL 05/05/2017 2:31:42 PM 12.5 mcg Paulino Sethi 12.5 mcg FENTANYL given in lab by Paulino Sethi RN via Peripheral IV. HEPARIN 05/05/2017 2:37:40 PM 3000 units Paulino Sethi 3000 units HEPARIN given in lab by Paulino Sethi RN via Peripheral IV. PLAVIX 05/05/2017 2:49:09 PM 600 mg Paulino Sethi 600 mg PLAVIX given in lab by Paulino Sethi RN via Oral. Medication (Drip) Medication Time Given Dosage/Unit Concentration/Unit Diluent (ml) Solution ADENOSINE DRIP 05/05/2017 2:12:51 PM 139.621 mcg/kg/min 90 mg 90 NaCl .9 139.621 mcg/kg/min ADENOSINE DRIP given in lab by Paulino Sethi, NATY via Peripheral IV. Pump/Drip Christopher w = 604 ml/hr using NaCl .9 with a concentration of 90 mg in 90 ml. ADENOSINE DRIP 05/05/2017 2:14:59 PM 0 units/hr 0 STOPPED 0 units/hr ADENOSINE DRIP STOPPED given in lab by Paulino Sethi, NATY. Pump/Drip Flow = 0 ml/hr using [Solution Name]. IV Solutions 05/05/2017 1:38:22 PM 0 mL (IV) 500 NaCl .9 Patient arrived on IV Solutions in Right Forearm via Peripheral IV. Pump/Drip Flow = 20 ml/hr using N aCl .9. IV Solutions 05/05/2017 2:38:45 PM 0 mL (IV) 500 NaCl .9 IV Solutions given in lab by Paulino Sethi, NATY via Peripheral IV. Pump/Drip Flow = 20 ml/hr using Na Cl .9. 2nd bag Initial Case Assessment Cardiovascular HR Rhythm NIBP Chest Pain 80 REG 120/72 7 Edema Present Skin color Skin None Normal Warm Circulatory - Right Pulses Dorsalis Pedis Femoral 3 3 Scale (0,1,2,3,4,d) Circulatory - Left Pulses Dorsalis Pedis Femoral 3 3 Scale (0,1,2,3,4,d) Circulatory - Lower Extremities Color Lower Right Color Lower Left Normal Normal Neurological State Oriented to time-place- Alert Moves all extremities person Respiration - General Respiration Rate SpO2 (%) O2 (lpm) (B/min) 14 100 0 Chronological Log Time Study Chronological Log 13:20:11 Patient arrived via Bed. 13:26:17 Patient Name, D.O.B, / Armband Verified By R.N. 13:26:18 Consent signed by the physician and the patient and verified by the Scale Operator staff. 13:26:18 Pre-op and post- op instructions given; patient acknowledges understanding of instructions. 13:26:19 Verbal Stimulation=2 Physical Stimulation=2 Airway=2 Respiration=2 TOTAL=8. (0=absent, 1=li mited, 2=present) 13:26:21 Patient has been NPO for More than 6Hrs. 13:26:22 Skin Breakdown-NONE Vitals capture started with the following parameters, Patient=Adult, Interval=5 min, Initial Pr gdjsak=374 mmHg, 13:35:18 Deflation Rate=5 mmHg, Cuff placed on Left Arm 13:35:56 HR=77 bpm, RVOT=378/72 mmhg, SpO2=99.0 %, Resp=13 B/min, Pain=7, Ondina=10, Camp=2 13:37:29 MD paged 13:37:38 Pressure channel 1 zeroed. 13:38:11 Patient Warmer Placed on the Table. 13:38:13 A # 20 IV was noted in the Forearm (right). Grade = 0 13:38:22 Patient arrived on IV Solutions in Right Forearm via Peripheral IV. Pump/Drip Flow = 20 ml/ hr using NaCl .9. 13:38:41 History and physical on the chart or being dictated. Assessment: Initial Case, HR=80 BPM, Rhythm=REG, BIMS=485/72 mmhg, Chest Pain=7, Edema=None, Color=Normal, Skin = Warm Right Pulses: Harvey Ped=3, Femoral=3 Left Pulses: Harvey Ped=3, Femoral=3 13:38:43 Lower Right Extremities: Color=Normal Lower Left Extremities: Color=Normal Neurological: State=Alert, Ox3, ALEXIS Respiration: Resp=14 B/min, MlE7=478 %, O2=0 lpm 13:39:24 Bilateral groins prepped with 2% chlorhexidine, and draped after a 3 minute waiting time. 13:39:33 MD responded 13:39:35 Reference ECG taken 13:40:51 HR=76 bpm, PIIT=427/71 mmhg, SpO2=98.0 %, Resp=12 B/min, Pain=7, Ondina=10, Camp=2 13:45:17 MD arrived. 13:45:50 HR=78 bpm, MLBW=939/76 mmhg, SpO2=98.0 %, Resp=14 B/min, Pain=7, Ondina=10, Camp=2 Time Out. Correct patient, correct procedure, correct physician, power injector not loaded with contrast with surgical 13:46:30 team present. Time Out Concurred by MD and individual staff in procedure. 13:46:38 Case Start 13:46:40 1 mg VERSED given in lab by Paulino Sethi RN in Right Forearm via Peripheral IV. 13:46:58 Verbal Stimulation=2 Physical Stimulation=2 Airway=2 Respiration=2 TOTAL=8. (0=absent, 1=li mited, 2=present) 13:47:04 20 mL 1% XYLOCAINE given in lab by Doug Flowers in Right Groin via Subcutaneous. 13:47:36 Access site was Right Femoral Artery. 13:47:41 A wire was inserted via Fem Art (right). 13:47:47 A SHEATH, FR4 TERUMO (10CM) FR 4 was advanced into the Fem Art (right) using the Percutaneo us technique. A JR 4.0 INFINITI CATHETER FR 4 was advanced over a wire. OMNIPAQUE, 350 MG, 150ML 150ML was us ed for 13:48:46 injections. Recorded Pressure: LV, HR=79, Condition=Condition 1 13:49:09 (Left Ventricle) LV 133/2/12 13:49:18 The LV was manually injected with 8 cc's and visualized. OMNIPAQUE, 350 MG, 150ML 150ML use d. 13:49:53 12.5 mcg FENTANYL given in lab by Paulino Sethi RN via Peripheral IV. Recorded Pressure: LV, Ao, HR=82, Condition=Condition 1 13:50:29 (Left Ventricle) LV 147/3/31, (Aorta) Ao 130/72/98 13:51:00 12.5 mcg FENTANYL given in lab by Paulino Sethi RN via Peripheral IV. Recorded Pressure: Ao, HR=86, Condition=Condition 1 13:51:01 (Aorta) Ao 114/69/88 13:51:13 The RCA was injected and visualized at various angles. OMNIPAQUE, 350 MG, 150ML 150ML used . 13:51:26 HR=84 bpm, GGXJ=039/71 mmhg, SpO2=99.0 %, Resp=14 B/min, Pain=7, Ondina=10, Camp=2 13:51:45 Catheter was removed A JL 4.0 INFINITI CATHETER FR 4 was advanced over a wire. OMNIPAQUE, 350 MG, 150ML 150ML was us ed for 13:52:06 injections. 13:52:51 The LCA was injected and visualized at various angles. OMNIPAQUE, 350 MG, 150ML 150ML used . 13:55:50 HR=84 bpm, UVUA=649/83 mmhg, SpO2=96.0 %, Resp=16 B/min, Pain=7, Ondina=10, Camp=2 13:58:14 Catheter was removed 13:58:19 contrast and indeflator added. A SHEATH, FR6.5 PRELUDE 11CM FR 6.5 was exchanged in the Fem Art (right). This was necessary in order to 13:58:43 accomodate a larger catheter. A JR 4.0 GUIDE CATHETER FR 6 was advanced over a wire. OMNIPAQUE, 350 MG, 150ML 150ML was used for 14:00:04 injections. 14:00:28 A PRIME WIRE, VERRATA 185CM 185CM was inserted via Fem Art (right). 14:01:44 HR=83 bpm, ORYY=310/74 mmhg, SpO2=97.0 %, Resp=17 B/min, Pain=7, Ondina=10, Camp=2 14:02:29 Pressure channel 1 zeroed. 14:04:53 A PRIME WIRE, VERRATA 185CM 185CM was inserted via Fem Art (right). 14:04:56 4300 units HEPARIN given in lab by Paulino Sethi, RN via Peripheral IV. 14:05:50 HR=83 bpm, ZMFN=640/74 mmhg, RzK2=534.0 %, Resp=12 B/min, Pain=0, Ondina=10, Camp=2 14:06:45 Flow Wire was was placed in the RCA. The FFR measures ~FFR~ percent. The IFR measures 0.99 Percent. 14:08:36 Activated Clotting Time Drawn 14:11:30 HR=85 bpm, UAZP=614/73 mmhg, SpO2=99.0 %, Resp=19 B/min, Pain=0, Ondina=10, Camp=2 139.621 mcg/kg/min ADENOSINE DRIP given in lab by Paulino Sethi, RN via Peripheral IV. Pump/Dr ip Flow = 604 ml/hr 14:12:51 using NaCl .9 with a concentration of 90 mg in 90 ml. 14:14:11 ACT (Normal Range 90-180) = 233 0 units/hr ADENOSINE DRIP STOPPED given in lab by Paulino Sethi, NATY. Pump/Drip Flow = 0 ml/hr using [Solution 14:14:59 Name]. 14:15:04 Flow Wire was was placed in the RCA. The FFR measures 0.92 percent. The IFR measures ~IFR~ Percent. 14:15:23 The PRIME WIRE, VERRATA 185CM 185CM was removed. After removing the current catheter a XB 3.5 GUIDE CATHETER FR 6 was advanced over a WIRE, 3MMJ .035 180CM 14:15:46 180CM. 14:15:54 HR=90 bpm, KOKW=618/70 mmhg, SpO2=99.0 %, Resp=16 B/min, Pain=0, Ondina=10, Camp=2 14:16:00 1000 units HEPARIN given in lab by Paulino Sethi RN via Peripheral IV. 14:17:57 Flow Wire was was placed in the LCA. The IFR measures 0.84 Percent. 14:20:51 HR=88 bpm, GSHT=420/80 mmhg, BoK0=993.0 %, Resp=15 B/min, Pain=0, Ondina=10, Camp=2 14:22:17 A wire was inserted via Fem Art (right). 14:22:21 A WIRE, ASAHI PROWATER 180CM 180CM was inserted via Fem Art (right). A BALLOON, 3.0 X 12MM EUPHORA 12MM was inserted over WIRE, ASAHI PROWATER 180CM 180CM via the F em Art 14:23:53 (right). A BALLOON, 3.0 X 12MM EUPHORA 12MM over a WIRE, ASAHI PROWATER 180CM 180CM in the DIAG Prox was 14:24:15 inflated using a 30 JERRY INDEFLATOR at 10 jerry for 15 sec. A BALLOON, 3.0 X 12MM EUPHORA 12MM over a WIRE, ASAHI PROWATER 180CM 180CM in the DIAG Prox was 14:25:33 inflated using a 30 JERRY INDEFLATOR at 5 jerry for 10 sec. 14:25:52 HR=91 bpm, QVUI=244/98 mmhg, AeW6=849.0 %, Resp=13 B/min, Pain=0, Ondina=10, Camp=2 14:26:43 Balloon Removed. A STENT, 3.5 15 INTEGRITY 3.5 15 was advanced through a XB 3.5 GUIDE CATHETER FR 6 over a PRIM E WIRE, 14:28:04 VERRATA 185CM 185CM. A STENT, 3.5 15 INTEGRITY 3.5 15 was deployed using a 30 JERRY INDEFLATOR at 10 atmospheres for 15 seconds in 14:28:29 the LAD Mid. 14:30:43 Delivery device removed 14:30:48 Activated Clotting Time Drawn 14:31:00 HR=93 bpm, RQTX=672/89 mmhg, YtP2=932.0 %, Resp=10 B/min, Pain=5, Ondina=10, Camp=2 14:31:42 12.5 mcg FENTANYL given in lab by Paulino Sethi, NATY via Peripheral IV. 14:34:32 In the Fem Art (right) the SHEATH, FR6.5 PRELUDE 11CM FR 6.[address] by Raoul Lux RCIS(BS). 14:34:41 Case End 14:34:43 Sterile dressing applied to site 14:34:44 No case complications noted. 14:34:46 Cine recording checked. 14:34:49 Bedside Report will be given. 14:34:50 Implantable Device card placed in patient's chart. 14:34:53 A Left Heart Cath was performed. 14:35:01 ACT (Normal Range 90-180) = 212 14:36:01 HR=86 bpm, XVMX=387/90 mmhg, AvT4=409.0 %, Resp=14 B/min, Pain=5, Ondina=10, Camp=2 14:36:20 Clinical correlaton risk stratification. 14:37:40 3000 units HEPARIN given in lab by Paulino Sethi, RN via Peripheral IV. 14:38:45 IV Solutions given in lab by Paulino Sethi, RN via Peripheral IV. Pump/Drip Flow = 20 ml/ hr using NaCl .9. 2nd bag 14:40:41 Vitals capture stopped. 14:48:58 ACT (Normal Range 90-180) = 235 14:49:09 600 mg PLAVIX given in lab by Paulino Sethi RN via Oral. End Study - Contrast Media Used In Study Contrast Total Opened (mL) Total Used (mL) Total Wasted (mL) Omnipaque 140 140 0 End Study - Maximum Contrast Load Max Contrast Load (mL) 600.8 End Study - Radiation Exposure Fluoro Time (minutes) 8.0 End Study - Patient Disposition Complications Transferred To Interventional Outcome No Scale Operator Holding successful
[2017-05-05] MEDS ORDERED: SODIUM CHLORIDE 0.9% FLUSH 10 ML FLUSH IV FLUSH PRN (15:00)
[2017-05-05] MEDS ORDERED: CLOPIDOGREL 300 MG TAB PO ONE (15:00)
[2017-05-05] MEDS ORDERED: BACITRACIN OINT 0.9 GM PKT TOP ONE (15:00)
[2017-05-05] MEDS ORDERED: MISC INFORMATION XX ONE (15:00)
[2017-05-05] MEDS ORDERED: IOHEXOL 350 MG/ML 100 ML BTL (for Cath Lab) OTHER ONE (15:18)
[2017-05-05] MEDS ORDERED: IOHEXOL 350 MG/ML 50 ML BTL (for Cath Lab) OTHER ONE (15:18)
--- NOTE | 2017-05-05 15:47 | MR ---
cc: Doug Flowers MD PROCEDURE: Left heart catheterization, left ventriculography, coronary angiography, iFR and FFR of the ostial right PDA, iFR of the proximal mid LAD, PTCA of the ostial proximal first diagonal artery, and direct PCI with bare-metal stent of the proximal mid LAD. INDICATION: Non-STEMI, coronary artery disease, [place] Cardiovascular Society class IV angina. Patient was brought to the cardiac catheterization lab, prepped and draped in the usual sterile fashion. 10 mL of 1% lidocaine was used to locally anesthetize the right common femoral artery. A 4-Afghan sheath was placed in the right common femoral artery. 4-Afghan JR4 and JL4 catheters were used to perform left and right coronary angiography and left ventriculography. FINDINGS: LV pressure is 120/9/10. EF 55%. The right coronary artery is large and dominant. There is a proximal 50% stenosis, a mid 40% to 50% stenosis. The right PDA is a relatively small vessel, reference vessel diameter of 2.5 mm in diameter. In the cranial view, there appears to be an ostial 50% to 60% stenosis. Left main coronary artery has no significant disease angiographically. The LAD has a long prox mid 70% stenosis at a bifurcation with a medium to large diagonal vessel with a reference vessel diameter of 3 mm with a long ostial proximal 90% stenosis. The LAD is tortuous and transapical. The left circumflex vessel is a relatively small vessel that gives off a small to medium size first obtuse marginal vessel in the proximal segment, which has no significant obstructive disease. DISCUSSION: I discussed the case with Dr. Adrianna Perez. The patient has multiple comorbidities including presenting with a hemoglobin of 7.1. He is documented in the chart to drink up to 18 beers a day. He is documented to have hep C and cirrhosis. I discussed revascularization options with Dr. Perez, which would include high-risk complex bifurcation PCI, provided FFR indicated hemodynamic significance or consider CABG. However, Dr. Perez felt risk/benefit ratio favored attempt at PCI with surgical backup and CABG if results were suboptimal and I completely agree with that assessment, given the multiple comorbidities as detailed above. Therefore, the 4-Afghan sheath was replaced with a 6-Afghan sheath, 16 units/kg of heparin was given. Initial ACT 233. Second 1000 units of heparin was given with a second ACT of 212. An additional 3000 units of heparin was given at the time of dictation, final ACT pending at the time of dictation. A 6-Afghan JR4 guide, 0.014 [place] pressure wire was placed into the mid right coronary artery. The introducer was removed. Guide catheter was thoroughly flushed with 20 mL of normal saline. I then advanced the 0.014 [place] pressure wire into the mid to distal right PDA. The iFR was 0.99. We then did a 3-minute infusion of 140 kg/min of adenosine. FFR was 0.92; therefore, PCI was deferred at the ostial right PDA. I then did a repeat angiogram of the right coronary artery, which revealed no significant change compared to pre-FFR. We then placed a 6-Afghan XB 3.5 guide and 0.014 [place] pressure wire into the proximal LAD. Again, normalization procedure was performed by removing the introducer and then flushing the guide catheter with 20 mL of normal saline. I then advanced the 0.014 [place] pressure wire into the distal LAD. The iFR was 0.84. I then proceeded to complex PCI of the LAD, diagonal bifurcation lesion. Placed a 0.014 [place] guidewire into the first diagonal artery. I used a 3.0 x 12 Euphora balloon. I did 2 inflation of up to 11 atmospheres for up to 20 seconds. Stenosis in the diagonal vessel went from 90% to residual 20% to 30%. We then placed a 3.5 x 15 Integrity stent in the proximal mid LAD across the diagonal ostium, did 1 inflation 10 atmospheres for 20 seconds. Stenosis went from 70% to 0% with MARGRET 3 flow. There was MARGRET 3 flow into the diagonal vessel. Residual stenosis in the diagonal was 30% to 40%. The patient's chest pain began to immediately improve, went from a 7 down to a 5. CONCLUSIONS: 1. Non-STEMI, [place] Cardiovascular Society class IV angina, culprit complex high-grade stenoses of the proximal mid LAD bifurcating with a large diagonal vessel as detailed above. 2. Moderate to severe ostial right PDA as detailed above. 3. Normal LV systolic function, ejection fraction 35%. 4. IFR of the right ostial right PDA of 0.99 with FFR of 0.92; PCI deferred. 5. IFR of the proximal LAD of 0.84. 6. Successful PCTA of the first diagonal artery from 90% to residual 30% with MARGRET 3 flow. 7. Successful direct PCI of the proximal LAD from 70% to 0% with MARGRET 3 flow. 8. Recommended Plavix 600 mg p.o. load, then 75 mg a day for 12-15 months, aspirin 81 mg daily, continue Lipitor 10, Toprol-XL 25, and lisinopril 2.5. Strongly recommend smoking cessation and alcohol abstinence. I have advised this to the patient myself personally. Doug Flowers MD AWC/TI , 02:44 PM , 03:46 PM
[2017-05-05] MEDS: oxyCODONE/ACETAMINOPHEN 10 MG/325 MG TAB PO PRN (16:01)
[2017-05-05] MEDS ORDERED: LORazepam 2 MG/ML VIAL IV PUSH ONE (20:45)
[2017-05-05] MEDS: AMITRIPTYLINE HCL 50 MG TAB PO SCH (21:00)
[2017-05-05] MEDS: ATORVASTATIN 10 MG TAB PO SCH (22:23)
[2017-05-05] MEDS: traZODone HCL 50 MG TAB PO SCH (22:23)
[2017-05-06] VITALS (12 sets, daily range): BP systolic 129–147; BP diastolic 77–87; PULSE 77–104; RESP 16–22; TEMP 98–98.5; O2SAT 95–99
[2017-05-06] MEDS: MORPHINE SULFATE 2 MG/ML INJ IV PRN ×5 (04:54→22:23)
[2017-05-06] MEDS: LEVOTHYROXINE SODIUM 50 MCG TAB PO SCH (04:54)
[2017-05-06] MEDS: SODIUM CHLORIDE 0.9% FLUSH 10 ML FLUSH IV FLUSH SCH ×4 (09:00→21:00)
[2017-05-06 09:09] LABS: AUTOMATED NEUTROPHIL # 3.3 TH/MM3 (1.8-7.7); BASOPHIL % 0.6 % (0.0-2.0); EOSINOPHIL # 0.2 TH/MM3 (0-0.4); EOSINOPHIL % 3.7 % (0.0-4.0); HEMATOCRIT 24.9 % (39.0-51.0); HEMOGLOBIN 7.7 GM/DL (13.0-17.0); LYMPH % 26.7 % (9.0-44.0); LYMPHOCYTE # 1.6 TH/MM3 (1.0-4.8); MEAN CELL VOLUME 71.9 FL (80.0-100.0); MEAN CORPUSCULAR HEMOGLOBIN 22.3 PG (27.0-34.0); MEAN CORPUSCULAR HGB CONC 30.9 % (32.0-36.0); MEAN PLATELET VOLUME 8.3 FL (7.0-11.0); MONO % 15.3 % (0.0-8.0); MONOCYTE # 0.9 TH/MM3 (0-0.9); NEUT % 53.7 % (16.0-70.0); PLATELET COUNT 216 TH/MM3 (150-450); RED BLOOD COUNT 3.46 MIL/MM3 (4.50-5.90); RED CELL DISTRIBUTION WIDTH 22.1 % (11.6-17.2); WHITE BLOOD COUNT 6.1 TH/MM3 (4.0-11.0)
[2017-05-06 09:28] LABS: BICARBONATE 25.1 MEQ/L (21.0-32.0); CALCIUM 8.8 MG/DL (8.5-10.1); CREATININE 0.64 MG/DL (0.60-1.30)
[2017-05-06] MEDS: GABAPENTIN 400 MG CAP PO SCH ×3 (09:49→17:03)
[2017-05-06] MEDS: predniSONE 10 MG TAB PO SCH (09:49)
[2017-05-06] MEDS: PANTOPRAZOLE SOD 40 MG DELAYED RELEASE TAB PO SCH (09:49)
[2017-05-06] MEDS: CHOLECALCIFEROL (VIT D3) 1000 UNIT TAB PO SCH (09:49)
[2017-05-06] MEDS: ASPIRIN 81 MG CHEW TAB PO SCH (09:49)
[2017-05-06] MEDS: THIAMINE HCL 100 MG TAB PO SCH (09:49)
[2017-05-06] MEDS: FERROUS SULFATE 325 MG (65 MG ELEMENTAL IRON) TAB PO SCH ×2 (09:49→22:22)
[2017-05-06] MEDS: LISINOPRIL 10 MG TAB PO SCH (09:49)
[2017-05-06] MEDS: IRON SUCROSE INJ 200 MG in SODIUM CHLORIDE 0.9% INJ 100 ML IV SCH (09:50)
[2017-05-06] MEDS: CLOPIDOGREL 75 MG TAB PO SCH (09:50)
[2017-05-06] MEDS: METOPROLOL TARTRATE 25 MG TAB PO SCH ×2 (09:51→22:22)
[2017-05-06 10:10] LABS: BANDS 8 % (0-6); CORRECTED NUCLEATED RBC 1 /100 WBC (0-0); LYMPHOCYTES 30 % (9-44); MONOCYTES 3 % (0-8); MYELOCYTES 3 % (0-0); NEUTROPHIL # MANUAL DIFF 3.8 TH/MM3 (1.8-7.7); NUCLEATED RED BLOOD CELL 1 (0-0); POLYS (SEG NEUTROPHILS) 52 % (16-70)
[2017-05-06 10:11] LABS: ACANTHOCYTES OCC (NORMAL); OVALOCYTES 1+ (NORMAL)
[2017-05-06] MEDS: oxyCODONE/ACETAMINOPHEN 10 MG/325 MG TAB PO PRN ×2 (11:43→22:22)
[2017-05-06] MEDS: AMYLASE PO SCH ×3 (11:50→17:03)
[2017-05-06] MEDS: LIPASE PO SCH ×3 (11:50→17:03)
[2017-05-06] MEDS: PROTEASE PO SCH ×3 (11:50→17:03)
[2017-05-06] MEDS: LORazepam 2 MG TAB PO PRN (11:54)
--- NOTE | 2017-05-06 12:55 | PD.CARD.PN ---
Subjective Subjective Remarks chest pain improved Objective Medications Current Medications Medications (Trade) Dose Ordered Sig/Ashlie Route Start Time Stop Time Status Last Admin (NS Flush) 2 ml BID IV FLUSH 04/30/17 21:00 05/06/17 09:50 (NS Flush) 2 ml UNSCH PRN IV FLUSH 04/30/17 20:45 05/05/17 12:16 (Nitrostat Sl) 0.4 mg Q5M PRN SL 04/30/17 20:45 (Tylenol) 500 mg Q4H PRN PO 04/30/17 20:45 (Vitamin B1) 100 mg DAILY PO 05/01/17 09:00 05/06/17 09:49 (Romazicon Inj) 0.2 mg Q1M PRN IV PUSH 04/30/17 22:15 (Ativan) 1 mg Q4H PRN PO 04/30/17 22:15 (Ativan Inj) 1 mg Q4H PRN IV PUSH 04/30/17 22:15 (Ativan) 2 mg Q2H PRN PO 04/30/17 22:15 05/06/17 11:54 (Ativan Inj) 2 mg Q2H PRN IV PUSH 04/30/17 22:15 (Ativan Inj) 2 mg Q1H PRN IV PUSH 04/30/17 22:15 (Ativan Inj) 2 mg Q15M PRN IV PUSH 04/30/17 22:15 (Pill Splitter) 1 ea UNSCH PRN OTHER 05/01/17 06:15 (Protonix) 40 mg DAILY PO 05/01/17 12:00 05/06/17 09:49 (Vitamin D3) 1,000 units DAILY PO 05/02/17 09:00 05/06/17 09:49 (Lopressor) 25 mg BID PO 05/01/17 21:00 05/06/17 09:51 (Ferrous Sulfate) 325 mg BID PO 05/02/17 21:00 05/06/17 09:49 (Prinivil) 10 mg DAILY PO 05/03/17 09:00 05/06/17 09:49 (Elavil) 50 mg HS PO 05/03/17 21:00 05/04/17 21:08 (Neurontin) 800 mg TID PO 05/03/17 18:00 05/06/17 11:42 (Synthroid) 50 mcg DAILY@0600 PO 05/04/17 06:00 05/06/17 04:54 (Desyrel) 50 mg HS PO 05/03/17 21:00 05/05/17 22:23 (Viokase 10-39-39) 2 tab TIDPC PO 05/03/17 18:30 05/06/17 11:50 (Deltasone) 10 mg DAILY PO 05/04/17 09:00 05/06/17 09:49 (Morphine Inj) 2 mg Q4HR PRN IV 05/03/17 14:45 05/06/17 09:47 (Lipitor) 10 mg HS PO 05/03/17 21:00 05/05/17 22:23 (Percocet 7.5-325 Mg) 1 tab Q4H PRN PO 05/05/17 12:30 (Percocet 10-325 Mg) 1 tab Q6H PRN PO 05/05/17 12:30 05/06/17 11:43 (NS Flush) 2 ml UNSCH PRN IV FLUSH 05/05/17 15:00 (NS Flush) 2 ml BID IV FLUSH 05/05/17 21:00 (Aspirin Chew) 81 mg DAILY PO 05/06/17 09:00 05/06/17 09:49 (Plavix) 75 mg DAILY PO 05/06/17 09:00 05/06/17 09:50 Vital Signs / I&O Vital Signs Date Time Temp Pulse Resp B/P (MAP) Pulse Ox O2 Delivery O2 Flow Rate FiO2 05/06/17 11:40 98.2 90 22 147/82 (103) 97 05/06/17 09:53 98.0 86 18 140/87 (104) 99 05/06/17 07:50 81 05/06/17 05:16 16 05/06/17 04:53 84 16 129/83 (98) 96 05/06/17 00:00 77 05/06/17 00:00 88 16 143/81 (101) 96 05/06/17 00:00 88 16 143/81 (101) 95 05/05/17 23:05 88 05/05/17 22:00 98.1 87 16 117/60 (79) 96 05/05/17 21:50 93 05/05/17 20:00 87 05/05/17 20:00 98.1 87 16 117/60 (79) 96 05/05/17 19:11 89 127/73 (91) 05/05/17 18:56 84 115/68 (84) 05/05/17 18:46 88 114/67 (83) 05/05/17 18:30 98.4 97 16 121/73 (89) 98 05/05/17 15:49 96 Room Air I/O 05/05/17 05/05/17 05/05/17 05/06/17 05/06/17 05/06/17 07:00 15:00 23:00 07:00 15:00 23:00 Intake Total 240 ml 110 ml Output Total 450 ml 1000 ml Balance -450 ml -760 ml 110 ml Intake Oral 240 ml IV Total 110 ml Output Urine Total 450 ml 1000 ml Physical Exam GENERAL: SKIN: Warm and dry. HEAD: Normocephalic. EYES: No scleral icterus. No injection or drainage. NECK: Supple, trachea midline. No JVD or lymphadenopathy. CARDIOVASCULAR: Regular rate and rhythm without murmurs, gallops, or rubs. RESPIRATORY: Breath sounds equal bilaterally. No accessory muscle use. GASTROINTESTINAL: Abdomen soft, non-tender, nondistended. MUSCULOSKELETAL: No cyanosis, or edema. BACK: Nontender without obvious deformity. No CVA tenderness. Laboratory Laboratory Tests Test 05/06/17 07:40 White Blood Count 6.1 TH/MM3 Red Blood Count 3.46 MIL/MM3 Hemoglobin 7.7 GM/DL Hematocrit 24.9 % Mean Corpuscular Volume 71.9 FL Mean Corpuscular Hemoglobin 22.3 PG Mean Corpuscular Hemoglobin Concent 30.9 % Red Cell Distribution Width 22.1 % Platelet Count 216 TH/MM3 Mean Platelet Volume 8.3 FL Neutrophils (%) (Auto) 53.7 % Lymphocytes (%) (Auto) 26.7 % Monocytes (%) (Auto) 15.3 % Eosinophils (%) (Auto) 3.7 % Basophils (%) (Auto) 0.6 % Neutrophils # (Auto) 3.3 TH/MM3 Lymphocytes # (Auto) 1.6 TH/MM3 Monocytes # (Auto) 0.9 TH/MM3 Eosinophils # (Auto) 0.2 TH/MM3 Basophils # (Auto) 0.0 TH/MM3 CBC Comment AUTO DIFF Differential Total Cells Counted 100 Neutrophils % (Manual) 52 % Band Neutrophils % 8 % Lymphocytes % 30 % Monocytes % 3 % Eosinophils % 4 % Neutrophils # (Manual) 3.8 TH/MM3 Myelocytes 3 % Nucleated Red Blood Cells 1 /100 WBC Differential Comment FINAL DIFF MANUAL Platelet Estimate NORMAL Platelet Morphology Comment ENLARGED Ovalocytes 1+ Acanthocytes OCC Blood Urea Nitrogen 17 MG/DL Creatinine 0.64 MG/DL Random Glucose 108 MG/DL Calcium Level 8.8 MG/DL Sodium Level 142 MEQ/L Potassium Level 3.6 MEQ/L Chloride Level 111 MEQ/L Carbon Dioxide Level 25.1 MEQ/L Anion Gap 6 MEQ/L Estimat Glomerular Filtration Rate 127 ML/MIN Total Creatine Kinase 27 U/L Assessment and Plan Problem List: (1) Chest pain ICD Codes: R07.9 - Chest pain, unspecified (2) Anemia ICD Codes: D64.9 - Anemia, unspecified (3) Hepatitis C ICD Codes: B19.20 - Unspecified viral hepatitis C without hepatic coma Status: Acute (4) Polysubstance abuse ICD Codes: F19.10 - Other psychoactive substance abuse, uncomplicated Status: Acute (5) Alcohol dependence ICD Codes: F10.20 - Alcohol dependence, uncomplicated Status: Acute (6) Tobacco abuse ICD Codes: Z72.0 - Tobacco use Status: Chronic (7) NSTEMI (non-ST elevated myocardial infarction) ICD Codes: I21.4 - Non-ST elevation (NSTEMI) myocardial infarction Status: Acute Assessment and Plan 1.) NSTEMI/Chest pain improved pod#1 pci lad/dx. Continue aspirin, plavix 75 mg qd, lipitor and metoprolol, f/u cbc, hgb=7.7 today Doug Flowers MD May 06, 2017 12:55
--- NOTE | 2017-05-06 16:26 | HHI.PR ---
Subjective Remarks Patient is status post heart catheter and had intervention of LAD. He is doing well with complaints of chest pain. No nausea/vomiting. Objective Vital Signs Date Time Temp Pulse Resp B/P (MAP) Pulse Ox O2 Delivery O2 Flow Rate FiO2 05/06/17 15:00 88 05/06/17 11:40 98.2 90 22 147/82 (103) 97 05/06/17 09:53 98.0 86 18 140/87 (104) 99 05/06/17 07:50 81 05/06/17 05:16 16 05/06/17 04:53 84 16 129/83 (98) 96 05/06/17 00:00 77 05/06/17 00:00 88 16 143/81 (101) 96 05/06/17 00:00 88 16 143/81 (101) 95 05/05/17 23:05 88 05/05/17 22:00 98.1 87 16 117/60 (79) 96 05/05/17 21:50 93 05/05/17 20:00 87 05/05/17 20:00 98.1 87 16 117/60 (79) 96 05/05/17 19:11 89 127/73 (91) 05/05/17 18:56 84 115/68 (84) 05/05/17 18:46 88 114/67 (83) 05/05/17 18:30 98.4 97 16 121/73 (89) 98 I/O 05/05/17 05/05/17 05/05/17 05/06/17 05/06/17 05/06/17 07:00 15:00 23:00 07:00 15:00 23:00 Intake Total 240 ml 110 ml Output Total 450 ml 1000 ml Balance -450 ml -760 ml 110 ml Intake Oral 240 ml IV Total 110 ml Output Urine Total 450 ml 1000 ml Result Diagram: 05/06/1773905/06/17739 Objective Remarks GENERAL: NAD, A&Ox3 HEAD: Normocephalic. NECK: Supple, trachea midline. No lymphadenopathy. EYES: No scleral icterus. No injection or drainage. CARDIOVASCULAR: Regular rate and rhythm without murmurs, gallops, or rubs. RESPIRATORY: Breath sounds equal bilaterally. No accessory muscle use. GASTROINTESTINAL: Abdomen soft, non-tender, nondistended. MUSCULOSKELETAL: No cyanosis, or edema. SKIN: Warm and dry. NEURO: No focal neurological deficitis. A/P Problem List: (1) NSTEMI (non-ST elevated myocardial infarction) ICD Code: I21.4 - Non-ST elevation (NSTEMI) myocardial infarction Status: Acute Assessment and Plan 61 year old male admitted secondary to chest pain with anemia NSTEMI Chest pain Status post heart catheter Patient doing well No further chest pain today Cardiology following Anemia Status post transfusion Follow CBC Occult blood stool studies pending Hypertension Continue baseline treatment Follow blood pressures Adjust treatments as needed Continue home metoprolol and lisinopril Alcohol abuse Continue CIWA protocol Monitor for signs of delirium tremens L4 compression fracture Continue pain management DVT prophylaxis SCDs Kenan Sterling MD May 06, 2017 16:26
--- NOTE | 2017-05-06 22:07 | EKG ---
Date Performed: 05/06/2017 Time Performed: 05:17:52 PTAGE: 61 years EKG: Sinus rhythm Normal ECG PREVIOUS TRACING : 05/05/2017 15.50 Since the prior tracing, there has been no significant kaur DOCTOR: Jodi Gomez Interpretating Date/Time 05/06/2017 22:06:00
[2017-05-06] MEDS: traZODone HCL 50 MG TAB PO SCH (22:22)
[2017-05-06] MEDS: ATORVASTATIN 10 MG TAB PO SCH (22:22)
[2017-05-06] MEDS: AMITRIPTYLINE HCL 50 MG TAB PO SCH (22:22)
--- NOTE | 2017-05-06 22:46 | EKG ---
Date Performed: 05/05/2017 Time Performed: 15:50:08 PTAGE: 61 years EKG: Sinus rhythm . Normal ECG PREVIOUS TRACING : 04/30/2017 14.09 Since the prior tracing, there has been no significant kaur DOCTOR: Jodi Gomez Interpretating Date/Time 05/06/2017 22:44:19
[2017-05-07] VITALS (21 sets, daily range): BP systolic 112–141; BP diastolic 60–89; PULSE 69–100; RESP 16; TEMP 97.8–98.2; O2SAT 96–100
[2017-05-07] MEDS: LORazepam 1 MG TAB PO PRN (00:37)
[2017-05-07] MEDS: MORPHINE SULFATE 2 MG/ML INJ IV PRN ×5 (02:51→21:28)
[2017-05-07 06:00] LABS: AUTOMATED NEUTROPHIL # 4.3 TH/MM3 (1.8-7.7); BASOPHIL % 0.3 % (0.0-2.0); EOSINOPHIL # 0.2 TH/MM3 (0-0.4); EOSINOPHIL % 2.3 % (0.0-4.0); HEMATOCRIT 26.8 % (39.0-51.0); HEMOGLOBIN 8.2 GM/DL (13.0-17.0); LYMPH % 30.6 % (9.0-44.0); LYMPHOCYTE # 2.4 TH/MM3 (1.0-4.8); MEAN CELL VOLUME 72.6 FL (80.0-100.0); MEAN CORPUSCULAR HEMOGLOBIN 22.3 PG (27.0-34.0); MEAN CORPUSCULAR HGB CONC 30.8 % (32.0-36.0); MEAN PLATELET VOLUME 8.2 FL (7.0-11.0); MONO % 13.2 % (0.0-8.0); NEUT % 53.6 % (16.0-70.0); PLATELET COUNT 230 TH/MM3 (150-450); RED BLOOD COUNT 3.69 MIL/MM3 (4.50-5.90); RED CELL DISTRIBUTION WIDTH 22.4 % (11.6-17.2); WHITE BLOOD COUNT 7.9 TH/MM3 (4.0-11.0)
[2017-05-07 06:30] LABS: ALBUMIN 3.2 GM/DL (3.4-5.0); AST (GOT) 17 U/L (15-37); BICARBONATE 24.9 MEQ/L (21.0-32.0); BLOOD UREA NITROGEN 11 MG/DL (7-18); CALCIUM 8.9 MG/DL (8.5-10.1); CHLORIDE 109 MEQ/L (98-107); CREATININE 0.67 MG/DL (0.60-1.30); GLOMERULAR FILTRATION RATE 120 ML/MIN (>89); GLUCOSE,RANDOM 103 MG/DL (74-106); SODIUM (NA) 141 MEQ/L (136-145)
[2017-05-07 06:37] LABS: ALKALINE PHOSPHATASE 93 U/L (45-117); ALT (GPT) 20 U/L (12-78); TOTAL BILIRUBIN ADULT 0.2 MG/DL (0.2-1.0); TOTAL PROTEIN 6.6 GM/DL (6.4-8.2)
[2017-05-07] MEDS: LEVOTHYROXINE SODIUM 50 MCG TAB PO SCH (06:37)
[2017-05-07 08:22] LABS: BANDS 5 % (0-6); CORRECTED NUCLEATED RBC 1 /100 WBC (0-0); LYMPHOCYTES 18 % (9-44); MONOCYTES 10 % (0-8); MYELOCYTES 4 % (0-0); NEUTROPHIL # MANUAL DIFF 5.5 TH/MM3 (1.8-7.7); NUCLEATED RED BLOOD CELL 1 (0-0); OVALOCYTES 1+ (NORMAL); POLYS (SEG NEUTROPHILS) 61 % (16-70)
[2017-05-07] MEDS: GABAPENTIN 400 MG CAP PO SCH ×3 (08:44→17:06)
[2017-05-07] MEDS: CHOLECALCIFEROL (VIT D3) 1000 UNIT TAB PO SCH (08:44)
[2017-05-07] MEDS: LISINOPRIL 10 MG TAB PO SCH (08:44)
[2017-05-07] MEDS: THIAMINE HCL 100 MG TAB PO SCH (08:45)
[2017-05-07] MEDS: FERROUS SULFATE 325 MG (65 MG ELEMENTAL IRON) TAB PO SCH ×2 (08:45→20:57)
[2017-05-07] MEDS: ASPIRIN 81 MG CHEW TAB PO SCH (08:45)
[2017-05-07] MEDS: PANTOPRAZOLE SOD 40 MG DELAYED RELEASE TAB PO SCH (08:45)
[2017-05-07] MEDS: predniSONE 10 MG TAB PO SCH (08:45)
[2017-05-07] MEDS: METOPROLOL TARTRATE 25 MG TAB PO SCH ×2 (08:45→20:57)
[2017-05-07] MEDS: CLOPIDOGREL 75 MG TAB PO SCH (08:45)
[2017-05-07] MEDS: SODIUM CHLORIDE 0.9% FLUSH 10 ML FLUSH IV FLUSH SCH ×3 (08:46→20:59)
[2017-05-07] MEDS: oxyCODONE/ACETAMINOPHEN 10 MG/325 MG TAB PO PRN ×3 (08:46→20:58)
[2017-05-07] MEDS: PROTEASE PO SCH ×4 (09:01→17:13)
[2017-05-07] MEDS: LIPASE PO SCH ×4 (09:01→17:13)
[2017-05-07] MEDS: AMYLASE PO SCH ×4 (09:01→17:13)
--- NOTE | 2017-05-07 14:11 | PD.ONC.PN ---
Subjective Subjective Remarks Afebrile overnight. Patient resting in bed in nad. No complaints. Objective Data Date Time Temp Pulse Resp B/P (MAP) Pulse Ox O2 Delivery O2 Flow Rate FiO2 05/07/17 13:12 82 05/07/17 12:56 18 05/07/17 12:30 100 05/07/17 11:52 98.0 78 16 113/60 (77) 99 05/07/17 11:52 72 05/07/17 10:57 74 05/07/17 10:02 18 05/07/17 09:00 74 05/07/17 08:45 69 05/07/17 08:45 97.8 74 16 131/87 (102) 100 05/07/17 04:00 75 16 112/71 (85) 97 05/07/17 04:00 70 05/07/17 04:00 70 05/07/17 03:00 72 05/07/17 02:00 74 05/07/17 01:00 76 05/07/17 00:00 72 05/07/17 00:00 80 16 123/76 (92) 96 05/07/17 00:00 84 05/07/17 00:00 78 16 123/76 (92) 96 05/06/17 23:00 78 05/06/17 22:00 84 05/06/17 21:00 82 05/06/17 21:00 86 16 135/77 (96) 96 05/06/17 20:00 89 05/06/17 20:00 84 05/06/17 19:00 104 05/06/17 17:05 98.5 80 20 142/81 (101) 96 05/06/17 15:00 88 05/07/17 05/07/17 05/07/17 07:00 15:00 23:00 Intake Total 240 ml Output Total 300 ml Balance -60 ml Result Diagram: 05/07/175 05/07/175 Laboratory Results Laboratory Tests Test 05/07/17 04:45 White Blood Count 7.9 TH/MM3 Red Blood Count 3.69 MIL/MM3 Hemoglobin 8.2 GM/DL Hematocrit 26.8 % Mean Corpuscular Volume 72.6 FL Mean Corpuscular Hemoglobin 22.3 PG Mean Corpuscular Hemoglobin Concent 30.8 % Red Cell Distribution Width 22.4 % Platelet Count 230 TH/MM3 Mean Platelet Volume 8.2 FL Neutrophils (%) (Auto) 53.6 % Lymphocytes (%) (Auto) 30.6 % Monocytes (%) (Auto) 13.2 % Eosinophils (%) (Auto) 2.3 % Basophils (%) (Auto) 0.3 % Neutrophils # (Auto) 4.3 TH/MM3 Lymphocytes # (Auto) 2.4 TH/MM3 Monocytes # (Auto) 1.0 TH/MM3 Eosinophils # (Auto) 0.2 TH/MM3 Basophils # (Auto) 0.0 TH/MM3 CBC Comment AUTO DIFF Differential Total Cells Counted 100 Neutrophils % (Manual) 61 % Band Neutrophils % 5 % Lymphocytes % 18 % Monocytes % 10 % Eosinophils % 2 % Neutrophils # (Manual) 5.5 TH/MM3 Myelocytes 4 % Nucleated Red Blood Cells 1 /100 WBC Differential Comment FINAL DIFF MANUAL Platelet Estimate NORMAL Platelet Morphology Comment NORMAL Ovalocytes 1+ Blood Urea Nitrogen 11 MG/DL Creatinine 0.67 MG/DL Random Glucose 103 MG/DL Total Protein 6.6 GM/DL Albumin 3.2 GM/DL Calcium Level 8.9 MG/DL Alkaline Phosphatase 93 U/L Aspartate Amino Transf (AST/SGOT) 17 U/L Alanine Aminotransferase (ALT/SGPT) 20 U/L Total Bilirubin 0.2 MG/DL Sodium Level 141 MEQ/L Potassium Level 3.5 MEQ/L Chloride Level 109 MEQ/L Carbon Dioxide Level 24.9 MEQ/L Anion Gap 7 MEQ/L Estimat Glomerular Filtration Rate 120 ML/MIN Administered Medications Medications (Trade) Dose Ordered Sig/Ashlie Route PRN Reason Start Time Stop Time Status Last Admin Dose Admin Sodium Chloride (NS Flush) 2 ml BID IV FLUSH 04/30/17 21:00 05/07/17 08:46 Sodium Chloride (NS Flush) 2 ml UNSCH PRN IV FLUSH FLUSH AFTER USING IV ACCESS 04/30/17 20:45 05/05/17 12:16 Thiamine HCl (Vitamin B1) 100 mg DAILY PO 05/01/17 09:00 05/07/17 08:45 Lorazepam (Ativan) 1 mg Q4H PRN PO CIWA 8 - 10 04/30/17 22:15 05/07/17 00:37 Lorazepam (Ativan) 2 mg Q2H PRN PO CIWA 11-14 04/30/17 22:15 05/06/17 11:54 Pantoprazole Sodium (Protonix) 40 mg DAILY PO 05/01/17 12:00 05/07/17 08:45 Cholecalciferol (Vitamin D3) 1,000 units DAILY PO 05/02/17 09:00 05/07/17 08:44 Metoprolol Tartrate (Lopressor) 25 mg BID PO 05/01/17 21:00 05/07/17 08:45 Ferrous Sulfate (Ferrous Sulfate) 325 mg BID PO 05/02/17 21:00 05/07/17 08:45 Lisinopril (Prinivil) 10 mg DAILY PO 05/03/17 09:00 05/07/17 08:44 Amitriptyline HCl (Elavil) 50 mg HS PO 05/03/17 21:00 05/06/17 22:22 Gabapentin (Neurontin) 800 mg TID PO 05/03/17 18:00 05/07/17 12:34 Levothyroxine Sodium (Synthroid) 50 mcg DAILY@0600 PO 05/04/17 06:00 05/07/17 06:37 Trazodone HCl (Desyrel) 50 mg HS PO 05/03/17 21:00 05/06/17 22:22 Amylase/Lipase/ Protease (Viokase 10-39-39) 2 tab TIDPC PO 05/03/17 18:30 05/07/17 12:34 Prednisone (Deltasone) 10 mg DAILY PO 05/04/17 09:00 05/07/17 08:45 Morphine Sulfate (Morphine Inj) 2 mg Q4HR PRN IV breakthru pain 05/03/17 14:45 05/07/17 12:34 Atorvastatin Calcium (Lipitor) 10 mg HS PO 05/03/17 21:00 05/06/17 22:22 Oxycodone/ Acetaminophen (Percocet 10-325 Mg) 1 tab Q6H PRN PO PAIN SCALE 6 TO 10 05/05/17 12:30 05/07/17 08:46 Aspirin (Aspirin Chew) 81 mg DAILY PO 05/06/17 09:00 05/07/17 08:45 Clopidogrel Bisulfate (Plavix) 75 mg DAILY PO 05/06/17 09:00 05/07/17 08:45 Chlordiazepoxide (Librium) 10 mg TID PO 05/07/17 13:00 05/07/17 12:34 Objective Remarks GENERAL: Well-nourished, well-developed patient. SKIN: Warm and dry. HEAD: Normocephalic. EYES: No scleral icterus. No injection or drainage. NECK: Supple, trachea midline. No JVD or lymphadenopathy. LYMPHATIC: No adenopathy. CARDIOVASCULAR: Regular rate and rhythm without murmurs. RESPIRATORY: Breath sounds equal bilaterally. No accessory muscle use. GASTROINTESTINAL: Abdomen soft, non-tender, nondistended. EXTREMITIES: No cyanosis, or edema. MUSCULOSKELETAL: Adequate muscle tone. NEUROLOGICAL: No obvious focal deficit. Awake, alert, and oriented x3. PSYCHIATRIC: Appropriate mood and affect; insight and judgment normal. Assessment/Plan Problem List: (1) Microcytic anemia ICD Codes: D50.9 - Iron deficiency anemia, unspecified Plan: --anemia studies are consistent with iron deficiency. --on oral ferrous sulfate. --may need iron infusions if he does not respond to oral iron. --GI evaluation pending. -- hepatitis B HIV pending --++hep C, viral load pending. --direct roland pending. (2) Chest pain ICD Codes: R07.9 - Chest pain, unspecified Plan: --s/p cardiac catheterization with stent placement. Assessment 61y/o male with microcytic anemia admitted with chest pain. history of alcoholic liver disease, liver cirrhosis, hepatitis C, alcohol abuse and tobacco abuse. Plan 1. obtain Hep C viral load 2. obtain HIV status 3. continue oral ferrous sulfate 4. await GI workup. Attending Statement The exam, history, and the medical decision-making described in the above note were completed with the assistance of the mid-level provider. I reviewed and agree with the findings presented. I attest that I had a [id number] encounter with the patient on the same day, and personally performed and documented my assessment and findings in the medical record. additional iron infusion GI w/u Hep and HIV testing Raissa Beckham May 07, 2017 14:11 Bowen Jones MD May 07, 2017 21:07
--- NOTE | 2017-05-07 16:42 | PD.CONS ---
HPI History of Present Illness This is a 61 year old M with PMH significant for HTN, Hepatitis C, Cirrhosis, ETOH abuse who presented to ER with complaints of chest pain and all over body pain. Pt now S/P heart cath yesterday with stent placement, started on Plavix yesterday morning. Our service has been consulted to evaluate pt for possible GI bleeding. Pt reports occasional mild nausea, denies emesis. Also reports occasional abdominal pain, more so on the left side now but he states travels throughout abdomen. Denies any associated aggravating or alleviating factors. Of note, pt has been evaluated by our service in the past for acute on chronic abdominal pain with history of weight loss and had a celiac plexus block in August 2011. Pt also reporting occasional constipation, states sometimes his BMs are hard. Denies melena and BRBPR. Also reports unintentional weight loss of 40-50 pounds over the past six months. Reports colonoscopy and EGD in the past but he is unsure of when he had the procedures and of any abnormal findings. Admits to heavy ETOH, has quit drinking liquor but now drinks anywhere from 10- 24 beers daily. Also smokes a PPD. Denies illicit drug use, NSAIDs. Has had CT abdomen and pelvis and Liver US during hospitalization, neither showed acute findings or cause of abdominal pain. 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 No h/o DM or CAD Social History Approximately one pack per day. Drinks approximately 18 beers per day. Denies illicit drugs. (Sherry Leija) Review of Systems Gastrointestinal: COMPLAINS OF: Abdominal pain, Constipation, Nausea, Heartburn , DENIES: Black stools, Bloody stools, Diarrhea, Vomiting, Difficulty Swallowing , Odynophagia, Swelling of Abdomen, Hematemesis (Sherry Leija INTEGRATION SOFTWARE DEVELOPER) GI Exam Vitals I&O Vital Signs Date Time Temp Pulse Resp B/P (MAP) Pulse Ox O2 Delivery O2 Flow Rate FiO2 05/07/17 16:01 74 05/07/17 15:51 16 05/07/17 15:33 98.2 74 16 126/79 (95) 96 05/07/17 15:33 78 05/07/17 14:00 75 05/07/17 13:12 82 05/07/17 12:56 18 05/07/17 12:30 100 05/07/17 11:52 98.0 78 16 113/60 (77) 99 05/07/17 11:52 72 05/07/17 10:57 74 05/07/17 09:00 74 05/07/17 08:45 69 05/07/17 08:45 97.8 74 16 131/87 (102) 100 05/07/17 04:00 75 16 112/71 (85) 97 05/07/17 04:00 70 05/07/17 04:00 70 05/07/17 03:00 72 05/07/17 02:00 74 05/07/17 01:00 76 05/07/17 00:00 72 05/07/17 00:00 80 16 123/76 (92) 96 05/07/17 00:00 84 05/07/17 00:00 78 16 123/76 (92) 96 05/06/17 23:00 78 05/06/17 22:00 84 05/06/17 21:00 82 05/06/17 21:00 86 16 135/77 (96) 96 05/06/17 20:00 89 05/06/17 20:00 84 05/06/17 19:00 104 05/06/17 17:05 98.5 80 20 142/81 (101) 96 I/O 05/06/17 05/06/17 05/06/17 05/07/17 05/07/17 05/07/17 07:00 15:00 23:00 07:00 15:00 23:00 Intake Total 240 ml 110 ml 720 ml 240 ml Output Total 1000 ml 1100 ml 300 ml Balance -760 ml 110 ml -380 ml -60 ml Intake Oral 240 ml 720 ml 240 ml IV Total 110 ml Output Urine Total 1000 ml 1100 ml 300 ml # Bowel Movements 1 Imaging Last Impressions Liver Ultrasound 05/01/17 0000 Signed Impressions: Service Date/Time: April 14:37 - CONCLUSION: Focal and unremarkable sonographic appearance of the right upper quadrant Vikas Daniels MD Chest X-Ray 04/30/17 0000 Signed Impressions: Service Date/Time: Sunday, April 30, 2017 16:04 - CONCLUSION: The lungs are clear. Luis Alfredo Whiting MD Abdomen/Pelvis CT 04/30/17 0000 Signed Impressions: Service Date/Time: Sunday, April 30, 2017 18:52 - CONCLUSION: 1. Compression fracture of the superior endplate of L4 with no bony retropulsion. This is new when compared to previous examination. 2. No definite abnormality to explain the patient's diffuse abdominal pain and weight loss identified. 3. Sizable hiatal hernia. Kenan Norman MD Laboratory Test 05/07/17 04:45 05/07/17 15:06 White Blood Count 7.9 TH/MM3 Red Blood Count 3.69 MIL/MM3 Hemoglobin 8.2 GM/DL Hematocrit 26.8 % Mean Corpuscular Volume 72.6 FL Mean Corpuscular Hemoglobin 22.3 PG Mean Corpuscular Hemoglobin Concent 30.8 % Red Cell Distribution Width 22.4 % Platelet Count 230 TH/MM3 Mean Platelet Volume 8.2 FL Neutrophils (%) (Auto) 53.6 % Lymphocytes (%) (Auto) 30.6 % Monocytes (%) (Auto) 13.2 % Eosinophils (%) (Auto) 2.3 % Basophils (%) (Auto) 0.3 % Neutrophils # (Auto) 4.3 TH/MM3 Lymphocytes # (Auto) 2.4 TH/MM3 Monocytes # (Auto) 1.0 TH/MM3 Eosinophils # (Auto) 0.2 TH/MM3 Basophils # (Auto) 0.0 TH/MM3 CBC Comment AUTO DIFF Differential Total Cells Counted 100 Neutrophils % (Manual) 61 % Band Neutrophils % 5 % Lymphocytes % 18 % Monocytes % 10 % Eosinophils % 2 % Neutrophils # (Manual) 5.5 TH/MM3 Myelocytes 4 % Nucleated Red Blood Cells 1 /100 WBC Differential Comment FINAL DIFF MANUAL Platelet Estimate NORMAL Platelet Morphology Comment NORMAL Ovalocytes 1+ Blood Urea Nitrogen 11 MG/DL Creatinine 0.67 MG/DL Random Glucose 103 MG/DL Total Protein 6.6 GM/DL Albumin 3.2 GM/DL Calcium Level 8.9 MG/DL Alkaline Phosphatase 93 U/L Aspartate Amino Transf (AST/SGOT) 17 U/L Alanine Aminotransferase (ALT/SGPT) 20 U/L Total Bilirubin 0.2 MG/DL Sodium Level 141 MEQ/L Potassium Level 3.5 MEQ/L Chloride Level 109 MEQ/L Carbon Dioxide Level 24.9 MEQ/L Anion Gap 7 MEQ/L Estimat Glomerular Filtration Rate 120 ML/MIN Date/Time Source Procedure Growth Status 05/02/17 17:55 Stool Stool Stool Occult Blood (JACINDA) - Final HEMOCCULT NEGATIVE Complete Physical Examination HEENT: Normocephalic; atraumatic CHEST: Even/unlabored CARDIAC: RRR ABDOMEN: Soft, nondistended, diffuse TTP, bowel sounds active EXTREMITIES: No clubbing, cyanosis, or edema. SKIN: Normal; no rash; no jaundice. 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 (Sherry Leija) Assessment and Plan Plan Assessment: - Anemia with question of possible GIB.- Microcytic. Serum iron low with Increased TIBC. Hemoccult stool negative. Denies emesis, BRBPR, melena. Reports EGD and colonoscopy in the past but he is unsure of when and the findings. - Abdominal pain- evaluated by our service in the past, no clear etiology was found. Was recommended to have celiac plexus block in 2011, according to records was done August 2011. CT abdomen and pelvis (04/30) --> No acute findings to explain pts reported abdominal pain. Sizable hiatal hernia. - History of Hepatitis C- Liver US unremarkable. LFTs WNL. - NSTEMI- S/P heart cath yesterday with stent placement. Now on Plavix and ASA NATY Otto received cardiac clearance by Dr. Flowers who states OK for procedures tomorrow Plan: EGD/colonoscopy tomorrow Obtain consent Clear liquids today GoLytely prep NPO after MN Monitor H/H Notify GI of active bleeding Further recommendations to follow based on findings of above Pt has been seen and examined by myself and Dr. Dimas and this note is written on his behalf (Sherry Leija) Plan Seen and examined, agree with above-noted, we will plan on doing upper endoscopy and colonoscopy since the patient was cleared by to do diagnostic procedures at least (Bre Dimas MD) Sherry Leija May 07, 2017 16:42 Bre Dimas MD May 07, 2017 19:36
[2017-05-07] MEDS ORDERED: PEG (High)/E-LYTE SOLN 4000 ML BTL PO ONE (18:00)
--- NOTE | 2017-05-07 19:28 | PD.CARD.PN ---
Subjective Subjective Remarks chest pain improved Objective Medications Current Medications Medications (Trade) Dose Ordered Sig/Ashlie Route Start Time Stop Time Status Last Admin (Nitrostat Sl) 0.4 mg Q5M PRN SL 04/30/17 20:45 (Tylenol) 500 mg Q4H PRN PO 04/30/17 20:45 (Vitamin B1) 100 mg DAILY PO 05/01/17 09:00 05/07/17 08:45 (Romazicon Inj) 0.2 mg Q1M PRN IV PUSH 04/30/17 22:15 (Ativan) 1 mg Q4H PRN PO 04/30/17 22:15 05/07/17 00:37 (Ativan Inj) 1 mg Q4H PRN IV PUSH 04/30/17 22:15 (Ativan) 2 mg Q2H PRN PO 04/30/17 22:15 05/06/17 11:54 (Ativan Inj) 2 mg Q2H PRN IV PUSH 04/30/17 22:15 (Ativan Inj) 2 mg Q1H PRN IV PUSH 04/30/17 22:15 (Ativan Inj) 2 mg Q15M PRN IV PUSH 04/30/17 22:15 (Pill Splitter) 1 ea UNSCH PRN OTHER 05/01/17 06:15 (Protonix) 40 mg DAILY PO 05/01/17 12:00 05/07/17 08:45 (Vitamin D3) 1,000 units DAILY PO 05/02/17 09:00 05/07/17 08:44 (Lopressor) 25 mg BID PO 05/01/17 21:00 05/07/17 08:45 (Ferrous Sulfate) 325 mg BID PO 05/02/17 21:00 05/07/17 08:45 (Prinivil) 10 mg DAILY PO 05/03/17 09:00 05/07/17 08:44 (Elavil) 50 mg HS PO 05/03/17 21:00 05/06/17 22:22 (Neurontin) 800 mg TID PO 05/03/17 18:00 05/07/17 17:06 (Synthroid) 50 mcg DAILY@0600 PO 05/04/17 06:00 05/07/17 06:37 (Desyrel) 50 mg HS PO 05/03/17 21:00 05/06/17 22:22 (Viokase 10-39-39) 2 tab TIDPC PO 05/03/17 18:30 05/07/17 17:13 (Deltasone) 10 mg DAILY PO 05/04/17 09:00 05/07/17 08:45 (Morphine Inj) 2 mg Q4HR PRN IV 05/03/17 14:45 05/07/17 17:06 (Lipitor) 10 mg HS PO 05/03/17 21:00 05/06/17 22:22 (Percocet 7.5-325 Mg) 1 tab Q4H PRN PO 05/05/17 12:30 (Percocet 10-325 Mg) 1 tab Q6H PRN PO 05/05/17 12:30 05/07/17 14:54 (NS Flush) 2 ml UNSCH PRN IV FLUSH 05/05/17 15:00 (NS Flush) 2 ml BID IV FLUSH 05/05/17 21:00 (Aspirin Chew) 81 mg DAILY PO 05/06/17 09:00 05/07/17 08:45 (Plavix) 75 mg DAILY PO 05/06/17 09:00 05/07/17 08:45 (Librium) 10 mg TID PO 05/07/17 13:00 05/07/17 17:06 Vital Signs / I&O Vital Signs Date Time Temp Pulse Resp B/P (MAP) Pulse Ox O2 Delivery O2 Flow Rate FiO2 05/07/17 18:00 83 05/07/17 17:37 92 05/07/17 17:18 16 05/07/17 16:01 74 05/07/17 15:51 16 05/07/17 15:33 98.2 74 16 126/79 (95) 96 05/07/17 15:33 78 05/07/17 14:00 75 05/07/17 13:12 82 05/07/17 12:30 100 05/07/17 11:52 98.0 78 16 113/60 (77) 99 05/07/17 11:52 72 05/07/17 10:57 74 05/07/17 09:00 74 05/07/17 08:45 69 05/07/17 08:45 97.8 74 16 131/87 (102) 100 05/07/17 04:00 75 16 112/71 (85) 97 05/07/17 04:00 70 05/07/17 04:00 70 05/07/17 03:00 72 05/07/17 02:00 74 05/07/17 01:00 76 05/07/17 00:00 72 05/07/17 00:00 80 16 123/76 (92) 96 05/07/17 00:00 84 05/07/17 00:00 78 16 123/76 (92) 96 05/06/17 23:00 78 05/06/17 22:00 84 05/06/17 21:00 82 05/06/17 21:00 86 16 135/77 (96) 96 05/06/17 20:00 89 05/06/17 20:00 84 I/O 05/06/17 05/06/17 05/06/17 05/07/17 05/07/17 05/07/17 06:59 14:59 22:59 06:59 14:59 22:59 Intake Total 240 ml 110 ml 720 ml 240 ml 840 ml Output Total 1000 ml 1100 ml 300 ml Balance -760 ml 110 ml -380 ml -60 ml 840 ml Intake Oral 240 ml 720 ml 240 ml 840 ml IV Total 110 ml Output Urine Total 1000 ml 1100 ml 300 ml # Voids 5 # Bowel Movements 1 0 Physical Exam GENERAL: SKIN: Warm and dry. HEAD: Normocephalic. EYES: No scleral icterus. No injection or drainage. NECK: Supple, trachea midline. No JVD or lymphadenopathy. CARDIOVASCULAR: Regular rate and rhythm without murmurs, gallops, or rubs. RESPIRATORY: Breath sounds equal bilaterally. No accessory muscle use. GASTROINTESTINAL: Abdomen soft, non-tender, nondistended. MUSCULOSKELETAL: No cyanosis, or edema. BACK: Nontender without obvious deformity. No CVA tenderness. Laboratory Laboratory Tests Test 05/07/17 04:45 05/07/17 15:06 05/07/17 18:26 White Blood Count 7.9 TH/MM3 Red Blood Count 3.69 MIL/MM3 Hemoglobin 8.2 GM/DL Hematocrit 26.8 % Mean Corpuscular Volume 72.6 FL Mean Corpuscular Hemoglobin 22.3 PG Mean Corpuscular Hemoglobin Concent 30.8 % Red Cell Distribution Width 22.4 % Platelet Count 230 TH/MM3 Mean Platelet Volume 8.2 FL Neutrophils (%) (Auto) 53.6 % Lymphocytes (%) (Auto) 30.6 % Monocytes (%) (Auto) 13.2 % Eosinophils (%) (Auto) 2.3 % Basophils (%) (Auto) 0.3 % Neutrophils # (Auto) 4.3 TH/MM3 Lymphocytes # (Auto) 2.4 TH/MM3 Monocytes # (Auto) 1.0 TH/MM3 Eosinophils # (Auto) 0.2 TH/MM3 Basophils # (Auto) 0.0 TH/MM3 CBC Comment AUTO DIFF Differential Total Cells Counted 100 Neutrophils % (Manual) 61 % Band Neutrophils % 5 % Lymphocytes % 18 % Monocytes % 10 % Eosinophils % 2 % Neutrophils # (Manual) 5.5 TH/MM3 Myelocytes 4 % Nucleated Red Blood Cells 1 /100 WBC Differential Comment FINAL DIFF MANUAL Platelet Estimate NORMAL Platelet Morphology Comment NORMAL Ovalocytes 1+ Blood Urea Nitrogen 11 MG/DL Creatinine 0.67 MG/DL Random Glucose 103 MG/DL Total Protein 6.6 GM/DL Albumin 3.2 GM/DL Calcium Level 8.9 MG/DL Alkaline Phosphatase 93 U/L Aspartate Amino Transf (AST/SGOT) 17 U/L Alanine Aminotransferase (ALT/SGPT) 20 U/L Total Bilirubin 0.2 MG/DL Sodium Level 141 MEQ/L Potassium Level 3.5 MEQ/L Chloride Level 109 MEQ/L Carbon Dioxide Level 24.9 MEQ/L Anion Gap 7 MEQ/L Estimat Glomerular Filtration Rate 120 ML/MIN Assessment and Plan Problem List: (1) Chest pain ICD Codes: R07.9 - Chest pain, unspecified (2) Anemia ICD Codes: D64.9 - Anemia, unspecified (3) Hepatitis C ICD Codes: B19.20 - Unspecified viral hepatitis C without hepatic coma Status: Acute (4) Polysubstance abuse ICD Codes: F19.10 - Other psychoactive substance abuse, uncomplicated Status: Acute (5) Alcohol dependence ICD Codes: F10.20 - Alcohol dependence, uncomplicated Status: Acute (6) Tobacco abuse ICD Codes: Z72.0 - Tobacco use Status: Chronic (7) NSTEMI (non-ST elevated myocardial infarction) ICD Codes: I21.4 - Non-ST elevation (NSTEMI) myocardial infarction Status: Acute Assessment and Plan 1.) NSTEMI/Chest pain improved pod#2 pci lad/dx. Continue aspirin, plavix 75 mg qd, lipitor and metoprolol, f/u cbc, hgb=8.2 today, moderate risk for noncardiac procedure Doug Flowers MD May 07, 2017 19:28
[2017-05-07] MEDS: traZODone HCL 50 MG TAB PO SCH (20:57)
[2017-05-07] MEDS: ATORVASTATIN 10 MG TAB PO SCH (20:57)
[2017-05-07] MEDS: AMITRIPTYLINE HCL 50 MG TAB PO SCH (20:57)
--- NOTE | 2017-05-07 22:47 | HHI.PR ---
Subjective Remarks Patient seen today around 2:30 PM. He reports lower back pain continues. Requesting IV morphine. Objective Vital Signs Date Time Temp Pulse Resp B/P (MAP) Pulse Ox O2 Delivery O2 Flow Rate FiO2 05/07/17 18:00 83 05/07/17 17:37 92 05/07/17 17:18 16 05/07/17 16:01 74 05/07/17 15:51 16 05/07/17 15:33 98.2 74 16 126/79 (95) 96 05/07/17 15:33 78 05/07/17 14:00 75 05/07/17 13:12 82 05/07/17 12:30 100 05/07/17 11:52 98.0 78 16 113/60 (77) 99 05/07/17 11:52 72 05/07/17 10:57 74 05/07/17 09:00 74 05/07/17 08:45 69 05/07/17 08:45 97.8 74 16 131/87 (102) 100 05/07/17 04:00 75 16 112/71 (85) 97 05/07/17 04:00 70 05/07/17 04:00 70 05/07/17 03:00 72 05/07/17 02:00 74 05/07/17 01:00 76 05/07/17 00:00 72 05/07/17 00:00 80 16 123/76 (92) 96 05/07/17 00:00 84 05/07/17 00:00 78 16 123/76 (92) 96 05/06/17 23:00 78 I/O 05/06/17 05/06/17 05/06/17 05/07/17 05/07/17 05/07/17 07:00 15:00 23:00 07:00 15:00 23:00 Intake Total 240 ml 110 ml 720 ml 240 ml 840 ml Output Total 1000 ml 1100 ml 300 ml Balance -760 ml 110 ml -380 ml -60 ml 840 ml Intake Oral 240 ml 720 ml 240 ml 840 ml IV Total 110 ml Output Urine Total 1000 ml 1100 ml 300 ml # Voids 5 # Bowel Movements 1 0 Result Diagram: 05/07/175 05/07/17444 Objective Remarks GENERAL: patient lying in bed. Appears comfortable. SKIN: Warm and dry. HEAD: Normocephalic. EYES: No scleral icterus. No injection or drainage. NECK: Supple, trachea midline. No JVD . CARDIOVASCULAR: Regular rate and rhythm without murmurs, gallops, or rubs. RESPIRATORY: Breath sounds equal bilaterally. No accessory muscle use. GASTROINTESTINAL: Abdomen soft, non-tender, nondistended. MUSCULOSKELETAL: No cyanosis, or edema. BACK: Nontender without obvious deformity. No CVA tenderness. A/P Assessment and Plan 61 year old male admitted secondary to chest pain with anemia //NSTEMI Chest pain Status post heart catheter Patient doing well No further chest pain today Cardiology following = Status post pci lad/dx. on 05/05.. Continue Plavix, Lipitor, metoprolol. //Anemia Status post transfusion Follow CBC Occult blood stool studies pending = Consult GI as patient has had stent placed and will need to be on anticoagulation //Hypertension Continue baseline treatment Follow blood pressures Adjust treatments as needed Continue home metoprolol and lisinopril //Alcohol abuse Continue [facility] protocol Monitor for signs of delirium tremens = 05/07. Scheduled Librium. //L4 compression fracture Continue pain management = 05/07. Discontinue IV morphine. Start scheduled OxyContin. DVT prophylaxis SCDs Discharge Planning pending GI and cardiology clearance. Aron Yuen MD May 07, 2017 22:47
[2017-05-07] MEDS ORDERED: oxyCODONE HCL 10 MG CONTROLLED RELEASE TAB PO ONE (23:45)
[2017-05-08] VITALS (15 sets, daily range): BP systolic 114–146; BP diastolic 68–90; PULSE 64–106; RESP 16–18; TEMP 97.7–98.4; O2SAT 97–98
[2017-05-08] MEDS: LORazepam 1 MG TAB PO PRN ×2 (01:31→14:09)
[2017-05-08] MEDS: LEVOTHYROXINE SODIUM 50 MCG TAB PO SCH (03:08)
[2017-05-08] MEDS: oxyCODONE/ACETAMINOPHEN 10 MG/325 MG TAB PO PRN ×3 (03:08→20:29)
[2017-05-08] MEDS: PROTEASE PO SCH ×3 (09:30→18:30)
[2017-05-08] MEDS: LIPASE PO SCH ×3 (09:30→18:30)
[2017-05-08] MEDS: AMYLASE PO SCH ×3 (09:30→18:30)
[2017-05-08] MEDS: predniSONE 10 MG TAB PO SCH (09:35)
[2017-05-08] MEDS: oxyCODONE HCL 10 MG CONTROLLED RELEASE TAB PO SCH ×2 (09:36→21:28)
[2017-05-08] MEDS: FERROUS SULFATE 325 MG (65 MG ELEMENTAL IRON) TAB PO SCH ×2 (09:36→21:27)
[2017-05-08] MEDS: METOPROLOL TARTRATE 25 MG TAB PO SCH ×2 (09:36→21:27)
[2017-05-08] MEDS: LISINOPRIL 10 MG TAB PO SCH (09:36)
[2017-05-08] MEDS: GABAPENTIN 400 MG CAP PO SCH ×3 (09:36→17:55)
[2017-05-08] MEDS: CLOPIDOGREL 75 MG TAB PO SCH (09:36)
[2017-05-08] MEDS: SODIUM CHLORIDE 0.9% FLUSH 10 ML FLUSH IV FLUSH SCH ×2 (09:37→21:28)
[2017-05-08] MEDS: ASPIRIN 81 MG CHEW TAB PO SCH (09:37)
[2017-05-08] MEDS: THIAMINE HCL 100 MG TAB PO SCH (09:37)
[2017-05-08] MEDS: CHOLECALCIFEROL (VIT D3) 1000 UNIT TAB PO SCH (09:37)
[2017-05-08] MEDS: PANTOPRAZOLE SOD 40 MG DELAYED RELEASE TAB PO SCH (09:37)
[2017-05-08] MEDS: IRON SUCROSE INJ 200 MG in SODIUM CHLORIDE 0.9% INJ 100 ML IV SCH (10:39)
[2017-05-08 11:37] LABS: AUTOMATED NEUTROPHIL # 3.3 TH/MM3 (1.8-7.7); BASOPHIL # 0.1 TH/MM3 (0-0.2); BASOPHIL % 1.1 % (0.0-2.0); EOSINOPHIL # 0.3 TH/MM3 (0-0.4); EOSINOPHIL % 3.4 % (0.0-4.0); HEMATOCRIT 27.7 % (39.0-51.0); HEMOGLOBIN 8.7 GM/DL (13.0-17.0); LYMPH % 39.9 % (9.0-44.0); LYMPHOCYTE # 3.3 TH/MM3 (1.0-4.8); MEAN CELL VOLUME 75.3 FL (80.0-100.0); MEAN CORPUSCULAR HEMOGLOBIN 23.5 PG (27.0-34.0); MEAN CORPUSCULAR HGB CONC 31.2 % (32.0-36.0); MEAN PLATELET VOLUME 8.4 FL (7.0-11.0); MONO % 15.5 % (0.0-8.0); MONOCYTE # 1.3 TH/MM3 (0-0.9); NEUT % 40.1 % (16.0-70.0); PLATELET COUNT 248 TH/MM3 (150-450); RED BLOOD COUNT 3.68 MIL/MM3 (4.50-5.90); WHITE BLOOD COUNT 8.2 TH/MM3 (4.0-11.0)
[2017-05-08] MEDS ORDERED: PROPOFOL 200 MG/20 ML AMP IV ONE (12:00)
[2017-05-08] MEDS ORDERED: LIDOCAINE HCL 1% PF 5 ML SYRINGE OTHER ONE (12:00)
--- NOTE | 2017-05-08 12:22 | HHI.PR ---
Subjective Remarks Patient seen this morning. Says he is feeling all right. Denies any chest pain shortness of breath. Reports back pain is controlled. Objective Vital Signs Date Time Temp Pulse Resp B/P (MAP) Pulse Ox O2 Delivery O2 Flow Rate FiO2 05/08/17 10:00 67 05/08/17 08:00 98.0 77 16 129/73 (91) 98 05/08/17 06:00 68 05/08/17 05:00 68 05/08/17 04:00 97.7 67 16 114/68 (83) 98 05/08/17 04:00 65 05/08/17 03:00 70 05/08/17 02:00 68 05/08/17 01:00 64 05/08/17 00:00 75 05/08/17 00:00 98.4 71 18 127/76 (93) 97 05/07/17 23:00 76 05/07/17 22:00 72 05/07/17 21:00 96 05/07/17 20:00 98.0 76 16 141/89 (106) 98 05/07/17 20:00 76 05/07/17 19:00 84 05/07/17 18:00 83 05/07/17 17:37 92 05/07/17 17:18 16 05/07/17 16:01 74 05/07/17 15:51 16 05/07/17 15:33 98.2 74 16 126/79 (95) 96 05/07/17 15:33 78 05/07/17 14:00 75 05/07/17 13:12 82 05/07/17 12:30 100 I/O 05/07/17 05/07/17 05/07/17 05/08/17 05/08/17 05/08/17 07:00 15:00 23:00 07:00 15:00 23:00 Intake Total 240 ml 840 ml 690 ml Output Total 300 ml Balance -60 ml 840 ml 690 ml Intake Oral 240 ml 840 ml 690 ml Output Urine Total 300 ml # Voids 5 4 # Bowel Movements 0 9 Result Diagram: 05/08/17 1040 05/07/17 0165 Objective Remarks GENERAL: patient lying in bed. Appears comfortable. SKIN: Warm and dry. HEAD: Normocephalic. EYES: No scleral icterus. No injection or drainage. NECK: Supple, trachea midline. No JVD . CARDIOVASCULAR: Regular rate and rhythm without murmurs, gallops, or rubs. RESPIRATORY: Breath sounds equal bilaterally. No accessory muscle use. GASTROINTESTINAL: Abdomen soft, non-tender, nondistended. MUSCULOSKELETAL: No cyanosis, or edema. BACK: Nontender without obvious deformity. No CVA tenderness. A/P Assessment and Plan 61 year old male admitted secondary to chest pain with anemia //NSTEMI Chest pain Status post heart catheter Patient doing well No further chest pain today Cardiology following = Status post pci lad/dx. on 05/05.. Continue Plavix, Lipitor, metoprolol. //Anemia Status post transfusion Follow CBC Occult blood stool studies pending = Consult GI as patient has had stent placed and will need to be on anticoagulation = 05/08 hemoglobin improving 8.7. EGD/colonoscopy today. Hematology also following. Iron supplementation. Appreciate assistance. //Hypertension Continue baseline treatment Follow blood pressures Adjust treatments as needed Continue home metoprolol and lisinopril //Alcohol abuse Continue [facility] protocol Monitor for signs of delirium tremens = 05/07. Scheduled Librium. = 05/08 much improved on scheduled Librium. We will plan taper //L4 compression fracture Continue pain management = 05/07. Discontinue IV morphine. Start scheduled OxyContin. = 05/08. Pain improved on OxyContin. Continue DVT prophylaxis SCDs Discharge Planning pending GI and cardiology clearance. Aorn Yuen MD May 08, 2017 12:22
[2017-05-08 13:02] LABS: HEPATITIS A AB IGM NEGATIVE (NEGATIVE); HEPATITIS B CORE AB IGM NEGATIVE (NEGATIVE); HEPATITIS B SURFACE ANTIGEN NEGATIVE (NEGATIVE); HEPATITIS C AB IgG REACTIVE (NEGATIVE)
[2017-05-08 13:44] LABS: BANDS 6 % (0-6); METAMYELOCYTES 2 % (0-1); MONOCYTES 15 % (0-8); MYELOCYTES 4 % (0-0); NEUTROPHIL # MANUAL DIFF 2.7 TH/MM3 (1.8-7.7); POLYS (SEG NEUTROPHILS) 21 % (16-70)
[2017-05-08 13:45] LABS: LYMPHOCYTES 52 % (9-44); OVALOCYTES 1+ (NORMAL)
--- NOTE | 2017-05-08 14:33 | PD.PROCEDR ---
GI Procedure PROCEDURE PERFORMED EGD with biopsy followed by a colonoscopy which was incomplete due to poor prep INDICATION FOR PROCEDURE Anemia, abdominal pain PROCEDURE: The procedure, risks and benefits were discussed with Ms. Tomas and informed consent was obtained. Anesthesia sedated her with Diprivan. She was placed in the left lateral decubitus position. EGD: The Pentax videoscope was introduced through the oropharynx and advanced to the second portion of the duodenum under direct visualization. Retroflexion was performed in the stomach. FINDINGS: The esophagus there was distal esophageal mucosal erythema suggestive of reflux esophagitis this was biopsied otherwise the esophagus was unremarkable The stomach there was a small hiatal hernia there was patchy erythema in the antrum but no ulcerations no erosions no blood or bleeding the rest of the stomach was unremarkable antral biopsies were taken for further evaluation The duodenum this was normal Colonoscopy: The Pentax videoscope was introduced through the rectum and advanced to cecum where the ileocecal valve and appendiceal orifice were identified. Retroflexion was performed in the rectum. Colonic prep was poor and the procedure was incomplete FINDINGS: Colonic withdrawal time greater than 6 minutes. As the scope was slowly withdrawn colonic mucosa was carefully inspected the prep was poor and the procedure was incomplete due to poor prep there were a few diverticuli noted in the sigmoid otherwise colonic mucosa was unremarkable ESTIMATED BLOOD LOSS: None SPECIMENS REMOVED: Gastric biopsies and esophageal biopsies COMPLICATIONS: None IMPRESSION: Reflux esophagitis Hiatal hernia Gastritis Diverticulosis Incomplete colonoscopy PLAN: Await biopsies PPI and reflux precautions Repeat colonoscopy in a.Bronson Villeda MD May 08, 2017 13:06 Bronson Sanches MD May 08, 2017 2:33 pm
[2017-05-08] MEDS ORDERED: PEG (High)/E-LYTE SOLN 4000 ML BTL PO ONE (15:00)
--- NOTE | 2017-05-08 18:19 | PD.CARD.PN ---
Subjective Subjective Remarks chest pain improved Objective Medications Current Medications Medications (Trade) Dose Ordered Sig/Ashlie Route Start Time Stop Time Status Last Admin (Nitrostat Sl) 0.4 mg Q5M PRN SL 04/30/17 20:45 (Tylenol) 500 mg Q4H PRN PO 04/30/17 20:45 (Vitamin B1) 100 mg DAILY PO 05/01/17 09:00 05/08/17 09:37 (Romazicon Inj) 0.2 mg Q1M PRN IV PUSH 04/30/17 22:15 (Ativan) 1 mg Q4H PRN PO 04/30/17 22:15 05/08/17 14:09 (Ativan Inj) 1 mg Q4H PRN IV PUSH 04/30/17 22:15 (Ativan) 2 mg Q2H PRN PO 04/30/17 22:15 05/06/17 11:54 (Ativan Inj) 2 mg Q2H PRN IV PUSH 04/30/17 22:15 (Ativan Inj) 2 mg Q1H PRN IV PUSH 04/30/17 22:15 (Ativan Inj) 2 mg Q15M PRN IV PUSH 04/30/17 22:15 (Pill Splitter) 1 ea UNSCH PRN OTHER 05/01/17 06:15 (Protonix) 40 mg DAILY PO 05/01/17 12:00 05/08/17 09:37 (Vitamin D3) 1,000 units DAILY PO 05/02/17 09:00 05/08/17 09:37 (Lopressor) 25 mg BID PO 05/01/17 21:00 05/08/17 09:36 (Ferrous Sulfate) 325 mg BID PO 05/02/17 21:00 05/08/17 09:36 (Prinivil) 10 mg DAILY PO 05/03/17 09:00 05/08/17 09:36 (Elavil) 50 mg HS PO 05/03/17 21:00 05/07/17 20:57 (Neurontin) 800 mg TID PO 05/03/17 18:00 05/08/17 17:55 (Synthroid) 50 mcg DAILY@0600 PO 05/04/17 06:00 05/08/17 03:08 (Desyrel) 50 mg HS PO 05/03/17 21:00 05/07/17 20:57 (Viokase 10-39-39) 2 tab TIDPC PO 05/03/17 18:30 05/07/17 17:13 (Deltasone) 10 mg DAILY PO 05/04/17 09:00 05/08/17 09:35 (Lipitor) 10 mg HS PO 05/03/17 21:00 05/07/17 20:57 (Percocet 7.5-325 Mg) 1 tab Q4H PRN PO 05/05/17 12:30 (Percocet 10-325 Mg) 1 tab Q6H PRN PO 05/05/17 12:30 05/08/17 14:09 (NS Flush) 2 ml UNSCH PRN IV FLUSH 05/05/17 15:00 (NS Flush) 2 ml BID IV FLUSH 05/05/17 21:00 05/08/17 09:37 (Aspirin Chew) 81 mg DAILY PO 05/06/17 09:00 05/08/17 09:37 (Plavix) 75 mg DAILY PO 05/06/17 09:00 05/08/17 09:36 (OxyCONTIN CR) 10 mg Q12HR PO 05/08/17 09:00 05/08/17 09:36 Iron Sucrose 200 mg/Sodium Chloride 110 ml @ 110 mls/hr DAILY IV 05/08/17 09:00 05/10/17 09:59 05/08/17 10:39 (Librium) 10 mg BID PO 05/08/17 21:00 Vital Signs / I&O Vital Signs Date Time Temp Pulse Resp B/P (MAP) Pulse Ox O2 Delivery O2 Flow Rate FiO2 05/08/17 17:05 18 05/08/17 17:04 20 05/08/17 16:34 98.4 83 18 140/83 (102) 98 05/08/17 13:35 63 16 127/76 (93) 95 05/08/17 13:13 97.5 67 16 110/67 (81) 96 05/08/17 10:00 67 05/08/17 08:00 98.0 77 16 129/73 (91) 98 05/08/17 06:00 68 05/08/17 05:00 68 05/08/17 04:00 97.7 67 16 114/68 (83) 98 05/08/17 04:00 65 05/08/17 03:00 70 05/08/17 02:00 68 05/08/17 01:00 64 05/08/17 00:00 75 05/08/17 00:00 98.4 71 18 127/76 (93) 97 05/07/17 23:00 76 05/07/17 22:00 72 05/07/17 21:00 96 05/07/17 20:00 98.0 76 16 141/89 (106) 98 05/07/17 20:00 76 05/07/17 19:00 84 I/O 05/07/17 05/07/17 05/07/17 05/08/17 05/08/17 05/08/17 07:00 15:00 23:00 07:00 15:00 23:00 Intake Total 240 ml 840 ml 690 ml 100 ml Output Total 300 ml Balance -60 ml 840 ml 690 ml 100 ml Intake Oral 240 ml 840 ml 690 ml Other 100 ml Output Urine Total 300 ml # Voids 5 4 # Bowel Movements 0 9 Physical Exam GENERAL: SKIN: Warm and dry. HEAD: Normocephalic. EYES: No scleral icterus. No injection or drainage. NECK: Supple, trachea midline. No JVD or lymphadenopathy. CARDIOVASCULAR: Regular rate and rhythm without murmurs, gallops, or rubs. RESPIRATORY: Breath sounds equal bilaterally. No accessory muscle use. GASTROINTESTINAL: Abdomen soft, non-tender, nondistended. MUSCULOSKELETAL: No cyanosis, or edema. BACK: Nontender without obvious deformity. No CVA tenderness. Laboratory Laboratory Tests Test 05/07/17 18:26 05/08/17 10:40 Hepatitis A IgM Antibody NEGATIVE Hepatitis B Surface Antigen NEGATIVE Hepatitis B Core IgM Antibody NEGATIVE Hepatitis C Antibody REACTIVE White Blood Count 8.2 TH/MM3 Red Blood Count 3.68 MIL/MM3 Hemoglobin 8.7 GM/DL Hematocrit 27.7 % Mean Corpuscular Volume 75.3 FL Mean Corpuscular Hemoglobin 23.5 PG Mean Corpuscular Hemoglobin Concent 31.2 % Red Cell Distribution Width 23.0 % Platelet Count 248 TH/MM3 Mean Platelet Volume 8.4 FL Neutrophils (%) (Auto) 40.1 % Lymphocytes (%) (Auto) 39.9 % Monocytes (%) (Auto) 15.5 % Eosinophils (%) (Auto) 3.4 % Basophils (%) (Auto) 1.1 % Neutrophils # (Auto) 3.3 TH/MM3 Lymphocytes # (Auto) 3.3 TH/MM3 Monocytes # (Auto) 1.3 TH/MM3 Eosinophils # (Auto) 0.3 TH/MM3 Basophils # (Auto) 0.1 TH/MM3 CBC Comment AUTO DIFF Differential Total Cells Counted 100 Neutrophils % (Manual) 21 % Band Neutrophils % 6 % Lymphocytes % 52 % Monocytes % 15 % Neutrophils # (Manual) 2.7 TH/MM3 Metamyelocytes 2 % Myelocytes 4 % Differential Comment FINAL DIFF MANUAL Atypical Lymphocytes % Platelet Estimate NORMAL Platelet Morphology Comment NORMAL Ovalocytes 1+ Assessment and Plan Problem List: (1) Chest pain ICD Codes: R07.9 - Chest pain, unspecified (2) Anemia ICD Codes: D64.9 - Anemia, unspecified (3) Hepatitis C ICD Codes: B19.20 - Unspecified viral hepatitis C without hepatic coma Status: Acute (4) Polysubstance abuse ICD Codes: F19.10 - Other psychoactive substance abuse, uncomplicated Status: Acute (5) Alcohol dependence ICD Codes: F10.20 - Alcohol dependence, uncomplicated Status: Acute (6) Tobacco abuse ICD Codes: Z72.0 - Tobacco use Status: Chronic (7) NSTEMI (non-ST elevated myocardial infarction) ICD Codes: I21.4 - Non-ST elevation (NSTEMI) myocardial infarction Status: Acute Assessment and Plan 1.) NSTEMI/Chest pain improved pod#3 pci lad/dx. Continue aspirin, plavix 75 mg qd, lipitor and metoprolol, f/u cbc, hgb=8.2 today, moderate risk for noncardiac procedure, esophagitis on egd, colonoscopy poor prep, to be repeated , d/w Doug Badillo MD May 08, 2017 18:18
[2017-05-08] MEDS: ATORVASTATIN 10 MG TAB PO SCH (21:27)
[2017-05-08] MEDS: traZODone HCL 50 MG TAB PO SCH (21:27)
[2017-05-08] MEDS: AMITRIPTYLINE HCL 50 MG TAB PO SCH (21:27)
[2017-05-09] VITALS (18 sets, daily range): BP systolic 103–138; BP diastolic 59–87; PULSE 61–88; RESP 16–20; TEMP 97.9–98.4; O2SAT 95–100
[2017-05-09] MEDS: LEVOTHYROXINE SODIUM 50 MCG TAB PO SCH (06:14)
[2017-05-09] MEDS: LISINOPRIL 10 MG TAB PO SCH (09:00)
[2017-05-09] MEDS: SODIUM CHLORIDE 0.9% FLUSH 10 ML FLUSH IV FLUSH SCH ×2 (09:00→19:58)
[2017-05-09] MEDS: GABAPENTIN 400 MG CAP PO SCH ×3 (09:00→18:00)
[2017-05-09] MEDS: METOPROLOL TARTRATE 25 MG TAB PO SCH ×2 (09:00→19:56)
[2017-05-09] MEDS: IRON SUCROSE INJ 200 MG in SODIUM CHLORIDE 0.9% INJ 100 ML IV SCH (09:00)
[2017-05-09] MEDS: CHOLECALCIFEROL (VIT D3) 1000 UNIT TAB PO SCH (09:00)
[2017-05-09] MEDS: LIPASE PO SCH ×3 (09:30→18:30)
[2017-05-09] MEDS: AMYLASE PO SCH ×3 (09:30→18:30)
[2017-05-09] MEDS: PROTEASE PO SCH ×3 (09:30→18:30)
[2017-05-09] MEDS ORDERED: PROPOFOL 200 MG/20 ML AMP IV ONE (12:00)
[2017-05-09] MEDS ORDERED: LIDOCAINE HCL 1% PF 5 ML SYRINGE OTHER ONE (12:00)
[2017-05-09] MEDS ORDERED: DO NOT ADM ANY ANTICOAGULANT DRUGS PRN (12:48)
--- NOTE | 2017-05-09 12:49 | PD.PROCEDR ---
GI Procedure PROCEDURE PERFORMED Diagnostic colonoscopy INDICATION FOR PROCEDURE Anemia PROCEDURE: The procedure, risks and benefits were discussed with Mr. Heredia and informed consent was obtained. Anesthesia sedated him with Diprivan. He was placed in the left lateral decubitus position. Colonoscopy: The Pentax videoscope was introduced through the rectum and advanced to cecum which was identified by the ileocecal valve and appendiceal orifice. Retroflexion was performed in the rectum. Colonic prep was fair, with some stool throughout the colon ESTIMATED BLOOD LOSS: None SPECIMENS REMOVED: None COMPLICATIONS: None IMPRESSION: Some stool throughout the colon may interfere with the vision of small lesion No obvious lesion to explain patient anemia was seen PLAN: Monitor H&H with packed RBC as needed Capsule endoscopy as an outpatient if there are signs of active bleeding Await the results for hepatitis C RNA May feed patient Bre Dimas MD May 09, 2017 12:49
--- NOTE | 2017-05-09 12:51 | HHI.GIFU ---
Subjective Remarks Patient laying in bed, seems to be comfortable, no complain, no active bleeding , he had poor prep yesterday and he took another prep today Objective Vitals I&O Vital Signs Date Time Temp Pulse Resp B/P (MAP) Pulse Ox O2 Delivery O2 Flow Rate FiO2 05/09/17 08:00 65 05/09/17 08:00 98.2 63 18 113/70 (84) 96 05/09/17 06:00 62 05/09/17 05:00 74 05/09/17 04:00 97.9 68 16 103/59 (74) 95 05/09/17 04:00 68 05/09/17 03:00 67 05/09/17 02:00 61 05/09/17 01:00 62 05/09/17 00:00 73 05/09/17 00:00 98.1 78 16 138/85 (102) 97 05/08/17 23:00 76 05/08/17 22:00 92 05/08/17 21:00 80 05/08/17 20:00 76 05/08/17 20:00 98.3 76 16 146/90 (108) 98 05/08/17 19:00 106 05/08/17 17:05 18 05/08/17 17:04 20 05/08/17 16:34 98.4 83 18 140/83 (102) 98 05/08/17 13:35 63 16 127/76 (93) 95 05/08/17 13:13 97.5 67 16 110/67 (81) 96 I/O 05/08/17 05/08/17 05/08/17 05/09/17 05/09/17 05/09/17 07:00 15:00 23:00 07:00 15:00 23:00 Intake Total 690 ml 100 ml 100 ml 1080 ml Balance 690 ml 100 ml 100 ml 1080 ml Intake Oral 690 ml 1080 ml IV Total 100 ml Other 100 ml # Voids 4 4 2 # Bowel Movements 9 1 Laboratory Date/Time Source Procedure Growth Status 05/02/17 17:55 Stool Stool Stool Occult Blood (JACINDA) - Final HEMOCCULT NEGATIVE Complete Physical Exam HEENT: Pupils round and reactive to light; normocephalic; atraumatic; no jaundice. Throat is clear. NECK: Neck is supple, no JVD, no lymphadenopathy. CHEST: Chest is clear to auscultation and percussion. CARDIAC: Regular rate and rhythm with no murmur gallop or rubs. ABDOMEN: Soft, nondistended, nontender; no hepatosplenomegaly; bowel sounds are present in all four quadrants. EXTREMITIES: No clubbing, cyanosis, or edema. SKIN: Normal; no rash; no jaundice. 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 Assessment and Plan Plan Seen and examined, patient had an upper endoscopy yesterday and incomplete on endoscopy because of poor prep, no active bleeding, hemoglobin stable, had repeat colonoscopy today Patient also has hepatitis C antibody and viral load is pending IMPRESSION: Some stool throughout the colon may interfere with the vision of small lesion No obvious lesion to explain patient anemia was seen PLAN: Monitor H&H with packed RBC as needed Capsule endoscopy as an outpatient if there are signs of active bleeding Await the results for hepatitis C RNA May feed Bre Agarwal MD May 09, 2017 12:50
[2017-05-09] MEDS: FERROUS SULFATE 325 MG (65 MG ELEMENTAL IRON) TAB PO SCH ×2 (13:41→19:55)
[2017-05-09] MEDS: CLOPIDOGREL 75 MG TAB PO SCH (13:42)
[2017-05-09] MEDS: predniSONE 10 MG TAB PO SCH (13:42)
[2017-05-09] MEDS: oxyCODONE HCL 10 MG CONTROLLED RELEASE TAB PO SCH ×2 (13:42→19:56)
[2017-05-09] MEDS: THIAMINE HCL 100 MG TAB PO SCH (13:43)
[2017-05-09] MEDS: ASPIRIN 81 MG CHEW TAB PO SCH (13:43)
[2017-05-09] MEDS: PANTOPRAZOLE SOD 40 MG DELAYED RELEASE TAB PO SCH (13:43)
[2017-05-09] MEDS ORDERED: ASPI81 PO (15:12)
[2017-05-09] MEDS ORDERED: LIPI10TA PO (15:12)
[2017-05-09] MEDS ORDERED: PLAV75TA29 PO (15:12)
[2017-05-09] MEDS ORDERED: FERR325T18 PO (15:12)
[2017-05-09] MEDS ORDERED: SENN8.6T36 PO (15:12)
[2017-05-09] MEDS ORDERED: CHLO10CA5 PO (15:19)
--- NOTE | 2017-05-09 15:26 | HHI.PR ---
Subjective Remarks Patient seen today after colonoscopy. Says he is feeling well. Denies any chest pain or shortness of breath. Denies any nausea or vomiting. Objective Vital Signs Date Time Temp Pulse Resp B/P (MAP) Pulse Ox O2 Delivery O2 Flow Rate FiO2 05/09/17 14:00 76 05/09/17 13:48 98.2 82 20 125/87 (100) 100 05/09/17 13:48 71 05/09/17 12:56 96.9 63 20 111/67 (82) 96 05/09/17 08:00 65 05/09/17 08:00 98.2 63 18 113/70 (84) 96 05/09/17 06:00 62 05/09/17 05:00 74 05/09/17 04:00 97.9 68 16 103/59 (74) 95 05/09/17 04:00 68 05/09/17 03:00 67 05/09/17 02:00 61 05/09/17 01:00 62 05/09/17 00:00 73 05/09/17 00:00 98.1 78 16 138/85 (102) 97 05/08/17 23:00 76 05/08/17 22:00 92 05/08/17 21:00 80 05/08/17 20:00 76 05/08/17 20:00 98.3 76 16 146/90 (108) 98 05/08/17 19:00 106 05/08/17 17:05 18 05/08/17 17:04 20 05/08/17 16:34 98.4 83 18 140/83 (102) 98 I/O 05/08/17 05/08/17 05/08/17 05/09/17 05/09/17 05/09/17 07:00 15:00 23:00 07:00 15:00 23:00 Intake Total 690 ml 100 ml 100 ml 1080 ml 350 ml Balance 690 ml 100 ml 100 ml 1080 ml 350 ml Intake Oral 690 ml 1080 ml IV Total 100 ml Other 100 ml 350 ml # Voids 4 4 2 # Bowel Movements 9 1 Result Diagram: 05/08/17 1040 05/07/17 0445 Objective Remarks GENERAL: patient lying in bed. Appears comfortable. aaox4 SKIN: Warm and dry. HEAD: Normocephalic. EYES: No scleral icterus. No injection or drainage. NECK: Supple, trachea midline. No JVD . CARDIOVASCULAR: Regular rate and rhythm without murmurs, gallops, or rubs. RESPIRATORY: Breath sounds equal bilaterally. No accessory muscle use. GASTROINTESTINAL: Abdomen soft, non-tender, nondistended. MUSCULOSKELETAL: No cyanosis, or edema. BACK: Nontender without obvious deformity. No CVA tenderness. A/P Assessment and Plan 61 year old male admitted secondary to chest pain with anemia //NSTEMI Chest pain Status post heart catheter Patient doing well No further chest pain today Cardiology following = Status post pci lad/dx. on 05/05.. Continue Plavix, Lipitor, metoprolol. //Anemia Status post transfusion Follow CBC Occult blood stool studies pending = Consult GI as patient has had stent placed and will need to be on anticoagulation = 05/08 hemoglobin improving 8.7. EGD/colonoscopy today. Hematology also following. Iron supplementation. Appreciate assistance. = 05/09. Colonoscopy without acute source of bleeding. Will start on iron replacement. //Hypertension Continue baseline treatment Follow blood pressures Adjust treatments as needed Continue home metoprolol and lisinopril //Alcohol abuse Continue [facility] protocol Monitor for signs of delirium tremens = 05/07. Scheduled Librium. = 05/08 much improved on scheduled Librium. We will plan taper = Discharge home with Librium taper. //L4 compression fracture Continue pain management = 05/07. Discontinue IV morphine. Start scheduled OxyContin. = 05/08. Pain improved on OxyContin. Continue DVT prophylaxis SCDs Discharge Planning Discharge home. Follow with GI, cardiology Aron Yuen MD May 09, 2017 15:26
--- NOTE | 2017-05-09 15:28 | HHI.DS ---
Discharge Summary Admission Date Apr 30, 2017 at 20:00 Discharge Date: May 10, 2017 Admitting Diagnosis NSTEMI, symptomatic anemia, lactic acidosis (1) NSTEMI (non-ST elevated myocardial infarction) ICD Code: I21.4 - Non-ST elevation (NSTEMI) myocardial infarction Status: Acute Procedures Cardiac catheterization. Please see report. EGD, colonoscopy 2 Brief History - From Admission This is a 61-year-old male with a PMH of HTN, Hepatitis C, Cirrhosis, Alcohol Abuse and Tobacco Abuse presents to the emergency department for evaluation of multiple complaints. The patient reports he has pain in his chest, stomach, legs and back that has persisted for months. He reports progressive worsening to the point where he could no longer take it and decided to come to the emergency department for evaluation. His chest pain he describes as a sharp nonradiating left-sided pain. He states he feels as though it stems from his abdominal pain which is in the epigastric region and constant. He endorses accompanying shortness of breath and fatigue. He denies any nausea/vomiting/ diarrhea. CBC/BMP: 05/08/17 1040 05/07/17 0445 Significant Findings Laboratory Tests Test 05/07/17 04:45 05/07/17 15:06 05/07/17 18:26 05/08/17 10:40 Red Blood Count 3.69 MIL/MM3 (4.50-5.90) 3.68 MIL/MM3 (4.50-5.90) Hemoglobin 8.2 GM/DL (13.0-17.0) 8.7 GM/DL (13.0-17.0) Hematocrit 26.8 % (39.0-51.0) 27.7 % (39.0-51.0) Mean Corpuscular Volume 72.6 FL (80.0-100.0) 75.3 FL (80.0-100.0) Mean Corpuscular Hemoglobin 22.3 PG (27.0-34.0) 23.5 PG (27.0-34.0) Mean Corpuscular Hemoglobin Concent 30.8 % (32.0-36.0) 31.2 % (32.0-36.0) Red Cell Distribution Width 22.4 % (11.6-17.2) 23.0 % (11.6-17.2) Monocytes (%) (Auto) 13.2 % (0.0-8.0) 15.5 % (0.0-8.0) Monocytes # (Auto) 1.0 TH/MM3 (0-0.9) 1.3 TH/MM3 (0-0.9) Monocytes % 10 % (0-8) 15 % (0-8) Myelocytes 4 % (0-0) 4 % (0-0) Nucleated Red Blood Cells 1 /100 WBC (0-0) Ovalocytes 1+ (NORMAL) 1+ (NORMAL) Albumin 3.2 GM/DL (3.4-5.0) Chloride Level 109 MEQ/L (98-107) Hepatitis C Antibody REACTIVE (NEGATIVE) Lymphocytes % 52 % (9-44) Metamyelocytes 2 % (0-1) Imaging Last Impressions Liver Ultrasound 05/01/17 0000 Signed Impressions: Service Date/Time: April 14:37 - CONCLUSION: Focal and unremarkable sonographic appearance of the right upper quadrant Vikas Daniels MD Chest X-Ray 04/30/17 0000 Signed Impressions: Service Date/Time: Sunday, April 30, 2017 16:04 - CONCLUSION: The lungs are clear. Luis Alfredo Whiting MD Abdomen/Pelvis CT 04/30/17 0000 Signed Impressions: Service Date/Time: Sunday, April 30, 2017 18:52 - CONCLUSION: 1. Compression fracture of the superior endplate of L4 with no bony retropulsion. This is new when compared to previous examination. 2. No definite abnormality to explain the patient's diffuse abdominal pain and weight loss identified. 3. Sizable hiatal hernia. Kenan Norman MD PE at Discharge GENERAL: male walking in room SKIN: No rashes, ecchymoses or lesions. Cool and dry. CARDIOVASCULAR: Regular rate and rhythm without murmurs, gallops, or rubs. RESPIRATORY: Clear to auscultation. Breath sounds equal bilaterally. No wheezes , rales, or rhonchi. GASTROINTESTINAL: Abdomen soft, slightly tender upper quadrants, nondistended. No guarding. MUSCULOSKELETAL: Extremities without clubbing, cyanosis, or edema. No joint tenderness, effusion, or edema noted. No calf tenderness. Lumbar spine tenderness NEUROLOGICAL: Awake and alert. Cranial nerves II through XII intact. Motor and sensory grossly within normal limits. Normal speech. Pt update on day of discharge Patient walking around without difficulty. Denies any chest pain or shortness of breath. Hospital Course Patient presented with troponin elevation, nonspecific changes on EKG. Cardiology was consulted. Patient underwent cardiac catheterization with placement of PCI to LAD and diagonal on 05/05. Due to anemia with hemoglobin in the sevens, GI was consulted, patient underwent colonoscopy with diverticulosis , no acute source of bleeding. Biopsies are pending. During admission, patient was also treated for alcohol withdrawal with Librium taper which will be continued at discharge. Patient was also found to have L4 compression fracture. She will be continued on pain medication. For problem based summary from most recent progress note, please see below. 61 year old male admitted secondary to chest pain with anemia //NSTEMI Chest pain Status post heart catheter Patient doing well No further chest pain today Cardiology following = Status post pci lad/dx. on 05/05.. Continue Plavix, Lipitor, metoprolol. //Anemia Status post transfusion Follow CBC Occult blood stool studies pending = Consult GI as patient has had stent placed and will need to be on anticoagulation = 05/08 hemoglobin improving 8.7. EGD/colonoscopy today. Hematology also following. Iron supplementation. Appreciate assistance. = 05/09. Colonoscopy without acute source of bleeding. Will start on iron replacement. //Hypertension Continue baseline treatment Follow blood pressures Adjust treatments as needed Continue home metoprolol and lisinopril //Alcohol abuse Continue [facility] protocol Monitor for signs of delirium tremens = 05/07. Scheduled Librium. = 05/08 much improved on scheduled Librium. We will plan taper = Discharge home with Librium taper. //L4 compression fracture Continue pain management = 05/07. Discontinue IV morphine. Start scheduled OxyContin. = 05/08. Pain improved on OxyContin. Continue DVT prophylaxis SCDs Pt Condition on Discharge: Good Discharge Disposition: Disch w/ Home Health Serv Discharge Time: > 30 minutes Discharge Instructions DIET: Follow Instructions for: Heart Healthy Diet Activities you can perform: Regular-No Restrictions Follow up Referrals: Cardiology - 1 Week Gastroenterology - 1 Week PCP Follow-up - 1 Week New Medications: Ferrous Sulfate (Ferrous Sulfate) 325 Mg (65 Mg Iron) Tablet 325 MG PO BIDPC for Nutritional Supplement, #60 TAB 0 Refills Sennosides (Senna-Tabs) 8.6 Mg Tab 8.6 MG PO DAILY for Constipation, #30 TAB 0 Refills Aspirin (Tgt Aspirin) 81 Mg Chw 81 MG PO DAILY for Blood Clot Prevention for 30 Days, EA Aspirin DR (Aspirin EC) 325 Mg Tabdr 325 MG PO DAILY for Prevent Blood Clot, #30 TAB Atorvastatin (Lipitor) 10 Mg Tab 10 MG PO HS for heart for 30 Days, TAB Chlordiazepoxide HCl (Chlordiazepoxide HCl) 10 Mg Capsule 10 MG PO DAILY for Alcohol Detox, #4 TAB Cholecalciferol (p Vitamin D3 Extra Stre) 1,000 Unit Tab 1000 UNITS PO DAILY for vitaminb, #30 TAB Clopidogrel (Plavix) 75 Mg Tab 75 MG PO DAILY for Blood Clot Prevention for 30 Days, #30 TAB Ferrous Sulfate (Ferosul) 325 Mg (65 Mg Iron) Tablet 325 MG PO BID for Build Red Blood Cells, #60 TAB Oxycodone ER (Oxycontin) 10 Mg Tab 10 MG PO Q12HR for Pain, #14 TAB Thiamine HCl ([facility] Vitamin B-1) 100 Mg Tab 100 MG PO DAILY for Alcohol Detox, #30 TAB Continued Medications: Acetaminophen-Codeine (Tylenol-Codeine #4) 300-60 mg Tab 1 TAB PO Q6HR PRN for PAIN, TAB 0 Refills Amitriptyline (Amitriptyline) 50 Mg Tab 50 MG PO HS for health for 14 Days, TAB Gabapentin (Gabapentin) 800 Mg Tab 800 MG PO TID, #90 TAB 0 Refills Levothyroxine (Synthroid) 50 Mcg Tab 50 MCG PO DAILY@0600, #30 TAB Lisinopril (Lisinopril) 10 Mg Tab 10 MG PO DAILY, #30 TAB 0 Refills Metoprolol Tartrate (Metoprolol Tartrate) 25 Mg Tab 25 MG PO BID, #60 TAB 0 Refills Nitroglycerin SL (Nitroglycerin SL) 0.4 Mg Subl 0.4 MG SL DIRECTED PRN for CHEST PAIN, #100 TAB.SL 0 Refills ONE TABLET UNDER THE TONGUE NEEDED FOR CHEST PAIN, MAY REPEAT EVERY FIVE MINUTES FOR A TOTAL OF 3 DOSES OR CALL 911 IF NO RELIEF Omeprazole (Omeprazole) 20 Mg Tab 20 MG PO DAILY, #30 TAB 0 Refills Oxycodone (Oxycodone) 5 Mg Tab 5 MG PO Q6HR PRN for pain, #20 TAB Pancrelipase (Zenpep) 10,000-34,000-55,000 Units Cap 2 CAP PO TIDPC for Digestive Aid, #90 CAP 0 Refills Prednisone (Prednisone) 10 Mg Tab 10 MG PO DAILY, TAB 0 Refills Tramadol (Tramadol) 50 Mg Tab 50 MG PO Q8H PRN for PAIN, TAB 0 Refills Trazodone (Trazodone) 50 Mg Tab 50 MG PO HS for Control Depression, #30 TAB 0 Refills Aron Yuen MD May 09, 2017 15:28
[2017-05-09] MEDS ORDERED: OXYC-103 PO (15:30)
--- NOTE | 2017-05-09 16:49 | PD.CARD.PN ---
Subjective Subjective Remarks chest pain improved Objective Medications Current Medications Medications (Trade) Dose Ordered Sig/Ashlie Route Start Time Stop Time Status Last Admin (Nitrostat Sl) 0.4 mg Q5M PRN SL 04/30/17 20:45 (Tylenol) 500 mg Q4H PRN PO 04/30/17 20:45 (Vitamin B1) 100 mg DAILY PO 05/01/17 09:00 05/09/17 13:43 (Romazicon Inj) 0.2 mg Q1M PRN IV PUSH 04/30/17 22:15 (Ativan) 1 mg Q4H PRN PO 04/30/17 22:15 05/08/17 14:09 (Ativan Inj) 1 mg Q4H PRN IV PUSH 04/30/17 22:15 (Ativan) 2 mg Q2H PRN PO 04/30/17 22:15 05/06/17 11:54 (Ativan Inj) 2 mg Q2H PRN IV PUSH 04/30/17 22:15 (Ativan Inj) 2 mg Q1H PRN IV PUSH 04/30/17 22:15 (Ativan Inj) 2 mg Q15M PRN IV PUSH 04/30/17 22:15 (Pill Splitter) 1 ea UNSCH PRN OTHER 05/01/17 06:15 (Protonix) 40 mg DAILY PO 05/01/17 12:00 05/09/17 13:43 (Vitamin D3) 1,000 units DAILY PO 05/02/17 09:00 05/09/17 09:00 (Lopressor) 25 mg BID PO 05/01/17 21:00 05/09/17 09:00 (Ferrous Sulfate) 325 mg BID PO 05/02/17 21:00 05/09/17 13:41 (Prinivil) 10 mg DAILY PO 05/03/17 09:00 05/09/17 09:00 (Elavil) 50 mg HS PO 05/03/17 21:00 05/08/17 21:27 (Neurontin) 800 mg TID PO 05/03/17 18:00 05/09/17 13:42 (Synthroid) 50 mcg DAILY@0600 PO 05/04/17 06:00 05/09/17 06:14 (Desyrel) 50 mg HS PO 05/03/17 21:00 05/08/17 21:27 (Viokase 10-39-39) 2 tab TIDPC PO 05/03/17 18:30 05/09/17 13:43 (Deltasone) 10 mg DAILY PO 05/04/17 09:00 05/09/17 13:42 (Lipitor) 10 mg HS PO 05/03/17 21:00 05/08/17 21:27 (Percocet 7.5-325 Mg) 1 tab Q4H PRN PO 05/05/17 12:30 (Percocet 10-325 Mg) 1 tab Q6H PRN PO 05/05/17 12:30 05/08/17 20:29 (NS Flush) 2 ml UNSCH PRN IV FLUSH 05/05/17 15:00 (NS Flush) 2 ml BID IV FLUSH 05/05/17 21:00 05/08/17 21:28 (Aspirin Chew) 81 mg DAILY PO 05/06/17 09:00 05/09/17 13:43 (Plavix) 75 mg DAILY PO 05/06/17 09:00 05/09/17 13:42 (OxyCONTIN CR) 10 mg Q12HR PO 05/08/17 09:00 05/09/17 13:42 Iron Sucrose 200 mg/Sodium Chloride 110 ml @ 110 mls/hr DAILY IV 05/08/17 09:00 05/10/17 09:59 05/08/17 10:39 (Librium) 10 mg BID PO 05/08/17 21:00 05/09/17 09:00 Miscellaneous Information ALL NURSING DEPARTME... UNSCH PRN .XX 05/09/17 12:48 05/10/17 12:47 Vital Signs / I&O Vital Signs Date Time Temp Pulse Resp B/P (MAP) Pulse Ox O2 Delivery O2 Flow Rate FiO2 05/09/17 15:00 98.4 80 20 125/86 (99) 98 05/09/17 15:00 71 05/09/17 14:00 76 05/09/17 13:48 98.2 82 20 125/87 (100) 100 05/09/17 13:48 71 05/09/17 12:56 96.9 63 20 111/67 (82) 96 05/09/17 08:00 65 05/09/17 08:00 98.2 63 18 113/70 (84) 96 05/09/17 06:00 62 05/09/17 05:00 74 05/09/17 04:00 97.9 68 16 103/59 (74) 95 05/09/17 04:00 68 05/09/17 03:00 67 05/09/17 02:00 61 05/09/17 01:00 62 05/09/17 00:00 73 05/09/17 00:00 98.1 78 16 138/85 (102) 97 05/08/17 23:00 76 05/08/17 22:00 92 05/08/17 21:00 80 05/08/17 20:00 76 05/08/17 20:00 98.3 76 16 146/90 (108) 98 05/08/17 19:00 106 05/08/17 17:05 18 05/08/17 17:04 20 I/O 05/08/17 05/08/17 05/08/17 05/09/17 05/09/17 05/09/17 07:00 15:00 23:00 07:00 15:00 23:00 Intake Total 690 ml 100 ml 100 ml 1080 ml 350 ml Balance 690 ml 100 ml 100 ml 1080 ml 350 ml Intake Oral 690 ml 1080 ml IV Total 100 ml Other 100 ml 350 ml # Voids 4 4 2 # Bowel Movements 9 1 Physical Exam GENERAL: SKIN: Warm and dry. HEAD: Normocephalic. EYES: No scleral icterus. No injection or drainage. NECK: Supple, trachea midline. No JVD or lymphadenopathy. CARDIOVASCULAR: Regular rate and rhythm without murmurs, gallops, or rubs. RESPIRATORY: Breath sounds equal bilaterally. No accessory muscle use. GASTROINTESTINAL: Abdomen soft, non-tender, nondistended. MUSCULOSKELETAL: No cyanosis, or edema. BACK: Nontender without obvious deformity. No CVA tenderness. Assessment and Plan Problem List: (1) Chest pain ICD Codes: R07.9 - Chest pain, unspecified (2) Anemia ICD Codes: D64.9 - Anemia, unspecified (3) Hepatitis C ICD Codes: B19.20 - Unspecified viral hepatitis C without hepatic coma Status: Acute (4) Polysubstance abuse ICD Codes: F19.10 - Other psychoactive substance abuse, uncomplicated Status: Acute (5) Alcohol dependence ICD Codes: F10.20 - Alcohol dependence, uncomplicated Status: Acute (6) Tobacco abuse ICD Codes: Z72.0 - Tobacco use Status: Chronic (7) NSTEMI (non-ST elevated myocardial infarction) ICD Codes: I21.4 - Non-ST elevation (NSTEMI) myocardial infarction Status: Acute Assessment and Plan 1.) NSTEMI/Chest pain improved pod#3 pci lad/dx. Continue aspirin, plavix 75 mg qd, lipitor and metoprolol, f/u cbc, hgb=8.7 today, esophagitis on egd, f/u colonoscopy results Doug Flowers MD May 09, 2017 16:49
[2017-05-09] MEDS: oxyCODONE/ACETAMINOPHEN 10 MG/325 MG TAB PO PRN (18:33)
[2017-05-09] MEDS: ATORVASTATIN 10 MG TAB PO SCH (19:56)
[2017-05-09] MEDS: traZODone HCL 50 MG TAB PO SCH (19:57)
[2017-05-09] MEDS: AMITRIPTYLINE HCL 50 MG TAB PO SCH (19:58)
[2017-05-09 20:15] LABS: AUTOMATED NEUTROPHIL # 4.7 TH/MM3 (1.8-7.7); BASOPHIL % 0.5 % (0.0-2.0); EOSINOPHIL # 0.1 TH/MM3 (0-0.4); EOSINOPHIL % 0.8 % (0.0-4.0); HEMATOCRIT 27.9 % (39.0-51.0); HEMOGLOBIN 8.8 GM/DL (13.0-17.0); LYMPH % 18.5 % (9.0-44.0); LYMPHOCYTE # 1.3 TH/MM3 (1.0-4.8); MEAN CELL VOLUME 75.9 FL (80.0-100.0); MEAN CORPUSCULAR HEMOGLOBIN 23.9 PG (27.0-34.0); MEAN CORPUSCULAR HGB CONC 31.5 % (32.0-36.0); MEAN PLATELET VOLUME 8.3 FL (7.0-11.0); MONO % 11.2 % (0.0-8.0); MONOCYTE # 0.8 TH/MM3 (0-0.9); PLATELET COUNT 287 TH/MM3 (150-450); RED BLOOD COUNT 3.67 MIL/MM3 (4.50-5.90); WHITE BLOOD COUNT 6.8 TH/MM3 (4.0-11.0)
[2017-05-09] MEDS: LORazepam 2 MG TAB PO PRN (20:17)
[2017-05-09 20:32] LABS: BICARBONATE 25.5 MEQ/L (21.0-32.0); CALCIUM 8.4 MG/DL (8.5-10.1); CREATININE 0.83 MG/DL (0.60-1.30)
[2017-05-09 21:28] LABS: BANDS 5 % (0-6); BASOPHILS 1 % (0-2); METAMYELOCYTES 1 % (0-1); MONOCYTES 6 % (0-8); MYELOCYTES 2 % (0-0); NEUTROPHIL # MANUAL DIFF 5.4 TH/MM3 (1.8-7.7); POLYS (SEG NEUTROPHILS) 71 % (16-70)
[2017-05-09 21:29] LABS: LYMPHOCYTES 14 % (9-44); TOXIC GRANULATION 2+ (NORMAL)
[2017-05-09 21:31] LABS: OVALOCYTES 1+ (NORMAL)
[2017-05-10] VITALS (9 sets, daily range): BP systolic 117–146; BP diastolic 75–81; PULSE 70–82; RESP 18–20; TEMP 98–98.5; O2SAT 96–98
[2017-05-10] MEDS: oxyCODONE/ACETAMINOPHEN 10 MG/325 MG TAB PO PRN (03:56)
[2017-05-10] MEDS: LEVOTHYROXINE SODIUM 50 MCG TAB PO SCH (05:16)
[2017-05-10] MEDS: ASPIRIN 81 MG CHEW TAB PO SCH (09:29)
[2017-05-10] MEDS: THIAMINE HCL 100 MG TAB PO SCH (09:29)
[2017-05-10] MEDS: LISINOPRIL 10 MG TAB PO SCH (09:30)
[2017-05-10] MEDS: METOPROLOL TARTRATE 25 MG TAB PO SCH (09:30)
[2017-05-10] MEDS: PANTOPRAZOLE SOD 40 MG DELAYED RELEASE TAB PO SCH (09:30)
[2017-05-10] MEDS: LIPASE PO SCH (09:30)
[2017-05-10] MEDS: CHOLECALCIFEROL (VIT D3) 1000 UNIT TAB PO SCH (09:30)
[2017-05-10] MEDS: predniSONE 10 MG TAB PO SCH (09:30)
[2017-05-10] MEDS: PROTEASE PO SCH (09:30)
[2017-05-10] MEDS: GABAPENTIN 400 MG CAP PO SCH (09:30)
[2017-05-10] MEDS: FERROUS SULFATE 325 MG (65 MG ELEMENTAL IRON) TAB PO SCH (09:30)
[2017-05-10] MEDS: CLOPIDOGREL 75 MG TAB PO SCH (09:30)
[2017-05-10] MEDS: oxyCODONE HCL 10 MG CONTROLLED RELEASE TAB PO SCH (09:30)
[2017-05-10] MEDS: AMYLASE PO SCH (09:30)
[2017-05-10] MEDS: IRON SUCROSE INJ 200 MG in SODIUM CHLORIDE 0.9% INJ 100 ML IV SCH (09:31)
== END 2017-05-10 11:12 | disposition home health service (06) | DRG 249 ==
LOC: NEPE 13:01 → NEDA 20:00 → N05B 22:40 → HCIS 05-05 14:45
PROVIDERS: ADMIT Internal Medicine; ATTEND Internal Medicine
PROC: 30233N1 Transfusion of Nonautologous Red Blood Cells into Peripheral Vein, Percutaneous Approach (ICD-10-PCS; principal; 2017-04-30)
PROC: 02703DZ Dilation of Coronary Artery, One Artery with Intraluminal Device, Percutaneous Approach (ICD-10-PCS; 2017-05-05)
PROC: 02703ZZ Dilation of Coronary Artery, One Artery, Percutaneous Approach (ICD-10-PCS; 2017-05-05)
PROC: 4A033BC Measurement of Arterial Pressure, Coronary, Percutaneous Approach (ICD-10-PCS; 2017-05-05)
PROC: 4A023N7 Measurement of Cardiac Sampling and Pressure, Left Heart, Percutaneous Approach (ICD-10-PCS; 2017-05-05)
PROC: B2111ZZ Fluoroscopy of Multiple Coronary Arteries using Low Osmolar Contrast (ICD-10-PCS; 2017-05-05)
PROC: B2151ZZ Fluoroscopy of Left Heart using Low Osmolar Contrast (ICD-10-PCS; 2017-05-05)
PROC: 0DB38ZX Excision of Lower Esophagus, Via Natural or Artificial Opening Endoscopic, Diagnostic (ICD-10-PCS; 2017-05-08)
PROC: 0DB68ZX Excision of Stomach, Via Natural or Artificial Opening Endoscopic, Diagnostic (ICD-10-PCS; 2017-05-08)
PROC: 0DJD8ZZ Inspection of Lower Intestinal Tract, Via Natural or Artificial Opening Endoscopic (ICD-10-PCS; 2017-05-08)
PROC: 0DJD8ZZ Inspection of Lower Intestinal Tract, Via Natural or Artificial Opening Endoscopic (ICD-10-PCS; 2017-05-09)
DX: I21.4 Non-ST elevation (NSTEMI) myocardial infarction (principal); S32.040A Wedge compression fracture of fourth lumbar vertebra, initial encounter for closed fracture; E87.2 Acidosis; K86.1 Other chronic pancreatitis; S30.0XXA Contusion of lower back and pelvis, initial encounter; F10.239 Alcohol dependence with withdrawal, unspecified; F17.210 Nicotine dependence, cigarettes, uncomplicated; I10 Essential (primary) hypertension; D50.9 Iron deficiency anemia, unspecified; I25.119 Atherosclerotic heart disease of native coronary artery with unspecified angina pectoris; B19.20 Unspecified viral hepatitis C without hepatic coma; E03.9 Hypothyroidism, unspecified; E07.9 Disorder of thyroid, unspecified; K70.9 Alcoholic liver disease, unspecified; G43.909 Migraine, unspecified, not intractable, without status migrainosus; K44.9 Diaphragmatic hernia without obstruction or gangrene; M06.9 Rheumatoid arthritis, unspecified; M19.90 Unspecified osteoarthritis, unspecified site; K57.30 Diverticulosis of large intestine without perforation or abscess without bleeding; K21.0 Gastro-esophageal reflux disease with esophagitis; G89.29 Other chronic pain; R63.4 Abnormal weight loss; Z86.14 Personal history of Methicillin resistant Staphylococcus aureus infection; W19.XXXA Unspecified fall, initial encounter; Y93.9 Activity, unspecified; Y92.9 Unspecified place or not applicable; Y99.9 Unspecified external cause status; K29.70 Gastritis, unspecified, without bleeding; Z91.81 History of falling
CPT/HCPCS: 36430; 71045; 74177; 76705; 76937; 80048; 80053; 80061; 80074; 80307; 81001; 82272; 82550; 82607; 82728; 82746; 83540; 83550; 83605; 83690; 83735; 84443; 84484; 85002; 85007; 85025; 85027; 85347; 85610; 85652; 85730; 86140; 86703; 86850; 86880; 86900; 86901; 86920; 87522; 88305; 88312; 92921; 92928; 93005; 93458; 93571; 93572; 96361; 96374; 96376; 99152; 99153; C1725; C1769; C1876; C1887; C1893; J0153; J1644; J1756; J2060; J2250; J2270; J3010; J7030; J7050; J7512; L0484; P9016; Q9967

== ENCOUNTER 2017-05-13 09:05 | Inpatient (IN) | payer MEDICARE, OTHER ==
[2017-05-13] VITALS (9 sets, daily range): BP systolic 133–173; BP diastolic 50–90; PULSE 89–105; RESP 16–24; TEMP 98.4–98.6; O2SAT 98–100
[~2017-05-13] VITALS: Ht 188 cm; Wt 70.5 kg
[~2017-05-13 09:05] MED LIST changes: +ASPI325T33 PO; +ASPI81 PO; +CHLO10CA5 PO; +CHOL1000 PO; +FERR325T18 PO; +FERR325T20 PO; -LEVO750T3 PO; +LIPI10TA PO; +OXYC-103 PO; +PLAV75TA29 PO; +PRED10 PO; +SENN8.6T36 PO; -SULF400T18 PO; +THIA100 PO; +TRAM50TA PO; +TRAZ50TA12 PO; +TYLETAB36 PO
[2017-05-13] MEDS ORDERED: SODIUM CHLOR 0.9% 1000 ML INJ 1,000 ML IV ONE (09:11)
[2017-05-13] MEDS ORDERED: NITROGLYCERIN 0.4 MG SL 25 TABS/BTL SL STA (09:11)
[2017-05-13] MEDS ORDERED: SODIUM CHLORIDE 0.9% FLUSH 10 ML FLUSH IVF PRN (09:15)
[2017-05-13] MEDS ORDERED: NITROGLYCERIN-D5W 50 MG/250 ML 250 ML IV PRN (09:15)
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
[2017-05-13] MEDS ORDERED: HEPARIN SODIUM - IV 10,000 UNITS/10 ML VIAL IV PUSH ONE (09:45)
[2017-05-13] MEDS ORDERED: CLOPIDOGREL 300 MG TAB PO ONE ×2 (09:45→15:08)
[2017-05-13] MEDS ORDERED: HEPARIN-D5W 25,000 U/250 ML 250 ML IV PRN (09:45)
[2017-05-13] MEDS: NITROGLYCERIN-D5W 50 MG/250 ML 250 ML IV PRN (10:07)
[2017-05-13 10:23] LABS: AUTOMATED NEUTROPHIL # 7.8 TH/MM3 (1.8-7.7); BASOPHIL % 0.5 % (0.0-2.0); EOSINOPHIL % 0.5 % (0.0-4.0); HEMATOCRIT 31.8 % (39.0-51.0); HEMOGLOBIN 10.1 GM/DL (13.0-17.0); LYMPH % 8.8 % (9.0-44.0); LYMPHOCYTE # 0.9 TH/MM3 (1.0-4.8); MEAN CELL VOLUME 77.1 FL (80.0-100.0); MEAN CORPUSCULAR HEMOGLOBIN 24.4 PG (27.0-34.0); MEAN CORPUSCULAR HGB CONC 31.7 % (32.0-36.0); MONO % 9.8 % (0.0-8.0); MONOCYTE # 0.9 TH/MM3 (0-0.9); NEUT % 80.4 % (16.0-70.0); PLATELET COUNT 363 TH/MM3 (150-450); RED BLOOD COUNT 4.12 MIL/MM3 (4.50-5.90); RED CELL DISTRIBUTION WIDTH 31.2 % (11.6-17.2); WHITE BLOOD COUNT 9.7 TH/MM3 (4.0-11.0)
[2017-05-13 10:42] LABS: CALCIUM 8.9 MG/DL (8.5-10.1); MAGNESIUM 1.8 MG/DL (1.5-2.5)
[2017-05-13 10:45] LABS: TROPONIN I 0.53 NG/ML (0.02-0.05)
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
[2017-05-13 11:22] LABS: ACANTHOCYTES OCC (NORMAL); BANDS 17 % (0-6); BASOPHILS 1 % (0-2); LYMPHOCYTES 11 % (9-44); METAMYELOCYTES 2 % (0-1); MONOCYTES 6 % (0-8); MYELOCYTES 2 % (0-0); OVALOCYTES 1+ (NORMAL); POLYS (SEG NEUTROPHILS) 61 % (16-70)
--- NOTE | 2017-05-13 12:16 | HHI.HP ---
HPI Service Family Medicine Primary Care Physician No Primary Care Physician Admission Diagnosis Non-ST elevation ID Diagnoses: International Travel<30 Days: No Contact w/Intl Traveler<30days: No Known Affected Area: No History of Present Illness 61-year-old male with history of recent NSTEMI s/p catheterization one week ago , HTN, Hep C, Cirrhosis, Tobacco and Alcohol abuse presented to [facility] ED with chest pain that began this morning. This morning he walked a few blocks to the store and started having chest pain when he returned home. Chest pain is currently 9/10 but fluctuates in intensity. He cannot describe the pain. Pain is in middle to left chest and radiates to abdomen and back. He has had "a little" shortness of breath, dizziness and diaphoresis. He also complains of constipation for the past few days and headache that started in the ED. He says that he takes some medications but is unsure of what he takes or how often he takes them because "he has so many." He denies, changes in vision, changes in bowels, or paraesthesias. (Cornelius Garcia MD, R3) Review of Systems Constitutional: COMPLAINS OF: Diaphoretic episodes, Dizziness, DENIES: Fever, Chills Eyes: DENIES: Blurred vision, Diplopia Respiratory: COMPLAINS OF: Shortness of breath, DENIES: Cough, Sputum production Cardiovascular: COMPLAINS OF: Chest pain, Dyspnea on Exertion Gastrointestinal: COMPLAINS OF: Abdominal pain, Constipation Genitourinary: DENIES: Urgency, Hematuria Musculoskeletal: COMPLAINS OF: Muscle aches, DENIES: Joint pain Integumentary: DENIES: Rash Hematologic/lymphatic: DENIES: Bruising, Lymphadenopathy Neurologic: COMPLAINS OF: Abnormal gait, Headache Psychiatric: DENIES: Anxiety, Confusion (Cornelius Garcia MD, R3) Past Family Social History Past Medical History Hypertension Hepatitis C Cirrhosis Tobacco Abuse Alcohol Abuse CAD Past Surgical History Cholecystectomy Tonsillectomy Left Knee Surgery PCI to LAD and diagonal on 05/05 Reported Medications Reported Meds & Active Scripts Active Lipitor (Atorvastatin Calcium) 10 Mg Tab 10 Mg PO HS 30 Days Plavix (Clopidogrel Bisulfate) 75 Mg Tab 75 Mg PO DAILY 30 Days Oxycodone (Oxycodone HCl) 5 Mg Tab 5 Mg PO Q6HR PRN Synthroid (Levothyroxine Sodium) 50 Mcg Tab 50 Mcg PO DAILY@0600 Reported Trazodone (Trazodone HCl) 50 Mg Tab 50 Mg PO HS Omeprazole 20 Mg Tab 20 Mg PO DAILY Lisinopril 10 Mg Tab 10 Mg PO DAILY Metoprolol Tartrate 25 Mg Tab 25 Mg PO BID Nitroglycerin SL (Nitroglycerin) 0.4 Mg Subl 0.4 Mg SL DIRECTED PRN ONE TABLET UNDER THE TONGUE NEEDED FOR CHEST PAIN, MAY REPEAT EVERY FIVE MINUTES FOR A TOTAL OF 3 DOSES OR CALL 911 IF NO RELIEF Zenpep (Pancrelipase) 10,000-34,000-55,000 Units Cap 2 Cap PO TIDPC Gabapentin 800 Mg Tab 800 Mg PO TID (Cornelius Garcia MD, R3) Allergies: Coded Allergies: cefepime (Unverified Allergy, Severe, 05/13/17) ceftaroline fosamil (Unverified Allergy, Severe, 05/13/17) cephalexin (Unverified Allergy, Severe, UNKNOWN, 05/13/17) *MDRO Multi-Drug Resistant Organism (Verified Adverse Reaction, Unknown, ) 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 Active Ordered Medications Active Medications Acetaminophen (Tylenol) 650 mg Q4H PRN PO; Start 05/13/17 at 12:30 Atorvastatin Calcium (Lipitor) 10 mg HS PO; Start 05/13/17 at 21:00 Bisacodyl (Dulcolax Supp) 10 mg DAILY PRN RECTAL; Start 05/13/17 at 12:30 Clopidogrel Bisulfate (Plavix) 75 mg DAILY PO; Start 05/14/17 at 09:00; Status UNV Clopidogrel Bisulfate (Plavix) 300 mg ONCE ONCE PO Last administered on at 09:55; Admin Dose 300 MG; Start 05/13/17 at 09:45; Stop 05/13/17 at 09:46; Status DC Fentanyl Citrate (fentaNYL INJ) 100 mcg STK-MED ONCE .ROUTE; Start 05/13/17 at 14 :11; Stop 05/13/17 at 14:12; Status DC Gabapentin (Neurontin) 800 mg TID PO Last administered on 05/13/17at 13:17; Admin Dose 800 MG; Start 05/13/17 at 13:00 Heparin Sodium (Porcine) (Heparin Inj) 2,500 units UNSCH PRN IV PUSH; Start 05/13/17 at 15:45 Heparin Sodium (Porcine) (Heparin Inj) 4,000 units ONCE ONCE IV PUSH Last administered on 05/13/17at 09:55; Admin Dose 4,000 UNITS; Start 05/13/17 at 09:45; Stop 05/13/17 at 09:46; Status DC Heparin Sodium (Porcine) (Heparin Inj) 5,000 units UNSCH PRN IV PUSH; Start 05/13/17 at 15:45 Heparin Sodium (Porcine) (Heparin Inj) 10,000 units STK-MED ONCE .ROUTE; Start 05/13/17 at 14:01; Stop 05/13/17 at 14:02; Status DC Heparin Sodium/ Dextrose 250 ml @ 9 mls/hr TITRATE PRN IV Last administered on 05/13/17at 11:15; Admin Dose 9 MLS/HR; Start 05/13/17 at 09:45 Heparin Sodium/ Sodium Chloride 2,000 ml @ As Directed STK-MED ONCE IV FLUSH; Start 05/13/17 at 14:01; Stop 05/13/17 at 14:02; Status DC Lactulose (Lactulose Liq) 30 ml DAILY PRN PO; Start 05/13/17 at 12:30 Levothyroxine Sodium (Synthroid) 50 mcg DAILY@0600 PO; Start 05/14/17 at 06:00 Lisinopril (Prinivil) 10 mg DAILY PO; Start 05/14/17 at 09:00 Magnesium Hydroxide (Milk Of Magnesia Liq) 30 ml Q12H PRN PO; Start 05/13/17 at 12:30 Metoprolol Tartrate (Lopressor) 25 mg BID PO; Start 05/14/17 at 09:00 Midazolam HCl (Versed Inj) 2 mg STK-MED ONCE .ROUTE; Start 05/13/17 at 14:09; Stop 05/13/17 at 14:10; Status DC Morphine Sulfate (Morphine Inj) 2 mg Q3HR PRN IV PUSH Last administered on at 12:51; Admin Dose 2 MG; Start 05/13/17 at 12:45 Naloxone HCl (Narcan Inj) 0.4 mg UNSCH PRN IV PUSH; Start 05/13/17 at 12:30 Nitroglycerin 5 ml @ As Directed STK-MED ONCE .ROUTE; Start 05/13/17 at 14:01; Stop 05/13/17 at 14:02; Status DC Nitroglycerin (Nitrostat Sl) 0.4 mg NOW STAT SL Last administered on 05/13/17at 09:42; Admin Dose 0.4 MG; Start 05/13/17 at 09:11; Stop 05/13/17 at 09:15; Status DC Nitroglycerin (Nitrostat Sl) 0.4 mg QID PRN SL; Start 05/13/17 at 12:45; Status UNV Nitroglycerin/ Dextrose 250 ml TITRATE PRN IV; Start 05/13/17 at 09:15; Stop 05/13/17 at 09:26; Status DC Nitroglycerin/ Dextrose 250 ml @ 3 mls/hr TITRATE PRN IV Last administered on at 10:07; Admin Dose 3 MLS/HR; Start 05/13/17 at 09:30 Non-Formulary Medication 2 cap TIDPC PO; Start 05/13/17 at 13:30; Status UNV Non-Formulary Medication 20 mg DAILY PO; Start 05/14/17 at 09:00; Status UNV Ondansetron HCl (Zofran Inj) 4 mg Q6H PRN IVP; Start 05/13/17 at 12:30 Senna/Docusate Sodium (Christie-Colace) 1 tab BID PO; Start 05/13/17 at 21:00 Sennosides (Senokot) 17.2 mg Q12H PRN PO; Start 05/13/17 at 12:30 Sodium Chloride 1,000 ml @ 0 mls/hr Q0M ONCE IV; Start 05/13/17 at 09:11; Stop 05/13/17 at 09:15; Status DC Sodium Chloride 1,000 ml @ 100 mls/hr Q10H IV Last administered on 05/13/17at 13: 17; Admin Dose 100 MLS/HR; Start 05/13/17 at 13:00 Sodium Chloride (NS Flush) 2 ml BID IV FLUSH; Start 05/13/17 at 21:00 Sodium Chloride (NS Flush) 2 ml UNSCH PRN IV FLUSH; Start 05/13/17 at 12:30 Sodium Chloride (NS Flush) 2 ml UNSCH PRN IVF; Start 05/13/17 at 09:15; Stop 05/13/17 at 12:37; Status DC Trazodone HCl (Desyrel) 50 mg HS PO; Start 05/13/17 at 21:00 Zolpidem Tartrate (Ambien) 5 mg HS PRN PO; Start 05/13/17 at 12:30 Family History Mother: at 68 from liver disease Father: in industrial explosion at work Paternal grandfather: , ID Social History Lives with roommate but looking for new place to live Current smoker, 1ppd since he was a teenager, wants to quit Alcohol intermittently, last use: 1/2 beer today Denies illicit drug use (Cornelius Garcia MD, R3) Physical Exam Vital Signs Vital Signs Date Time Temp Pulse Resp B/P (MAP) Pulse Ox O2 Delivery O2 Flow Rate FiO2 05/13/17 11:35 89 17 141/68 (92) 98 05/13/17 11:16 100 19 150/78 (102) 98 Nasal Cannula 2.00 05/13/17 10:22 104 16 133/71 (91) 99 Nasal Cannula 2.00 05/13/17 10:07 98 164/86 05/13/17 10:00 104 164/86 (112) 05/13/17 09:09 98.6 95 24 173/90 (117) 100 Physical Exam GENERAL: This is a well-nourished, well-developed patient, in no acute distress. SKIN: No rashes, ecchymoses or lesions. Cool and dry. HEAD: Atraumatic. Normocephalic. No temporal or scalp tenderness. EYES: Pupils equal round and reactive. Extraocular motions intact. No scleral icterus. No injection or drainage. ENT: Nose without bleeding, purulent drainage or septal hematoma. Throat without erythema, tonsillar hypertrophy or exudate. Uvula midline. Airway patent. NECK: Trachea midline. No JVD or lymphadenopathy. Supple, nontender, no meningeal signs. CARDIOVASCULAR: Regular rate and rhythm without murmurs, gallops, or rubs. RESPIRATORY: Clear to auscultation. Breath sounds equal bilaterally. No wheezes , rales, or rhonchi. GASTROINTESTINAL: Abdomen soft, non-tender, nondistended. No hepato-splenomegaly , or palpable masses. No guarding. MUSCULOSKELETAL: Extremities without clubbing, cyanosis, or edema. No joint tenderness, effusion, or edema noted. No calf tenderness. Negative Homans sign bilaterally. NEUROLOGICAL: Awake and alert. Cranial nerves II through XII intact. Motor and sensory grossly within normal limits. Five out of 5 muscle strength in all muscle groups. Normal speech. Laboratory Laboratory Tests Test 05/13/17 10:00 White Blood Count 9.7 Red Blood Count 4.12 Hemoglobin 10.1 Hematocrit 31.8 Mean Corpuscular Volume 77.1 Mean Corpuscular Hemoglobin 24.4 Mean Corpuscular Hemoglobin Concent 31.7 Red Cell Distribution Width 31.2 Platelet Count 363 Mean Platelet Volume 8.0 Neutrophils (%) (Auto) 80.4 Lymphocytes (%) (Auto) 8.8 Monocytes (%) (Auto) 9.8 Eosinophils (%) (Auto) 0.5 Basophils (%) (Auto) 0.5 Neutrophils # (Auto) 7.8 Lymphocytes # (Auto) 0.9 Monocytes # (Auto) 0.9 Eosinophils # (Auto) 0.0 Basophils # (Auto) 0.0 CBC Comment AUTO DIFF Differential Total Cells Counted 100 Neutrophils % (Manual) 61 Band Neutrophils % 17 Lymphocytes % 11 Monocytes % 6 Basophils % 1 Neutrophils # (Manual) 8.0 Metamyelocytes 2 Myelocytes 2 Differential Comment FINAL DIFF MANUAL Platelet Estimate NORMAL Platelet Morphology Comment NORMAL Ovalocytes 1+ Acanthocytes OCC Activated Partial Thromboplast Time 24.4 Calcium Level 8.9 Magnesium Level 1.8 Total Creatine Kinase 108 Creatine Kinase MB 7.8 Troponin I 0.53 B-Type Natriuretic Peptide 18 (Cornelius Garcia MD, R3) Result Diagram: 05/13/17 1000 Imaging Last Impressions Chest X-Ray 05/13/17 1047 Signed Impressions: Service Date/Time: Saturday, May 13, 2017 10:59 - CONCLUSION: 1. No acute cardiopulmonary disease. Johnathon Dietz MD (Cornelius Garcia MD, R3) Caprini VTE Risk Assessment Caprini VTE Risk Assessment: Mod/High Risk (score >= 2) Caprini Risk Assessment Model Point Value = 1 Point Value = 2 Point Value = 3 Point Value = 5 Age 41-60 Minor surgery BMI > 25 kg/m2 Swollen legs Varicose veins or History of unexplained or recurrent spontaneous Oral contraceptives or hormone replacement Sepsis (< 1 month) Serious lung disease, including pneumonia (< 1 month) Abnormal pulmonary function Acute myocardial infarction Congestive heart failure (< 1 month) History of inflammatory bowel disease Medical patient at bed rest Age 61-74 Arthroscopic surgery Major open surgery (> 45 min) Laparoscopic surgery (> 45 min) Malignancy Confined to bed (> 72 hours) Immobilizing plaster cast Central venous access Age >= 75 History of VTE Family history of VTE Factor V Leiden Prothrombin [id number] Lupus anticoagulant Anticardiolipin antibodies Elevated serum homocysteine Heparin-induced thrombocytopenia Other congenital or acquired thrombophilia Stroke (< 1 month) Elective arthroplasty Hip, pelvis, or leg fracture Acute spinal cord injury (< 1 month) Prophylaxis Regimen Total Risk Factor Score Risk Level Prophylaxis Regimen 0-1 Low Early ambulation 2 Moderate Order ONE of the following: *Sequential Compression Device (SCD) *Heparin 5000 units SQ BID 3-4 Higher Order ONE of the following medications: *Heparin 5000 units SQ TID *Enoxaparin/Lovenox 40 mg SQ daily (WT < 150 kg, CrCl > 30 mL/min) *Enoxaparin/Lovenox 30 mg SQ daily (WT < 150 kg, CrCl > 10-29 mL/min) *Enoxaparin/Lovenox 30 mg SQ BID (WT < 150 kg, CrCl > 30 mL/min) AND/OR *Sequential Compression Device (SCD) 5 or more Highest Order ONE of the following medications: *Heparin 5000 units SQ TID (Preferred with Epidurals) *Enoxaparin/Lovenox 40 mg SQ daily (WT < 150 kg, CrCl > 30 mL/min) *Enoxaparin/Lovenox 30 mg SQ daily (WT < 150 kg, CrCl > 10-29 mL/min) *Enoxaparin/Lovenox 30 mg SQ BID (WT < 150 kg, CrCl > 30 mL/min) AND *Sequential Compression Device (SCD) (Cornelius Garcia MD, R3) Assessment and Plan Assessment and Plan 61-year-old male with history of recent NSTEMI s/p catheterization one week ago , HTN, Hep C, Cirrhosis, Tobacco and Alcohol abuse and non compliance. Concern for ACS. EKG showed ST elevation. Troponin 0.53. Cardiology consulted (Dr. Flowers). Started heparin drip and plan for cath this afternoon. Code Status DNR Discussed Condition With ED Discussed with Dr. Flowers (cardiology) Dr. Meyer (Cornelius Garcia MD, R3) Attending Attestation Patient seen and examined. Case reviewed and discussed with the resident team. Agree with plan of care as discussed with me and documented in the resident note. he was seen on admission, agree with plan. unfortunately he has not been taking his meds (Jo Meyer MD) Problem List: (1) Chest pain ICD Codes: R07.9 - Chest pain, unspecified Status: Chronic Plan: - S/p NSTEMI and catheterization one week ago - Cardiology, Dr. Flowers consulted and will take patient to the medical laboratory manager this afternoon - EKG shows ST elevation - Troponin 0.53 - Nitroglycerin given in ED, Nitroglycerin drip started -Morphine 2 mg IV q3 hours prn pain 6-10 - Heparin drip started Troponins and EKGs ordered for 1500 and 2100 (2) CAD (coronary artery disease) ICD Codes: I25.10 - Atherosclerotic heart disease of [place] coronary artery without angina pectoris Status: Chronic Plan: Patient given plavix in ED; patient is non compliant Cardiology consulted continue home plavix, atorvastatin, metoprolol Counseled patient importance of taking medications as prescribed (3) Hypertension ICD Codes: I10 - Essential (primary) hypertension Status: Chronic Plan: - Continue home Metoprolol and Lisinopril (4) Tobacco abuse ICD Codes: Z72.0 - Tobacco use Status: Chronic Plan: - Currently smokes 1ppd - Monitor for signs of withdrawal (5) Alcohol abuse ICD Codes: F10.10 - Alcohol abuse, uncomplicated Status: Chronic Plan: - Per patient, uses intermittently. CIWA protocol (6) FEN/PPX Status: Acute Plan: - Fluids: Normal Saline at 100mL/hr - Electrolytes: Monitor and replete as needed - Nutrition: NPO, cardiac diet after catherization - PPX: Heparin Drip, SCD (Cornelius Garcia MD, R3) Physician Certification 2 Midnight Certification Type: Admission for Inpatient Services Order for Inpatient Services The services are ordered in accordance with Medicare regulations or non- Medicare payer requirements, as applicable. In the case of services not specified as inpatient-only, they are appropriately provided as inpatient services in accordance with the 2-midnight benchmark. Estimated LOS (days): 2 days is the estimated time the patient will need to remain in the hospital, assuming treatment plan goals are met and no additional complications. Post-Hospital Plan: Not yet determined (Cornelius Garcia MD, R3) Problem Qualifiers (1) Chest pain: (2) CAD (coronary artery disease): Qualified Codes: I25.10 - Atherosclerotic heart disease of [place] coronary artery without angina pectoris (3) Hypertension: Qualified Codes: I10 - Essential (primary) hypertension Cornelius Garcia MD, R3 May 13, 2017 12:16 Jo Meyer MD May 16, 2017 13:23
[2017-05-13] MEDS ORDERED: LACTULOSE SYRUP 20 GM/30 ML CUP PO PRN (12:30)
[2017-05-13] MEDS ORDERED: NALOXONE HCL 0.4 MG/ML AMP IV PUSH PRN (12:30)
[2017-05-13] MEDS ORDERED: BISACODYL 10 MG SUPP RECTAL PRN (12:30)
[2017-05-13] MEDS ORDERED: SODIUM CHLORIDE 0.9% FLUSH 10 ML FLUSH IV FLUSH PRN ×2 (12:30→15:15)
[2017-05-13] MEDS ORDERED: MAGNESIUM HYDROXIDE SUSP 30 ML CUP PO PRN (12:30)
[2017-05-13] MEDS ORDERED: SENNOSIDES 8.6 MG TAB PO PRN (12:30)
[2017-05-13] MEDS ORDERED: ONDANSETRON HCL 4 MG/2 ML VIAL IVP PRN (12:30)
[2017-05-13 12:45] LABS: INTERNATIONAL NORMALIZED RATIO 1.1 RATIO; PROTHROMBIN TIME - PATIENT 10.7 SEC (9.8-11.6)
[2017-05-13] MEDS ORDERED: NITROGLYCERIN 0.4 MG SL 25 TABS/BTL SL PRN (12:45)
[2017-05-13] MEDS: MORPHINE SULFATE 4 MG/ML INJ IV PUSH PRN ×3 (12:51→20:42)
[2017-05-13 13:13] LABS: ALBUMIN 3.4 GM/DL (3.4-5.0); ALT (GPT) 35 U/L (12-78); AST (GOT) 54 U/L (15-37); BICARBONATE 22.8 MEQ/L (21.0-32.0); BLOOD UREA NITROGEN 11 MG/DL (7-18); CHLORIDE 105 MEQ/L (98-107); CREATININE 0.74 MG/DL (0.60-1.30); GLOMERULAR FILTRATION RATE 107 ML/MIN (>89); GLUCOSE,RANDOM 94 MG/DL (74-106); SODIUM (NA) 138 MEQ/L (136-145)
[2017-05-13 13:15] LABS: ALKALINE PHOSPHATASE 127 U/L (45-117); TOTAL BILIRUBIN ADULT 0.6 MG/DL (0.2-1.0); TOTAL PROTEIN 7.1 GM/DL (6.4-8.2)
[2017-05-13] MEDS: SODIUM CHLOR 0.9% 1000 ML INJ 1,000 ML IV SCH ×3 (13:17→21:58)
[2017-05-13] MEDS: GABAPENTIN 400 MG CAP PO SCH ×2 (13:17→20:22)
[2017-05-13] MEDS: LIPASE/PROTEASE/AMYLASE (12,000/38,000/60,000) CAP PO SCH ×2 (13:30→21:57)
[2017-05-13] MEDS ORDERED: HEPARIN SODIUM - IV 10,000 UNITS/10 ML VIAL ONE (14:01)
[2017-05-13] MEDS ORDERED: NITROGLYCERIN INJ 5 ML ONE (14:01)
[2017-05-13] MEDS ORDERED: HEPARIN-NS/PF FLUSH BAG 2,000 ML IV FLUSH ONE (14:01)
[2017-05-13] MEDS ORDERED: MIDAZOLAM HCL 2 MG/2 ML VIAL ONE (14:09)
[2017-05-13] MEDS ORDERED: MIDAZOLAM HCL 2 MG/2 ML VIAL IV PUSH ONE (14:09)
[2017-05-13] MEDS ORDERED: HEPARIN SODIUM - IV 10,000 UNITS/10 ML VIAL IV ONE (14:18)
[2017-05-13] MEDS ORDERED: ADENOSINE STRESS TEST INJ 90 MG/30 ML VIAL ONE (14:32)
[2017-05-13] MEDS ORDERED: LORazepam 2 MG/ML VIAL IV PUSH PRN ×4 (14:45)
[2017-05-13] MEDS ORDERED: LORazepam 1 MG TAB PO PRN (14:45)
[2017-05-13] MEDS ORDERED: LORazepam 2 MG TAB PO PRN (14:45)
[2017-05-13] MEDS ORDERED: FLUMAZENIL 0.5 MG/5 ML VIAL IV PUSH PRN (14:45)
[2017-05-13] MEDS ORDERED: TIROFIBAN INFUSION INJ 250 ML IV ONE (14:56)
[2017-05-13] MEDS ORDERED: CLOPIDOGREL 300 MG TAB ONE (14:56)
[2017-05-13] MEDS ORDERED: SODIUM CHLORIDE IV ONE (15:00)
[2017-05-13] MEDS ORDERED: TIROFIBAN IV ONE (15:00)
[2017-05-13] MEDS ORDERED: TIROFIBAN INFUSION INJ 250 ML IV SCH (15:07)
--- NOTE | 2017-05-13 15:14 | CATHPROC ---
[facility] HIS Report Study Information Study Number Admission Scheduled Start Study Start [id number] May 13 2017 9:05AM 05/13/2017 May 13 2017 1:55PM [place] [facility] Cardiac Catheterization Admit Source Facility Department Emergency department [facility] - Surgical Instrument Mechanic Physician and Clinical Staff Initial Doug James Dude Ranch ManagerLeslie Humphrey,NATY Dude Ranch Manager Kiet Benites,RN Recorder Deanna Denise,RT(R) (BS) Scrub Rhett OneilRT(R) Procedures Performed Procedure Location (Site) Vessel Name Coronary Angiograms LCA Left Coronary Coronary Angiograms RCA Right Coronary PTCA DIAG Ost Left Coronary Wire insertion Fem Art (right) Femoral Art Equipment Time Pet Walker Description Size Mfg Part Number Used/Scraped [id number] 14:48 [employer] WIRE, ASAHI PROWATER 180CM 180CM Used *[id number] 14:48 [employer] WIRE, ASAHI PROWATER 180CM 180CM Used *[id number] TRANSDUCER, TRUWAVE [id number] 13:57 URIBE FENG * Used W/STOCKCOCK *[id number] TRANSDUCER, TRUWAVE [id number] 14:05 URIBE FENG * Used W/STOCKCOCK *[id number] 14:55 [employer] SCI[employer] BALLOON, 3.5 12MM EMERGE MR 3.5 12MM Used *[id number] [phone] *[id number] 538-421 *[id number] *[id number] 14:05 MEDLINE INDUSTRIES PACK, CCL CUSTOM * Used *[id number] 13:57 MEDLINE INDUSTRIES PACK, CCL CUSTOM * Used *[id number] 13:57 MEDLINE PACER PEN, SKIN DUAL W/ RULER * Used *[id number] [id number] 14:05 MEDLINE PACER PEN, SKIN DUAL W/ RULER * Used *[id number] [id number] 14:50 MEDTRONIC BALLOON, 3.0 X 10MM EUPHORA 10MM Used *[id number] [id number] 14:51 Wellsphere MEDICAL 30 JERRY INDEFLATOR Used *[id number] 14:19 [employer] MEDICAL SHEATH, FR6.5 PRELUDE 11CM FR 6.5 038ACT Used *[id number] [id number] 14:05 [employer] MEDICAL WIRE, 3MMJ .035 180CM 180CM Used *6624720 [id number] 13:57 MERIT MEDICAL WIRE, 3MMJ .035 180CM 180CM Used *[id number] 13:57 NAMIC MANIFOLD, 4 PORT * Used *8010148 [id number] 14:05 NAMIC MANIFOLD, 4 PORT * Used *[id number] 14:05 NYCOMED OMNIPAQUE, 350 MG, 150ML 150ML [id number] Used 13:57 NYCOMED OMNIPAQUE, 350 MG, 150ML 150ML [id number] Used [id number] 13:57 NIEVES MEDICAL BLANKET,WARM AIR CCL * Used *[id number] [id number] 14:05 NIEVES MEDICAL BLANKET,WARM AIR CCL * Used *1196166 [id number] 14:05 TERUMO MEDICAL SHEATH, FR4 TERUMO (10CM) FR 4 Used *[id number] 13:57 TERUMO MEDICAL SHEATH, FR4 TERUMO (10CM) FR 4 Used *[id number] 14:31 [employer]OL[employer] PRIME WIRE, VERRATA 185CM 185CM [id number] *[id number] Used History: Current Medications Medication Dosage/Unit Route Frequency Last Date/Time Taken ASA HEPARIN History: Allergies Allergy Reaction *MDRO Multi-Drug Resistant Organism Cephalosporins Keflex UNKNOWN cephalexin UNKNOWN cefepime ceftaroline fosamil History: Risk Factors Family History of Hypertension Dyslipidemia Previous CT Previous Heart Failure Premature CAD Yes Yes No No No Prior Valve Prior PCI Prior PCIDate Prior CABG Surgery No Yes 05/05/2017 No Cerebrovascular Peripheral Artery Chronic Lung On Dialysis Diabetes Disease Disease Disease No No No No No History: Risk Factors Selection Items Current Smoker History: Symptoms/Diagnosis Selection Items Chest pain History: Stress Tests Stress or Imaging Studies Performed No History: Other Current Smoker Method Packs a Day Years Used Pack Years Yes Cigarettes 2 40 80 Labs Hgb (g/dl) Hct (%) WBC (l/cumm) Platelets (thousands) 11.60-17.00 35.00-51.00 4.00-11.00 150.00-450.00 10.1 31.8 9.7 363 Glucose (mg/dl) BUN (mg/dl) Creatinine (mg/dl) BUN:Creatinine (1:x) 74.00-106.00 7.00-18.00 0.50-1.30 10.00-20.00 94 11 0.7 15.7 Na (meq/l) K (meq/l) 136.00-145.00 3.50-5.10 133 4.5 INR (PTT:PT) 0.90-1.10 1.1 Troponin I (ng/ml) CPK (u/l) CPK-MB (ng/ML) 0.02-0.05 26.00-308.00 0.50-3.60 0.53 108 7.8 Medication Medication Total Dose (Bolus/Oral) Medication Total Dosage/Unit 1% XYLOCAINE 20 mL AGGRASTAT BOLUS 32 mL FENTANYL 50 mcg HEPARIN 3500 units PLAVIX 300 mg VERSED 2 mg Medications (Bolus/Oral) Medication Time Given Dosage/Unit Administered By Reason VERSED 05/13/2017 2:09:35 PM 2 mg Leslie Marcum 2 mg VERSED given in lab by Leslie Marcum, NATY in Left Antecubital via Peripheral IV. 1% XYLOCAINE 05/13/2017 2:11:16 PM 20 mL Doug Flowers 20 mL 1% XYLOCAINE given in lab by Doug Flowers in Right Groin via Subcutaneous. FENTANYL 05/13/2017 2:11:58 PM 12.5 mcg Doug Flowers 12.5 mcg FENTANYL given in lab by Doug Flowers in Left Antecubital via Peripheral IV. FENTANYL 05/13/2017 2:17:47 PM 12.5 mcg Doug Flowers 12.5 mcg FENTANYL given in lab by Doug Flowers in Left Antecubital via Peripheral IV. HEPARIN 05/13/2017 2:18:41 PM 3500 units Leslie Marcum 3500 units HEPARIN given in lab by Leslie Marcum, NATY in Left Antecubital via Peripheral IV. FENTANYL 05/13/2017 2:21:46 PM 12.5 mcg Doug Flowers 12.5 mcg FENTANYL given in lab by Doug Flowers in Left Antecubital via Peripheral IV. FENTANYL 05/13/2017 2:47:02 PM 12.5 mcg Leslie Marcum 12.5 mcg FENTANYL given in lab by Leslie Marcum, NATY in Left Antecubital via Peripheral IV. AGGRASTAT BOLUS 05/13/2017 3:00:42 PM 32 mL Delmis Kiet 32 mL AGGRASTAT BOLUS given in lab by Kiet Benites RN in Left Antecubital via Peripheral IV. PLAVIX 05/13/2017 3:08:18 PM 300 mg Leslie Marcum 300 mg PLAVIX given in lab by Leslie Marcum RN via Oral. Medication (Drip) Medication Time Given Dosage/Unit Concentration/Unit Diluent (ml) Solution ADENOSINE DRIP 05/13/2017 2:40:01 PM 140 mcg/kg/min 90 mg 90 NaCl .9 140 mcg/kg/min ADENOSINE DRIP given in lab by Leslie Marcum RN in Left Antecubital via Peripheral IV. Pump/Drip Flow = 588 ml/hr using NaCl .9 with a concentration of 90 mg in 90 ml. ADENOSINE DRIP 05/13/2017 2:42:06 PM 0 units/hr 0 D5W STOPPED 0 units/hr ADENOSINE DRIP STOPPED given in lab by Leslie Marcum RN. Pump/Drip Flow = 0 ml/hr using D5W. AGGRASTAT DRIP 05/13/2017 3:04:00 PM 0.15 mcg/kg/min 12.5 mg 250 NaCl .9 0.15 mcg/kg/min AGGRASTAT DRIP given in lab by Kiet Benites RN in Left Antecubital via Peripheral IV . Pump/Drip Flow = 12.6 ml/hr using NaCl .9 with a concentration of 12.5 mg in 250 ml. HEPARIN DRIP STOPPED 05/13/2017 2:03:38 PM 0 units/hr 0 D5W 0 units/hr HEPARIN DRIP STOPPED given by Leslie Marcum RN in Left Antecubital via Peripheral IV. P ump/Drip Flow = 0 ml/hr using D5W. IV Solutions 05/13/2017 1:55:24 PM 0 mL (IV) 500 NaCl .9 Patient arrived on IV Solutions in Left Antecubital via Peripheral IV. Pump/Drip Flow = 30 ml/hr usin g NaCl .9. NITROGLYCERIN DRIP 05/13/2017 2:06:39 PM 50 mcg/min 50 mg 250 D5W Patient arrived on 50 mcg/min NITROGLYCERIN DRIP in Left Antecubital via Peripheral IV. Pump/Drip Christopher w = 15 ml/hr using D5W with a concentration of 50 mg in 250 ml. Initial Case Assessment Cardiovascular HR Rhythm NIBP Chest Pain 96 ST 126/109 9 Edema Present Skin color Skin None Normal Warm Dry Circulatory - Right Pulses Dorsalis Pedis Femoral 3 3 Scale (0,1,2,3,4,d) Circulatory - Left Pulses Dorsalis Pedis Femoral 3 3 Scale (0,1,2,3,4,d) Circulatory - Lower Extremities Color Lower Right Color Lower Left Normal Normal Neurological State Oriented to time-place- Alert Moves all extremities person Respiration - General Respiration Rate SpO2 (%) O2 (lpm) (B/min) 15 100 2 Chronological Log Time Study Chronological Log 13:54:45 Patient arrived via Bed. 13:54:47 Patient Name, D.O.B, / Armband Verified By R.N. 13:54:48 Consent signed by the physician and the patient and verified by the Surgical Instrument Mechanic staff. 13:54:49 Pre-op and post- op instructions given; patient acknowledges understanding of instructions. 13:55:01 Verbal Stimulation=2 Physical Stimulation=2 Airway=2 Respiration=2 TOTAL=8. (0=absent, 1=li mited, 2=present) 13:55:02 Presedation assessment performed by Surgical Instrument Mechanic RN. 13:55:13 Patient Warmer Placed on the Table. 13:55:23 A # 20 IV was noted in the Antecubital (left). Grade = 0 13:55:24 Patient arrived on IV Solutions in Left Antecubital via Peripheral IV. Pump/Drip Flow = 30 ml/hr using NaCl .9. 13:55:24 History and physical on the chart or being dictated. Assessment: Initial Case, HR=96 BPM, Rhythm=ST, AQWZ=300/109 mmhg, Chest Pain=9, Edema=None, Color=Normal, Skin = Warm, Dry Right Pulses: Harvey Ped=3, Femoral=3 Left Pulses: Harvey Ped=3, Femoral=3 13:55:26 Lower Right Extremities: Color=Normal Lower Left Extremities: Color=Normal Neurological: State=Alert, Ox3, ALEXIS Respiration: Resp=15 B/min, EgO3=093 %, O2=2 lpm Vitals capture started with the following parameters, Patient=Adult, Interval=5 min, Initial Pr gphahn=285 mmHg, 14:00:49 Deflation Rate=5 mmHg, Cuff placed on Right Ankle 14:01:22 HR=97 bpm, ZSTH=885/85 mmhg, SpO2=99.0 %, Resp=23 B/min, Pain=9, Ondina=10, Camp=2 0 units/hr HEPARIN DRIP STOPPED given by Leslie Marcum, NATY in Left Antecubital via Peripheral IV. Pump/Drip Flow 14:03:38 = 0 ml/hr using D5W. 14:03:44 Vitals capture stopped. Vitals capture started with the following parameters, Patient=Adult, Interval=5 min, Initial Pr kdiube=124 mmHg, 14:04:01 Deflation Rate=5 mmHg, Cuff placed on Right Ankle 14:05:05 JEFR=118/109 mmhg, OtL6=275.0 %, Resp=17 B/min, Pain=9, Ondina=10, Camp=2 14:05:30 Bilateral groins prepped with 2% chlorhexidine, and draped after a 3 minute waiting time. 14:06:00 MD paged 14:06:30 MD responded Patient arrived on 50 mcg/min NITROGLYCERIN DRIP in Left Antecubital via Peripheral IV. Pump/Dr ip Flow = 15 ml/hr 14:06:39 using D5W with a concentration of 50 mg in 250 ml. 14:08:07 MD arrived. 14:09:30 Pressure channel 1 zeroed. 14:09:35 2 mg VERSED given in lab by Leslie Marcum, NATY in Left Antecubital via Peripheral IV. 14:10:02 HR=98 bpm, TMYH=186/90 mmhg, WiW0=277.0 %, Resp=15 B/min Time Out. Correct patient, correct procedure, correct physician, power injector not loaded with contrast with surgical 14:10:03 team present. Time Out Concurred by MD and individual staff in procedure. 14:10:11 Case Start 14:11:13 Reference ECG taken 14:11:16 20 mL 1% XYLOCAINE given in lab by Doug Flowers in Right Groin via Subcutaneous. 14:11:58 12.5 mcg FENTANYL given in lab by Doug Flowers in Left Antecubital via Peripheral IV. 14:12:09 Access site was Right Femoral Artery. 14:12:15 A SHEATH, FR4 TERUMO (10CM) FR 4 was advanced into the Fem Art (right) using the Percutaneo us technique. 14:12:29 Activated Clotting Time Drawn A JR 4.0 INFINITI CATHETER FR 4 was advanced over a wire. OMNIPAQUE, 350 MG, 150ML 150ML was us ed for 14:12:45 injections. Recorded Pressure: LV, QZ=161, Condition=Condition 1 14:13:44 (Left Ventricle) LV 128/6/8 Recorded Pressure: LV, Ao, HR=97, Condition=Condition 1 14:13:56 (Left Ventricle) LV 125/4/6, (Aorta) Ao 128/87/106 14:14:19 The RCA was injected and visualized at various angles. OMNIPAQUE, 350 MG, 150ML 150ML used . 14:14:30 HR=96 bpm, VKSM=920/87 mmhg, QeV2=642.0 %, Resp=14 B/min, Pain=9, Ondina=10, Camp=2 After removing the current catheter a JL 4.0 INFINITI CATHETER FR 4 was advanced over a WIRE, 3 MMJ .035 180CM 14:16:13 180CM. 14:17:31 The LCA was injected and visualized at various angles. OMNIPAQUE, 350 MG, 150ML 150ML used . 14:17:40 Catheter was removed 14:17:47 12.5 mcg FENTANYL given in lab by Doug Flowers in Left Antecubital via Peripheral IV. 14:18:11 ACT (Normal Range 90-180) = 162 14:18:41 3500 units HEPARIN given in lab by Leslie Marcum RN in Left Antecubital via Peripheral I V. A SHEATH, FR6.5 PRELUDE 11CM FR 6.5 was exchanged in the Fem Art (right). This was necessary in order to 14:18:55 accomodate a larger catheter. 14:19:35 HT=142 bpm, VXTH=939/85 mmhg, GfF3=069.0 %, Resp=13 B/min, Pain=9, Ondina=10, Camp=2 14:21:46 12.5 mcg FENTANYL given in lab by Doug Flowers in Left Antecubital via Peripheral IV. 14:25:03 HR=96 bpm, GKFC=959/80 mmhg, QdE9=439.0 %, Resp=21 B/min, Pain=9, Ondina=10, Camp=2 14:26:14 Activated Clotting Time Drawn 14:29:40 HR=98 bpm, VFRS=225/81 mmhg, SpO2=99.0 %, Resp=21 B/min, Pain=9, Ondina=10, Camp=2 14:30:30 A PRIME WIRE, VERRATA 185CM 185CM was inserted via Fem Art (right). 14:31:40 Flow Wire was was placed in the RCA Prox. The FFR measures 0.8 percent. The IFR measures 0. 97 Percent. 14:31:54 ACT (Normal Range 90-180) = 276 14:34:33 HR=96 bpm, TVEE=521/86 mmhg, KbO7=768.0 %, Resp=17 B/min, Pain=9, Ondina=10, Camp=2 14:39:34 HR=93 bpm, EIXD=597/94 mmhg, ZuE3=328.0 %, Resp=18 B/min, Pain=9, Ondina=10, Camp=2 140 mcg/kg/min ADENOSINE DRIP given in lab by Leslie Marcum, RN in Left Antecubital via Perip heral IV. Pump/Drip 14:40:01 Flow = 588 ml/hr using NaCl .9 with a concentration of 90 mg in 90 ml. 14:42:06 0 units/hr ADENOSINE DRIP STOPPED given in lab by Leslie Marcum, RN. Pump/Drip Flow = 0 m l/hr using D5W. After removing the current catheter a JL 4.0 INFINITI CATHETER FR 4 was advanced over a WIRE, 3 MMJ .035 180CM 14:44:25 180CM. 14:44:35 HR=94 bpm, AYQC=131/86 mmhg, KhN7=745.0 %, Resp=13 B/min, Pain=9, Ondina=10, Camp=2 14:44:36 The LCA was injected and visualized at various angles. OMNIPAQUE, 350 MG, 150ML 150ML used . After removing the current catheter a XB 3.5 GUIDE CATHETER FR 6 was advanced over a WIRE, 3MMJ .035 180CM 14:45:19 180CM. 14:46:41 A WIRE, ASAHI PROWATER 180CM 180CM was inserted via Fem Art (right). 14:47:02 12.5 mcg FENTANYL given in lab by Leslie Marcum, RN in Left Antecubital via Peripheral IV . 14:48:10 A WIRE, ASAHI PROWATER 180CM 180CM was inserted via Fem Art (right). 14:49:34 HR=94 bpm, WFDE=959/84 mmhg, LhT9=509.0 %, Resp=8 B/min, Pain=9, Ondina=10, Camp=2 A BALLOON, 3.0 X 10MM EUPHORA 10MM was inserted over WIRE, ASAHI PROWATER 180CM 180CM via the F em Art 14:49:39 (right). A BALLOON, 3.0 X 10MM EUPHORA 10MM over a WIRE, ASAHI PROWATER 180CM 180CM in the DIAG Ost was inflated 14:50:33 using a 30 JERRY INDEFLATOR at 8 jerry for 10 sec. 14:53:16 Balloon Removed 14:54:57 Wire removed 14:54:58 Wire removed 14:55:00 Catheter was removed 14:55:06 Case End 14:55:10 HR=97 bpm, FFOF=498/80 mmhg, DaG9=957.0 %, Resp=13 B/min, Pain=9, Ondina=10, Camp=2 14:56:08 Catheter(s) removed without difficulty 14:56:13 No case complications noted. 14:57:54 Sterile dressing applied to site 15:00:11 HR=95 bpm, KXON=210/93 mmhg, WtE6=341.0 %, Resp=17 B/min, Pain=2, Ondina=10, Camp=2 15:00:42 32 mL AGGRASTAT BOLUS given in lab by Kiet Benites RN in Left Antecubital via Peripheral IV. 0.15 mcg/kg/min AGGRASTAT DRIP given in lab by Kiet Benites RN in Left Antecubital via Periph eral IV. Pump/Drip 15:04:00 Flow = 12.6 ml/hr using NaCl .9 with a concentration of 12.5 mg in 250 ml. 15:07:54 Patient moved to [facility] 15:08:18 300 mg PLAVIX given in lab by Leslie Marcum, RN via Oral. End Study - Contrast Media Used In Study Contrast Total Opened (mL) Total Used (mL) Total Wasted (mL) Omnipaque 110 110 0 End Study - Maximum Contrast Load Max Contrast Load (mL) 500.0 End Study - Radiation Exposure Fluoro Time (minutes) 7.7 End Study - Patient Disposition Complications Transferred To Interventional Outcome No Surgical Instrument Mechanic Holding successful
[2017-05-13] MEDS ORDERED: ATROPINE SULFATE 1 MG/ML VIAL IV PUSH PRN (15:15)
[2017-05-13] MEDS ORDERED: MISC INFORMATION XX ONE (15:15)
[2017-05-13] MEDS ORDERED: HEPARIN SODIUM - IV 10,000 UNITS/10 ML VIAL IV PUSH PRN ×2 (15:45)
--- NOTE | 2017-05-13 16:17 | MA ---
cc: Doug Flowers MD PROCEDURE PERFORMED: Left heart catheterization, left ventriculography, coronary angiography, FFR of ostial right PDA and PDC of the first diagonal artery. INDICATION: Non-STEMI, noncompliance with aspirin and Plavix within a week of getting stent to the proximal mid LAD and a jailed diagonal vessel, [employer] Cardiovascular Society Class IV angina, multiple cardiac risk factors. PROCEDURE: The patient was brought to the cardiac catheterization laboratory and prepped and draped in the usual sterile fashion. Lidocaine 10 mL, 1% was used to locally anesthetize the right common femoral artery. Then 4-Afghan JR-4, JL-4 catheters were used to perform left and right coronary angiography, left ventriculography. FINDINGS: The LV pressure is 120/3-5. Ejection fraction 60%. The right coronary artery is dominant and has a long prox 50% stenosis. It is a tortuous vessel. Midvessel has a 30% to 40% stenosis. The ostial right PDA has a 60% to 70% stenosis with a 2.5 mm diameter reference vessel diameter. The left main coronary artery has no significant disease angiographically. Left circumflex vessel is a small vessel. Left main coronary artery has no significant disease angiographically. The LAD has no significant disease angiographically. The ostial first diagonal artery which is jailed by the LAD stent has an ostial 90% stenosis. Note, I did not see this on the initial images. We actually proceeded to do an FFR of the ostial right PDA as the patient had inferior ST changes when he presented. Also noted the left circumflex vessel is small and has no significant disease angiographically. Heparin 50 units/kg was given, ACT was 276. A 6-Afghan JR-4 guide, 0.014 [place] pressure wire was placed into the proximal right coronary artery. The introducer was removed and pressure waveforms were normalized. The wire was then passed into the right PDA. The IFR was 0.97. The patient was infused with 140 mcg/kg per minute of adenosine. FFR was 0.88. PCI was deferred. We then proceeded to do PCI of the first diagonal artery. A 6-Afghan XB 3.5 guide, 0.014 Prowater guide was placed into the LAD to protect it. We then placed a 0.014 Prowater guidewire into the first diagonal artery. We did one balloon angioplasty with a 30 10 Euphoria compliant balloon, one inflation 10 atmospheres for 20 seconds. Stenosis went from 90% to 0% with MARGRET-III flow. Note, the patient's chest pain immediately improved. CONCLUSION: 1. Non-STEMI culprit 90% jailed first diagonal artery as detailed above. 2. Widely patent stent of the proximal LAD. 3. A 70% ostial right PDA with an FFR of 0.88. 4. Medical noncompliance with aspirin and Plavix. The patient did not go to the pharmacy to get his prescriptions filled. 5. History of alcoholism, drinking up to 18 beers a day. 6. The patient has been bolused with 300 of Plavix in the ER and 300 of Plavix in the catheterization lab. Recommend Aggrastat drip. Will need to watch his H and H very carefully as he had a baseline hemoglobin of 7 during his recent admission. Recommend treat lipids to NCEP guidelines, statin and TERESA inhibitor if tolerated and not contraindicated. MD SALINAS Reyna/TL/rh , 03:06 PM , 03:46 PM
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
[2017-05-13] MEDS: SODIUM CHLORIDE 0.9% FLUSH 10 ML FLUSH IV FLUSH SCH (21:00)
[2017-05-13] MEDS ORDERED: SODIUM CHLORIDE 0.9% FLUSH 10 ML FLUSH IV FLUSH SCH (21:00)
[2017-05-13] MEDS: traZODone HCL 50 MG TAB PO SCH (21:49)
[2017-05-13] MEDS: DOCUSATE SODIUM 50 MG/SENNA 8.6 MG TAB PO SCH (21:49)
[2017-05-13] MEDS: ATORVASTATIN 10 MG TAB PO SCH (21:49)
[2017-05-14] VITALS (27 sets, daily range): BP systolic 123–135; BP diastolic 67–81; PULSE 78–96; RESP 20–21; TEMP 98–98.6; O2SAT 93–98
[2017-05-14] MEDS: MORPHINE SULFATE 4 MG/ML INJ IV PUSH PRN ×7 (01:41→22:25)
[2017-05-14 03:22] LABS: AUTOMATED NEUTROPHIL # 3.3 TH/MM3 (1.8-7.7); BASOPHIL % 0.8 % (0.0-2.0); EOSINOPHIL # 0.1 TH/MM3 (0-0.4); EOSINOPHIL % 2.1 % (0.0-4.0); HEMATOCRIT 25.3 % (39.0-51.0); HEMOGLOBIN 8.1 GM/DL (13.0-17.0); LYMPH % 27.1 % (9.0-44.0); LYMPHOCYTE # 1.6 TH/MM3 (1.0-4.8); MEAN CELL VOLUME 77.9 FL (80.0-100.0); MEAN CORPUSCULAR HEMOGLOBIN 24.9 PG (27.0-34.0); MEAN CORPUSCULAR HGB CONC 31.9 % (32.0-36.0); MEAN PLATELET VOLUME 7.9 FL (7.0-11.0); MONO % 14.2 % (0.0-8.0); MONOCYTE # 0.8 TH/MM3 (0-0.9); NEUT % 55.8 % (16.0-70.0); PLATELET COUNT 285 TH/MM3 (150-450); RED BLOOD COUNT 3.25 MIL/MM3 (4.50-5.90); RED CELL DISTRIBUTION WIDTH 32.1 % (11.6-17.2); WHITE BLOOD COUNT 5.9 TH/MM3 (4.0-11.0)
[2017-05-14 04:10] LABS: ALBUMIN 2.7 GM/DL (3.4-5.0); ALKALINE PHOSPHATASE 93 U/L (45-117); ALT (GPT) 29 U/L (12-78); AST (GOT) 75 U/L (15-37); BANDS 14 % (0-6); BASOPHILS 1 % (0-2); BICARBONATE 24.9 MEQ/L (21.0-32.0); BLOOD UREA NITROGEN 11 MG/DL (7-18); CHLORIDE 108 MEQ/L (98-107); CHOLESTEROL 100 MG/DL (120-200); CHOLESTEROL/ HDL RATIO 2.59 RATIO; CREATININE 0.69 MG/DL (0.60-1.30); GLOMERULAR FILTRATION RATE 116 ML/MIN (>89); GLUCOSE,RANDOM 142 MG/DL (74-106); HDL CHOLESTEROL 38.5 MG/DL (40.0-60.0); LDL CHOLESTEROL 47 MG/DL (0-99); LYMPHOCYTES 27 % (9-44); MONOCYTES 8 % (0-8); NEUTROPHIL # MANUAL DIFF 3.8 TH/MM3 (1.8-7.7); POLYS (SEG NEUTROPHILS) 49 % (16-70); PROMYELOCYTES 1 % (0-0); SODIUM (NA) 140 MEQ/L (136-145); TOTAL BILIRUBIN ADULT 0.3 MG/DL (0.2-1.0); TOTAL PROTEIN 5.7 GM/DL (6.4-8.2); TRIGLYCERIDES 73 MG/DL (42-150)
[2017-05-14 04:12] LABS: ACANTHOCYTES OCC (NORMAL); KERATOCYTES OCC (NORMAL); OVALOCYTES 1+ (NORMAL)
[2017-05-14] MEDS: LEVOTHYROXINE SODIUM 50 MCG TAB PO SCH (05:04)
[2017-05-14] MEDS: ACETAMINOPHEN 325 MG TAB PO PRN (06:38)
[2017-05-14] MEDS ORDERED: POTASSIUM CHLORIDE 20 MEQ CONTROLLED RELEASE TAB PO ONE (07:15)
--- NOTE | 2017-05-14 08:15 | EKG ---
Date Performed: 05/13/2017 Time Performed: 09:05:56 PTAGE: 61 years EKG: Sinus rhythm CANNOT EXCLUDE ACUTE LATERAL INJURY PATTERN IN I AND aVL WHICH IS NOTED IN THE PRIOR TRACING INFERIO R ST-T ABNORMALITIES SUGGESTIVE OF ISCHEMIA IS NEW FROM THE PRIOR TRACING. CLINICAL CORRELATION IS NE EDED. PREVIOUS TRACING 05/06/2017 DOCTOR: Marcelino Coelho Interpretating Date/Time 05/14/2017 08:13:37
[2017-05-14] MEDS: ASPIRIN 81 MG CHEW TAB PO SCH (08:26)
[2017-05-14] MEDS: LIPASE/PROTEASE/AMYLASE (12,000/38,000/60,000) CAP PO SCH ×3 (08:26→18:08)
[2017-05-14] MEDS: DOCUSATE SODIUM 50 MG/SENNA 8.6 MG TAB PO SCH ×2 (08:27→22:29)
[2017-05-14] MEDS: LISINOPRIL 10 MG TAB PO SCH (08:27)
[2017-05-14] MEDS: GABAPENTIN 400 MG CAP PO SCH ×3 (08:27→18:08)
[2017-05-14] MEDS: PANTOPRAZOLE SOD 20 MG DELAYED RELEASE TAB PO SCH (08:27)
[2017-05-14] MEDS: CLOPIDOGREL 75 MG TAB PO SCH (08:39)
[2017-05-14] MEDS: SODIUM CHLORIDE 0.9% FLUSH 10 ML FLUSH IV FLUSH SCH ×2 (08:39→22:27)
[2017-05-14] MEDS: METOPROLOL TARTRATE 25 MG TAB PO SCH ×2 (09:00→22:29)
[2017-05-14] MEDS ORDERED: CLOPIDOGREL 75 MG TAB PO SCH (09:00)
--- NOTE | 2017-05-14 09:41 | HHI.HP ---
[facility] Service Family Medicine Primary Care Physician No Primary Care Physician Admission Diagnosis Non-ST elevation [place] Diagnoses: (1) Chest pain Diagnosis: Principal (2) CAD (coronary artery disease) Diagnosis: Principal (3) Hypertension Diagnosis: Principal (4) Tobacco abuse Diagnosis: Principal (5) Alcohol abuse Diagnosis: Principal (6) FEN/PPX Diagnosis: Principal International Travel<30 Days: No Contact w/Intl Traveler<30days: No Known Affected Area: No History of Present Illness Mr Heredia is a 61-year-old male with history of recent NSTEMI s/p catheterization one week ago, HTN, Hep C, Cirrhosis, Tobacco and Alcohol abuse and opiate overdose plus Psychiatric admissions who presented to [facility] ED with chest pain that began the morning of admission. He walked a few blocks to the store and started having chest pain when he returned home. Chest pain fluctuates in intensity. He cannot describe the pain. Pain is in middle to left chest and radiates to abdomen and back. He has had "a little" shortness of breath, dizziness and diaphoresis. He also complains of constipation for the past few days and headache that started in the ED with the NTG drip being increased. He says that he takes some medications but is unsure of what he takes or how often he takes them because "he has so many." He then stated he feels his medicines don't work so he stopped taking them. He denies, changes in vision, changes in bowels, or paraesthesias. Today he complained that his pain was terrible and constant lasting for more than a year. He has chest pain, leg pain and back pain and other pain all the time and requests more pain medicine. he also said he wishes he was at times because of how miserable he was with his pain. he said he wasn't planning on killing himself in the hospital but he did have some plans when he left that "would be easy to do". He does have a history of overdose of opiates and an alcohol abuse history. Review of Systems Other Constitutional: COMPLAINS OF: Diaphoretic episodes, Dizziness, DENIES: Fever, Chills Eyes: DENIES: Blurred vision, Diplopia Respiratory: COMPLAINS OF: Shortness of breath, DENIES: Cough, Sputum production Cardiovascular: COMPLAINS OF: Chest pain, Dyspnea on Exertion Gastrointestinal: COMPLAINS OF: Abdominal pain, Constipation Genitourinary: DENIES: Urgency, Hematuria Musculoskeletal: COMPLAINS OF: Muscle aches, DENIES: Joint pain Integumentary: DENIES: Rash Hematologic/lymphatic: DENIES: Bruising, Lymphadenopathy Neurologic: COMPLAINS OF: Abnormal gait, Headache Psychiatric: DENIES: Anxiety, Confusion Past Family Social History Past Medical History Hypertension Hepatitis C Cirrhosis Tobacco Abuse Alcohol Abuse CAD Past Surgical History Cholecystectomy Tonsillectomy Left Knee Surgery PCI to LAD and diagonal on 05/05 Allergies: Coded Allergies: cefepime (Unverified Allergy, Severe, 05/13/17) ceftaroline fosamil (Unverified Allergy, Severe, 05/13/17) cephalexin (Unverified Allergy, Severe, UNKNOWN, 05/13/17) *MDRO Multi-Drug Resistant Organism (Verified Adverse Reaction, Unknown, ) 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 Active Ordered Medications Lipitor (Atorvastatin Calcium) 10 Mg Tab 10 Mg PO HS 30 Days Plavix (Clopidogrel Bisulfate) 75 Mg Tab 75 Mg PO DAILY 30 Days Oxycodone (Oxycodone HCl) 5 Mg Tab 5 Mg PO Q6HR PRN Synthroid (Levothyroxine Sodium) 50 Mcg Tab 50 Mcg PO DAILY@0600 not taking meds per pt Reported Trazodone (Trazodone HCl) 50 Mg Tab 50 Mg PO HS Omeprazole 20 Mg Tab 20 Mg PO DAILY Lisinopril 10 Mg Tab 10 Mg PO DAILY Metoprolol Tartrate 25 Mg Tab 25 Mg PO BID Nitroglycerin SL (Nitroglycerin) 0.4 Mg Subl 0.4 Mg SL DIRECTED PRN ONE TABLET UNDER THE TONGUE NEEDED FOR CHEST PAIN, MAY REPEAT EVERY FIVE MINUTES FOR A TOTAL OF 3 DOSES OR CALL 911 IF NO RELIEF Zenpep (Pancrelipase) 10,000-34,000-55,000 Units Cap 2 Cap PO TIDPC Gabapentin 800 Mg Tab 800 Mg PO TID Family History Mother: at 68 from liver disease Father: in industrial explosion at work Paternal grandfather: , [place] Social History Lives with roommate but looking for new place to live as one roommate ran off with his money and the other he reports is a drug addict Current smoker, 1ppd since he was a teenager, wants to quit Alcohol intermittently, last use: 1/2 beer day of admission Denies illicit drug use Physical Exam Vital Signs Vital Signs Date Time Temp Pulse Resp B/P (MAP) Pulse Ox O2 Delivery O2 Flow Rate FiO2 05/14/17 09:00 98 21 05/14/17 07:17 98.0 89 21 123/67 (85) 97 05/14/17 06:01 82 05/14/17 05:13 17 05/14/17 05:12 132 79/82 05/14/17 04:00 89 05/14/17 03:02 98 21 05/14/17 03:00 87 05/14/17 03:00 98.4 87 20 127/77 (94) 97 05/14/17 02:00 81 05/14/17 01:00 96 05/13/17 23:00 98.6 92 18 143/68 (93) 98 05/13/17 23:00 96 05/13/17 21:30 96 05/13/17 21:30 98.4 97 18 148/78 (101) 98 05/13/17 15:24 94 Room Air 05/13/17 13:50 05/13/17 13:21 105 147/79 (101) 99 05/13/17 13:08 20 05/13/17 12:05 149/50 (83) 05/13/17 11:35 89 17 141/68 (92) 98 05/13/17 11:16 100 19 150/78 (102) 98 Nasal Cannula 2.00 05/13/17 11:16 98 Nasal Cannula 2.00 05/13/17 10:22 104 16 133/71 (91) 99 Nasal Cannula 2.00 05/13/17 10:07 98 164/86 05/13/17 10:00 104 164/86 (112) Physical Exam GENERAL: This is a well-nourished, well-developed patient, complaining of constant pain all over for a year. SKIN: No rashes, ecchymoses or lesions. Cool and dry. HEAD: Atraumatic. Normocephalic. EYES: Pupils equal round and reactive. Extraocular motions intact. No scleral icterus. No injection or drainage. ENT: Nose without bleeding, purulent drainage or septal hematoma. Airway patent. NECK: Trachea midline. No JVD or lymphadenopathy. Supple, nontender, no meningeal signs. CARDIOVASCULAR: Regular rate and rhythm without murmurs, gallops, or rubs. RESPIRATORY: Clear to auscultation. Breath sounds equal bilaterally. No wheezes , rales, or rhonchi. GASTROINTESTINAL: Abdomen soft, non-tender, nondistended. No hepato-splenomegaly , or palpable masses. No guarding. MUSCULOSKELETAL: Extremities without clubbing, cyanosis, or edema. No joint tenderness, effusion, or edema noted. No calf tenderness. Negative Homans sign bilaterally. NEUROLOGICAL: Awake and alert. Cranial nerves II through XII intact. Motor and sensory grossly within normal limits. Five out of 5 muscle strength in all muscle groups. Normal speech. Laboratory Laboratory Tests Test 05/13/17 10:00 05/13/17 21:31 05/14/17 03:10 White Blood Count 9.7 5.9 Red Blood Count 4.12 3.25 Hemoglobin 10.1 8.1 Hematocrit 31.8 25.3 Mean Corpuscular Volume 77.1 77.9 Mean Corpuscular Hemoglobin 24.4 24.9 Mean Corpuscular Hemoglobin Concent 31.7 31.9 Red Cell Distribution Width 31.2 32.1 Platelet Count 363 285 Mean Platelet Volume 8.0 7.9 Neutrophils (%) (Auto) 80.4 55.8 Lymphocytes (%) (Auto) 8.8 27.1 Monocytes (%) (Auto) 9.8 14.2 Eosinophils (%) (Auto) 0.5 2.1 Basophils (%) (Auto) 0.5 0.8 Neutrophils # (Auto) 7.8 3.3 Lymphocytes # (Auto) 0.9 1.6 Monocytes # (Auto) 0.9 0.8 Eosinophils # (Auto) 0.0 0.1 Basophils # (Auto) 0.0 0.0 CBC Comment AUTO DIFF AUTO DIFF Differential Total Cells Counted 100 100 Neutrophils % (Manual) 61 49 Band Neutrophils % 17 14 Lymphocytes % 11 27 Monocytes % 6 8 Basophils % 1 1 Neutrophils # (Manual) 8.0 3.8 Metamyelocytes 2 Myelocytes 2 Differential Comment FINAL DIFF MANUAL FINAL DIFF MANUAL Platelet Estimate NORMAL NORMAL Platelet Morphology Comment NORMAL NORMAL Ovalocytes 1+ 1+ Acanthocytes OCC OCC Prothrombin Time 10.7 Prothromb Time International Ratio 1.1 Activated Partial Thromboplast Time 24.4 23.5 Blood Urea Nitrogen 11 11 Creatinine 0.74 0.69 Random Glucose 94 142 Total Protein 7.1 5.7 Albumin 3.4 2.7 Calcium Level 8.9 8.0 Magnesium Level 1.8 Alkaline Phosphatase 127 93 Aspartate Amino Transf (AST/SGOT) 54 75 Alanine Aminotransferase (ALT/SGPT) 35 29 Total Bilirubin 0.6 0.3 Sodium Level 138 140 Potassium Level 4.5 3.4 Chloride Level 105 108 Carbon Dioxide Level 22.8 24.9 Anion Gap 10 7 Estimat Glomerular Filtration Rate 107 116 Total Creatine Kinase 108 203 Creatine Kinase MB 7.8 Troponin I 0.53 13.20 8.31 B-Type Natriuretic Peptide 19 Promyelocytes 1 Basophilic Stippling FAINT Keratocytes OCC Triglycerides Level 73 Cholesterol Level 100 LDL Cholesterol 47 HDL Cholesterol 38.5 Cholesterol/HDL Ratio 2.59 Result Diagram: 05/14/1730905/14/17309 Imaging Last Impressions Chest X-Ray 05/13/17 1047 Signed Impressions: Service Date/Time: Saturday, May 13, 2017 10:59 - CONCLUSION: 1. No acute cardiopulmonary disease. MD Allison Giordano VTE Risk Assessment Allison VTE Risk Assessment: Mod/High Risk (score >= 2) Caprini Risk Assessment Model Point Value = 1 Point Value = 2 Point Value = 3 Point Value = 5 Age 41-60 Minor surgery BMI > 25 kg/m2 Swollen legs Varicose veins or History of unexplained or recurrent spontaneous Oral contraceptives or hormone replacement Sepsis (< 1 month) Serious lung disease, including pneumonia (< 1 month) Abnormal pulmonary function Acute myocardial infarction Congestive heart failure (< 1 month) History of inflammatory bowel disease Medical patient at bed rest Age 61-74 Arthroscopic surgery Major open surgery (> 45 min) Laparoscopic surgery (> 45 min) Malignancy Confined to bed (> 72 hours) Immobilizing plaster cast Central venous access Age >= 75 History of VTE Family history of VTE Factor V Leiden Prothrombin [id number] Lupus anticoagulant Anticardiolipin antibodies Elevated serum homocysteine Heparin-induced thrombocytopenia Other congenital or acquired thrombophilia Stroke (< 1 month) Elective arthroplasty Hip, pelvis, or leg fracture Acute spinal cord injury (< 1 month) Prophylaxis Regimen Total Risk Factor Score Risk Level Prophylaxis Regimen 0-1 Low Early ambulation 2 Moderate Order ONE of the following: *Sequential Compression Device (SCD) *Heparin 5000 units SQ BID 3-4 Higher Order ONE of the following medications: *Heparin 5000 units SQ TID *Enoxaparin/Lovenox 40 mg SQ daily (WT < 150 kg, CrCl > 30 mL/min) *Enoxaparin/Lovenox 30 mg SQ daily (WT < 150 kg, CrCl > 10-29 mL/min) *Enoxaparin/Lovenox 30 mg SQ BID (WT < 150 kg, CrCl > 30 mL/min) AND/OR *Sequential Compression Device (SCD) 5 or more Highest Order ONE of the following medications: *Heparin 5000 units SQ TID (Preferred with Epidurals) *Enoxaparin/Lovenox 40 mg SQ daily (WT < 150 kg, CrCl > 30 mL/min) *Enoxaparin/Lovenox 30 mg SQ daily (WT < 150 kg, CrCl > 10-29 mL/min) *Enoxaparin/Lovenox 30 mg SQ BID (WT < 150 kg, CrCl > 30 mL/min) AND *Sequential Compression Device (SCD) Assessment and Plan Assessment and Plan 61-year-old male with history of recent NSTEMI s/p catheterization one week ago , HTN, Hep C, Cirrhosis, Tobacco and Alcohol abuse and non compliance. Concern for ACS. EKG showed ST elevation. Troponin 0.53. Cardiology consulted (Dr. Flowers). Started heparin drip and had cath the afternoon of admission Problem List: (1) Chest pain ICD Codes: R07.9 - Chest pain, unspecified Status: Acute Plan: - S/p NSTEMI and catheterization one week ago - Cardiology, Dr. 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 explained to him that he could clog right back up if he does not stay on especially his plavix. he is depressed and doesn't seem to be taking this seriously. will get C at least or consider SNF to get him closer supervision (2) Depression ICD Codes: F32.9 - Major depressive disorder, single episode, unspecified Status: Acute Plan: He has a history of depression. He does not state he will kill himself here and now but is reporting he will be at risk once he leaves the hospital. Will consult Psychiatry as he is threatening future suicide. will hold on Diop acting as he denies current suicidal ideation. However, he does appear depressed as far as his affect and general body language as well as speech (3) CAD (coronary artery disease) ICD Codes: I25.10 - Atherosclerotic heart disease of [place] coronary artery without angina pectoris Status: Chronic Plan: Patient given plavix in ED; patient is non compliant Cardiology consulted continue home plavix, atorvastatin, metoprolol Counseled patient importance of taking medications as prescribed or he could (4) Hypertension ICD Codes: I10 - Essential (primary) hypertension Status: Chronic Plan: - Continue home Metoprolol and Lisinopril which he has not been taking (5) Tobacco abuse ICD Codes: Z72.0 - Tobacco use Status: Chronic Plan: - Currently smokes 1ppd - Monitor for signs of withdrawal (6) Alcohol abuse ICD Codes: F10.10 - Alcohol abuse, uncomplicated Status: Chronic Plan: - Per patient, uses intermittently. CIWA protocol (7) Chronic pain ICD Codes: G89.29 - Other chronic pain Plan: discussed with pt that he will need exterminator follow up to help his chronic pain he wants more and more narcotics but evidently was admitted in the past with opiate overuse (8) FEN/PPX Status: Acute Plan: - Fluids: Normal Saline at 100mL/hr, can heplock - Electrolytes: Monitor and replete as needed - Nutrition:cardiac diet after catherization - PPX: Heparin Drip, SCD Problem Qualifiers (1) Chest pain: (2) CAD (coronary artery disease): Qualified Codes: I25.10 - Atherosclerotic heart disease of [place] coronary artery without angina pectoris (3) Hypertension: Qualified Codes: I10 - Essential (primary) hypertension (4) Depression: Qualified Codes: F32.9 - Major depressive disorder, single episode, unspecified (5) Chronic pain: Qualified Codes: G89.29 - Other chronic pain Jo Meyer MD May 14, 2017 09:41
--- NOTE | 2017-05-14 10:43 | EKG ---
Date Performed: 05/14/2017 Time Performed: 05:31:04 PTAGE: 61 years EKG: Sinus rhythm Septal T wave changes are nonspecific Borderline ECG PREVIOUS TRACING : 05/13/2017 21.18 DOCTOR: Carl Mcelroy Interpretating Date/Time 05/14/2017 10:42:28
--- NOTE | 2017-05-14 11:37 | EKG ---
Date Performed: 05/13/2017 Time Performed: 21:18:36 PTAGE: 61 years EKG: Sinus rhythm PREVIOUS TRACING : 05/13/2017 11.11 DOCTOR: Carl Mcelroy Interpretating Date/Time 05/14/2017 11:35:27
--- NOTE | 2017-05-14 14:08 | PD.CARD.PN ---
Subjective Subjective Remarks asleep in nad Objective Medications Current Medications Medications (Trade) Dose Ordered Sig/Ashlie Route Start Time Stop Time Status Last Admin Nitroglycerin/ Dextrose 250 ml @ 3 mls/hr TITRATE PRN IV 05/13/17 09:30 05/13/17 10:07 Sodium Chloride 1,000 ml @ 100 mls/hr Q10H IV 05/13/17 13:00 05/13/17 21:58 (Tylenol) 650 mg Q4H PRN PO 05/13/17 12:30 05/14/17 06:38 (Zofran Inj) 4 mg Q6H PRN IVP 05/13/17 12:30 (Ambien) 5 mg HS PRN PO 05/13/17 12:30 (Narcan Inj) 0.4 mg UNSCH PRN IV PUSH 05/13/17 12:30 (Christie-Colace) 1 tab BID PO 05/13/17 21:00 05/14/17 08:27 (Milk Of Magnesia Liq) 30 ml Q12H PRN PO 05/13/17 12:30 (Senokot) 17.2 mg Q12H PRN PO 05/13/17 12:30 (Dulcolax Supp) 10 mg DAILY PRN RECTAL 05/13/17 12:30 (Lactulose Liq) 30 ml DAILY PRN PO 05/13/17 12:30 (Lipitor) 10 mg HS PO 05/13/17 21:00 05/13/17 21:49 (Neurontin) 800 mg TID PO 05/13/17 13:00 05/14/17 13:20 (Synthroid) 50 mcg DAILY@0600 PO 05/14/17 06:00 05/14/17 05:04 (Prinivil) 10 mg DAILY PO 05/14/17 09:00 05/14/17 08:27 (Lopressor) 25 mg BID PO 05/14/17 09:00 05/14/17 09:00 (Nitrostat Sl) 0.4 mg QID PRN SL 05/13/17 12:45 (Desyrel) 50 mg HS PO 05/13/17 21:00 05/13/17 21:49 (Protonix) 20 mg DAILY PO 05/14/17 09:00 05/14/17 08:27 (Creon 12-38-60) 2 cap TIDPC PO 05/13/17 13:30 05/14/17 13:20 (Morphine Inj) 2 mg Q3HR PRN IV PUSH 05/13/17 12:45 05/14/17 11:54 (Romazicon Inj) 0.2 mg Q1M PRN IV PUSH 05/13/17 14:45 (Ativan) 1 mg Q4H PRN PO 05/13/17 14:45 (Ativan Inj) 1 mg Q4H PRN IV PUSH 05/13/17 14:45 05/14/17 11:19 (Ativan) 2 mg Q2H PRN PO 05/13/17 14:45 (Ativan Inj) 2 mg Q2H PRN IV PUSH 05/13/17 14:45 (Ativan Inj) 2 mg Q1H PRN IV PUSH 05/13/17 14:45 (Ativan Inj) 2 mg Q15M PRN IV PUSH 05/13/17 14:45 (NS Flush) 2 ml UNSCH PRN IV FLUSH 05/13/17 15:15 (NS Flush) 2 ml BID IV FLUSH 05/13/17 21:00 (Aspirin Chew) 162 mg DAILY PO 05/14/17 09:00 05/14/17 08:26 (Plavix) 75 mg DAILY PO 05/14/17 09:00 05/14/17 08:39 (Atropine Inj) 0.5 mg UNSCH PRN IV PUSH 05/13/17 15:15 Vital Signs / I&O Vital Signs Date Time Temp Pulse Resp B/P (MAP) Pulse Ox O2 Delivery O2 Flow Rate FiO2 05/14/17 11:17 98.6 85 20 132/75 (94) 98 05/14/17 09:00 98 21 05/14/17 07:17 98.0 89 21 123/67 (85) 97 05/14/17 06:01 82 05/14/17 05:13 17 05/14/17 05:12 132 79/82 05/14/17 04:00 89 05/14/17 03:02 98 21 05/14/17 03:00 87 05/14/17 03:00 98.4 87 20 127/77 (94) 97 05/14/17 02:00 81 05/14/17 01:00 96 05/13/17 23:00 98.6 92 18 143/68 (93) 98 05/13/17 23:00 96 05/13/17 21:30 96 05/13/17 21:30 98.4 97 18 148/78 (101) 98 05/13/17 15:24 94 Room Air Laboratory GENERAL: SKIN: Warm and dry. HEAD: Normocephalic. EYES: No scleral icterus. No injection or drainage. NECK: Supple, trachea midline. No JVD or lymphadenopathy. CARDIOVASCULAR: Regular rate and rhythm without murmurs, gallops, or rubs. RESPIRATORY: Breath sounds equal bilaterally. No accessory muscle use. GASTROINTESTINAL: Abdomen soft, non-tender, nondistended. MUSCULOSKELETAL: No cyanosis, or edema. BACK: Nontender without obvious deformity. No CVA tenderness. Laboratory Tests Test 05/13/17 21:31 05/14/17 03:10 Activated Partial Thromboplast Time 23.5 SEC Troponin I 13.20 NG/ML 8.31 NG/ML White Blood Count 5.9 TH/MM3 Red Blood Count 3.25 MIL/MM3 Hemoglobin 8.1 GM/DL Hematocrit 25.3 % Mean Corpuscular Volume 77.9 FL Mean Corpuscular Hemoglobin 24.9 PG Mean Corpuscular Hemoglobin Concent 31.9 % Red Cell Distribution Width 32.1 % Platelet Count 285 TH/MM3 Mean Platelet Volume 7.9 FL Neutrophils (%) (Auto) 55.8 % Lymphocytes (%) (Auto) 27.1 % Monocytes (%) (Auto) 14.2 % Eosinophils (%) (Auto) 2.1 % Basophils (%) (Auto) 0.8 % Neutrophils # (Auto) 3.3 TH/MM3 Lymphocytes # (Auto) 1.6 TH/MM3 Monocytes # (Auto) 0.8 TH/MM3 Eosinophils # (Auto) 0.1 TH/MM3 Basophils # (Auto) 0.0 TH/MM3 CBC Comment AUTO DIFF Differential Total Cells Counted 100 Neutrophils % (Manual) 49 % Band Neutrophils % 14 % Lymphocytes % 27 % Monocytes % 8 % Basophils % 1 % Neutrophils # (Manual) 3.8 TH/MM3 Promyelocytes 1 % Differential Comment FINAL DIFF MANUAL Platelet Estimate NORMAL Platelet Morphology Comment NORMAL Basophilic Stippling FAINT Ovalocytes 1+ Acanthocytes OCC Keratocytes OCC Blood Urea Nitrogen 11 MG/DL Creatinine 0.69 MG/DL Random Glucose 142 MG/DL Total Protein 5.7 GM/DL Albumin 2.7 GM/DL Calcium Level 8.0 MG/DL Alkaline Phosphatase 93 U/L Aspartate Amino Transf (AST/SGOT) 75 U/L Alanine Aminotransferase (ALT/SGPT) 29 U/L Total Bilirubin 0.3 MG/DL Sodium Level 140 MEQ/L Potassium Level 3.4 MEQ/L Chloride Level 108 MEQ/L Carbon Dioxide Level 24.9 MEQ/L Anion Gap 7 MEQ/L Estimat Glomerular Filtration Rate 116 ML/MIN Total Creatine Kinase 203 U/L Triglycerides Level 73 MG/DL Cholesterol Level 100 MG/DL LDL Cholesterol 47 MG/DL HDL Cholesterol 38.5 MG/DL Cholesterol/HDL Ratio 2.59 RATIO Assessment and Plan Problem List: (1) History of hepatitis C ICD Codes: Z86.19 - Personal history of other infectious and parasitic diseases Status: Chronic (2) Alcohol dependence ICD Codes: F10.20 - Alcohol dependence, uncomplicated Status: Acute (3) NSTEMI (non-ST elevated myocardial infarction) ICD Codes: I21.4 - Non-ST elevation (NSTEMI) myocardial infarction Status: Acute (4) CAD (coronary artery disease) ICD Codes: I25.10 - Atherosclerotic heart disease of [place] coronary artery without angina pectoris Status: Chronic Assessment and Plan 1.) CAD - continue aspirin, plavix, lopressor, patiently strongly advised to be compliant with aspirin and plavix due to risk of life threatening stent thrombosis, case management consult placed by me to assist with improving complinace. I am on vacation until may 27, 2017, Dr Warren covering me Problem Qualifiers (1) CAD (coronary artery disease): Qualified Codes: I25.10 - Atherosclerotic heart disease of [place] coronary artery without angina pectoris Doug Flowers MD May 14, 2017 14:08
--- NOTE | 2017-05-14 14:58 | EKG ---
Date Performed: 05/13/2017 Time Performed: 11:11:04 PTAGE: 61 years EKG: SINUS TACHYCARDIA ABNORMAL RHYTHM ECG PREVIOUS TRACING : 05/06/2017 05.17 DOCTOR: Carl Mcelroy Interpretating Date/Time 05/14/2017 14:58:10
--- NOTE | 2017-05-14 15:39 | PD.PSY.CON ---
Provisional Diagnosis Admission Date May 13, 2017 at 12:03 [place]. Adjustment disorder with depressed mood, alcohol use disorder, history of depression History of Present Illness Service Psychiatry Consult Requested By Medical team Reason for Consult Suicidal ideation Primary Care Physician No Primary Care Physician HPI The patient is a 61-year-old man, domiciled alone in [facility], single, unemployed, supported by [facility], he reports psychiatric history of depression, psychiatric hospitalization, no previous suicidal attempts, he has history of severe alcohol use disorder, opiates use disorder, with medical history of recent NSTEMI s/p catheterization one week ago, HTN, Hep C, Cirrhosis, who presented to [facility] with chest pain that began the morning of admission. He walked a few blocks to the store and started having chest pain when he returned home. Chest pain fluctuates in intensity. He cannot describe the pain. Pain is in middle to left chest and radiates to abdomen and back. He has had "a little" shortness of breath, dizziness and diaphoresis. He also complains of constipation for the past few days and headache that started in the ED with the NTG drip being increased. He says that he takes some medications but is unsure of what he takes or how often he takes them because "he has so many." Patient was consulted to psychiatry to address recent suicidal statement. On psychiatric evaluation today the patient is calm, cooperative, complaining of pain. Patient says that at any moment he endorsed suicidal ideation. He just stated that he is on pain and he prefers to that being in pain. He reports to be sad due to his medical condition, but denies anhedonia, hopelessness, helplessness, suicidal ideation, homicidal ideation, visual and auditory hallucinations. Patient is oriented 3. Past Family Social History Coded Allergies: cefepime (Unverified Allergy, Severe, 05/13/17) ceftaroline fosamil (Unverified Allergy, Severe, 05/13/17) cephalexin (Unverified Allergy, Severe, UNKNOWN, 05/13/17) *MDRO Multi-Drug Resistant Organism (Verified Adverse Reaction, Unknown, ) 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 Active Scripts Atorvastatin (Lipitor) 10 Mg Tab, 10 MG PO HS for heart for 30 Days, TAB Prov:Aron Yuen MD 05/09/17 Clopidogrel (Plavix) 75 Mg Tab, 75 MG PO DAILY for Blood Clot Prevention for 30 Days, #30 TAB Prov:Aron Yuen MD 05/09/17 Oxycodone (Oxycodone) 5 Mg Tab, 5 MG PO Q6HR Y for pain, #20 TAB Prov:Anthony Balderrama MD 12/28/16 Levothyroxine (Synthroid) 50 Mcg Tab, 50 MCG PO DAILY@0600, #30 TAB Prov:Roddy Fish MD 12/23/16 Reported Medications Trazodone (Trazodone) 50 Mg Tab, 50 MG PO HS for Control Depression, #30 TAB 0 Refills 05/03/17 Omeprazole (Omeprazole) 20 Mg Tab, 20 MG PO DAILY, #30 TAB 0 Refills 12/27/16 Lisinopril (Lisinopril) 10 Mg Tab, 10 MG PO DAILY, #30 TAB 0 Refills 07/13/16 Metoprolol Tartrate (Metoprolol Tartrate) 25 Mg Tab, 25 MG PO BID, #60 TAB 0 Refills 07/13/16 Nitroglycerin SL (Nitroglycerin SL) 0.4 Mg Subl, 0.4 MG SL DIRECTED Y for CHEST PAIN, #100 TAB.SL 0 Refills ONE TABLET UNDER THE TONGUE NEEDED FOR CHEST PAIN, MAY REPEAT EVERY FIVE MINUTES FOR A TOTAL OF 3 DOSES OR CALL 911 IF NO RELIEF 07/13/16 Pancrelipase (Zenpep) 10,000-34,000-55,000 Units Cap, 2 CAP PO TIDPC for Digestive Aid, #90 CAP 0 Refills 07/13/16 Gabapentin (Gabapentin) 800 Mg Tab, 800 MG PO TID, #90 TAB 0 Refills 07/13/16 Discontinued Reported Medications Acetaminophen-Codeine (Tylenol-Codeine #4) 300-60 mg Tab, 1 TAB PO Q6HR Y for PAIN, TAB 0 Refills 05/03/17 Prednisone (Prednisone) 10 Mg Tab, 10 MG PO DAILY, TAB 0 Refills 05/03/17 Tramadol (Tramadol) 50 Mg Tab, 50 MG PO Q8H Y for PAIN, TAB 0 Refills 05/03/17 Discontinued Scripts Oxycodone ER (Oxycontin) 10 Mg Tab, 10 MG PO Q12HR for Pain, #14 TAB Prov:Aron Yuen MD 05/09/17 Chlordiazepoxide HCl (Chlordiazepoxide HCl) 10 Mg Capsule, 10 MG PO DAILY for Alcohol Detox, #4 TAB Prov:Aron Yuen MD 05/09/17 Sennosides (Senna-Tabs) 8.6 Mg Tab, 8.6 MG PO DAILY for Constipation, #30 TAB 0 Refills Prov:Aron Yuen MD 05/09/17 Ferrous Sulfate (Ferrous Sulfate) 325 Mg (65 Mg Iron) Tablet, 325 MG PO BIDPC for Nutritional Supplement, #60 TAB 0 Refills Prov:Aron Yuen MD 05/09/17 Aspirin (Tgt Aspirin) 81 Mg Chw, 81 MG PO DAILY for Blood Clot Prevention for 30 Days, EA Prov:Aron Yuen MD 05/09/17 Cholecalciferol (Gnp Vitamin D3 Extra Stre) 1,000 Unit Tab, 1000 UNITS PO DAILY for vitaminb, #30 TAB Prov:Anthony Balderrama MD 05/02/17 Thiamine HCl (Gnp Vitamin B-1) 100 Mg Tab, 100 MG PO DAILY for Alcohol Detox, # 30 TAB Prov:Anthony Balderrama MD 05/02/[address] (Aspirin EC) 325 Mg Tabdr, 325 MG PO DAILY for Prevent Blood Clot, # 30 TAB Prov:Anthony Balderrama MD 05/02/17 Ferrous Sulfate (Ferosul) 325 Mg (65 Mg Iron) Tablet, 325 MG PO BID for Build Red Blood Cells, #60 TAB Prov:Anthony Balderrama MD 05/02/17 Amitriptyline (Amitriptyline) 50 Mg Tab, 50 MG PO HS for health for 14 Days, TAB Prov:Dm Nava MD 10/19/16 Current Medications Medications (Trade) Dose Ordered Sig/Ashlie Route Start Time Stop Time Status Last Admin Nitroglycerin/ Dextrose 250 ml @ 3 mls/hr TITRATE PRN IV 05/13/17 09:30 05/13/17 10:07 Sodium Chloride 1,000 ml @ 100 mls/hr Q10H IV 05/13/17 13:00 05/13/17 21:58 (Tylenol) 650 mg Q4H PRN PO 05/13/17 12:30 05/14/17 06:38 (Zofran Inj) 4 mg Q6H PRN IVP 3/6/18 12:30 (Ambien) 5 mg HS PRN PO 05/13/17 12:30 (Narcan Inj) 0.4 mg UNSCH PRN IV PUSH 05/13/17 12:30 (Christie-Colace) 1 tab BID PO 05/13/17 21:00 05/14/17 08:27 (Milk Of Magnesia Liq) 30 ml Q12H PRN PO 05/13/17 12:30 (Senokot) 17.2 mg Q12H PRN PO 05/13/17 12:30 (Dulcolax Supp) 10 mg DAILY PRN RECTAL 05/13/17 12:30 (Lactulose Liq) 30 ml DAILY PRN PO 05/13/17 12:30 (Lipitor) 10 mg HS PO 05/13/17 21:00 05/13/17 21:49 (Neurontin) 800 mg TID PO 05/13/17 13:00 05/14/17 13:20 (Synthroid) 50 mcg DAILY@0600 PO 05/14/17 06:00 05/14/17 05:04 (Prinivil) 10 mg DAILY PO 05/14/17 09:00 05/14/17 08:27 (Lopressor) 25 mg BID PO 05/14/17 09:00 05/14/17 09:00 (Nitrostat Sl) 0.4 mg QID PRN SL 05/13/17 12:45 (Desyrel) 50 mg HS PO 05/13/17 21:00 05/13/17 21:49 (Protonix) 20 mg DAILY PO 05/14/17 09:00 05/14/17 08:27 (Creon 12-38-60) 2 cap TIDPC PO 05/13/17 13:30 05/14/17 13:20 (Morphine Inj) 2 mg Q3HR PRN IV PUSH 05/13/17 12:45 05/14/17 15:27 (Romazicon Inj) 0.2 mg Q1M PRN IV PUSH 05/13/17 14:45 (Ativan) 1 mg Q4H PRN PO 05/13/17 14:45 (Ativan Inj) 1 mg Q4H PRN IV PUSH 05/13/17 14:45 05/14/17 11:19 (Ativan) 2 mg Q2H PRN PO 05/13/17 14:45 (Ativan Inj) 2 mg Q2H PRN IV PUSH 05/13/17 14:45 (Ativan Inj) 2 mg Q1H PRN IV PUSH 05/13/17 14:45 (Ativan Inj) 2 mg Q15M PRN IV PUSH 05/13/17 14:45 (NS Flush) 2 ml UNSCH PRN IV FLUSH 05/13/17 15:15 (NS Flush) 2 ml BID IV FLUSH 05/13/17 21:00 (Aspirin Chew) 162 mg DAILY PO 05/14/17 09:00 05/14/17 08:26 (Plavix) 75 mg DAILY PO 05/14/17 09:00 05/14/17 08:39 (Atropine Inj) 0.5 mg UNSCH PRN IV PUSH 05/13/17 15:15 Social History Patient was born and raised in [place], he lives in [facility] alone, single, unemployed, supported by [facility] Physical Exam Vital Signs Vital Signs Date Time Temp Pulse Resp B/P (MAP) Pulse Ox O2 Delivery O2 Flow Rate FiO2 05/14/17 15:16 98.2 85 20 135/81 (99) 97 05/14/17 09:00 21 05/13/17 15:24 Room Air 05/13/17 11:16 2.00 I/O 05/14/17 05/14/17 05/15/17 08:00 16:00 00:00 Intake Total 990 ml Balance 990 ml Lab Results Test 05/13/17 21:31 05/14/17 03:10 Activated Partial Thromboplast Time 23.5 SEC Troponin I 13.20 NG/ML 8.31 NG/ML White Blood Count 5.9 TH/MM3 Red Blood Count 3.25 MIL/MM3 Hemoglobin 8.1 GM/DL Hematocrit 25.3 % Mean Corpuscular Volume 77.9 FL Mean Corpuscular Hemoglobin 24.9 PG Mean Corpuscular Hemoglobin Concent 31.9 % Red Cell Distribution Width 32.1 % Platelet Count 285 TH/MM3 Mean Platelet Volume 7.9 FL Neutrophils (%) (Auto) 55.8 % Lymphocytes (%) (Auto) 27.1 % Monocytes (%) (Auto) 14.2 % Eosinophils (%) (Auto) 2.1 % Basophils (%) (Auto) 0.8 % Neutrophils # (Auto) 3.3 TH/MM3 Lymphocytes # (Auto) 1.6 TH/MM3 Monocytes # (Auto) 0.8 TH/MM3 Eosinophils # (Auto) 0.1 TH/MM3 Basophils # (Auto) 0.0 TH/MM3 CBC Comment AUTO DIFF Differential Total Cells Counted 100 Neutrophils % (Manual) 49 % Band Neutrophils % 14 % Lymphocytes % 27 % Monocytes % 8 % Basophils % 1 % Neutrophils # (Manual) 3.8 TH/MM3 Promyelocytes 1 % Differential Comment FINAL DIFF MANUAL Platelet Estimate NORMAL Platelet Morphology Comment NORMAL Basophilic Stippling FAINT Ovalocytes 1+ Acanthocytes OCC Keratocytes OCC Blood Urea Nitrogen 11 MG/DL Creatinine 0.69 MG/DL Random Glucose 142 MG/DL Total Protein 5.7 GM/DL Albumin 2.7 GM/DL Calcium Level 8.0 MG/DL Alkaline Phosphatase 93 U/L Aspartate Amino Transf (AST/SGOT) 75 U/L Alanine Aminotransferase (ALT/SGPT) 29 U/L Total Bilirubin 0.3 MG/DL Sodium Level 140 MEQ/L Potassium Level 3.4 MEQ/L Chloride Level 108 MEQ/L Carbon Dioxide Level 24.9 MEQ/L Anion Gap 7 MEQ/L Estimat Glomerular Filtration Rate 116 ML/MIN Total Creatine Kinase 203 U/L Triglycerides Level 73 MG/DL Cholesterol Level 100 MG/DL LDL Cholesterol 47 MG/DL HDL Cholesterol 38.5 MG/DL Cholesterol/HDL Ratio 2.59 RATIO Mental Status Examination Appearance: Appropriate Consciousness: Alert Orientation: x4 Motor Activity: Normal gait Speech: Unremarkable Language: Adequate Fund of Knowledge: Adequate Attention and Concentration: Adequate Memory: Unremarkable Mood: Angry Thought Process & Associations: Intact Thought Content: Appropriate Hallucination Type: None Delusion Type: None Suicidal Ideation: No Suicidal Plan: No Suicidal Intention: No Homicidal Ideation: No Homicidal Plan: No Homicidal Intention: No Insight: Fair Judgment: Impulsive Assessment & Plan Problem List: (1) Adjustment disorder with depressed mood ICD Codes: F43.21 - Adjustment disorder with depressed mood Assessment & Plan: At the moment of my evaluation the patient reports frustration, anger and sadness in the context of increased pain and what he considers to be undertreated for his pain. The patient denies suicidal ideation , he denies homicidal ideation, he denies visual and auditory hallucinations. Recent suicidal statement apparent was condition to be undertreated for pain. Patient has an extensive history of drug seeking behavior, manipulation with intentions of getting more opiates. He does not meet criteria for involuntary psychiatric admission. Brief supportive psychotherapy, motivation and psychoeducation provided. I will follow-up. Assessment & Plan Estimated LOS: Dm Oliver MD May 14, 2017 15:39
[2017-05-14] MEDS: SODIUM CHLOR 0.9% 1000 ML INJ 1,000 ML IV SCH (18:11)
[2017-05-14] MEDS: traZODone HCL 50 MG TAB PO SCH (22:29)
[2017-05-14] MEDS: ATORVASTATIN 10 MG TAB PO SCH (22:29)
[2017-05-14] MEDS: ZOLPIDEM TARTRATE 5 MG TAB PO PRN (22:30)
[2017-05-14] MEDS: NITROGLYCERIN-D5W 50 MG/250 ML 250 ML IV PRN (22:35)
[2017-05-15] VITALS (28 sets, daily range): BP systolic 108–162; BP diastolic 70–94; PULSE 57–98; RESP 18–22; TEMP 97.8–98.2; O2SAT 95–99
[2017-05-15] MEDS: MORPHINE SULFATE 4 MG/ML INJ IV PUSH PRN ×3 (02:46→09:42)
[2017-05-15] MEDS: SODIUM CHLOR 0.9% 1000 ML INJ 1,000 ML IV SCH (05:31)
[2017-05-15] MEDS: LEVOTHYROXINE SODIUM 50 MCG TAB PO SCH (05:53)
[2017-05-15 06:24] LABS: HEMOGLOBIN 10.1 GM/DL (13.0-17.0); MEAN CELL VOLUME 79.7 FL (80.0-100.0); MEAN CORPUSCULAR HEMOGLOBIN 25.1 PG (27.0-34.0); MEAN CORPUSCULAR HGB CONC 31.6 % (32.0-36.0); MEAN PLATELET VOLUME 8.1 FL (7.0-11.0); PLATELET COUNT 282 TH/MM3 (150-450); RED BLOOD COUNT 4.02 MIL/MM3 (4.50-5.90); RED CELL DISTRIBUTION WIDTH 32.8 % (11.6-17.2); WHITE BLOOD COUNT 7.7 TH/MM3 (4.0-11.0)
[2017-05-15 06:43] LABS: BICARBONATE 21.9 MEQ/L (21.0-32.0); CALCIUM 8.7 MG/DL (8.5-10.1); CREATININE 0.63 MG/DL (0.60-1.30)
[2017-05-15] MEDS: LISINOPRIL 10 MG TAB PO SCH (09:28)
[2017-05-15] MEDS: GABAPENTIN 400 MG CAP PO SCH ×3 (09:28→18:14)
[2017-05-15] MEDS: LIPASE/PROTEASE/AMYLASE (12,000/38,000/60,000) CAP PO SCH ×3 (09:28→18:14)
[2017-05-15] MEDS: CLOPIDOGREL 75 MG TAB PO SCH (09:28)
[2017-05-15] MEDS: PANTOPRAZOLE SOD 20 MG DELAYED RELEASE TAB PO SCH (09:29)
[2017-05-15] MEDS: ASPIRIN 81 MG CHEW TAB PO SCH (09:29)
[2017-05-15] MEDS: SODIUM CHLORIDE 0.9% FLUSH 10 ML FLUSH IV FLUSH SCH ×2 (09:29→20:41)
[2017-05-15] MEDS: DOCUSATE SODIUM 50 MG/SENNA 8.6 MG TAB PO SCH ×2 (09:30→20:40)
[2017-05-15] MEDS: METOPROLOL TARTRATE 25 MG TAB PO SCH ×2 (09:30→20:40)
--- NOTE | 2017-05-15 10:42 | HHI.FPPN ---
Subjective Remarks Patient lying in bed. He states that he still has a lot of generalized pain. He has required pain medications every 3-4 hours. He understands that he must take his medications and stop smoking to prevent future cardiac events. He agrees to switch from IV to PO medications. He would like to go to a SNF before going home. Denies sob, f/c/n/v/d. (Cornelius Garcia MD, R3) Objective Vitals Vital Signs Date Time Temp Pulse Resp B/P (MAP) Pulse Ox O2 Delivery O2 Flow Rate FiO2 05/15/17 10:21 154/92 (112) 05/15/17 09:31 98.2 85 22 97 05/15/17 06:00 76 05/15/17 05:59 18 05/15/17 05:00 70 05/15/17 04:00 63 05/15/17 04:00 97.9 72 20 144/90 (108) 95 05/15/17 03:00 70 05/15/17 02:00 68 05/15/17 01:00 74 05/15/17 00:00 98.2 72 18 123/73 (90) 95 05/15/17 00:00 70 05/14/17 23:00 78 05/14/17 22:40 18 05/14/17 22:35 86 130/81 05/14/17 22:00 78 05/14/17 21:00 78 05/14/17 20:52 93 05/14/17 20:00 86 05/14/17 20:00 98.3 86 20 130/81 (97) 95 05/14/17 19:00 84 05/14/17 18:00 82 05/14/17 17:00 88 05/14/17 16:00 78 05/14/17 15:16 98.2 85 20 135/81 (99) 97 05/14/17 15:00 80 05/14/17 14:00 78 05/14/17 13:00 82 05/14/17 12:00 86 05/14/17 11:17 98.6 85 20 132/75 (94) 98 05/14/17 11:00 87 I/O 05/14/17 05/14/17 05/14/17 05/15/17 05/15/17 05/15/17 07:00 15:00 23:00 07:00 15:00 23:00 Intake Total 990 ml 240 ml Output Total 1925 ml Balance 990 ml -1685 ml Intake Oral 240 ml IV Total 990 ml Output Urine Total 1925 ml # Bowel Movements 0 (Cornelius Garcia MD, R3) Result Diagram: 05/15/17 0509 05/15/17 0509 Imaging Last Impressions Chest X-Ray 05/13/17 1047 Signed Impressions: Service Date/Time: Saturday, May 13, 2017 10:59 - CONCLUSION: 1. No acute cardiopulmonary disease. Johnathon Dietz MD Objective Remarks GENERAL: This is a well-nourished, well-developed patient, complaining of constant pain all over SKIN: No rashes, ecchymoses or lesions. Cool and dry. HEAD: Atraumatic. Normocephalic. EYES: Pupils equal round and reactive. Extraocular motions intact. No scleral icterus. No injection or drainage. ENT: Nose without bleeding, purulent drainage or septal hematoma. Airway patent. NECK: Trachea midline. No JVD or lymphadenopathy. Supple, nontender, no meningeal signs. CARDIOVASCULAR: Regular rate and rhythm without murmurs, gallops, or rubs. RESPIRATORY: Clear to auscultation. Breath sounds equal bilaterally. No wheezes , rales, or rhonchi. GASTROINTESTINAL: Abdomen soft, non-tender, nondistended. No hepato-splenomegaly , or palpable masses. No guarding. MUSCULOSKELETAL: Extremities without clubbing, cyanosis, or edema. No joint tenderness, effusion, or edema noted. No calf tenderness. Negative Homans sign bilaterally. NEUROLOGICAL: Awake and alert. Cranial nerves II through XII intact. Motor and sensory grossly within normal limits. Five out of 5 muscle strength in all muscle groups. Normal speech. (Cornelius Garcia MD, R3) A/P Assessment and Plan 61-year-old male with history of recent NSTEMI s/p catheterization one week ago , HTN, Hep C, Cirrhosis, Tobacco and Alcohol abuse and non compliance. Concern for ACS. Cardiology consulted (Dr. Flowers); s/p stent placement in diagonal artery. Recs per cardiology as below. Discharge Planning pending pain control, cardiology clearance, and placement (likely to SNF) PT recs home with home health PT (Cornelius Garcia MD, R3) Attending Attestation Patient seen and examined. Case reviewed and discussed with the resident team. Agree with plan of care as discussed with me and documented in the resident note. unfortunately, he has a history of opiate and alcohol abuse and continuously wants more pain meds (Jo Meyer MD) Problem List: (1) NSTEMI (non-ST elevated myocardial infarction) ICD Codes: I21.4 - Non-ST elevation (NSTEMI) myocardial infarction Status: Acute Plan: Per cardiology: continue aspirin, plavix, lopressor, patiently strongly advised to be compliant with aspirin and plavix due to risk of life threatening stent thrombosis, case management consult placed to assist with improving compliance.Dr Warren covering for Dr. Flowers (2) Chest pain ICD Codes: R07.9 - Chest pain, unspecified Status: Chronic Plan: Chronic pain, unclear how much is cardiac in origin vs pain seeking. will stop IV morphine and transition to PO norco at this time. Patient encouraged to seek PCP and have a pain referal as outpatient. (3) Depression ICD Codes: F32.9 - Major depressive disorder, single episode, unspecified Status: Acute Plan: Adjustment d/o with depressive mood Denies SI or plans Psychiatry saw patient 05/14 and plans to follow up. Patient denied suicidal or homicidal ideations but was in pain. Recommends supportive psychotherapy, motivation and psychosocial education. (4) CAD (coronary artery disease) ICD Codes: I25.10 - Atherosclerotic heart disease of tribe coronary artery without angina pectoris Status: Chronic Plan: Patient given plavix in ED; patient is non compliant Cardiology consulted continue home aspirin, plavix, atorvastatin, metoprolol Counseled patient importance of taking medications as prescribed or he could (5) Hypertension ICD Codes: I10 - Essential (primary) hypertension Status: Chronic Plan: - Continue home Metoprolol and Lisinopril which he has not been taking (6) Tobacco abuse ICD Codes: Z72.0 - Tobacco use Status: Chronic Plan: - Currently smokes 1ppd - Monitor for signs of withdrawal Patient counseled on the importance to quitting smoking. (7) Alcohol abuse ICD Codes: F10.10 - Alcohol abuse, uncomplicated Status: Chronic Plan: - Per patient, uses intermittently. CIWA protocol (8) Chronic pain ICD Codes: G89.29 - Other chronic pain Plan: discussed with pt that he will need longterm follow up to help his chronic pain he wants more and more narcotics but evidently was admitted in the past with opiate overuse will change from IV to PO pain meds (9) FEN/PPX Status: Acute Plan: - Fluids: Normal Saline at 100mL/hr, can heplock - Electrolytes: Monitor and replete as needed - Nutrition:cardiac diet after catherization - PPX: Heparin, SCD (Cornelius Garcia MD, R3) Problem Qualifiers (1) Chest pain: (2) Depression: Qualified Codes: F32.9 - Major depressive disorder, single episode, unspecified (3) CAD (coronary artery disease): Qualified Codes: I25.10 - Atherosclerotic heart disease of tribe coronary artery without angina pectoris (4) Hypertension: Qualified Codes: I10 - Essential (primary) hypertension (5) Chronic pain: Qualified Codes: G89.29 - Other chronic pain Cornelius Garcia MD, R3 May 15, 2017 10:42 Jo Meyer MD May 16, 2017 13:25
[2017-05-15] MEDS: ACETAMINOPHEN/HYDROcodone 325 MG/5 MG TAB PO PRN (12:54)
[2017-05-15] MEDS: HEPARIN SODIUM - SQ 10,000 UNITS/ML VIAL SQ SCH (12:55)
[2017-05-15] MEDS ORDERED: hydrALAZINE HCL 10 MG TAB PO PRN (13:15)
[2017-05-15] MEDS ORDERED: HYDR-3516 PO (13:49)
[2017-05-15] MEDS ORDERED: ASPI81 PO (13:49)
--- NOTE | 2017-05-15 13:50 | HHI.DCPOC ---
Discharge Care Plan Diagnosis: (1) NSTEMI (non-ST elevated myocardial infarction) (2) CAD (coronary artery disease) (3) Alcohol dependence (4) Chronic pain (5) Adjustment disorder with depressed mood Goals to Promote Your Health * To prevent worsening of your condition and complications * To maintain your health at the optimal level Directions to Meet Your Goals Take your medications as prescribed Follow your dietary instruction Follow activity as directed Keep your appointments as scheduled Take your immunizations and boosters as scheduled If your symptoms worsen call your PCP, if no PCP go to Urgent Care Center or Emergency Room Smoking is Dangerous to Your Health. Avoid second hand smoke Call the 24-hour hour crisis hotline for domestic abuse at Cornelius Garcia MD, R3 May 15, 2017 13:50
[2017-05-15] MEDS: ACETAMINOPHEN 325 MG TAB PO PRN (16:03)
[2017-05-15] MEDS: ZOLPIDEM TARTRATE 5 MG TAB PO PRN (20:41)
[2017-05-15] MEDS: traZODone HCL 50 MG TAB PO SCH (20:41)
[2017-05-15] MEDS: ATORVASTATIN 10 MG TAB PO SCH (20:41)
[2017-05-16] VITALS (14 sets, daily range): BP systolic 128–161; BP diastolic 80–97; PULSE 58–92; RESP 18; TEMP 97.8–98.1; O2SAT 95–97
[2017-05-16] MEDS: HEPARIN SODIUM - SQ 10,000 UNITS/ML VIAL SQ SCH ×2 (00:35→12:32)
[2017-05-16] MEDS: LEVOTHYROXINE SODIUM 50 MCG TAB PO SCH (06:10)
[2017-05-16] MEDS: DOCUSATE SODIUM 50 MG/SENNA 8.6 MG TAB PO SCH (08:59)
[2017-05-16] MEDS: LISINOPRIL 10 MG TAB PO SCH (08:59)
[2017-05-16] MEDS: CLOPIDOGREL 75 MG TAB PO SCH (08:59)
[2017-05-16] MEDS: GABAPENTIN 400 MG CAP PO SCH ×3 (08:59→17:36)
[2017-05-16] MEDS: PANTOPRAZOLE SOD 20 MG DELAYED RELEASE TAB PO SCH (09:00)
[2017-05-16] MEDS: LIPASE/PROTEASE/AMYLASE (12,000/38,000/60,000) CAP PO SCH ×3 (09:00→17:36)
[2017-05-16] MEDS: METOPROLOL TARTRATE 25 MG TAB PO SCH (09:00)
[2017-05-16] MEDS: ASPIRIN 81 MG CHEW TAB PO SCH (09:00)
[2017-05-16] MEDS: SODIUM CHLORIDE 0.9% FLUSH 10 ML FLUSH IV FLUSH SCH (09:01)
--- NOTE | 2017-05-16 10:54 | HHI.FPPN ---
Subjective Remarks Patient still complains of a lot of generalized pain. However, his chest pain is no longer constant and now intermittent. He would like an increase in frequency of pain medication. He had one episode of diarrhea/loose stools this morning. He ambulates without assistance but feels a little unsteady on his feet. Patient is still interested in going to a SNF after discharge. Denies fever, cough, nausea, vomiting, shortness of breath. (Colby Kirby MD R1) Objective Vitals Vital Signs Date Time Temp Pulse Resp B/P (MAP) Pulse Ox O2 Delivery O2 Flow Rate FiO2 05/16/17 03:00 97.9 77 18 128/80 (96) 97 05/16/17 01:00 58 05/16/17 00:00 61 05/15/17 23:00 57 05/15/17 23:00 98.1 66 18 108/70 (83) 98 05/15/17 22:00 61 05/15/17 21:00 66 05/15/17 20:00 75 05/15/17 19:41 21 05/15/17 19:00 75 05/15/17 19:00 97.8 64 18 145/81 (102) 98 05/15/17 17:20 75 05/15/17 16:00 72 05/15/17 15:56 98.0 73 18 143/84 (103) 98 05/15/17 15:00 75 05/15/17 14:00 70 05/15/17 13:00 72 05/15/17 12:09 98.2 85 20 162/94 (116) 99 05/15/17 12:00 74 05/15/17 11:00 68 I/O 05/15/17 05/15/17 05/15/17 05/16/17 05/16/17 05/16/17 07:00 15:00 23:00 07:00 15:00 23:00 Intake Total 240 ml 500 ml 720 ml 620 ml Output Total 1925 ml 1550 ml 700 ml Balance -1685 ml 500 ml -830 ml -80 ml Intake Oral 240 ml 720 ml 620 ml IV Total 500 ml Output Urine Total 1925 ml 1550 ml 700 ml # Bowel Movements 0 1 0 (Colby Kirby MD R1) Result Diagram: 05/15/17 0509 05/15/17 0509 Objective Remarks GENERAL: This is a well-nourished, well-developed patient, complaining of constant pain all over SKIN: No rashes, ecchymoses or lesions. Cool and dry. HEAD: Atraumatic. Normocephalic. EYES: Pupils equal round and reactive. Extraocular motions intact. No scleral icterus. No injection or drainage. ENT: Nose without bleeding, purulent drainage or septal hematoma. Airway patent. NECK: Trachea midline. No JVD or lymphadenopathy. Supple, nontender, no meningeal signs. CARDIOVASCULAR: Regular rate and rhythm without murmurs, gallops, or rubs. RESPIRATORY: Clear to auscultation. Breath sounds equal bilaterally. No wheezes , rales, or rhonchi. GASTROINTESTINAL: Abdomen soft, non-tender, nondistended. No hepato-splenomegaly , or palpable masses. No guarding. MUSCULOSKELETAL: Extremities without clubbing, cyanosis, or edema. No joint tenderness, effusion, or edema noted. No calf tenderness. Negative Homans sign bilaterally. NEUROLOGICAL: Awake and alert. Cranial nerves II through XII intact. Motor and sensory grossly within normal limits. Five out of 5 muscle strength in all muscle groups. Normal speech. Procedures heart cath 05/13/17 with stent placement in 1st diagonal artery (Dr Flowers) Medications and IVs Current Medications Medications (Trade) Dose Ordered Sig/Ashlie Route Start Time Stop Time Status Last Admin (Tylenol) 650 mg Q4H PRN PO 05/13/17 12:30 05/15/17 16:03 (Zofran Inj) 4 mg Q6H PRN IVP 05/13/17 12:30 (Ambien) 5 mg HS PRN PO 05/13/17 12:30 05/15/17 20:41 (Narcan Inj) 0.4 mg UNSCH PRN IV PUSH 05/13/17 12:30 (Christie-Colace) 1 tab BID PO 05/13/17 21:00 05/16/17 08:59 (Milk Of Magnesia Liq) 30 ml Q12H PRN PO 05/13/17 12:30 (Senokot) 17.2 mg Q12H PRN PO 05/13/17 12:30 (Dulcolax Supp) 10 mg DAILY PRN RECTAL 05/13/17 12:30 (Lactulose Liq) 30 ml DAILY PRN PO 05/13/17 12:30 (Lipitor) 10 mg HS PO 05/13/17 21:00 05/15/17 20:41 (Neurontin) 800 mg TID PO 05/13/17 13:00 05/16/17 08:59 (Synthroid) 50 mcg DAILY@0600 PO 05/14/17 06:00 05/16/17 06:10 (Prinivil) 10 mg DAILY PO 05/14/17 09:00 05/16/17 08:59 (Lopressor) 25 mg BID PO 05/14/17 09:00 05/16/17 09:00 (Nitrostat Sl) 0.4 mg QID PRN SL 05/13/17 12:45 (Desyrel) 50 mg HS PO 05/13/17 21:00 05/15/17 20:41 (Protonix) 20 mg DAILY PO 05/14/17 09:00 05/16/17 09:00 (Creon 12-38-60) 2 cap TIDPC PO 05/13/17 13:30 05/16/17 09:00 (Romazicon Inj) 0.2 mg Q1M PRN IV PUSH 05/13/17 14:45 (Ativan) 1 mg Q4H PRN PO 05/13/17 14:45 05/15/17 12:54 (Ativan Inj) 1 mg Q4H PRN IV PUSH 05/13/17 14:45 05/14/17 11:19 (Ativan) 2 mg Q2H PRN PO 05/13/17 14:45 (Ativan Inj) 2 mg Q2H PRN IV PUSH 05/13/17 14:45 (Ativan Inj) 2 mg Q1H PRN IV PUSH 05/13/17 14:45 (Ativan Inj) 2 mg Q15M PRN IV PUSH 05/13/17 14:45 (NS Flush) 2 ml UNSCH PRN IV FLUSH 05/13/17 15:15 (NS Flush) 2 ml BID IV FLUSH 05/13/17 21:00 05/16/17 09:01 (Aspirin Chew) 162 mg DAILY PO 05/14/17 09:00 05/16/17 09:00 (Plavix) 75 mg DAILY PO 05/14/17 09:00 05/16/17 08:59 (Atropine Inj) 0.5 mg UNSCH PRN IV PUSH 05/13/17 15:15 ([place] 5-325 Mg) 1 tab Q6H PRN PO 05/15/17 11:00 05/15/17 12:54 (Heparin Inj) 5,000 units Q12H SQ 05/15/17 11:00 05/16/17 00:35 (Apresoline) 10 mg Q6H PRN PO 05/15/17 13:15 (Colby Kirby MD R1) Urinary Catheter: No (Colby Kirby MD R1) Vascular Central Line Catheter: No (Colby Kirby MD R1) A/P Assessment and Plan 61-year-old male with history of recent NSTEMI s/p catheterization one week ago , HTN, Hep C, Cirrhosis, Tobacco and Alcohol abuse and non compliance. Concern for ACS. Cardiology consulted (Dr. Flowers); s/p stent placement in diagonal artery. Recs per cardiology as below. Pt seens and dw Dr Meyer and MS4 Kelly Cote who assisted in the drafting of this note Discharge Planning SNF placement (Colby Kirby MD R1) Attending Attestation Patient seen and examined. Case reviewed and discussed with the resident team. Agree with plan of care as discussed with me and documented in the resident note. agree with him going to a SNF as he is so high risk to stop his meds and clog his stents. He has been warned this can be fatal (Jo Meyer MD) Problem List: (1) NSTEMI (non-ST elevated myocardial infarction) ICD Codes: I21.4 - Non-ST elevation (NSTEMI) myocardial infarction Status: Acute Plan: Per cardiology: continue aspirin, plavix, lopressor, patiently strongly advised to be compliant with aspirin and plavix due to risk of life threatening stent thrombosis, case management consult placed to assist with improving compliance.Dr Warren covering for Dr. Flowers (2) Chest pain ICD Codes: R07.9 - Chest pain, unspecified Status: Chronic Plan: Chronic pain, unclear how much is cardiac in origin vs pain seeking. PO [place] for pain Patient encouraged to seek PCP and have a pain referral as outpatient. (3) CAD (coronary artery disease) ICD Codes: I25.10 - Atherosclerotic heart disease of [place] coronary artery without angina pectoris Status: Chronic Plan: Patient given plavix in ED; patient is non compliant with cardiovascular medications Cardiology consulted continue home aspirin, plavix, atorvastatin, metoprolol Counseled patient importance of taking medications as prescribed or he could (4) Hypertension ICD Codes: I10 - Essential (primary) hypertension Status: Chronic Plan: Continue home Metoprolol and Lisinopril which he has not been taking (5) Opiate dependence ICD Codes: F11.20 - Opioid dependence, uncomplicated Status: Chronic Plan: Patient has a history of opiate dependance and drug seeking behaviors. -Psychiatry consult verifies hx manipulative behaviors for drug seeking -Consider Pain Management referral as outpatient. (6) Depression ICD Codes: F32.9 - Major depressive disorder, single episode, unspecified Status: Acute Plan: Adjustment d/o with depressive mood Denies SI or plans Psychiatry saw patient 05/14 and plans to follow up. Patient denied suicidal or homicidal ideations but was in pain. Recommends supportive psychotherapy, motivation and psychosocial education. (7) Tobacco abuse ICD Codes: Z72.0 - Tobacco use Status: Chronic Plan: Currently smokes 1ppd Monitor for signs of withdrawal Patient counseled on the importance to quitting smoking. (8) Alcohol abuse ICD Codes: F10.10 - Alcohol abuse, uncomplicated Status: Chronic Plan: - Per patient, uses intermittently. CIWA protocol (9) Chronic pain ICD Codes: G89.29 - Other chronic pain Plan: discussed with pt that he will need fpc follow up to help his chronic pain he wants more and more narcotics but evidently was admitted in the past with opiate overuse will change from IV to PO pain meds (10) FEN/PPX Status: Acute Plan: - Fluids: PO fluids - Electrolytes: Monitor and replete as needed - Nutrition:cardiac diet after catherization - PPX: Heparin, SCD (Colby Kirby MD R1) Problem Qualifiers (1) Chest pain: (2) CAD (coronary artery disease): Qualified Codes: I25.10 - Atherosclerotic heart disease of [place] coronary artery without angina pectoris (3) Hypertension: Qualified Codes: I10 - Essential (primary) hypertension (4) Opiate dependence: Qualified Codes: F11.20 - Opioid dependence, uncomplicated (5) Depression: Qualified Codes: F32.9 - Major depressive disorder, single episode, unspecified (6) Chronic pain: Qualified Codes: G89.29 - Other chronic pain Colby Kirby MD R1 May 16, 2017 10:54 Jo Meyer MD May 16, 2017 13:26
[2017-05-16] MEDS ORDERED: TRAZ50TA12 PO (11:21)
--- NOTE | 2017-05-16 12:26 | HHI.FPPN ---
Objective Vitals Vital Signs Date Time Temp Pulse Resp B/P (MAP) Pulse Ox O2 Delivery O2 Flow Rate FiO2 05/16/17 03:00 97.9 77 18 128/80 (96) 97 05/16/17 01:00 58 05/16/17 00:00 61 05/15/17 23:00 57 05/15/17 23:00 98.1 66 18 108/70 (83) 98 05/15/17 22:00 61 05/15/17 21:00 66 05/15/17 20:00 75 05/15/17 19:41 21 05/15/17 19:00 75 05/15/17 19:00 97.8 64 18 145/81 (102) 98 05/15/17 17:20 75 05/15/17 16:00 72 05/15/17 15:56 98.0 73 18 143/84 (103) 98 05/15/17 15:00 75 05/15/17 14:00 70 05/15/17 13:00 72 I/O 05/15/17 05/15/17 05/15/17 05/16/17 05/16/17 05/16/17 07:00 15:00 23:00 07:00 15:00 23:00 Intake Total 240 ml 500 ml 720 ml 620 ml Output Total 1925 ml 1550 ml 700 ml Balance -1685 ml 500 ml -830 ml -80 ml Intake Oral 240 ml 720 ml 620 ml IV Total 500 ml Output Urine Total 1925 ml 1550 ml 700 ml # Bowel Movements 0 1 0 Result Diagram: 05/15/17 0509 05/15/17 0509 Objective Remarks GENERAL: This is a well-nourished, well-developed patient, complaining of constant pain all over SKIN: No rashes, ecchymoses or lesions. Cool and dry. HEAD: Atraumatic. Normocephalic. EYES: Pupils equal round and reactive. Extraocular motions intact. No scleral icterus. No injection or drainage. ENT: Nose without bleeding, purulent drainage or septal hematoma. Airway patent. NECK: Trachea midline. No JVD or lymphadenopathy. Supple, nontender, no meningeal signs. CARDIOVASCULAR: Regular rate and rhythm without murmurs, gallops, or rubs. RESPIRATORY: Clear to auscultation. Breath sounds equal bilaterally. No wheezes , rales, or rhonchi. GASTROINTESTINAL: Abdomen soft, non-tender, nondistended. No hepato-splenomegaly , or palpable masses. No guarding. MUSCULOSKELETAL: Extremities without clubbing, cyanosis, or edema. No joint tenderness, effusion, or edema noted. No calf tenderness. Negative Homans sign bilaterally. NEUROLOGICAL: Awake and alert. Cranial nerves II through XII intact. Motor and sensory grossly within normal limits. Five out of 5 muscle strength in all muscle groups. Normal speech. Procedures heart cath 05/13/17 with stent placement in 1st diagonal artery (Dr Flowers) A/P Assessment and Plan 61-year-old male with history of recent NSTEMI s/p catheterization one week ago , HTN, Hep C, Cirrhosis, Tobacco and Alcohol abuse and non compliance. Concern for ACS. Cardiology consulted (Dr. Flowers); s/p stent placement in diagonal artery. Recs per cardiology as below. Pt seens and dw Dr Meyer and MS4 Kelly Cote who assisted in the drafting of this note Discharge Planning SNF placement Problem List: (1) NSTEMI (non-ST elevated myocardial infarction) ICD Codes: I21.4 - Non-ST elevation (NSTEMI) myocardial infarction Status: Acute Plan: Per cardiology: continue aspirin, plavix, lopressor, patiently strongly advised to be compliant with aspirin and plavix due to risk of life threatening stent thrombosis, case management consult placed to assist with improving compliance.Dr Warren covering for Dr. Flowers (2) Chest pain ICD Codes: R07.9 - Chest pain, unspecified Status: Chronic Plan: Chronic pain, unclear how much is cardiac in origin vs pain seeking. PO [place] for pain Patient encouraged to seek PCP and have a pain referral as outpatient. (3) CAD (coronary artery disease) ICD Codes: I25.10 - Atherosclerotic heart disease of [place] coronary artery without angina pectoris Status: Chronic Plan: Patient given plavix in ED; patient is non compliant with cardiovascular medications Cardiology consulted continue home aspirin, plavix, atorvastatin, metoprolol Counseled patient importance of taking medications as prescribed or he could (4) Hypertension ICD Codes: I10 - Essential (primary) hypertension Status: Chronic Plan: Continue home Metoprolol and Lisinopril which he has not been taking (5) Opiate dependence ICD Codes: F11.20 - Opioid dependence, uncomplicated Status: Chronic Plan: Patient has a history of opiate dependance and drug seeking behaviors. -Psychiatry consult verifies hx manipulative behaviors for drug seeking -Consider Pain Management referral as outpatient. (6) Depression ICD Codes: F32.9 - Major depressive disorder, single episode, unspecified Status: Acute Plan: Adjustment d/o with depressive mood Denies SI or plans Psychiatry saw patient / and plans to follow up. Patient denied suicidal or homicidal ideations but was in pain. Recommends supportive psychotherapy, motivation and psychosocial education. (7) Tobacco abuse ICD Codes: Z72.0 - Tobacco use Status: Chronic Plan: Currently smokes 1ppd Monitor for signs of withdrawal Patient counseled on the importance to quitting smoking. (8) Alcohol abuse ICD Codes: F10.10 - Alcohol abuse, uncomplicated Status: Chronic Plan: - Per patient, uses intermittently. CIWA protocol (9) Chronic pain ICD Codes: G89.29 - Other chronic pain Plan: discussed with pt that he will need prison follow up to help his chronic pain he wants more and more narcotics but evidently was admitted in the past with opiate overuse will change from IV to PO pain meds (10) FEN/PPX Status: Acute Plan: - Fluids: PO fluids - Electrolytes: Monitor and replete as needed - Nutrition:cardiac diet after catherization - PPX: Heparin, SCD Problem Qualifiers (1) Chest pain: (2) CAD (coronary artery disease): Qualified Codes: I25.10 - Atherosclerotic heart disease of [place] coronary artery without angina pectoris (3) Hypertension: Qualified Codes: I10 - Essential (primary) hypertension (4) Opiate dependence: Qualified Codes: F11.20 - Opioid dependence, uncomplicated (5) Depression: Qualified Codes: F32.9 - Major depressive disorder, single episode, unspecified (6) Chronic pain: Qualified Codes: G89.29 - Other chronic pain Jo Meyer MD May 16, 2017 12:26
[2017-05-16] MEDS: ACETAMINOPHEN/HYDROcodone 325 MG/5 MG TAB PO PRN ×2 (12:34→17:37)
--- NOTE | 2017-05-17 09:32 | HHI.DS ---
Discharge Summary Admission Date May 13, 2017 at 12:03 Discharge Date: May 16, 2017 Admitting Diagnosis Non-ST elevation [place] (1) NSTEMI (non-ST elevated myocardial infarction) Diagnosis: Principal Plan: Per cardiology: continue aspirin, plavix, lopressor, patiently strongly advised to be compliant with aspirin and plavix due to risk of life threatening stent thrombosis, case management consult placed to assist with improving compliance.Dr Warren covering for Dr. Flowers ICD Codes: I21.4 - Non-ST elevation (NSTEMI) myocardial infarction Status: Acute (2) Chest pain Diagnosis: Secondary Plan: Chronic pain, unclear how much is cardiac in origin vs pain seeking. PO [place] for pain Patient encouraged to seek PCP and have a pain referral as outpatient. ICD Codes: R07.9 - Chest pain, unspecified Status: Chronic (3) CAD (coronary artery disease) Diagnosis: Principal Plan: Patient given plavix in ED; patient is non compliant with cardiovascular medications Cardiology consulted continue home aspirin, plavix, atorvastatin, metoprolol Counseled patient importance of taking medications as prescribed or he could ICD Codes: I25.10 - Atherosclerotic heart disease of [place] coronary artery without angina pectoris Status: Chronic (4) Hypertension Diagnosis: Secondary Plan: Continue home Metoprolol and Lisinopril which he has not been taking ICD Codes: I10 - Essential (primary) hypertension Status: Chronic (5) Opiate dependence Diagnosis: Secondary Plan: Patient has a history of opiate dependance and drug seeking behaviors. -Psychiatry consult verifies hx manipulative behaviors for drug seeking -Consider Pain Management referral as outpatient. ICD Codes: F11.20 - Opioid dependence, uncomplicated Status: Chronic (6) Depression Diagnosis: Secondary Plan: Adjustment d/o with depressive mood Denies SI or plans Psychiatry saw patient 05/14 and plans to follow up. Patient denied suicidal or homicidal ideations but was in pain. Recommends supportive psychotherapy, motivation and psychosocial education. ICD Codes: F32.9 - Major depressive disorder, single episode, unspecified Status: Acute (7) Tobacco abuse Diagnosis: Secondary Plan: Currently smokes 1ppd Monitor for signs of withdrawal Patient counseled on the importance to quitting smoking. ICD Codes: Z72.0 - Tobacco use Status: Chronic (8) Alcohol abuse Diagnosis: Secondary Plan: - Per patient, uses intermittently. [facility] protocol ICD Codes: F10.10 - Alcohol abuse, uncomplicated Status: Chronic (9) Chronic pain Diagnosis: Secondary Plan: discussed with pt that he will need nursing home follow up to help his chronic pain he wants more and more narcotics but evidently was admitted in the past with opiate overuse will change from IV to PO pain meds ICD Codes: G89.29 - Other chronic pain (10) FEN/PPX Diagnosis: Secondary Plan: - Fluids: PO fluids - Electrolytes: Monitor and replete as needed - Nutrition:cardiac diet after catherization - PPX: Heparin, SCD Status: Acute Consultants Cardiology Psychiatry Procedures heart cath 05/13/17 with stent placement in 1st diagonal artery (Dr Flowers) Brief History Mr Heredia is a 61-year-old male with history of recent NSTEMI s/p catheterization one week ago, HTN, Hep C, Cirrhosis, Tobacco and Alcohol abuse and opiate overdose plus Psychiatric admissions who presented to [facility] with chest pain that began the morning of admission. He walked a few blocks to the store and started having chest pain when he returned home. Chest pain fluctuates in intensity. He cannot describe the pain. Pain is in middle to left chest and radiates to abdomen and back. He has had "a little" shortness of breath, dizziness and diaphoresis. He also complains of constipation for the past few days and headache that started in the ED with the NTG drip being increased. He says that he takes some medications but is unsure of what he takes or how often he takes them because "he has so many." He then stated he feels his medicines don't work so he stopped taking them. He denies, changes in vision, changes in bowels, or paraesthesias. Today he complained that his pain was terrible and constant lasting for more than a year. He has chest pain, leg pain and back pain and other pain all the time and requests more pain medicine. he also said he wishes he was at times because of how miserable he was with his pain. he said he wasn't planning on killing himself in the hospital but he did have some plans when he left that "would be easy to do". He does have a history of overdose of opiates and an alcohol abuse history. CBC/BMP: 05/15/17 0509 05/15/17 0509 Significant Findings Laboratory Tests Test 05/15/17 05:09 Red Blood Count 4.02 MIL/MM3 (4.50-5.90) Hemoglobin 10.1 GM/DL (13.0-17.0) Hematocrit 32.0 % (39.0-51.0) Mean Corpuscular Volume 79.7 FL (80.0-100.0) Mean Corpuscular Hemoglobin 25.1 PG (27.0-34.0) Mean Corpuscular Hemoglobin Concent 31.6 % (32.0-36.0) Red Cell Distribution Width 32.8 % (11.6-17.2) Blood Urea Nitrogen 6 MG/DL (7-18) Chloride Level 109 MEQ/L (98-107) Imaging Last Impressions Chest X-Ray 05/13/17 1047 Signed Impressions: Service Date/Time: Saturday, May 13, 2017 10:59 - CONCLUSION: 1. No acute cardiopulmonary disease. Johnathon Dietz MD PE at Discharge GENERAL: This is a well-nourished, well-developed patient, complaining of constant pain all over SKIN: No rashes, ecchymoses or lesions. Cool and dry. HEAD: Atraumatic. Normocephalic. EYES: Pupils equal round and reactive. Extraocular motions intact. No scleral icterus. No injection or drainage. ENT: Nose without bleeding, purulent drainage or septal hematoma. Airway patent. NECK: Trachea midline. No JVD or lymphadenopathy. Supple, nontender, no meningeal signs. CARDIOVASCULAR: Regular rate and rhythm without murmurs, gallops, or rubs. RESPIRATORY: Clear to auscultation. Breath sounds equal bilaterally. No wheezes , rales, or rhonchi. GASTROINTESTINAL: Abdomen soft, non-tender, nondistended. No hepato-splenomegaly , or palpable masses. No guarding. MUSCULOSKELETAL: Extremities without clubbing, cyanosis, or edema. No joint tenderness, effusion, or edema noted. No calf tenderness. Negative Homans sign bilaterally. NEUROLOGICAL: Awake and alert. Cranial nerves II through XII intact. Motor and sensory grossly within normal limits. Five out of 5 muscle strength in all muscle groups. Normal speech. Hospital Course The ED physician spoke with Dr. Flowers in the emergency room. She was started on a heparin drip and further instructions were provided per cardiology. He was taken that afternoon today [employer] where a stent was placed in the diagonal artery. The LAD was patent. This patient is noncompliant with medical recommendations. He was strongly encouraged to take his medications as prescribed and to stop smoking. The patient thoroughly understood that if he did not take his medications or stop smoking there was a great likelihood he would have a another heart attack which could result in or permanent disability. The patient has a history of chronic pain and he was insinuating that he would possibly harm himself if his pain was not controlled. Psychiatry was consulted and the patient was diagnosed with adjustment disorder with depressed mood. Patient denied any suicidal plan and did not meet requirements for Diop act. Given the patient's noncompliance and serious medical comorbidities, decision was made to discharge the patient with care home facility until he can be safely discharged home. The patient states he does not plan on moving back to the place he resided in prior to admission. Case management helped throughout this hospital stay with social issues. Pt Condition on Discharge: Stable Discharge Disposition: Discharge to SNF Discharge Instructions DIET: Follow Instructions for: Heart Healthy Diet Activities you can perform: Weight Bearing as Teja Activities to Avoid: Strenuous Activity Follow up Referrals: Cardiology - 1 Week with Doug Flowers MD PCP Follow-up - 1 Week New Medications: Aspirin (Tgt Aspirin) 81 Mg Chw 162 MG PO DAILY, #30 EA 0 Refills Hydrocodone/Acetaminophen (Hydrocodone-Acetamin 5-325 mg) 5 Mg-325 Mg Tablet 1 TAB PO Q6H PRN for Pain 6-10, #20 0 Refills Continued Medications: Atorvastatin (Lipitor) 10 Mg Tab 10 MG PO HS for heart for 30 Days, TAB Clopidogrel (Plavix) 75 Mg Tab 75 MG PO DAILY for Blood Clot Prevention for 30 Days, #30 TAB Gabapentin (Gabapentin) 800 Mg Tab 800 MG PO TID, #90 TAB 0 Refills Levothyroxine (Synthroid) 50 Mcg Tab 50 MCG PO DAILY@0600, #30 TAB Lisinopril (Lisinopril) 10 Mg Tab 10 MG PO DAILY, #30 TAB 0 Refills Metoprolol Tartrate (Metoprolol Tartrate) 25 Mg Tab 25 MG PO BID, #60 TAB 0 Refills Nitroglycerin SL (Nitroglycerin SL) 0.4 Mg Subl 0.4 MG SL DIRECTED PRN for CHEST PAIN, #100 TAB.SL 0 Refills ONE TABLET UNDER THE TONGUE NEEDED FOR CHEST PAIN, MAY REPEAT EVERY FIVE MINUTES FOR A TOTAL OF 3 DOSES OR CALL 911 IF NO RELIEF Omeprazole (Omeprazole) 20 Mg Tab 20 MG PO DAILY, #30 TAB 0 Refills Pancrelipase (Zenpep) 10,000-34,000-55,000 Units Cap 2 CAP PO TIDPC for Digestive Aid, #90 CAP 0 Refills Trazodone (Trazodone) 50 Mg Tab 50 MG PO HS for Control Depression, #20 TAB 0 Refills (This prescription has been renewed) Discontinued Medications: Oxycodone (Oxycodone) 5 Mg Tab 5 MG PO Q6HR PRN for pain, #20 TAB Cornelius Garcia MD, R3 May 17, 2017 09:32
--- NOTE | 2017-05-19 09:04 | PQ ---
Physician Query Response Document PATIENT: SARA LUIS : 1955 ADMIT DATE: 05/13/2017 12:03 PM DISCH DATE: 05/16/2017 7:45 PM RESPONDING PROVIDER #: Johanne QUERY TEXT: Clinical Validity Opioid dependence in the setting of Chronic pain treated with change from IV Morphine to PO [place] Other explanation of clinical findings. Unable to determine (no explanation for clinical findings). The patient's Clinical Indicators include: The medical record reflects the following clinical findings, treatment, and risk factors. * Clinical Indicators ; "Chronic pain required pain medications every 3-4 hours" , "wants more and mo re narcotics" * Risk Factors: Chronic pain, admitted in the past with opiate overuse * Treatment Discontinue IV Morphine change to PO [place] Please clarify and document your clinical opinion in the progress notes and discharge summary includi ng the definitive and/or presumptive diagnosis (suspected or probable), related to the above clinical findings. Please include clinical findings supporting your diagnosis. Thank you, Jessie Zhang CDS: ext. [phone] Query created by: Jessie Zhang on 05/15/2017 11:26 AM RESPONSE TEXT: Provider disagreed with this CDI query. This patient was seen by Drs. Meyer and Sara Garcia. I was not involved in his care. Electronically signed by: Sara Garcia MD 05/19/2017 9:00 AM
== END 2017-05-16 19:45 | DRG 251 ==
LOC: NEPC 09:05 → NEDA 12:03 → HCIS 20:21
PROVIDERS: ADMIT Family Medicine; ATTEND Family Medicine
PROC: B2111ZZ Fluoroscopy of Multiple Coronary Arteries using Low Osmolar Contrast (ICD-10-PCS; 2017-05-13)
PROC: B2151ZZ Fluoroscopy of Left Heart using Low Osmolar Contrast (ICD-10-PCS; 2017-05-13)
PROC: 4A023N7 Measurement of Cardiac Sampling and Pressure, Left Heart, Percutaneous Approach (ICD-10-PCS; 2017-05-13)
PROC: 4A033BC Measurement of Arterial Pressure, Coronary, Percutaneous Approach (ICD-10-PCS; 2017-05-13)
PROC: 02703ZZ Dilation of Coronary Artery, One Artery, Percutaneous Approach (ICD-10-PCS; principal; 2017-05-13 14:00)
DX: I22.2 Subsequent non-ST elevation (NSTEMI) myocardial infarction (principal); K74.60 Unspecified cirrhosis of liver; F11.20 Opioid dependence, uncomplicated; I10 Essential (primary) hypertension; M06.9 Rheumatoid arthritis, unspecified; I21.4 Non-ST elevation (NSTEMI) myocardial infarction; K21.9 Gastro-esophageal reflux disease without esophagitis; B19.20 Unspecified viral hepatitis C without hepatic coma; I25.10 Atherosclerotic heart disease of native coronary artery without angina pectoris; E03.9 Hypothyroidism, unspecified; F17.210 Nicotine dependence, cigarettes, uncomplicated; D64.9 Anemia, unspecified; M54.9 Dorsalgia, unspecified; G89.29 Other chronic pain; F10.20 Alcohol dependence, uncomplicated; F43.21 Adjustment disorder with depressed mood; Z66 Do not resuscitate; Z91.14 Patient's other noncompliance with medication regimen; Z79.02 Long term (current) use of antithrombotics/antiplatelets; Z79.82 Long term (current) use of aspirin; Z95.5 Presence of coronary angioplasty implant and graft; Z76.5 Malingerer [conscious simulation]
CPT/HCPCS: 71045; 76937; 80048; 80053; 80061; 82550; 82552; 83735; 83880; 84484; 85002; 85007; 85027; 85347; 85610; 85730; 92920; 93005; 93458; 93571; 96365; 96366; 96368; 96375; 99152; 99153; C1725; C1769; C1887; C1893; J0153; J1644; J2060; J2250; J2270; J2405; J3010; J3246; J7030

== ENCOUNTER 2017-06-19 14:38 | Emergency (ER) | payer MEDICARE, OTHER ==
[~2017-06-19] VITALS: Ht 188 cm; Wt 72.7 kg
[~2017-06-19 14:38] MED LIST changes: -AMIT50TA3 PO; -ASPI325T33 PO; -CHLO10CA5 PO; -CHOL1000 PO; -FERR325T18 PO; -FERR325T20 PO; +HYDR-3516 PO; -OXYC-103 PO; -OXYC-392 PO; -PRED10 PO; -SENN8.6T36 PO; -THIA100 PO; -TRAM50TA PO; -TYLETAB36 PO
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
[2017-06-19 17:15] LABS: AUTOMATED NEUTROPHIL # 4.4 TH/MM3 (1.8-7.7); BASOPHIL % 0.4 % (0.0-2.0); EOSINOPHIL % 0.1 % (0.0-4.0); HEMATOCRIT 36.6 % (39.0-51.0); LYMPH % 36.3 % (9.0-44.0); LYMPHOCYTE # 2.8 TH/MM3 (1.0-4.8); MEAN CELL VOLUME 80.4 FL (80.0-100.0); MEAN CORPUSCULAR HEMOGLOBIN 26.4 PG (27.0-34.0); MEAN CORPUSCULAR HGB CONC 32.8 % (32.0-36.0); MEAN PLATELET VOLUME 7.7 FL (7.0-11.0); MONO % 6.1 % (0.0-8.0); MONOCYTE # 0.5 TH/MM3 (0-0.9); NEUT % 57.1 % (16.0-70.0); PLATELET COUNT 318 TH/MM3 (150-450); RED BLOOD COUNT 4.56 MIL/MM3 (4.50-5.90); RED CELL DISTRIBUTION WIDTH 26.4 % (11.6-17.2); WHITE BLOOD COUNT 7.7 TH/MM3 (4.0-11.0)
[2017-06-19 17:30] VITALS: BP 141/70; PULSE 80; RESP 16; TEMP 98; O2SAT 98
[2017-06-19 17:38] LABS: ALBUMIN 3.8 GM/DL (3.4-5.0); AST (GOT) 59 U/L (15-37); BICARBONATE 18.1 MEQ/L (21.0-32.0); BLOOD UREA NITROGEN 11 MG/DL (7-18); CALCIUM 8.6 MG/DL (8.5-10.1); CHLORIDE 105 MEQ/L (98-107); CREATININE 0.66 MG/DL (0.60-1.30); GLOMERULAR FILTRATION RATE 122 ML/MIN (>89); GLUCOSE,RANDOM 61 MG/DL (74-106); SODIUM (NA) 140 MEQ/L (136-145)
[2017-06-19 17:49] LABS: ALKALINE PHOSPHATASE 91 U/L (45-117); ALT (GPT) 42 U/L (12-78); TOTAL BILIRUBIN ADULT 0.3 MG/DL (0.2-1.0); TOTAL PROTEIN 7.6 GM/DL (6.4-8.2)
[2017-06-19 17:50] LABS: OVALOCYTES 1+ (NORMAL)
[2017-06-19] MEDS ORDERED: RANITIDINE HCL SYRUP 150 MG/10 ML UDC PO ONE (22:45)
[2017-06-20 02:53] VITALS: BP 134/71; PULSE 72; RESP 18; O2SAT 98
[2017-06-20] MEDS ORDERED: MORPHINE SULFATE 4 MG/ML INJ IV PUSH ONE (09:00)
[2017-06-20] MEDS ORDERED: SODIUM CHLORID 0.9% 500 ML INJ 500 ML IV ONE (09:00)
[2017-06-20] MEDS ORDERED: SODIUM CHLORIDE 0.9% FLUSH 10 ML FLUSH IVF PRN (09:00)
[2017-06-20] MEDS ORDERED: ASPIRIN 81 MG CHEW TAB PO ONE (09:00)
[2017-06-20 09:09] VITALS: O2SAT 99
[2017-06-20] MEDS: NITROGLYCERIN 0.4 MG SL 25 TABS/BTL SL SCH ×3 (09:10→09:43)
[2017-06-20 09:30] VITALS: BP 158/87; PULSE 92; RESP 23; O2SAT 99
[2017-06-20 09:44] VITALS: BP 158/87; PULSE 95; RESP 28; O2SAT 99
[2017-06-20 09:57] LABS: AUTOMATED NEUTROPHIL # 7.3 TH/MM3 (1.8-7.7); BASOPHIL % 0.5 % (0.0-2.0); HEMATOCRIT 36.2 % (39.0-51.0); HEMOGLOBIN 11.9 GM/DL (13.0-17.0); LYMPH % 19.6 % (9.0-44.0); MEAN CELL VOLUME 78.7 FL (80.0-100.0); MEAN PLATELET VOLUME 7.8 FL (7.0-11.0); MONO % 8.9 % (0.0-8.0); MONOCYTE # 0.9 TH/MM3 (0-0.9); PLATELET COUNT 354 TH/MM3 (150-450); RED CELL DISTRIBUTION WIDTH 26.6 % (11.6-17.2); WHITE BLOOD COUNT 10.3 TH/MM3 (4.0-11.0)
[2017-06-20 10:10] LABS: PROTHROMBIN TIME - PATIENT 10.4 SEC (9.8-11.6)
[2017-06-20 10:15] VITALS: BP 159/70; PULSE 95; RESP 14; O2SAT 99
[2017-06-20 10:26] LABS: BLOOD UREA NITROGEN 13 MG/DL (7-18); CALCIUM 9.4 MG/DL (8.5-10.1); CHLORIDE 103 MEQ/L (98-107); CREATININE 0.72 MG/DL (0.60-1.30); GLOMERULAR FILTRATION RATE 110 ML/MIN (>89); GLUCOSE,RANDOM 93 MG/DL (74-106); MAGNESIUM 1.9 MG/DL (1.5-2.5); SODIUM (NA) 137 MEQ/L (136-145); TROPONIN I LESS THAN 0.02 NG/ML (0.02-0.05)
[2017-06-20 10:33] LABS: BANDS 9 % (0-6); LYMPHOCYTES 14 % (9-44); MONOCYTES 7 % (0-8); NEUTROPHIL # MANUAL DIFF 8.1 TH/MM3 (1.8-7.7); OVALOCYTES 1+ (NORMAL); POLYS (SEG NEUTROPHILS) 70 % (16-70)
[2017-06-20] MEDS ORDERED: ACETAMINOPHEN 500 MG CPLT PO ONE (10:45)
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
[2017-06-20 13:05] VITALS: BP 148/82; PULSE 86; RESP 24; O2SAT 99
--- NOTE | 2017-06-20 14:02 | PD ---
Data Data Last Documented VS Vital Signs Date Time Temp Pulse Resp B/P (MAP) Pulse Ox O2 Delivery O2 Flow Rate FiO2 06/20/17 13:05 86 24 148/82 (104) 99 Room Air 06/19/17 17:30 98.0 Orders Orders Complete Blood Count With Diff (06/19/17 14:59) Comprehensive Metabolic Panel (06/19/17 14:59) Thyroid Stimulating Hormone (06/19/17 14:59) Drug Screen, Random Urine (06/19/17 14:59) Alcohol (Ethanol) (06/19/17 14:59) Diet Regular Basic (06/20/17 Breakfast) Electrocardiogram (06/20/17 ) Basic Metabolic Panel (Bmp) (06/20/17 08:57) Ckmb (Isoenzyme) Profile (06/20/17 08:57) Complete Blood Count With Diff (06/20/17 08:57) Magnesium (Mg) (06/20/17 08:57) Prothrombin Time / Inr (Pt) (06/20/17 08:57) Act Partial Throm Time (Ptt) (06/20/17 08:57) Troponin I (06/20/17 08:57) Ecg Monitoring (06/20/17 08:57) Bilateral Bp Monitoring (06/20/17 08:57) Iv Access Insert/Monitor (06/20/17 08:57) Oximetry (06/20/17 08:57) Oxygen Administration (06/20/17 08:57) Aspirin Chew (Aspirin Chew) (06/20/17 09:00) Morphine Inj (Morphine Inj) (06/20/17 09:00) Sodium Chloride 0.9% Flush (Ns Flush) (06/20/17 09:00) Nitroglycerin Sl (Nitrostat Sl) (06/20/17 09:00) Sodium Chlorid 0.9% 500 Ml Inj (Ns 500 M (06/20/17 09:00) Chest, Pa & Lat (06/20/17 08:57) Acetaminophen (Tylenol) (06/20/17 10:45) Troponin I (06/20/17 13:00) Labs Laboratory Tests Test 06/19/17 16:55 06/20/17 09:30 06/20/17 09:50 06/20/17 13:00 White Blood Count 7.7 TH/MM3 10.3 TH/MM3 Red Blood Count 4.56 MIL/MM3 4.60 MIL/MM3 Hemoglobin 12.0 GM/DL 11.9 GM/DL Hematocrit 36.6 % 36.2 % Mean Corpuscular Volume 80.4 FL 78.7 FL Mean Corpuscular Hemoglobin 26.4 PG 26.0 PG Mean Corpuscular Hemoglobin Concent 32.8 % 33.0 % Red Cell Distribution Width 26.4 % 26.6 % Platelet Count 318 TH/MM3 354 TH/MM3 Mean Platelet Volume 7.7 FL 7.8 FL Neutrophils (%) (Auto) 57.1 % 71.0 % Lymphocytes (%) (Auto) 36.3 % 19.6 % Monocytes (%) (Auto) 6.1 % 8.9 % Eosinophils (%) (Auto) 0.1 % 0.0 % Basophils (%) (Auto) 0.4 % 0.5 % Neutrophils # (Auto) 4.4 TH/MM3 7.3 TH/MM3 Lymphocytes # (Auto) 2.8 TH/MM3 2.0 TH/MM3 Monocytes # (Auto) 0.5 TH/MM3 0.9 TH/MM3 Eosinophils # (Auto) 0.0 TH/MM3 0.0 TH/MM3 Basophils # (Auto) 0.0 TH/MM3 0.0 TH/MM3 CBC Comment AUTO DIFF AUTO DIFF Differential Comment AUTO DIFF CONFIRMED FINAL DIFF MANUAL Platelet Estimate NORMAL NORMAL Platelet Morphology Comment NORMAL NORMAL Ovalocytes 1+ 1+ Blood Urea Nitrogen 11 MG/DL 13 MG/DL Creatinine 0.66 MG/DL 0.72 MG/DL Random Glucose 61 MG/DL 93 MG/DL Total Protein 7.6 GM/DL Albumin 3.8 GM/DL Calcium Level 8.6 MG/DL 9.4 MG/DL Alkaline Phosphatase 91 U/L Aspartate Amino Transf (AST/SGOT) 59 U/L Alanine Aminotransferase (ALT/SGPT) 42 U/L Total Bilirubin 0.3 MG/DL Sodium Level 140 MEQ/L 137 MEQ/L Potassium Level 3.7 MEQ/L 4.0 MEQ/L Chloride Level 105 MEQ/L 103 MEQ/L Carbon Dioxide Level 18.1 MEQ/L 24.0 MEQ/L Anion Gap 17 MEQ/L 10 MEQ/L Estimat Glomerular Filtration Rate 122 ML/MIN 110 ML/MIN Thyroid Stimulating Hormone 3rd Gen 0.162 uIU/ML Ethyl Alcohol Level 334 MG/DL Prothrombin Time 10.4 SEC Prothromb Time International Ratio 1.0 RATIO Activated Partial Thromboplast Time 22.3 SEC Magnesium Level 1.9 MG/DL Total Creatine Kinase 80 U/L Troponin I LESS THAN 0.02 NG/ML LESS THAN 0.02 NG/ML Differential Total Cells Counted 100 Neutrophils % (Manual) 70 % Band Neutrophils % 9 % Lymphocytes % 14 % Monocytes % 7 % Neutrophils # (Manual) 8.1 TH/MM3 MDM Supervised Visit with KENDRA: Yes Narrative Course 59-year-old man with history of alcoholism and substance induced mood disorder presents emergency department with intoxication. Was stating some suicidal ideations earlier. Had some chest pain while he was here. Had a recent heart cath that showed a patent stented and gated a diagonal vessel that may be the source of the chest pain. Troponins were negative 2. EKG is normal. I do not think is an imminent threat to himself or others, low risk for self harm. Multiple previous psychiatric evaluations. This point I think he is safe for discharge. Patient was placed under [place] act, not a Diop act, by law enforcement. KENDRA completed Diop act paperwork. I do not believe patient meets criteria for Diop act at this time. He will be discharged. Diagnosis Primary Impression: Alcohol dependence with acute alcoholic intoxication Additional Impression: Atypical chest pain Additional Instruction: Avoid alcohol. Follow-up with [facility] Goins for substance abuse treatment. Return to the emergency department for any new or worsening symptoms. Disposition: 01 DISCHARGE HOME Condition: Stable Carl Torrez MD Jun 20, 2017 14:02
--- NOTE | 2017-06-21 16:50 | EKG ---
Date Performed: 06/20/2017 Time Performed: 09:15:55 PTAGE: 62 years EKG: Sinus rhythm WITH SINUS ARRHYTHMIA Since the previous tracing, no significant change noted NORMAL ECG PREVIOUS TRACING : 05/14/2017 05.31 DOCTOR: Vandana Rice Interpretating Date/Time 06/21/2017 16:48:28
== END 2017-06-20 16:58 | disposition home or self-care (01) ==
LOC: NEDAMB 14:38
DX: F10.229 Alcohol dependence with intoxication, unspecified (principal); R07.89 Other chest pain; R10.32 Left lower quadrant pain; F17.200 Nicotine dependence, unspecified, uncomplicated; E03.9 Hypothyroidism, unspecified; I10 Essential (primary) hypertension; Y90.8 Blood alcohol level of 240 mg/100 ml or more; Z79.899 Other long term (current) drug therapy
CPT/HCPCS: 71046; 80048; 80053; 80307; 82550; 83735; 84443; 84484; 85007; 85025; 85027; 85610; 85730; 93005; 96361; 96374; 99285; J2270; J7040

== ENCOUNTER 2017-06-22 11:38 | Emergency (ER) | payer MEDICARE, OTHER ==
[~2017-06-22] VITALS: Ht 182.9 cm; Wt 82.0 kg
[2017-06-22 11:46] VITALS: BP 127/75; PULSE 97; RESP 18; TEMP 97.7; O2SAT 97
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
[2017-06-22] MEDS ORDERED: LORazepam 2 MG/ML VIAL ONE (12:09)
[2017-06-22] MEDS ORDERED: diphenhydrAMINE HCL 50 MG/ML VIAL ONE (12:09)
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
[2017-06-22] MEDS ORDERED: HALOPERIDOL LACTATE 5 MG/ML AMP IM ONE (12:15)
[2017-06-22] MEDS ORDERED: diphenhydrAMINE HCL 50 MG/ML VIAL IM ONE (12:15)
[2017-06-22] MEDS ORDERED: LORazepam 2 MG/ML VIAL IM ONE (12:15)
[2017-06-22 13:00] VITALS: BP 122/70; PULSE 92; RESP 18; O2SAT 97
--- NOTE | 2017-06-22 13:52 | RADRPT ---
EXAM DATE/TIME: 06/22/2017 13:11 [facility] COMPARISON: CT BRAIN W/O CONTRAST, December 27, 2016, 23:24. INDICATIONS : Altered mental status RADIATION DOSE: 34.61 CTDIvol (mGy) MEDICAL HISTORY : Hypothyroidism. Cardiovascular disease Hypertension.Pancreatitis,hiatal hernia,hepc SURGICAL HISTORY : Cholecystectomy. Trauma surgery to abdomen ENCOUNTER: Initial ACUITY: 1 day PAIN SCALE: Non-responsive LOCATION: cranial TECHNIQUE: Multiple contiguous axial images were obtained of the head. Using automated exposure control and adj ustment of the mA and/or kV according to patient size, radiation dose was kept as low as reasonably a chievable to obtain optimal diagnostic quality images. DICOM format image data is available electro nically for review and comparison. FINDINGS: The study is mildly degraded by patient motion. Grossly, the ventricles are symmetric and normal. The re is no evidence of intracranial mass or hemorrhage. There is nothing to suggest acute infarction. T he extracranial structures are grossly benign and intact. CONCLUSION: Motion degraded exam, grossly negative for acute process Vikas Daniels MD on June 22, 2017 at 13:48 Board Certified Radiologist. This report was verified electronically.
[2017-06-22 15:00] VITALS: BP 118/74; PULSE 82; RESP 20; O2SAT 96
[2017-06-22 18:31] VITALS: BP 118/69; PULSE 96; RESP 16; TEMP 97.9; O2SAT 97
[2017-06-22] MEDS ORDERED: REST15CA PO (19:00)
[2017-06-22] MEDS ORDERED: NITR0.4S SL (19:00)
[2017-06-22] MEDS ORDERED: GABA100C4 PO (19:07)
[2017-06-22] MEDS ORDERED: VOLT1GEL16 TOPICAL (19:07)
[2017-06-22] MEDS ORDERED: PRED10 PO (19:07)
[2017-06-22] MEDS ORDERED: GABA800T PO (19:07)
[2017-06-22 23:05] VITALS: BP 132/64; PULSE 93; RESP 18; TEMP 98.7; O2SAT 95
[2017-06-23 02:14] VITALS: BP 134/73; PULSE 108; RESP 18; TEMP 97.2; O2SAT 98
[2017-06-23] MEDS ORDERED: diphenhydrAMINE HCL 50 MG CAP PO ONE (03:30)
[2017-06-23 06:50] VITALS: BP 143/85; PULSE 88; RESP 18; TEMP 99.1; O2SAT 96
[2017-06-23 09:53] VITALS: BP 143/85; PULSE 88; RESP 18; TEMP 98.6; O2SAT 96
[2017-06-23 12:18] VITALS: BP 161/82; PULSE 74; RESP 20; TEMP 98.2; O2SAT 98
--- NOTE | 2017-06-23 12:23 | PD ---
Physical Exam Time Seen by Provider: 12:22 Narrative [facility] is being [facility] care and evaluation. Data Data Last Documented VS Vital Signs Date Time Temp Pulse Resp B/P (MAP) Pulse Ox O2 Delivery O2 Flow Rate FiO2 06/23/17 12:18 98.2 74 20 161/82 (108) 98 06/23/17 06:50 Room Air Orders Orders Ct Brain W/O Iv Contrast(Rout) (06/22/17 ) Drug Screen, Random Urine (06/22/17 12:00) Alcohol (Ethanol) (06/22/17 12:00) ^ Sitter (06/22/17 12:00) Restraints Non-Violent ANDRY.Q3H (06/22/17 12:00) Lorazepam Inj (Ativan Inj) (06/22/17 12:15) Diphenhydramine Inj (Benadryl Inj) (06/22/17 12:15) Haloperidol Inj (Haldol Inj) (06/22/17 12:15) Diphenhydramine Inj (Benadryl Inj) (06/22/17 12:09) Lorazepam Inj (Ativan Inj) (06/22/17 12:09) Psych Screen (06/22/17 13:57) Diet Regular Basic (06/22/17 Dinner) Diet Regular Basic (06/23/17 Breakfast) Diphenhydramine (Benadryl) (06/23/17 03:30) Labs Laboratory Tests Test 06/22/17 11:58 06/22/17 23:25 Ethyl Alcohol Level 342 MG/DL Urine Opiates Screen NEG Urine Barbiturates Screen NEG Urine Amphetamines Screen NEG Urine Benzodiazepines Screen NEG Urine Cocaine Screen NEG Urine Cannabinoids Screen NEG MDM Supervised Visit with KENDRA: No Narrative Course Patient is being [facility] for continued care and evaluation. Diagnosis Primary Impression: Alcohol intoxication Disposition: 65 DISC TO PSYCH CARE FACILITY Condition: Stable Lisa Jerez Jun 23, 2017 12:23
== END 2017-06-23 13:07 ==
LOC: NEPD 11:38 → NEPJ 06-23 13:07
DX: F10.129 Alcohol abuse with intoxication, unspecified (principal); Y90.8 Blood alcohol level of 240 mg/100 ml or more; R45.851 Suicidal ideations; K74.60 Unspecified cirrhosis of liver; B19.20 Unspecified viral hepatitis C without hepatic coma; I10 Essential (primary) hypertension; E03.9 Hypothyroidism, unspecified; F17.200 Nicotine dependence, unspecified, uncomplicated; Z78.1 Physical restraint status
CPT/HCPCS: 70450; 80307; 96372; 99285; J1200; J1630; J2060; Q0163

== ENCOUNTER 2017-07-05 14:23 | Emergency (ER) | payer MEDICARE, OTHER ==
[~2017-07-05] VITALS: Ht 188 cm; Wt 80.0 kg
[~2017-07-05 14:23] MED LIST changes: +GABA100C4 PO; -HYDR-3516 PO; +NITR0.4S SL; +PRED10 PO; +REST15CA PO; -TRAZ50TA12 PO; +VOLT1GEL16 TOPICAL
[2017-07-05 14:30] VITALS: BP 144/79; PULSE 94; RESP 16; TEMP 98.4; O2SAT 97
[2017-07-05] MEDS ORDERED: FLUMAZENIL 0.5 MG/5 ML VIAL IV PUSH PRN (15:15)
[2017-07-05] MEDS ORDERED: LORazepam 1 MG TAB PO PRN (15:15)
[2017-07-05] MEDS ORDERED: ACETAMINOPHEN 325 MG TAB PO PRN (15:15)
[2017-07-05] MEDS ORDERED: ONDANSETRON ODT 4 MG TAB PO PRN (15:15)
[2017-07-05] MEDS ORDERED: LORazepam 2 MG/ML VIAL IV PUSH PRN ×4 (15:15)
[2017-07-05] MEDS ORDERED: LORazepam 2 MG TAB PO PRN (15:15)
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
[2017-07-05 17:29] VITALS: BP 160/87; PULSE 101; RESP 22; O2SAT 99
[2017-07-05 18:20] LABS: AUTOMATED NEUTROPHIL # 4.9 TH/MM3 (1.8-7.7); BASOPHIL # 0.1 TH/MM3 (0-0.2); BASOPHIL % 0.6 % (0.0-2.0); EOSINOPHIL % 0.1 % (0.0-4.0); HEMATOCRIT 38.1 % (39.0-51.0); HEMOGLOBIN 12.3 GM/DL (13.0-17.0); LYMPH % 39.3 % (9.0-44.0); LYMPHOCYTE # 3.7 TH/MM3 (1.0-4.8); MEAN CELL VOLUME 82.3 FL (80.0-100.0); MEAN CORPUSCULAR HEMOGLOBIN 26.6 PG (27.0-34.0); MEAN CORPUSCULAR HGB CONC 32.4 % (32.0-36.0); MEAN PLATELET VOLUME 7.7 FL (7.0-11.0); MONO % 8.7 % (0.0-8.0); MONOCYTE # 0.8 TH/MM3 (0-0.9); NEUT % 51.3 % (16.0-70.0); PLATELET COUNT 218 TH/MM3 (150-450); RED BLOOD COUNT 4.64 MIL/MM3 (4.50-5.90); RED CELL DISTRIBUTION WIDTH 24.7 % (11.6-17.2); WHITE BLOOD COUNT 9.5 TH/MM3 (4.0-11.0)
--- NOTE | 2017-07-05 18:37 | RADRPT ---
EXAM DATE/TIME: 07/05/2017 18:24 [facility] COMPARISON: CT BRAIN W/O CONTRAST, June 22, 2017, 13:11. INDICATIONS : Trauma; possible fall. RADIATION DOSE: 56.35 CTDIvol (mGy) MEDICAL HISTORY : Hepatitis C. Rheumatoid arthritis. SURGICAL HISTORY : None. ENCOUNTER: Initial ACUITY: 1 day PAIN SCALE: Non-responsive LOCATION: Bilateral head TECHNIQUE: Multiple contiguous axial images were obtained of the head. Using automated exposure control and adj ustment of the mA and/or kV according to patient size, radiation dose was kept as low as reasonably a chievable to obtain optimal diagnostic quality images. DICOM format image data is available electro nically for review and comparison. FINDINGS: CEREBRUM: Cortical atrophy. The ventricles are normal for age. No evidence of midline shift, mass lesion, hemo rrhage or acute infarction. No extra-axial fluid collections are seen. POSTERIOR FOSSA: The cerebellum and brainstem are intact. The 4th ventricle is midline. The cerebellopontine angle i s unremarkable. EXTRACRANIAL: The visualized portion of the orbits is intact. SKULL: The calvaria is intact. No evidence of skull fracture. CONCLUSION: No acute intracranial disease. Stephon Sawyer MD on July 05, 2017 at 18:33 Board Certified Radiologist. This report was verified electronically.
[2017-07-05 19:33] LABS: BANDS 5 % (0-6); BASOPHILS 2 % (0-2); LYMPHOCYTES 43 % (9-44); MONOCYTES 4 % (0-8); NEUTROPHIL # MANUAL DIFF 4.8 TH/MM3 (1.8-7.7); POLYS (SEG NEUTROPHILS) 46 % (16-70)
[2017-07-05 19:34] LABS: ACANTHOCYTES 1+ (NORMAL); OVALOCYTES 1+ (NORMAL); TOXIC GRANULATION 1+ (NORMAL); TOXIC VACUOLATION PRESENT (NONE SEEN)
[2017-07-05 20:51] VITALS: BP 107/62; PULSE 95; RESP 18; TEMP 98.7; O2SAT 97
[2017-07-05 21:51] LABS: BLOOD UREA NITROGEN 6 MG/DL (7-18); CREATININE 0.69 MG/DL (0.60-1.30); GLOMERULAR FILTRATION RATE 116 ML/MIN (>89); GLUCOSE,RANDOM 114 MG/DL (74-106)
[2017-07-05 21:52] LABS: ALBUMIN 3.7 GM/DL (3.4-5.0); ALT (GPT) 61 U/L (12-78); AST (GOT) 64 U/L (15-37); BICARBONATE 20.2 MEQ/L (21.0-32.0); CHLORIDE 100 MEQ/L (98-107); SODIUM (NA) 137 MEQ/L (136-145)
[2017-07-05 22:01] LABS: ALKALINE PHOSPHATASE 90 U/L (45-117); TOTAL BILIRUBIN ADULT 0.4 MG/DL (0.2-1.0); TOTAL PROTEIN 7.2 GM/DL (6.4-8.2)
[2017-07-06 00:28] VITALS: BP 109/58; PULSE 98; RESP 18; TEMP 98.9; O2SAT 95
[2017-07-06 06:08] VITALS: BP 128/71; PULSE 55; RESP 18; TEMP 98.9
--- NOTE | 2017-07-06 08:26 | PD ---
Physical Exam Date Seen by Provider: Jul 06, 2017 Time Seen by Provider: 08:25 Narrative 62-year-old male previously Diop acted and medically cleared for psychiatric evaluation, has been seen and evaluated by psychiatric staff and deemed psychiatrically stable for discharge at this time. Patient remains medically stable for discharge at this time. Follow-up will be based on the psychiatric note. Data Data Last Documented VS Vital Signs Date Time Temp Pulse Resp B/P (MAP) Pulse Ox O2 Delivery O2 Flow Rate FiO2 07/06/17 06:08 98.9 55 18 128/71 (90) Room Air 07/06/17 00:28 95 Orders Orders Complete Blood Count With Diff (07/05/17 14:57) Comprehensive Metabolic Panel (07/05/17 14:57) Thyroid Stimulating Hormone (07/05/17 14:57) Psych Screen (07/05/17 14:57) Drug Screen, Random Urine (07/05/17 14:57) Alcohol (Ethanol) (07/05/17 14:57) Ct Brain W/O Iv Contrast(Rout) (07/05/17 ) Alcohol Withdrawal Asmt-Ciwa ONCE (07/05/17 15:08) Ondansetron Odt (Zofran Odt) (07/05/17 15:15) Acetaminophen (Tylenol) (07/05/17 15:15) Flumazenil Inj (Romazicon Inj) (07/05/17 15:15) Lorazepam (Ativan) (07/05/17 15:15) Lorazepam Inj (Ativan Inj) (07/05/17 15:15) Lorazepam (Ativan) (07/05/17 15:15) Lorazepam Inj (Ativan Inj) (07/05/17 15:15) Lorazepam Inj (Ativan Inj) (07/05/17 15:15) Lorazepam Inj (Ativan Inj) (07/05/17 15:15) Diet Regular Basic (07/06/17 Breakfast) Electrocardiogram (07/06/17 06:16) Labs Laboratory Tests Test 07/05/17 16:05 07/05/17 17:49 07/05/17 20:08 Urine Opiates Screen NEG Urine Barbiturates Screen NEG Urine Amphetamines Screen NEG Urine Benzodiazepines Screen NEG Urine Cocaine Screen NEG Urine Cannabinoids Screen NEG White Blood Count 9.5 TH/MM3 Red Blood Count 4.64 MIL/MM3 Hemoglobin 12.3 GM/DL Hematocrit 38.1 % Mean Corpuscular Volume 82.3 FL Mean Corpuscular Hemoglobin 26.6 PG Mean Corpuscular Hemoglobin Concent 32.4 % Red Cell Distribution Width 24.7 % Platelet Count 218 TH/MM3 Mean Platelet Volume 7.7 FL Neutrophils (%) (Auto) 51.3 % Lymphocytes (%) (Auto) 39.3 % Monocytes (%) (Auto) 8.7 % Eosinophils (%) (Auto) 0.1 % Basophils (%) (Auto) 0.6 % Neutrophils # (Auto) 4.9 TH/MM3 Lymphocytes # (Auto) 3.7 TH/MM3 Monocytes # (Auto) 0.8 TH/MM3 Eosinophils # (Auto) 0.0 TH/MM3 Basophils # (Auto) 0.1 TH/MM3 CBC Comment AUTO DIFF Differential Total Cells Counted 100 Neutrophils % (Manual) 46 % Band Neutrophils % 5 % Lymphocytes % 43 % Monocytes % 4 % Basophils % 2 % Neutrophils # (Manual) 4.8 TH/MM3 Differential Comment FINAL DIFF MANUAL Toxic Granulation 1+ Toxic Vacuolation PRESENT Platelet Estimate NORMAL Platelet Morphology Comment NORMAL Ovalocytes 1+ Acanthocytes 1+ Blood Urea Nitrogen 6 MG/DL Creatinine 0.69 MG/DL Random Glucose 114 MG/DL Total Protein 7.2 GM/DL Albumin 3.7 GM/DL Calcium Level 9.0 MG/DL Alkaline Phosphatase 90 U/L Aspartate Amino Transf (AST/SGOT) 64 U/L Alanine Aminotransferase (ALT/SGPT) 61 U/L Total Bilirubin 0.4 MG/DL Sodium Level 137 MEQ/L Potassium Level 3.5 MEQ/L Chloride Level 100 MEQ/L Carbon Dioxide Level 20.2 MEQ/L Anion Gap 17 MEQ/L Estimat Glomerular Filtration Rate 116 ML/MIN Thyroid Stimulating Hormone 3rd Gen 0.376 uIU/ML Ethyl Alcohol Level 235 MG/DL [facility] Medical Record Reviewed: Yes Supervised Visit with KENDRA: Yes Narrative Course 62-year-old male previously Diop acted and medically cleared for psychiatric evaluation, has been seen and evaluated by psychiatric staff and deemed psychiatrically stable for discharge at this time. Patient remains medically stable for discharge at this time. Follow-up will be based on the psychiatric note. Diagnosis Primary Impression: Alcohol dependence with alcohol-induced mood disorder Patient Instructions: General Instructions Disposition: DISCHARGE HOME Condition: Stable Devin Hugo Jul 06, 2017 08:26
--- NOTE | 2017-07-06 11:59 | PD.PSY.CON ---
Provisional Diagnosis Admission Date [place] I. Alcohol-induced mood disorder, alcohol use disorder History of Present Illness Service Psychiatry Consult Requested By ER Reason for Consult Suicidal ideation Primary Care Physician No Primary Care Physician HPI The patient was seen this morning at 7 AM The patient is 62-year-old woman, domiciled in [place], single, employed as a real estate photographer, without no previous psychiatric history, no previous suicidal attempts, he has history of alcohol use disorder marijuana use disorder, no significant medical history, presents to the ED for evaluation of a Diop act. Patient apparently was found "passed out" right next to the leg on his apartment [place]. Patient apparently told bystanders that he wanted to kill himself and let them later. Patient smells heavily of alcohol. Patient was brought here for evaluation secondary to his suicidal ideation. He has a significant history of alcohol abuse as well as cardiac disease. She smells heavily of alcohol and states that he does not want to live. She denies any homicidal ideation. He denies any his head or falling. He cannot really give much history because he is heavily intoxicated and sleeping during my examination although easily arousable. On the psychiatric evaluation today the patient is calm, cooperative. Patient reports that he cannot understand why his neighbors decided to call the police. At the beginning the patient denies that he was drinking, but later on admit that he was drunk last night. He reports good mood, denies suicidal and homicidal ideation, he denies visual and auditory hallucinations. Review of Systems Constitutional: DENIES: Diaphoretic episodes, Fatigue, Fever, Weight gain, Weight loss, Chills, Dizziness, Change in appetite, Night Sweats Endocrine: DENIES: Heat/cold intolerance, Polydipsia, Polyuria, Polyphagia Eyes: DENIES: Blurred vision, Diplopia, Eye inflammation, Eye pain, Vision loss , Photosensitivity, Double Vision Ears, nose, mouth, throat: DENIES: Tinnitus, Hearing loss, Vertigo, Nasal discharge, Oral lesions, Throat pain, Hoarseness, Ear Pain, Running Nose, Epistaxis, Sinus Pain, Toothache, Odynophagia Respiratory: DENIES: Apneas, Cough, Snoring, Wheezing, Hemoptysis, Sputum production, Shortness of breath Cardiovascular: DENIES: Chest pain, Palpitations, Syncope, Dyspnea on Exertion , PND, Lower Extremity Edema, Orthopnea, Claudication Gastrointestinal: DENIES: Abdominal pain, Black stools, Bloody stools, Constipation, Diarrhea, Nausea, Vomiting, Difficulty Swallowing, Anorexia Genitourinary: DENIES: Sexual dysfunction, Urinary frequency, Urinary incontinence, Urgency, Hematuria, Dysuria, Nocturia, Penile Discharge, Testicular Pain, Testicular Swelling Musculoskeletal: DENIES: Joint pain, Muscle aches, Stiffness, Joint Swelling, Back pain, Neck pain Integumentary: DENIES: Abnormal pigmentation, Nail changes, Pruritus, Rash Hematologic/lymphatic: DENIES: Bruising, Lymphadenopathy Immunologic/allergic: DENIES: Eczema, Urticaria Neurologic: DENIES: Abnormal gait, Headache, Localized weakness, Paresthesias, Seizures, Speech Problems, Tremor, Poor Balance Psychiatric: DENIES: Anxiety, Confusion, Mood changes, Depression, Hallucinations, Agitation, Suicidal Ideation, Homicidal Ideation, Delusions Past Family Social History Coded Allergies: cefepime (Unverified Allergy, Severe, 06/22/17) ceftaroline fosamil (Unverified Allergy, Severe, 06/22/17) cephalexin (Unverified Allergy, Severe, UNKNOWN, 06/22/17) *MDRO Multi-Drug Resistant Organism (Verified Adverse Reaction, Unknown, ) 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 Active Scripts Aspirin (Tgt Aspirin) 81 Mg Chw, 162 MG PO DAILY, #30 EA 0 Refills Prov:Cornelius Garcia MD R3 05/15/17 Atorvastatin (Lipitor) 10 Mg Tab, 10 MG PO HS for heart for 30 Days, TAB Prov:Aron Yuen MD 05/09/17 Clopidogrel (Plavix) 75 Mg Tab, 75 MG PO DAILY for Blood Clot Prevention for 30 Days, #30 TAB Prov:Aron Yuen MD 05/09/17 Levothyroxine (Synthroid) 50 Mcg Tab, 50 MCG PO DAILY@0600, #30 TAB Prov:Roddy Fish MD 12/23/16 Reported Medications Diclofenac Sodium (Voltaren) 1 % Gel..gram., 1 % TOPICAL BID for Pain 06/22/17 Gabapentin (Gabapentin) 100 Mg Cap, 200 MG PO HS, #30 CAP 0 Refills 06/22/17 Prednisone (Prednisone) 10 Mg Tab, 10 MG PO DAILY, TAB 0 Refills 06/22/17 Gabapentin (Gabapentin) 800 Mg Tab, 800 MG PO TID, #90 TAB 0 Refills 06/22/17 Nitroglycerin SL (Nitrostat SL) 0.4 Mg Subl, 0.4 MG SL DIRECTED Y for CHEST PAIN, #100 TAB.SL 0 Refills 1 tablet under the tongue as needed for chest pain. Repeat every 5 minutes for a total of 3 DOSES or call 911 if NO relief. 06/22/17 Temazepam (Restoril) 15 Mg Cap, 15 MG PO HS Y for INSOMNIA, #30 CAP 0 Refills 06/22/17 Omeprazole (Omeprazole) 20 Mg Tab, 20 MG PO DAILY, #30 TAB 0 Refills 12/27/16 Lisinopril (Lisinopril) 10 Mg Tab, 10 MG PO DAILY, #30 TAB 0 Refills 07/13/16 Metoprolol Tartrate (Metoprolol Tartrate) 25 Mg Tab, 25 MG PO BID, #60 TAB 0 Refills 07/13/16 Nitroglycerin SL (Nitroglycerin SL) 0.4 Mg Subl, 0.4 MG SL DIRECTED Y for CHEST PAIN, #100 TAB.SL 0 Refills ONE TABLET UNDER THE TONGUE NEEDED FOR CHEST PAIN, MAY REPEAT EVERY FIVE MINUTES FOR A TOTAL OF 3 DOSES OR CALL 911 IF NO RELIEF 07/13/16 Pancrelipase (Zenpep) 10,000-34,000-55,000 Units Cap, 2 CAP PO TIDPC for Digestive Aid, #90 CAP 0 Refills 07/13/16 Family Psych History No family psychiatric history Social History Patient was born and raised in [place], he lives in a motel in [place], his single, real estate photographer, highest level of education is college Physical Exam Vital Signs Vital Signs Date Time Temp Pulse Resp B/P (MAP) Pulse Ox O2 Delivery O2 Flow Rate FiO2 07/06/17 10:09 07/06/17 06:08 98.9 55 18 Room Air 07/06/17 00:28 95 Lab Results Test 07/05/17 16:05 07/05/17 17:49 07/05/17 20:08 Urine Opiates Screen NEG Urine Barbiturates Screen NEG Urine Amphetamines Screen NEG Urine Benzodiazepines Screen NEG Urine Cocaine Screen NEG Urine Cannabinoids Screen NEG White Blood Count 9.5 TH/MM3 Red Blood Count 4.64 MIL/MM3 Hemoglobin 12.3 GM/DL Hematocrit 38.1 % Mean Corpuscular Volume 82.3 FL Mean Corpuscular Hemoglobin 26.6 PG Mean Corpuscular Hemoglobin Concent 32.4 % Red Cell Distribution Width 24.7 % Platelet Count 218 TH/MM3 Mean Platelet Volume 7.7 FL Neutrophils (%) (Auto) 51.3 % Lymphocytes (%) (Auto) 39.3 % Monocytes (%) (Auto) 8.7 % Eosinophils (%) (Auto) 0.1 % Basophils (%) (Auto) 0.6 % Neutrophils # (Auto) 4.9 TH/MM3 Lymphocytes # (Auto) 3.7 TH/MM3 Monocytes # (Auto) 0.8 TH/MM3 Eosinophils # (Auto) 0.0 TH/MM3 Basophils # (Auto) 0.1 TH/MM3 CBC Comment AUTO DIFF Differential Total Cells Counted 100 Neutrophils % (Manual) 46 % Band Neutrophils % 5 % Lymphocytes % 43 % Monocytes % 4 % Basophils % 2 % Neutrophils # (Manual) 4.8 TH/MM3 Differential Comment FINAL DIFF MANUAL Toxic Granulation 1+ Toxic Vacuolation PRESENT Platelet Estimate NORMAL Platelet Morphology Comment NORMAL Ovalocytes 1+ Acanthocytes 1+ Blood Urea Nitrogen 6 MG/DL Creatinine 0.69 MG/DL Random Glucose 114 MG/DL Total Protein 7.2 GM/DL Albumin 3.7 GM/DL Calcium Level 9.0 MG/DL Alkaline Phosphatase 90 U/L Aspartate Amino Transf (AST/SGOT) 64 U/L Alanine Aminotransferase (ALT/SGPT) 61 U/L Total Bilirubin 0.4 MG/DL Sodium Level 137 MEQ/L Potassium Level 3.5 MEQ/L Chloride Level 100 MEQ/L Carbon Dioxide Level 20.2 MEQ/L Anion Gap 17 MEQ/L Estimat Glomerular Filtration Rate 116 ML/MIN Thyroid Stimulating Hormone 3rd Gen 0.376 uIU/ML Ethyl Alcohol Level 235 MG/DL Mental Status Examination Appearance: Appropriate Consciousness: Alert Orientation: x4 Motor Activity: Normal gait Speech: Unremarkable Language: Adequate Fund of Knowledge: Adequate Attention and Concentration: Adequate Memory: Unremarkable Mood: Appropriate Affect: Appropriate Thought Process & Associations: Intact Thought Content: Appropriate Hallucination Type: None Delusion Type: None Suicidal Ideation: No Suicidal Plan: No Suicidal Intention: No Homicidal Ideation: No Homicidal Plan: No Homicidal Intention: No Insight: Adequate Judgment: Adequate Assessment & Plan Problem List: (1) Alcohol dependence with acute alcoholic intoxication ICD Codes: F10.229 - Alcohol dependence with intoxication, unspecified Status: Acute Assessment & Plan: Patient is now clinically sober. He denies symptoms of depression, anxiety, popeye and psychosis. Patient is logical coherent and relevant. Oriented 3. He denies suicidal enemas ideation, he denies visual and auditory hallucinations. Patient does not meet criteria for involuntary psychiatric admission at this moment. Assessment & Plan Estimated LOS: days Dm Nava MD Jul 06, 2017 11:59
--- NOTE | 2017-07-06 14:18 | EKG ---
Date Performed: 07/06/2017 Time Performed: 06:16:55 PTAGE: 62 years EKG: Sinus rhythm NORMAL ECG INTERPRETATION BASED ON A DEFAULT AGE OF 40 YEARS PREVIOUS TRACING : 06/20/2017 09.15 Since the previous tracing, no significant change not ed DOCTOR: Guilherme Jones Interpretating Date/Time 07/06/2017 14:18:16
== END 2017-07-06 10:11 | disposition home or self-care (01) ==
LOC: NEPJ 14:23
DX: F10.24 Alcohol dependence with alcohol-induced mood disorder (principal); F17.200 Nicotine dependence, unspecified, uncomplicated; I10 Essential (primary) hypertension; Y90.7 Blood alcohol level of 200-239 mg/100 ml; Z79.899 Other long term (current) drug therapy
CPT/HCPCS: 70450; 80053; 80307; 84443; 85007; 85027; 93005; 96374; 99284; J2060

== ENCOUNTER 2017-07-06 18:48 | Emergency (ER) | payer MEDICARE, OTHER ==
[2017-07-06 19:10] VITALS: BP 140/80; PULSE 111; RESP 19; O2SAT 97
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
[2017-07-07 00:23] VITALS: BP 130/67; PULSE 95; RESP 18; TEMP 98.8; O2SAT 98
[2017-07-07 06:19] VITALS: BP 135/71; PULSE 79; RESP 18; TEMP 98.5; O2SAT 100
[2017-07-07 07:57] VITALS: BP 137/71; PULSE 66; RESP 18; TEMP 98.8; O2SAT 98
[2017-07-07 12:26] VITALS: BP 148/72; PULSE 86; RESP 18; O2SAT 98
--- NOTE | 2017-07-07 12:58 | PD ---
Physical Exam Time Seen by Provider: 12:57 Narrative The patient is being transferred to the [facility] for continued care and evaluation. Data Data Last Documented VS Vital Signs Date Time Temp Pulse Resp B/P (MAP) Pulse Ox O2 Delivery O2 Flow Rate FiO2 07/07/17 12:26 86 18 148/72 (97) 98 Room Air 07/07/17 07:57 98.8 Orders Orders Psych Screen (07/06/17 19:12) Diet Heart Healthy (07/07/17 Breakfast) Diet Regular Basic (07/07/17 Lunch) Ed Discharge Order (07/07/17 12:57) [facility] Supervised Visit with KENDRA: No Narrative Course The patient is being transferred to the [facility] for continued care and evaluation. Diagnosis Primary Impression: Adjustment disorder with depressed mood Disposition: 65 DISC TO PSYCH CARE FACILITY Condition: Stable Lisa Jerez Jul 07, 2017 12:58
== END 2017-07-07 14:17 ==
LOC: NEPJ 18:48
DX: F43.21 Adjustment disorder with depressed mood (principal); M06.9 Rheumatoid arthritis, unspecified; K74.60 Unspecified cirrhosis of liver; K21.9 Gastro-esophageal reflux disease without esophagitis; I10 Essential (primary) hypertension; E03.9 Hypothyroidism, unspecified; F17.200 Nicotine dependence, unspecified, uncomplicated; Z87.19 Personal history of other diseases of the digestive system; Z79.02 Long term (current) use of antithrombotics/antiplatelets
CPT/HCPCS: 99285